=== PATIENT | male | born 1950 | race Caucasian/White ===

== ENCOUNTER 2021-05-02 12:18 | Outpatient (CLI) | payer MEDICARE, SELFPAY ==
--- NOTE | 2021-05-02 12:40 | XR_ITS ---
WS: [id number] XR chest 2V* [id number] REASON FOR EXAM: SMOKER/ACUTE BRONCHITIS/COPD FINDINGS: Moderate tortuosity of the thoracic aorta without aneurysmal dilatation. Normal heart size. Calcified granulomatous disease in both hemithoraces. There is hyperexpansion of both lungs with blunting of the costophrenic angles. There is expansion of the anterior clear space. There is upper lobe bullous disease bilaterally. No acute pulmonary parenchymal or pleural abnormality is identified. XR/XR chest 2V* [id number] IMPRESSION: Chest configuration indicates obstructive lung disease. This has progressed sin ce 02/11/2017. No acute findings are identified.
== END 2021-05-02 12:19 | disposition home or self-care (01) ==
LOC: RAD 12:25
PROVIDERS: PCP Family Medicine; Visit Provider Family Medicine
DX: J44.9 Chronic obstructive pulmonary disease, unspecified (principal); J20.9 Acute bronchitis, unspecified; F17.210 Nicotine dependence, cigarettes, uncomplicated
CPT/HCPCS: 71046

== ENCOUNTER 2022-02-19 08:48 | Inpatient (IN) | payer MEDICARE, SELFPAY ==
[2022-02-19] VITALS (14 sets, daily range): BP systolic 101–149; BP diastolic 69–92; PULSE 74–123; RESP 16–21; TEMP 36.7–37.2; O2SAT 89–98; BMI 19.1
--- NOTE | 2022-02-19 09:01 | XR_ITS ---
WS: [id number] XR chest 1V portable [id number] REASON FOR EXAM: dyspnea/cough FINDINGS: Mild tortuosity the thoracic aorta with normal heart size. Calcified granulomatous disease in both hemithoraces. The lungs are significantly hyperexpanded with bullous disease in the upper lungs. No acute pulmonary parenchymal or pleural abnormality is identified. Mild degenerative spondylosis in the mid and lower thoracic spine. The chest is unchanged compared to 05/02/2021. XR/XR chest 1V portable [id number] IMPRESSION: Presumed obstructive lung disease with no acute abnormality.
--- NOTE | 2022-02-19 09:10 | W.ED.SOB ---
HPI - SOB/Dyspnea General: Chief Complaint: Shortness of Breath/Dyspnea Stated Complaint: SOB Time Seen by Provider: 02/19/22 09:01 Source: patient Mode of arrival: EMS History of Present Illness: HPI Narrative: 71-year-old male presents to the emergency room with complaint of shortness of breath. Is been going on for the last 2 days it hurts to take a deep breath he said moderately productive cough of clear sputum denies dysuria urgency or frequency he relates right lower chest and rib pain that he states is due to his cough. Slight tenderness in right upper quadrant present when examining his abdomen, he relates it is due to right lower rib pain. He denies any central chest pain. Denies any fever sweats or chills no dysuria urgency or frequency. He normally is on oxygen at 3 L/min on arrival here he is correct up to 5 L/min by nasal cannula and I came in the room he still satting in the upper 80s increased him to 6 L. He did receive 1 nebulizer treatment from EMS with mild relief of symptoms MD elicited complaint: shortness of breath and cough Pertinent past history: COPD Onset (ago): day(s) (1) Timing: constant Severity: moderate Exacerbating factors: exertion, coughing and inspiration Relieving factors: rest and bronchodilators Known history of: COPD Associated symptoms: Reports chest congestion and cough; Deny abdominal pain, chest pain, diaphoresis, dizziness, extremity pain, fever(s), hemoptysis, lightheadedness, myalgias, nausea, orthopnea, palpitations, paresthesias, polydipsia, polyuria, rash, sense of impending doom, syncope or vomiting Treatment prior to arrival: oxygen and bronchodilator Review of Systems Const: Denies: fever(s), chills, fatigue, malaise or diaphoresis ENMT: Denies: throat pain, ear or mastoid pain, nasal discharge or nasal congestion Card: Denies: chest pain, palpitations, lightheadedness, syncope or orthopnea Resp: Reports: dyspnea, productive cough, wheezing and chest congestion; Denies: non-productive cough or hemoptysis GI: Denies: abdominal pain, nausea or vomiting : Denies: flank pain, dysuria, urinary frequency or urinary urgency Musc: Denies: back pain or extremity pain Skin/Breast: Denies: rash or pruritus Neuro: Denies: dizziness Endo: Denies: polyuria or polydipsia PFSH ED PFSH: Medical History (Updated 02/19/22 @ 15:06 by Eduin Parks DO) COPD (chronic obstructive pulmonary disease) COVID-19 (~08/2021) On home oxygen therapy 3L [facility] Surgical History (Updated 02/19/22 @ 13:48 by Barby Marcum MD) History of cataract surgery bilateral History of elbow surgery right, due to fracture History of right knee surgery History of surgery on right wrist due to fracture Family History (Updated 02/19/22 @ 13:37 by Barby Marcum MD) Grandmother Diabetes Mother Diabetes Social History (Updated 02/19/22 @ 13:26 by Barby Marcum MD) Smoking and tobacco status: current every day smoker cigarettes [ Other cigarette details: trying to quit cigarettes] and cigars Cigar details: trying to quit cigars Alcohol intake: never Substance/Drug Use: never Household members: spouse Marital status: Physical Exam Const: GENERAL APPEARANCE: cooperative and comfortable ORIENTATION/CONSCIOUSNESS: Yes awake, Yes oriented to person, Yes oriented to place and Yes oriented to time HENMT: COMMON NORMALS: normocephalic, atraumatic and hearing grossly normal bilaterally HEAD & SCALP: normocephalic and atraumatic Resp: COMMON NORMALS: normal respiratory effort, No retractions, No use of accessory muscles and clear to auscultation bilaterally AUSCULTATION: clear to auscultation bilaterally Cardio: COMMON NORMALS: regular rate, regular rhythm and No murmurs present (Cardio) RATE: regular rate RHYTHM: regular rhythm GI: COMMON NORMALS: Soft to palpation and No hepatosplenomegaly present AUSCULTATION: Yes normoactive bowel sounds PALPATION: Yes Soft to palpation, No Tenderness to palpation present (GI), No Guarding due to palpation present (GI) and Yes No hepatosplenomegaly present Extremity: COMMON NORMALS: normal to inspection, capillary refill normal, no clubbing, cyanosis or edema, no calf tenderness and no pedal edema Neuro: SENSORIUM/ORIENTATION: Yes oriented to person, Yes oriented to place and Yes oriented to time Skin: COMMON NORMALS: no rashes or lesions noted GENERAL SKIN EXAM: no rashes or lesions noted Course Vital Signs: Vital signs: Vital Signs Temperature 98.9 F 02/19/22 08:47 Pulse Rate 84 02/19/22 14:56 Respiratory Rate 16 02/19/22 14:56 Blood Pressure 117/73 02/19/22 14:56 Pulse Oximetry 97 02/19/22 14:56 Oxygen Delivery Me thod 02/19/22 11:54 Oxygen Flow Rate 5 02/19/22 11:54 MDM - SOB/Dyspnea Medical Decision Making He still requiring 5 to 6 L by oxygen is very poor air movement. He did improve a little with nebulizer and steroids will admit for exacerbation COPD. He has some mild lymphocytopenia we will add a COVID test as well and serial troponins although his chest pain seems more musculoskeletal. Medical Records I reviewed the patient's medical records. Lab Data I reviewed the patient's lab results. 02/19/22 11:15 02/19/22 11:15 Labs/Radiology: Radiology Impressions Chest X-Ray 02/19/22 09:01 IMPRESSION: Presumed obstructive lung disease with no acute abnormality. Chest CTA 02/19/22 14:18 IMPRESSION: 1. No evidence of pulmonary embolus. 2. No acute pulmonary infiltrates. 3. Trace RIGHT greater than LEFT pleural fluid. 4. No focal pneumonia or consolidation Laboratory Results WBC 11.0 10^3/uL (4.0-10.0) H 02/19/22 11:15 RBC 4.29 10^6/uL (4.1-5.3) 02/19/22 11:15 Hgb 14.5 g/dL (11.7-16.6) 02/19/22 11:15 Hct 42.8 % (42.0-52.0) 02/19/22 11:15 MCV 99.8 fl (80-94) H 02/19/22 11:15 MCH 33.8 pg (28.0-34.0) 02/19/22 11:15 MCHC 33.9 g/dL (30.0-36.0) 02/19/22 11:15 RDW 11.9 % (12.1-15.1) L 02/19/22 11:15 Plt Count 142 10^3/cmm (130-400) 02/19/22 11:15 MPV 11.7 fL (7.4-10.4) H 02/19/22 11:15 Neut % (Auto) 89.1 % 02/19/22 11:15 Lymph % (Auto) 3.0 % 02/19/22 11:15 Long % (Auto) 7.0 % 02/19/22 11:15 Eos % (Auto) 0.0 % 02/19/22 11:15 Baso % (Auto) 0.4 % 02/19/22 11:15 Neut # (Auto) 9.83 10^3/uL (1.8-7.7) H 02/19/22 11:15 Lymph # (Auto) 0.3 10^3/uL (0.8-4.8) L 02/19/22 11:15 Long # (Auto) 0.8 10^3/uL (0.2-0.9) 02/19/22 11:15 Eos # (Auto) 0.0 10^3/uL (0.0-0.8) 02/19/22 11:15 Baso # (Auto) 0.0 10^3/uL (0.0-0.1) 02/19/22 11:15 Nucleated RBC % (auto) 0 % 02/19/22 11:15 Nucleated RBCs # 0.0 /100WBC 02/19/22 11:15 D-Dimer 2.61 ug/mIFEU (0-0.59) H 02/19/22 13:12 Specimen Type Arterial 02/19/22 10:48 Sample Site Brachial, left 02/19/22 10:48 ABG pH 7.36 (7.35-7.45) 02/19/22 10:48 ABG pCO2 52.4 mmHg (35-45) H 02/19/22 10:48 ABG pO2 60.7 mmHg (80.0-100.0) L 02/19/22 10:48 ABG HCO3 29.4 mmol/L (22-26) H 02/19/22 10:48 ABG O2 Saturation 90.2 02/19/22 10:48 ABG Base Excess 2.6 mmol/L (-2.0-2.0) H 02/19/22 10:48 Carter Test Pos 02/19/22 10:48 A-a O2 Gradient 3.2 mmHg (5-10) L 02/19/22 10:48 Hematocrit 45.3 % (42-52) 02/19/22 10:48 Hgb O2 Saturation 88.3 % (95-100) L 02/19/22 10:48 Carboxyhemoglobin 1.5 %THgb (0.4-20.1) 02/19/22 10:48 Methemoglobin 0.6 % (0.4-1.5) 02/19/22 10:48 Total Hemoglobin 14.8 g/dL (14-18) 02/19/22 10:48 Sodium 134.0 mmol/L (131-143) 02/19/22 10:48 Potassium 4.0 mmol/L (3.5-5.0) 02/19/22 10:48 Glucose 130.0 mg/dL (70-115) H 02/19/22 10:48 Ionized Calcium 1.2 mmol/L (1.1-1.4) 02/19/22 10:48 O2 Delivery Device Nc 02/19/22 10:48 O2 Liters/Min 5.0 % 02/19/22 10:48 Resident Care Supervisor ID Cak 02/19/22 10:48 Sodium 132 mmol/L (136-145) L 02/19/22 11:15 Potassium 4.1 mmol/L (3.5-5.1) 02/19/22 11:15 Chloride 93 mmol/L (98-107) L 02/19/22 11:15 Carbon Dioxide 26 mmol/L (22-29) 02/19/22 11:15 Anion Gap 17.1 (5-19) 02/19/22 11:15 BUN 6 mg/dL (8-23) L 02/19/22 11:15 Creatinine 0.4 mg/dL (0.7-1.2) L 02/19/22 11:15 GFR Calculation 213.3 mL/min (90-130) H 02/19/22 11:15 Glucose 129 mg/dL (65-115) H 02/19/22 11:15 Calculated Osmolality 273 mOsm/kg (285-295) L 02/19/22 11:15 Calcium 8.9 mg/dL (8.5-10.5) 02/19/22 11:15 Total Bilirubin 0.6 mg/dL (0.15-1.2) 02/19/22 11:15 AST 18 U/L (0-40) 02/19/22 11:15 ALT 11 U/L (0-41) 02/19/22 11:15 Alkaline Phosphatase 72 U/L (40-130) 02/19/22 11:15 Troponin T Baseline 10 ng/L (0-15) 02/19/22 11:15 Troponin T 120 Minute 8.91 ng/L (0-15) 02/19/22 13:12 Delta Troponin T -1.09 ABS# (0-10) L 02/19/22 13:12 Total Protein 7.5 g/dL (6.6-8.7) 02/19/22 11:15 Albumin 3.8 g/dL (3.5-5.2) 02/19/22 11:15 Globulin 3.7 g/dL (1.3-4.6) 02/19/22 11:15 Procalcitonin 0.04 ng/mL (0-0.5) 02/19/22 11:15 Coronavirus 229E (PCR) Not detected (NOT DETECT) 02/19/22 12:52 SARS-CoV-2 (PCR) Not detected (NOT DETECT) 02/19/22 12:52 Discharge Plan Discharge Patient Disposition: Admitted As Inpatient Clinical Impression: Acute exacerbation of chronic obstructive airways disease, Pleuritic chest pain, On home oxygen therapy Condition: Stable Prescriptions: No Action albuterol sulfate 90 mcg/actuation HFA aerosol inhaler 2 puff INHALATION Q4H PRN (Reason: Shortness Of Breath Or Wheezing) Anoro Ellipta 62.5-25 mcg/actuation blister with device 1 inh INHALATION DAILY Referrals: Nando Green MD [Primary Care Provider] - Coding Level of Care Code ED Geospatial Developer for Chg Fwd Exam Detailed
--- NOTE | 2022-02-19 09:16 | ECG_ITS ---
[facility] Test Date: 2022-02-19 Pat Name: Markus Trimble Department: Room: Gender: Male Director Of Estate: : 1950 Requested By: Eduin Park Order Number: [id number] Fredy MD: Mehdi Funes M.D. Measurements Intervals [place] Rate: 119 P: 83 ND: 155 QRS: 128 QRSD: 89 T: 80 QT: 303 QTc: 428 Interpretive Statements SINUS TACHYCARDIA INDETERMINATE AXIS PATTERN CONSISTENT WITH PULMONARY DISEASE Compared to ECG 11/02/2016 12:10:34 No significant changes Electronically Signed On 02-19-2022 14:50:41 RN TRAVELING by Mehdi Funes M.D. [email or web address]
[2022-02-19] MEDS: ipratropium-albuterol 3 mL Neb INHALATION ×3 (09:44→21:15)
[2022-02-19 10:59] LABS: ABG PCO2 52.4 mmHg (35-45); ABG PH Result 7.36 (7.35-7.45); Alveolar-Arterial Oxygen Gradi 3.2 mmHg (5-10); Arterial Blood Gas Hematocrit 45.3 % (42-52); Base Excess ABG 2.6 mmol/L (-2.0-2.0); Blood Gas Allen Test Pos; Blood Gas Operator Identificat CAK; Blood Gas Sample Site Brachial, left; Blood Gas Sample Type Arterial; Carboxyhemoglobin 1.5 %THgb (0.4-20.1); HCO3 ABG 29.4 mmol/L (22-26); HGB O2 Sat 88.3 % (95-100); Ionized Calcium Level - ABG 1.2 mmol/L (1.1-1.4); Methemoglobin 0.6 % (0.4-1.5); Oxygen Device NC; Oxygen Saturation ABG 90.2; PO2 ABG 60.7 mmHg (80.0-100.0); Total Hemoglobin 14.8 g/dL (14-18)
[2022-02-19 11:42] LABS: Basophils % 0.4 %; Hematocrit 42.8 % (42.0-52.0); Hemoglobin 14.5 g/dL (11.7-16.6); Lymphocytes # 0.3 10^3/uL (0.8-4.8); Mean Corpuscular HGB Conc 33.9 g/dL (30.0-36.0); Mean Corpuscular Hemoglobin 33.8 pg (28.0-34.0); Mean Corpuscular Volume 99.8 fl (80-94); Mean Platelet Volume 11.7 fL (7.4-10.4); Monocytes # 0.8 10^3/uL (0.2-0.9); Neutrophils # 9.83 10^3/uL (1.8-7.7); Neutrophils % 89.1 %; Nucleated Red Blood Cells % 0 %; Platelet Count 142 10^3/cmm (130-400); Red Blood Count 4.29 10^6/uL (4.1-5.3); Red Cell Distribution Width 11.9 % (12.1-15.1)
[2022-02-19 11:58] LABS: Alanine Aminotransferase 11 U/L (0-41); Albumin Level 3.8 g/dL (3.5-5.2); Alkaline Phosphatase 72 U/L (40-130); Blood Urea Nitrogen 6 mg/dL (8-23); Calcium 8.9 mg/dL (8.5-10.5); Carbon Dioxide 26 mmol/L (22-29); Chloride 93 mmol/L (98-107); Globulin 3.7 g/dL (1.3-4.6); Glomerular Filtration Rate 213.3 mL/min (90-130); Glucose 129 mg/dL (65-115); Osmolality Calculated 273 mOsm/kg (285-295); Sodium 132 mmol/L (136-145); Total Bilirubin 0.6 mg/dL (0.15-1.2); Total Protein 7.5 g/dL (6.6-8.7)
[2022-02-19 11:59] LABS: Anion Gap 17.1 (5-19); Potassium 4.1 mmol/L (3.5-5.1)
[2022-02-19 12:00] LABS: Aspartate Amino Transferase 18 U/L (0-40)
--- NOTE | 2022-02-19 12:33 | ECG_ITS ---
[facility] Test Date: 2022-02-19 Pat Name: Markus Trimble Department: Room: Gender: Male Loadmaster: : 1950 Requested By: Eduin Park Order Number: [id number] Fredy MD: Mehdi Funes M.D. Measurements Intervals [place] Rate: 106 P: 81 KS: 150 QRS: 81 QRSD: 90 T: 82 QT: 323 QTc: 430 Interpretive Statements SINUS TACHYCARDIA INDETERMINATE AXIS PATTERN CONSISTENT WITH PULMONARY DISEASE Compared to ECG 02/19/2022 10:59:43 No significant changes Electronically Signed On 02-19-2022 14:51:50 FRONT END UI DEVELOPER by Mehdi Funes M.D. [id number]
--- NOTE | 2022-02-19 12:42 | P.HP_ITS ---
Providers/Chief Complaint Admitting Physician: Barby Marcum MD Primary Care Provider: Nando Green MD Chief Complaint: SOB History of Present Illness Markus Trimble is a 71 year old male with a history of COPD who presented to the emergency room with chief complaint of increasing difficulty breathing over the last several days. He started noticing increased work of breathing gradually worsening over the last few weeks. On he did not feel well. On Saturday after he started running a low-grade fever 100-101. 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 At baseline he is on approximately 3 L by nasal cannula of oxygen therapy. Sometime on Saturday to Saturday he started having a sharp knifelike pain in his right chest. He was having difficulty getting deep breaths because of this pain. He noticed that with exertion his oxygen saturations were dropping into the 50s at times. Saturations always drop with exertion but not usually that low. He has been having to rest more frequently and the last 24 hours or so has not really gotten up much due to difficulty breathing. Cough has been productive of greenish clear sputum. No blood has been noted. He thinks he is probably lost a few pounds while he has not felt well. Some posttussive emesis but no nausea or vomiting otherwise. No abdominal pain. No change in bowel function or bladder function. He has had notable wheezing. He has been using his Anoro Ellipta as well as albuterol inhaler. Has not noted significant improvement after using inhalers. No other abcl-gyu-zsmmzto medications recently. No known sick contacts. He did receive a flu shot last month. He has had a pneumonia shot within the last 5 years. He had COVID 4 to 6 months ago. He has noticed a change in his respiratory pattern since he had COVID particularly in terms of sputum production. No lower extremity edema or calf pain. In the emergency room he was requiring up to 6 L of oxygen by nasal cannula to maintain saturations. Chest x-ray did not show any acute infiltrates though there was evident hyperinflation and possibly some fluid in the lateral fissure. He received steroids and continuous breathing treatment in the emergency room. He is being admitted for further care. Last use of steroids by his recollection is late summer. No recent antibiotics. Review of Systems Const: Reports: fever(s), chills, body aches, change in weight (possible w eight loss), fatigue and malaise ENMT: Reports: other (pulled his own teeth, has a few left); Denies: throat pain Card: Reports: chest pain (right sided with inspiration and cough) and dyspnea on exertion; Denies: irregular heart rhythm, edema or orthopnea Resp: Reports: dyspnea, productive cough, non-productive cough, wheezing, pain on inspiration, change in phlegm color (greenish clear now, bubbly) and chest congestion (hard to get up); Denies: hemoptysis GI: Reports: vomiting (post-tussive only); Denies: abdominal pain, nausea, hematemesis or change in bowel habits : Denies: change in urine stream Musc: Reports: joint pain (right knee always bothers him some, prior surgery), muscle weakness and other (general aches and pains lately) Skin/Breast: Reports: dry skin Neuro: Reports: weakness in extremities (general) and difficulty walking (due to breathing); Denies: frequent falls Mau/Lymph: Denies: easy bleeding Medications/Allergies Home Medications Medication Instructions Recorded Confirmed Last Taken Type albuterol sulfate 90 mcg/actuation 2 puff inhalation Q4H PRN 02/19/22 02/19/22 02/18/22 History aerosol inhaler Shortness Of Breath Or Wheezing umeclidinium 62.5 mcg-vilanterol 1 inh inhalation DAILY 02/19/22 02/19/2202/18 History 25 mcg/actuation powdr for inhalation (Anoro Ellipta) Allergies Allergy/AdvReac Type Severity Reaction Status Date / Time No Known Allergies Allergy Verified 02/19/22 10:52 PFSH Acute PFSH: Medical History (Updated 02/19/22 @ 14:06 by Barby Marcum MD) COPD (chronic obstructive pulmonary disease) COVID-19 (~08/2021) On home oxygen therapy 3L [facility] Surgical History (Updated 02/19/22 @ 13:48 by Barby Marcum MD) History of cataract surgery bilateral History of elbow surgery right, due to fracture History of right knee surgery History of surgery on right wrist due to fracture Family History (Updated 02/19/22 @ 13:37 by Barby Marcum MD) Grandmother Diabetes Mother Diabetes Social History (Updated 02/19/22 @ 13:26 by Barby Marcum MD) Smoking and tobacco status: current every day smoker cigarettes [ Other cigarette details: trying to quit cigarettes] and cigars Cigar details: trying to quit cigars Alcohol intake: never Substance/Drug Use: never Household members: spouse Marital status: Vitals/I&O/Wt Last Vital Signs Temp 98.9 F 02/19/22 08:47 Pulse 78 02/19/22 11:54 Resp 20 H 02/19/22 09:46 BP 110/71 02/19/22 11:54 Pulse Ox 94 02/19/22 11:54 O2 Del Method 02/19/22 11:54 O2 Flow Rate 5 02/19/22 11:54 Weight last 48 hrs Weight 52.163 kg Physical Exam Narrative: Constitutional: Awake and alert, able to provide history, thin build, frequent paroxysms of coughing noted during examination HEENT: Normocephalic, pupils are equally reactive, extraocular movements are intact, nasopharynx is clear, oropharynx with moist mucous membranes, poor dentition, no posterior pharyngeal erythema Neck: Supple, no JVD Respiratory: Tachypnea, shallow respirations, guarding of right side of chest with cough and attempts at deep inspiration, wheezes throughout, no rales or rhonchi, right lateral chest is very tender to palpation between fifth and sixth ribs, reproducible on examination as the pain that he has been experiencing in his chest wall Cardiovascular: Distant heart sounds but regular, pulses equal at both radial and both posterior tibialis, no murmurs noted Abdomen: Soft, nontender, positive bowel sounds Extremities: No calf tenderness, no pitting edema, prominent patella bilaterally due to thin body habitus Skin: Dry, evidence of prior sun exposure, no large bruises or rashes Neuro: Speech clear, face symmetric, moves all extremities, no tremors Psych: Normal affect Data 02/19/22 11:15 02/19/22 11:15 Other Labs: Radiology Impressions Chest X-Ray 02/19/22 09:01 IMPRESSION: Presumed obstructive lung disease with no acute abnormality. Laboratory Results WBC 11.0 10^3/uL (4.0-10.0) H 02/19/22 11:15 RBC 4.29 10^6/uL (4.1-5.3) 02/19/22 11:15 Hgb 14.5 g/dL (11.7-16.6) 02/19/22 11:15 Hct 42.8 % (42.0-52.0) 02/19/22 11:15 MCV 99.8 fl (80-94) H 02/19/22 11:15 MCH 33.8 pg (28.0-34.0) 02/19/22 11:15 MCHC 33.9 g/dL (30.0-36.0) 02/19/22 11:15 RDW 11.9 % (12.1-15.1) L 02/19/22 11:15 Plt Count 142 10^3/cmm (130-400) 02/19/22 11:15 MPV 11.7 fL (7.4-10.4) H 02/19/22 11:15 Neut % (Auto) 89.1 % 02/19/22 11:15 Lymph % (Auto) 3.0 % 02/19/22 11:15 [place] % (Auto) 7.0 % 02/19/22 11:15 Eos % (Auto) 0.0 % 02/19/22 11:15 Baso % (Auto) 0.4 % 02/19/22 11:15 Neut # (Auto) 9.83 10^3/uL (1.8-7.7) H 02/19/22 11:15 Lymph # (Auto) 0.3 10^3/uL (0.8-4.8) L 02/19/22 11:15 [place] # (Auto) 0.8 10^3/uL (0.2-0.9) 02/19/22 11:15 Eos # (Auto) 0.0 10^3/uL (0.0-0.8) 02/19/22 11:15 Baso # (Auto) 0.0 10^3/uL (0.0-0.1) 02/19/22 11:15 Nucleated RBC % (auto) 0 % 02/19/22 11:15 Nucleated RBCs # 0.0 /100WBC 02/19/22 11:15 Specimen Type Arterial 02/19/22 10:48 Sample Site Brachial, left 02/19/22 10:48 ABG pH 7.36 (7.35-7.45) 02/19/22 10:48 ABG pCO2 52.4 mmHg (35-45) H 02/19/22 10:48 ABG pO2 60.7 mmHg (80.0-100.0) L 02/19/22 10:48 ABG HCO3 29.4 mmol/L (22-26) H 02/19/22 10:48 ABG O2 Saturation 90.2 02/19/22 10:48 ABG Base Excess 2.6 mmol/L (-2.0-2.0) H 02/19/22 10:48 Carter Test Pos 02/19/22 10:48 A-a O2 Gradient 3.2 mmHg (5-10) L 02/19/22 10:48 Hematocrit 45.3 % (42-52) 02/19/22 10:48 Hgb O2 Saturation 88.3 % (95-100) L 02/19/22 10:48 Carboxyhemoglobin 1.5 %THgb (0.4-20.1) 02/19/22 10:48 Methemoglobin 0.6 % (0.4-1.5) 02/19/22 10:48 Total Hemoglobin 14.8 g/dL (14-18) 02/19/22 10:48 Sodium 134.0 mmol/L (131-143) 02/19/22 10:48 Potassium 4.0 mmol/L (3.5-5.0) 02/19/22 10:48 Glucose 130.0 mg/dL (70-115) H 02/19/22 10:48 Ionized Calcium 1.2 mmol/L (1.1-1.4) 02/19/22 10:48 O2 Delivery Device Nc 02/19/22 10:48 O2 Liters/Min 5.0 % 02/19/22 10:48 Recovery Unit Operator ID Cak 02/19/22 10:48 Sodium 132 mmol/L (136-145) L 02/19/22 11:15 Potassium 4.1 mmol/L (3.5-5.1) 02/19/22 11:15 Chloride 93 mmol/L (98-107) L 02/19/22 11:15 Carbon Dioxide 26 mmol/L (22-29) 02/19/22 11:15 Anion Gap 17.1 (5-19) 02/19/22 11:15 BUN 6 mg/dL (8-23) L 02/19/22 11:15 Creatinine 0.4 mg/dL (0.7-1.2) L 02/19/22 11:15 GFR Calculation 213.3 mL/min (90-130) H 02/19/22 11:15 Glucose 129 mg/dL (65-115) H 02/19/22 11:15 Calculated Osmolality 273 mOsm/kg (285-295) L 02/19/22 11:15 Calcium 8.9 mg/dL (8.5-10.5) 02/19/22 11:15 Total Bilirubin 0.6 mg/dL (0.15-1.2) 02/19/22 11:15 AST 18 U/L (0-40) 02/19/22 11:15 ALT 11 U/L (0-41) 02/19/22 11:15 Alkaline Phosphatase 72 U/L (40-130) 02/19/22 11:15 Troponin T Baseline 10 ng/L (0-15) 02/19/22 11:15 Total Protein 7.5 g/dL (6.6-8.7) 02/19/22 11:15 Albumin 3.8 g/dL (3.5-5.2) 02/19/22 11:15 Globulin 3.7 g/dL (1.3-4.6) 02/19/22 11:15 Laboratory Tests 02/19/22 02/19/22 11:15 12:52 Procalcitonin Pending SARS-CoV-2 (PCR) Pending A&P Assessment and plan (1) COPD (chronic obstructive pulmonary disease): Acute on chronic COPD exacerbation. Reports some low-grade fevers a few days ago, not evident currently. General malaise and body aches. Significant dyspnea on exertion with hypoxemia noted. No definitive infiltrate on chest x-ray. Notable lateral fissure. White count 11,000 with lymphopenia and mild neutrophilia. Increased paroxysms of coughing with occasional posttussive emesis. Green sputum without any blood noted. Up-to-date on influenza and pneumonia vaccinations. Had COVID approximately 6 months ago. No known history of CHF or CAD. Qualifiers: COPD type: COPD with acute exacerbation Qualified Code(s): J44.1 - Chronic obstructive pulmonary disease with (acute) exacerbation (2) Pleuritic chest pain: Pain elicitable on examination consistent with musculoskeletal in nature from increased cough lately, less likely from other causes based on currently available information (3) Nicotine dependence, cigarettes, with other nicotine-induced disorders: Also smokes cigars at times. Reports wants to quit both cigarettes and cigars. Abstinent for about 5 days now. Plan Mild hyperglycemia after receiving steroids upon arrival to the emergency room; no history of diabetes Observation admission for now Systemic and inhaled steroids Breathing treatments Wean oxygen as able to home 3 L by nasal cannula Blood cultures Initiate oral doxycycline Flutter and incentive spirometer Follow-up pending respiratory viral panel Follow-up pending procalcitonin and D-dimer Continue serial cardiac enzymes Add BNP Monitor blood sugars PPI for GI prophylaxis Lovenox for DVT prophylaxis Monitor response to treatment and adjust plan of care accordingly Currently anticipate discharge home, possibly with a higher level of oxygen than usual home amount, and outpatient follow-up to primary care provider Dr. Srivastava Supportive care otherwise Findings, concerns and plans were discussed with patient and his and both were given an opportunity to ask questions Full code Attestations Medical Necessity Statement*: Currently anticipate a stay less than two midnights in this gentleman with known history of COPD on home oxygen presenting with exacerbation developing over the last few days. He has not been on any outpatient steroids or antibiotics. Hopefully he will have quick improvement with management as noted above. If he does not however may require transition to inpatient level of care. Coding Level of Care Code Acute Hydro Plant Site Manager for Trino Mcnulty Diagnoses COPD (chronic obstructive pulmonary disease) J44.1 COPD type: COPD with acute exacerbation Pleuritic chest pain R07.81 Nicotine dependence, cigarettes, with other nicotine-induced disorders F17.218
[2022-02-19 12:43] LABS: Troponin(5th) Baseline 10 ng/L (0-15)
[2022-02-19 13:39] LABS: Troponin 5 2HR 8.91 ng/L (0-15)
[2022-02-19 13:56] LABS: Troponin 5 2HR Delta -1.09 ABS# (0-10)
[2022-02-19 14:02] LABS: Procalcitonin 0.04 ng/mL (0-0.5)
[2022-02-19 14:11] LABS: D Dimer 2.61 ug/mIFEU (0-0.59)
--- NOTE | 2022-02-19 14:18 | CT_ITS ---
WS: [id number] CTA OF THE CHEST WITH PULMONARY EMBOLISM PROTOCOL TECHNIQUE: High-resolution contrast enhanced CTA of the chest with coronal and sagittal reformatted i mages with pulmonary embolism protocol. MIP images are also reviewed. CLINICAL INFORMATION: pleuritic chest pain, hypoxemia, elevated d dimer COMPARISON: None. DLP: 207.[address] scans at [facility] use at least one of these dose optimization techniques: automated e xposure control; mA and/or kV adjustment per patient size (includes targeted exams where dose is matc hed to clinical indication); or iterative reconstruction. FINDINGS: Proximal main pulmonary arteries are normal. Normal segmental and subsegmental pulmonary arteries. No evidence of pulmonary embolus. Moderate chronic emphysematous changes. Trace RIGHT greater than LEFT pleural fluid. No focal pneumon ia. Mild thoracic curve. Mild disc space narrowing the mid and lower thoracic spine. CT/CT angio chest PE protcl [id number] IMPRESSION: 1. No evidence of pulmonary embolus. 2. No acute pulmonary infiltrates. 3. Trace RIGHT greater than LEFT pleural fluid. 4. No focal pneumonia or consolidation
--- NOTE | 2022-02-19 14:26 | ECG_ITS ---
[facility] Test Date: 2022-02-19 Pat Name: Markus Trimble Department: Room: Gender: Male Treatment Supervisor: : 1950 Requested By: Eduin Park Order Number: [id number] Fredy MD: Mehdi Funes M.D. Measurements Intervals [place] Rate: 95 P: 85 NH: 150 QRS: 80 QRSD: 90 T: 83 QT: 341 QTc: 429 Interpretive Statements SINUS RHYTHM INDETERMINATE AXIS PATTERN CONSISTENT WITH PULMONARY DISEASE Compared to ECG 02/19/2022 12:33:03 Sinus tachycardia no longer present Electronically Signed On 02-20-2022 0:13:37 TICKET SORTER by Mehdi Funes M.D. [id number]
[2022-02-19] MEDS: iohexol 350 mg/mL 500 mL Btl (per mL) IV (14:40)
[2022-02-19 14:57] LABS: Adenovirus Not Detected (NOT DETECT); Chlamydia Pneumoniae Not Detected (NOT DETECT); Coronavirus 229E,HKU1,NL63,OC4 Not Detected (NOT DETECT); Human Metapneumovirus Not Detected (NOT DETECT); Human Rhinovirus/Enterovirus Not Detected (NOT DETECT); Influenza A Not Detected (NOT DETECT); Influenza A H1 Not Detected (NOT DETECT); Influenza A H1-2009 Not Detected (NOT DETECT); Influenza A H3 Not Detected (NOT DETECT); Influenza B Not Detected (NOT DETECT); Mycoplasma Pneumoniae Not Detected (NOT DETECT); Parainfluenza Virus Type 1 Not Detected (NOT DETECT); Parainfluenza Virus Type 2 Not Detected (NOT DETECT); Parainfluenza Virus Type 3 Not Detected (NOT DETECT); Parainfluenza Virus Type 4 Not Detected (NOT DETECT); Respiratory Syncytial Virus A Not Detected (NOT DETECT); Respiratory Syncytial Virus B Not Detected (NOT DETECT); SARS-COV-2 Not Detected (NOT DETECT)
[2022-02-19 17:49] LABS: Glucose Point of Care 221 mg/dL (70-110)
[2022-02-19] MEDS: doxycycline 100 mg Tablet PO (17:50)
[2022-02-19] MEDS: enoxaparin 40 mg/0.4 mL Syringe SUBCUT (17:50)
[2022-02-19] MEDS: sodium chlor 0.45% +KCl 20 mEq 20 MEQ/1,000 ML BAG 75 MEQ IV (17:50)
[2022-02-19 18:08] LABS: Troponin 5 6HR 7.98 ng/L (0-15)
--- NOTE | 2022-02-19 18:18 | PC.NURSE ---
Dr. Marcum notified patient refusing insulin.
[2022-02-19 18:21] LABS: Troponin 5 6HR Delta -2.02 ng/L (0-12)
--- NOTE | 2022-02-19 18:26 | ECG_ITS ---
[facility] Test Date: 2022-02-19 Pat Name: Markus Trimble Department: Room: 278 Gender: Male Consultant Dietitian: : 1950 Requested By: Eduin Park Order Number: [id number] Fredy MD: Roz Sawyer M.D. Measurements Intervals [place] Rate: 103 P: 84 HI: 155 QRS: 87 QRSD: 94 T: 80 QT: 333 QTc: 438 Interpretive Statements SINUS TACHYCARDIA INDETERMINATE AXIS Compared to ECG 02/19/2022 15:06:16 Sinus rhythm no longer present Electronically Signed On 02-20-2022 18:14:55 ETIOLOGIST by Roz Sawyer M.D. [id number]
[2022-02-19 20:29] LABS: Glucose Point of Care 252 mg/dL (70-110)
[2022-02-19] MEDS: budesonide 0.5 mg/2 mL Neb INHALATION (20:50)
[2022-02-19] MEDS: insulin lispro 100 unit/1 mL SUBCUT (21:35)
[2022-02-20] VITALS (13 sets, daily range): BP systolic 112–139; BP diastolic 63–81; PULSE 83–114; RESP 12–20; TEMP 36.4–36.8; O2SAT 92–96
[2022-02-20] MEDS: ipratropium-albuterol 3 mL Neb INHALATION ×6 (00:08→22:37)
[2022-02-20 06:30] LABS: Glucose Point of Care 209 mg/dL (70-110)
[2022-02-20 06:35] LABS: Basophils % 0.1 %; Hematocrit 41.8 % (42.0-52.0); Lymphocytes # 0.3 10^3/uL (0.8-4.8); Lymphocytes % 3.7 %; Mean Corpuscular HGB Conc 33.5 g/dL (30.0-36.0); Mean Corpuscular Hemoglobin 34.1 pg (28.0-34.0); Mean Corpuscular Volume 101.7 fl (80-94); Mean Platelet Volume 11.2 fL (7.4-10.4); Monocytes # 0.4 10^3/uL (0.2-0.9); Monocytes % 4.9 %; Neutrophils # 7.68 10^3/uL (1.8-7.7); Neutrophils % 90.9 %; Nucleated Red Blood Cells % 0 %; Platelet Count 145 10^3/cmm (130-400); Red Blood Count 4.11 10^6/uL (4.1-5.3); Red Cell Distribution Width 11.9 % (12.1-15.1); White Blood Count 8.4 10^3/uL (4.0-10.0)
[2022-02-20 06:47] LABS: Estmated Average Glucose 97
[2022-02-20 07:00] LABS: Anion Gap 14.2 (5-19); Blood Urea Nitrogen 10 mg/dL (8-23); Calcium 9.1 mg/dL (8.5-10.5); Carbon Dioxide 27 mmol/L (22-29); Chloride 98 mmol/L (98-107); Glomerular Filtration Rate 213.3 mL/min (90-130); Glucose 186 mg/dL (65-115); NT Pro B Type Natriuretic Pept 284 pg/mL (0-125); Osmolality Calculated 284 mOsm/kg (285-295); Phosphorus 2.5 mg/dL (2.5-4.5); Potassium 4.2 mmol/L (3.5-5.1); Sodium 135 mmol/L (136-145)
[2022-02-20 07:29] LABS: Slide Review Slide Review Perform
[2022-02-20] MEDS: doxycycline 100 mg Tablet PO ×2 (08:13→17:09)
[2022-02-20] MEDS: docusate sodium 100 mg Capsule PO (08:13)
[2022-02-20] MEDS: pantoprazole DR 40 mg Tablet PO (08:13)
[2022-02-20] MEDS: budesonide 0.5 mg/2 mL Neb INHALATION ×2 (10:00→22:36)
--- NOTE | 2022-02-20 11:47 | P.PN_ITS ---
Subjective Subjective: Patient was seen and examined this morning shortness of breath has improved since yesterday. Does states that he still has significant shortness of breath. Medications: Medication Review Details: Generic Name Dose Route Start Last Admin Trade Name Edmar PRN Reason Stop Dose Admin Albuterol/Ipratrop ium 3 ml 02/19/22 16:00 02/20/22 10:00 Ipratropium-Albu terol 3 Ml Neb INHALATION 3 ml Q4H.RESPIRATORY S CH Administration Budesonide 0.5 mg 02/19/22 20:00 02/20/22 10:00 Budesonide 0.5 M g/2 Ml Neb INHALATION 0.5 mg BID.RESPIRATORY S CH Administration Docusate Sodium 100 mg 02/19/22 18:00 02/20/22 08:13 Docusate Sodium 100 Mg Capsule PO 100 mg BID ALFIE Administration Doxycycline Monohy drate 100 mg 02/19/22 18:00 02/20/22 08:13 Doxycycline 100 Mg Tablet PO 100 mg BID ALFIE Administration Protocol Enoxaparin Sodium 40 mg 02/19/22 17:27 02/19/22 17:50 Enoxaparin 40 Mg /0.4 Ml Syringe SUBCUT 40 mg Q24H ALFIE Administration Insulin Human Lisp ro 0 unit 02/19/22 21:00 02/19/22 21:35 Insulin Lispro 1 00 Unit/1 Ml SUBCUT 3 unit BEDTIME ALFIE Administration Protocol Insulin Human Lisp ro 0 unit 02/19/22 18:00 02/20/22 08:48 Insulin Lispro 1 00 Unit/1 Ml SUBCUT Not Given TIDWM ALFIE Protocol Methylprednisolone Sodium Succinate 60 mg 02/19/22 17:27 02/20/22 05:04 Methylprednisolo ne Sod Succ 125 Mg /2 Ml Inj IVP 60 mg Q6H ALFIE Administration Pantoprazole Sodiu m 40 mg 02/20/22 09:00 02/20/22 08:[address] 40 Mg Tablet PO 40 mg DAILY ALFIE Administration Vitals/I&O/Wt Last Vital Signs Temp 97.9 F 02/20/22 08:00 Pulse 106 H 02/20/22 08:00 Resp 12 02/20/22 08:00 BP 128/76 02/20/22 08:00 Pulse Ox 92 02/20/22 08:00 O2 Del Method 02/20/22 08:00 O2 Flow Rate 4 02/20/22 08:00 02/19/22 02/20/22 02/20/22 22:59 06:59 14:59 Intake Total 720 / 720 1360 / 1360 Output Total 0 / 0 325 / 325 Balance 720 / 720 0 / 720 1035 / 1035 Weight last 48 hrs Weight 52.163 kg Physical Exam Const: COMMON NORMALS: patient oriented x3 Resp: EFFORT & INSPECTION: Yes symmetric chest movement OTHER: Bilateral expiratory wheezing present in both the lung lackey, diminished air entry bilaterally, prolonged expiratory phase. Cardio: COMMON NORMALS: regular rate, regular rhythm, S1 normal heart sound present, S2 normal heart sound present, No gallops present (Cardio), No murmurs present (Cardio), No rub (Cardio) and Peripheral pulses 2+ throughout RATE: regular rate RHYTHM: regular rhythm HEART SOUNDS: S1 normal heart sound present and S2 normal heart sound present PERIPHERAL PULSES: Peripheral pulses 2+ throughout GI: COMMON NORMALS: Normal to inspection, nondistended, normoactive bowel sounds present, Soft to palpation, non-tender, No hepatosplenomegaly present and no masses AUSCULTATION: Yes normoactive bowel sounds PALPATION: Yes Soft to palpation and Yes No hepatosplenomegaly present RECTAL EXAM: Yes deferred Extremity: COMMON NORMALS: no clubbing, cyanosis or edema and no pedal edema Neuro: COMMON NORMALS: patient oriented x3 Data 02/20/22 06:18 02/20/22 06:18 Micro: Microbiology 02/19/22 14:10 Blood Culture - Preliminary Blood SPECIMEN COLLECTED 02/19/22 14:16 Blood Culture - Preliminary Blood SPECIMEN COLLECTED A&P Assessment and plan (1) COPD (chronic obstructive pulmonary disease): Acute on chronic COPD exacerbation. Reports some low-grade fevers a few days ago, not evident currently. General malaise and body aches. Significant dyspnea on exertion with hypoxemia noted. No definitive infiltrate on chest x-ray. Notable lateral fissure. White count 11,000 with lymphopenia and mild neutrophilia. Increased paroxysms of coughing with occasional posttussive emesis. Green sputum without any blood noted. Up-to-date on influenza and pneumonia vaccinations. Had COVID approximately 6 months ago. No known history of CHF or CAD. Qualifiers: COPD type: COPD with acute exacerbation Qualified Code(s): J44.1 - Chronic obstructive pulmonary disease with (acute) exacerbation (2) Pleuritic chest pain: Pain elicitable on examination consistent with musculoskeletal in nature from increased cough lately, less likely from other causes based on currently available information (3) Nicotine dependence, cigarettes, with other nicotine-induced disorders: Also smokes cigars at times. Reports wants to quit both cigarettes and cigars. Abstinent for about 5 days now. Plan 71-year-old male with past medical history of COPD on 3 L home oxygen admitted with chief complaint of worsening shortness of breath going on for the last few days. Patient also reported significant drop in his o2 saturation with minimal exertion.Also reports productive cough with greenish sputum. Currently being managed for. Assessment: Acute on chronic COPD exacerbation: Pleuritic chest pain Plan: CTA chest: No evidence of pulmonary embolus.No acute pulmonary infiltrates.Trace RIGHT greater than LEFT pleural fluid. No focal pneumonia or consolidation. COVID PCR negative Procalcitonin 0.04 proBNP 284 Blood culture:NTD Sputum gram stain and culture Continue Solu-Medrol, duo nebs, budesonide inhaler, doxycycline. Incentive spirometer DVT prophylaxis: On Lovenox CODE STATUS : Full code Attestations Medical Necessity Statement*: Patient is still in hospital for management of COPD exacerbation. Time Spent in Patient Care: Greater than 35 minutes (>than 50% of time spent in counselling and/or direct pt care on unit) . Coding Level of Care Code Acute Manager Services for Trino Fwd Exam Detailed Diagnoses COPD (chronic obstructive pulmonary disease) J44.1 COPD type: COPD with acute exacerbation Pleuritic chest pain R07.81 Nicotine dependence, cigarettes, with other nicotine-induced disorders F17.218
--- NOTE | 2022-02-20 13:22 | PC.CHAP ---
Pastoral Care Encounter/Spiritual Assessment Type of Contact [] Declined line crewman visit [] Patient/Family/Request visit [] Outpatient visit [] Follow-up visit [] Physician referral [] Code/Alert [x] Routine visit [] Staff referral [] Actively dying [] Patient sleeping [] Family support [] [] Out of room [] Palliative care [] [] Receiving care in room [] Pre-surgical visit [] Trauma [] Long length of stay [] ICU visit [] Other: Relational/Emotional Strength [x] Patient feels connected with others/family/visitors/staff [] Distress [] Loneliness/isolation [] Abandonment Spirituality of Patient [x] Person of Marjan [x] Attends Latter-Day of their [place]jan [x] Believes in Prayer [x] Reads Bible or Moravian materials [] There are Spiritual issues to be addressed Rag Cutting Machine Feeder Interventions [x] Prayer [x] Active listening [] Non-anxious presence [x] Spiritual/emotional support [] Crisis/trauma care [] Spiritual counseling [] Bereavement support [] Provided bereavement packet [] Provided Bible/devotional materials [] Provided toy/stuffed animal, coloring book to patient or family member [] Provided Communion [] Anointing/[place] [] Salvation [x] Completed spiritual assessment [] Other: Impact on Illness or Injury [] Angry [] Fearful [] Anxious [] Often cries [] Exhaustion [] Unable to work [] Unable to attend taoist [] Unable to walk/stand [] Unable to read [] Unable to drive [] Unable to eat/drink [] Unable to sleep [] Unable to be with family [] Patient intubated [] Other: Summary Time spent with patient 10 min
[2022-02-20] MEDS: enoxaparin 40 mg/0.4 mL Syringe SUBCUT (17:09)
[2022-02-21] VITALS (12 sets, daily range): BP systolic 111–134; BP diastolic 67–78; PULSE 86–104; RESP 14–20; TEMP 36.4–36.7; O2SAT 92–99
[2022-02-21] MEDS: ipratropium-albuterol 3 mL Neb INHALATION ×6 (01:51→21:14)
[2022-02-21 06:02] LABS: Basophils % 0.2 %; Hematocrit 39.5 % (42.0-52.0); Lymphocytes # 0.4 10^3/uL (0.8-4.8); Lymphocytes % 3.3 %; Mean Corpuscular HGB Conc 32.9 g/dL (30.0-36.0); Mean Corpuscular Hemoglobin 33.4 pg (28.0-34.0); Mean Corpuscular Volume 101.5 fl (80-94); Mean Platelet Volume 11.1 fL (7.4-10.4); Monocytes # 0.7 10^3/uL (0.2-0.9); Monocytes % 5.1 %; Neutrophils # 11.67 10^3/uL (1.8-7.7); Neutrophils % 90.9 %; Nucleated Red Blood Cells % 0 %; Platelet Count 178 10^3/cmm (130-400); Red Blood Count 3.89 10^6/uL (4.1-5.3); Red Cell Distribution Width 11.9 % (12.1-15.1); White Blood Count 12.8 10^3/uL (4.0-10.0)
[2022-02-21 06:23] LABS: Anion Gap 11.9 (5-19); Blood Urea Nitrogen 13 mg/dL (8-23); Carbon Dioxide 30 mmol/L (22-29); Chloride 101 mmol/L (98-107); Glomerular Filtration Rate 297.3 mL/min (90-130); Glucose 167 mg/dL (65-115); Osmolality Calculated 292 mOsm/kg (285-295); Potassium 3.9 mmol/L (3.5-5.1); Sodium 139 mmol/L (136-145)
[2022-02-21 06:33] LABS: Glucose Point of Care 264 mg/dL (70-110)
[2022-02-21 06:34] LABS: Glucose Point of Care 192 mg/dL (70-110)
[2022-02-21 06:34] LABS: Glucose Point of Care 197 mg/dL (70-110)
[2022-02-21] MEDS: doxycycline 100 mg Tablet PO ×2 (07:54→17:43)
[2022-02-21] MEDS: pantoprazole DR 40 mg Tablet PO (07:54)
[2022-02-21] MEDS: budesonide 0.5 mg/2 mL Neb INHALATION ×2 (07:57→21:14)
--- NOTE | 2022-02-21 09:45 | USCV_ITS ---
Markus Trimble Age: 71 Gender: M : 1950 Exam Date: 02/21/2022 11:23 Ordering Phys: Jaya Tineo MD Technologist: ROMULO Exam Location: [facility] [place] Indication: SHORTNESS OF BREATH BP: 131 / 72 HR: 106 Rhythm: Sinus Technical Quality: Poor secondary to COPD MEASUREMENTS (Male / Female) Normal Values 2D ECHO LVOT Diameter 2.0 cm LA Diameter 2.5 cm Aorta at Sinotubular Diameter 2.6 cm IVC Diameter 0.9 cm M-MODE Aortic Annulus Diameter 2.9 cm LA Ao Ratio MM 0.9 MV E Point Septal Separation 0.4 cm DOPPLER TR Peak Velocity 275.0 cm/s TR Peak Gradient 30.3 mmHg Right Atrial Pressure 3.0 mmHg Pulmonary Artery Systolic Pressu 33.3 mmHg PV Peak Velocity 93.0 cm/s RV Acceleration Time 0.1 s RV Ejection Time 0.3 s RV AcT/ET 0.4 FINDINGS Left Ventricle Normal left ventricular cavity size. Normal left ventricular systolic function. Left ventricular ejection fraction is grossly estimated at 60 %. The study is inadequate for estimation of regional wall motion abnormality. Right Ventricle Possibly normal right ventricular size and systolic function. Right ventricular systolic pressure 33.3 mmHg. Right Atrium Right atrium not well visualized. Left Atrium Left atrium not well visualized. Possibly normal left atrial size. Mitral Valve Mild bowing of bilateral mitral leaflets. Aortic Valve Structurally normal trileaflet aortic valve. Tricuspid Valve Structurally normal tricuspid valve. No tricuspid valve stenosis. Trace to mild tricuspid valve regurgitation. Pulmonic Valve Structurally normal pulmonic valve. No pulmonary valve stenosis. Trace pulmonary valve regurgitation. Pericardium No pericardial effusion. Aorta Normal size aortic root and proximal ascending aorta. IVC Inferior vena cava not visualized. CONCLUSIONS 1. This is a technically difficult study with no apical windows. 2. Normal left ventricular cavity size. Normal left ventricular systolic function. Left ventricular ejection fraction is grossly estimated at 60 %. The study is inadequate for estimation of regional wall motion abnormality. 3. Mild bowing of bilateral mitral leaflets. 4. No prior similar studies to compare. Roz Sawyer MD (Electronically Signed) Final Date: 21 February 2022 15:01 S
--- NOTE | 2022-02-21 11:10 | P.PN_ITS ---
Subjective Subjective: Patient was seen and examined this morning shortness of breath is improving, also producing thick dark sputum. Patient is also persistently tachycardic, and is complaining of rib cage pain, denies any trauma. Possibly pleuritic chest pain. We will do 2D echo today, given his long smoking history and significant shortness of breath. Medications: Medication Review Details: Generic Name Dose Route Start Last Admin Trade Name Edmar PRN Reason Stop Dose Admin Albuterol/Ipratrop ium 3 ml 02/19/22 16:00 02/21/22 07:57 Ipratropium-Albu terol 3 Ml Neb INHALATION 3 ml Q4H.RESPIRATORY S CH Administration Budesonide 0.5 mg 02/19/22 20:00 02/21/22 07:57 Budesonide 0.5 M g/2 Ml Neb INHALATION 0.5 mg BID.RESPIRATORY S CH Administration Docusate Sodium 100 mg 02/19/22 18:00 02/21/22 07:55 Docusate Sodium 100 Mg Capsule PO Not Given BID [facility] Doxycycline Monohy drate 100 mg 02/19/22 18:00 02/21/22 07:54 Doxycycline 100 Mg Tablet PO 100 mg BID ALFIE Administration Protocol Enoxaparin Sodium 40 mg 02/19/22 17:27 02/20/22 17:09 Enoxaparin 40 Mg /0.4 Ml Syringe SUBCUT 40 mg Q24H ALFIE Administration Insulin Human Lisp ro 0 unit 02/19/22 21:00 02/20/22 21:18 Insulin Lispro 1 00 Unit/1 Ml SUBCUT Not Given BEDTIME ALFIE Protocol Insulin Human Lisp ro 0 unit 02/19/22 18:00 02/21/22 07:54 Insulin Lispro 1 00 Unit/1 Ml SUBCUT Not Given TIDWM [facility] Protocol Pantoprazole Sodiu m 40 mg 02/20/22 09:00 02/21/22 07:[address] 40 Mg Tablet PO 40 mg DAILY ALFIE Administration Vitals/I&O/Wt Last Vital Signs Temp 97.6 F 02/21/22 07:42 Pulse 98 02/21/22 08:02 Resp 18 02/21/22 07:57 BP 131/72 02/21/22 07:42 Pulse Ox 95 02/21/22 07:57 O2 Del Method 02/21/22 07:57 O2 Flow Rate 4 02/21/22 07:57 02/20/22 02/21/22 02/21/22 22:59 06:59 14:59 Intake Total 480 / 480 Output Total 750 / 1075 400 / 1475 Balance -750 / 525 -400 / 125 480 / 480 Physical Exam Const: COMMON NORMALS: patient oriented x3 Resp: EFFORT & INSPECTION: Yes symmetric chest movement OTHER: Bilateral expiratory wheezing present in both the lung lackey, diminished air entry bilaterally, prolonged expiratory phase. Cardio: COMMON NORMALS: regular rate, regular rhythm, S1 normal heart sound present, S2 normal heart sound present, No gallops present (Cardio), No murmurs present (Cardio), No rub (Cardio) and Peripheral pulses 2+ throughout RATE: regular rate RHYTHM: regular rhythm HEART SOUNDS: S1 normal heart sound present and S2 normal heart sound present PERIPHERAL PULSES: Peripheral pulses 2+ throughout GI: COMMON NORMALS: Normal to inspection, nondistended, normoactive bowel sounds present, Soft to palpation, non-tender, No hepatosplenomegaly present and no masses AUSCULTATION: Yes normoactive bowel sounds PALPATION: Yes Soft to palpation and Yes No hepatosplenomegaly present RECTAL EXAM: Yes deferred Extremity: COMMON NORMALS: no clubbing, cyanosis or edema and no pedal edema Neuro: COMMON NORMALS: patient oriented x3 Data 02/21/22 05:47 02/21/22 05:47 Micro: Microbiology 02/19/22 14:16 Blood Culture - Preliminary Blood NEGATIVE TO DATE 02/19/22 14:10 Blood Culture - Preliminary Blood NEGATIVE TO DATE A&P Assessment and plan (1) COPD (chronic obstructive pulmonary disease): Acute on chronic COPD exacerbation. Reports some low-grade fevers a few days ago, not evident currently. General malaise and body aches. Significant dyspnea on exertion with hypoxemia noted. No definitive infiltrate on chest x-ray. Notable lateral fissure. White count 11,000 with lymphopenia and mild neutrophilia. Increased paroxysms of coughing with occasional posttussive emesis. Green sputum without any blood noted. Up-to-date on influenza and pneumonia vaccinations. Had COVID approximately 6 months ago. No known history of CHF or CAD. Qualifiers: COPD type: COPD with acute exacerbation Qualified Code(s): J44.1 - Chronic obstructive pulmonary disease with (acute) exacerbation (2) Pleuritic chest pain: Pain elicitable on examination consistent with musculoskeletal in nature from increased cough lately, less likely from other causes based on currently available information (3) Nicotine dependence, cigarettes, with other nicotine-induced disorders: Also smokes cigars at times. Reports wants to quit both cigarettes and cigars. Abstinent for about 5 days now. Plan 71-year-old male with past medical history of COPD on 3 L home oxygen admitted with chief complaint of worsening shortness of breath going on for the last few days. Patient also reported significant drop in his o2 saturation with minimal exertion.Also reports productive cough with greenish sputum. Currently being managed for. Assessment: Acute on chronic COPD exacerbation: Pleuritic chest pain Plan: CTA chest: No evidence of pulmonary embolus.No acute pulmonary infiltrates.Trace RIGHT greater than LEFT pleural fluid. No focal pneumonia or consolidation. 2DEcho : COVID PCR negative Procalcitonin 0.04 proBNP 284 Blood culture:NTD Sputum gram stain and culture Continue Solu-Medrol, duo nebs, budesonide inhaler, doxycycline. Incentive spirometer DVT prophylaxis: On Lovenox CODE STATUS : Full code Attestations Medical Necessity Statement*: Patient is to be in hospital for management of COPD exacerbation. Coding Level of Care Code Acute Canoe Inspector Final for Trino Mcnulty Diagnoses COPD (chronic obstructive pulmonary disease) J44.1 COPD type: COPD with acute exacerbation Pleuritic chest pain R07.81 Nicotine dependence, cigarettes, with other nicotine-induced disorders F17.218
[2022-02-21 11:29] LABS: Glucose Point of Care 171 mg/dL (70-110)
[2022-02-21] MEDS: enoxaparin 40 mg/0.4 mL Syringe SUBCUT (17:42)
[2022-02-21 20:37] LABS: Glucose Point of Care 168 mg/dL (70-110)
[2022-02-21 20:37] LABS: Glucose Point of Care 159 mg/dL (70-110)
[2022-02-22] VITALS (7 sets, daily range): BP systolic 126–142; BP diastolic 75–81; PULSE 80–91; RESP 14–20; TEMP 36.4–36.7; O2SAT 94–97
--- NOTE | 2022-02-22 00:46 | PC.NURSE ---
Upon most recent rounding at 0046 the patient is becoming extremely confused and combative the patient stated You are trying to hurt my hand Latha,JERRY is sitting at bedside. This nurse reminded the patient to leave their bandage alone on their hand and she did not voice any understanding. Reinforcement is needed. Patient stated ' I had surgery a long time ago and does not remember having surgery. The bandage was rewrapped at this time.
[2022-02-22] MEDS: ipratropium-albuterol 3 mL Neb INHALATION ×3 (01:23→08:20)
[2022-02-22 05:26] LABS: Basophils % 0.1 %; Hematocrit 38.3 % (42.0-52.0); Hemoglobin 12.7 g/dL (11.7-16.6); Lymphocytes # 0.4 10^3/uL (0.8-4.8); Mean Corpuscular HGB Conc 33.2 g/dL (30.0-36.0); Mean Corpuscular Volume 102.4 fl (80-94); Mean Platelet Volume 10.7 fL (7.4-10.4); Monocytes # 0.5 10^3/uL (0.2-0.9); Monocytes % 5.3 %; Neutrophils # 9.21 10^3/uL (1.8-7.7); Neutrophils % 89.9 %; Nucleated Red Blood Cells % 0 %; Platelet Count 194 10^3/cmm (130-400); Red Blood Count 3.74 10^6/uL (4.1-5.3); Red Cell Distribution Width 11.9 % (12.1-15.1); White Blood Count 10.2 10^3/uL (4.0-10.0)
[2022-02-22 05:47] LABS: Anion Gap 9.1 (5-19); Blood Urea Nitrogen 14 mg/dL (8-23); Calcium 8.9 mg/dL (8.5-10.5); Carbon Dioxide 32 mmol/L (22-29); Chloride 99 mmol/L (98-107); Glomerular Filtration Rate 213.3 mL/min (90-130); Glucose 149 mg/dL (65-115); Osmolality Calculated 285 mOsm/kg (285-295); Potassium 4.1 mmol/L (3.5-5.1); Sodium 136 mmol/L (136-145)
[2022-02-22 07:19] LABS: Glucose Point of Care 147 mg/dL (70-110)
[2022-02-22] MEDS: doxycycline 100 mg Tablet PO (08:10)
[2022-02-22] MEDS: pantoprazole DR 40 mg Tablet PO (08:10)
[2022-02-22] MEDS: budesonide 0.5 mg/2 mL Neb INHALATION (08:20)
--- NOTE | 2022-02-22 10:25 | PC.NURSE ---
April is the first available appointment for Dr. Wynn since the patient is not established with his office.
--- NOTE | 2022-02-22 11:00 | P.DS_ITS ---
Discharge Providers Date of Admission: 02/20/22 14:16 Date of Discharge: February 22, 2022 Attending Provider at Admission: Barby Marcum MD Attending Provider at Discharge: Jaya Tineo MD Primary Care Provider: Nando Green MD Diagnoses at Discharge Discharge Diagnosis (1) COPD (chronic obstructive pulmonary disease): Status: Chronic Qualifiers: COPD type: COPD with acute exacerbation Qualified Code(s): J44.1 - Chronic obstructive pulmonary disease with (acute) exacerbation (2) Pleuritic chest pain: Status: Acute (3) Nicotine dependence, cigarettes, with other nicotine-induced disorders: Status: Chronic Reason for Visit Reason for Visit: SOB Hospital Course Hospital Course 71-year-old male with past medical history of COPD on 3 L home oxygen admitted with chief complaint of worsening shortness of breath going on for the last few days. Patient also reported significant drop in his o2 saturation with minimal exertion.Also reports productive cough with greenish sputum, he was admitted for the management of acute COPD exacerbation,CTA chest:?No evidence of pulmonary embolus.No acute pulmonary infiltrates.Trace RIGHT greater than LEFT pleural fluid. No focal pneumonia or consolidation. 2DEcho : Was a technically difficult study, assessment of RWMA was not possible , Normal left ventricular cavity size. Normal left ventricular, ?systolic function. Left ventricular ejection fraction is grossly estimated at 60 %.COVID PCR negative Procalcitonin 0.04, proBNP 284 , Blood culture: Negative. Patient was kept on IV steroid, duo nebs, budesonide inhaler, doxycycline, incentive spirometer flutter valve, supplemental oxygen as needed,overall patient was responding well to above medical management, though he still has shortness of breath with exertion, likely secondary to advanced progressive COPD. At the time of discharge he was requiring more or less his baseline oxygen, which is around 3 Ls, patient was discharged on p.o. prednisone as well azithromycin, he has been asked to follow with his primary care physician, as well as appointment has been made with pulmonary medicine as outpatient. Patient was also having pleuritic chest pain during the hospital stay, which had significantly improved at time of discharge. Overall patient responded well to above medical management and was discharged in stable condition to home. Physical Exam Const: COMMON NORMALS: patient oriented x3 Resp: EFFORT & INSPECTION: Yes symmetric chest movement OTHER: diminished air entry bilaterally, prolonged expiratory phase. Cardio: COMMON NORMALS: regular rate, regular rhythm, S1 normal heart sound present, S2 normal heart sound present, No gallops present (Cardio), No murmurs present (Cardio), No rub (Cardio) and Peripheral pulses 2+ throughout RATE: regular rate RHYTHM: regular rhythm HEART SOUNDS: S1 normal heart sound present and S2 normal heart sound present PERIPHERAL PULSES: Peripheral pulses 2+ throughout GI: COMMON NORMALS: Normal to inspection, nondistended, normoactive bowel sounds present, Soft to palpation, non-tender, No hepatosplenomegaly present and no masses AUSCULTATION: Yes normoactive bowel sounds PALPATION: Yes Soft to palpation and Yes No hepatosplenomegaly present RECTAL EXAM: Yes deferred Extremity: COMMON NORMALS: no clubbing, cyanosis or edema and no pedal edema Neuro: COMMON NORMALS: patient oriented x3 Discharge Data Studies Completed and Pending Completed Studies During Hospitalization Category Date Time Status CTA chest [CT angio chest PE protcl [id number]] Stat Cat Scan 02/19/22 14:18 Completed XR chest 1V portable [id number] Stat Exams 02/19/22 09:01 Completed CV. echo complete* [id number] Routine Ultrasound 02/21/22 09:45 Completed Pending at discharge Category Date Time Status BMP [Basic Metabolic Panel] AM LABS Lab 02/23/22 04:00 Ordered Blood Culture Stat Lab 02/19/22 14:10 Results CBC Auto Diff [Complete Blood Count w/Auto] AM LABS Lab 02/23/22 04:00 Ordered Sputum Culture and Gram Stain Routine Lab 02/19/22 17:27 Uncollected Radiology Impressions Chest X-Ray 02/19/22 09:01 IMPRESSION: Presumed obstructive lung disease with no acute abnormality. Chest CTA 02/19/22 14:18 IMPRESSION: 1. No evidence of pulmonary embolus. 2. No acute pulmonary infiltrates. 3. Trace RIGHT greater than LEFT pleural fluid. 4. No focal pneumonia or consolidation Laboratory Results WBC 10.2 10^3/uL (4.0-10.0) H 02/22/22 05:20 RBC 3.74 10^6/uL (4.1-5.3) L 02/22/22 05:20 Hgb 12.7 g/dL (11.7-16.6) 02/22/22 05:20 Hct 38.3 % (42.0-52.0) L 02/22/22 05:20 MCV 102.4 fl (80-94) H 02/22/22 05:20 MCH 34.0 pg (28.0-34.0) 02/22/22 05:20 MCHC 33.2 g/dL (30.0-36.0) 02/22/22 05:20 RDW 11.9 % (12.1-15.1) L 02/22/22 05:20 Plt Count 194 10^3/cmm (130-400) 02/22/22 05:20 MPV 10.7 fL (7.4-10.4) H 02/22/22 05:20 Neut % (Auto) 89.9 % 02/22/22 05:20 Lymph % (Auto) 4.0 % 02/22/22 05:20 [place] % (Auto) 5.3 % 02/22/22 05:20 Eos % (Auto) 0.0 % 02/22/22 05:20 Baso % (Auto) 0.1 % 02/22/22 05:20 Neut # (Auto) 9.21 10^3/uL (1.8-7.7) H 02/22/22 05:20 Lymph # (Auto) 0.4 10^3/uL (0.8-4.8) L 02/22/22 05:20 [place] # (Auto) 0.5 10^3/uL (0.2-0.9) 02/22/22 05:20 Eos # (Auto) 0.0 10^3/uL (0.0-0.8) 02/22/22 05:20 Baso # (Auto) 0.0 10^3/uL (0.0-0.1) 02/22/22 05:20 Nucleated RBC % (auto) 0 % 02/22/22 05:20 Nucleated RBCs # 0.0 /100WBC 02/22/22 05:20 D-Dimer 2.61 ug/mIFEU (0-0.59) H 02/19/22 13:12 Specimen Type Arterial 02/19/22 10:48 Sample Site Brachial, left 02/19/22 10:48 ABG pH 7.36 (7.35-7.45) 02/19/22 10:48 ABG pCO2 52.4 mmHg (35-45) H 02/19/22 10:48 ABG pO2 60.7 mmHg (80.0-100.0) L 02/19/22 10:48 ABG HCO3 29.4 mmol/L (22-26) H 02/19/22 10:48 ABG O2 Saturation 90.2 02/19/22 10:48 ABG Base Excess 2.6 mmol/L (-2.0-2.0) H 02/19/22 10:48 Carter Test Pos 02/19/22 10:48 A-a O2 Gradient 3.2 mmHg (5-10) L 02/19/22 10:48 Hematocrit 45.3 % (42-52) 02/19/22 10:48 Hgb O2 Saturation 88.3 % (95-100) L 02/19/22 10:48 Carboxyhemoglobin 1.5 %THgb (0.4-20.1) 02/19/22 10:48 Methemoglobin 0.6 % (0.4-1.5) 02/19/22 10:48 Total Hemoglobin 14.8 g/dL (14-18) 02/19/22 10:48 Sodium 134.0 mmol/L (131-143) 02/19/22 10:48 Potassium 4.0 mmol/L (3.5-5.0) 02/19/22 10:48 Glucose 130.0 mg/dL (70-115) H 02/19/22 10:48 Ionized Calcium 1.2 mmol/L (1.1-1.4) 02/19/22 10:48 O2 Delivery Device Nc 02/19/22 10:48 O2 Liters/Min 5.0 % 02/19/22 10:48 Clinical Laboratory Technician ID Cak 02/19/22 10:48 Sodium 136 mmol/L (136-145) 02/22/22 05:20 Potassium 4.1 mmol/L (3.5-5.1) 02/22/22 05:20 Chloride 99 mmol/L (98-107) 02/22/22 05:20 Carbon Dioxide 32 mmol/L (22-29) H 02/22/22 05:20 Anion Gap 9.1 (5-19) 02/22/22 05:20 BUN 14 mg/dL (8-23) 02/22/22 05:20 Creatinine 0.4 mg/dL (0.7-1.2) L 02/22/22 05:20 GFR Calculation 213.3 mL/min (90-130) H 02/22/22 05:20 Glucose 149 mg/dL (65-115) H 02/22/22 05:20 POC Glucose 147 mg/dL (70-110) H 02/22/22 06:22 Estimat Average Glucose 97 02/20/22 06:18 Hemoglobin A1c 5.0 % (4.0-6.0) 02/20/22 06:18 Calculated Osmolality 285 mOsm/kg (285-295) 02/22/22 05:20 Calcium 8.9 mg/dL (8.5-10.5) 02/22/22 05:20 Phosphorus 2.5 mg/dL (2.5-4.5) 02/20/22 06:18 Magnesium 2.0 mg/dL (1.7-2.3) 02/20/22 06:18 Total Bilirubin 0.6 mg/dL (0.15-1.2) 02/19/22 11:15 AST 18 U/L (0-40) 02/19/22 11:15 ALT 11 U/L (0-41) 02/19/22 11:15 Alkaline Phosphatase 72 U/L (40-130) 02/19/22 11:15 Troponin T Baseline 10 ng/L (0-15) 02/19/22 11:15 Troponin T 120 Minute 8.91 ng/L (0-15) 02/19/22 13:12 Delta Troponin T -1.09 ABS# (0-10) L 02/19/22 13:12 Troponin T Hi Sens 6Hr 7.98 ng/L (0-15) 02/19/22 17:18 Troponin T Hi Sens 6Hr Delta -2.02 ng/L (0-12) L 02/19/22 17:18 NT-Pro-B Natriuret Pep 284 pg/mL (0-125) H 02/20/22 06:18 Total Protein 7.5 g/dL (6.6-8.7) 02/19/22 11:15 Albumin 3.8 g/dL (3.5-5.2) 02/19/22 11:15 Globulin 3.7 g/dL (1.3-4.6) 02/19/22 11:15 Procalcitonin 0.04 ng/mL (0-0.5) 02/19/22 11:15 Coronavirus 229E (PCR) Not detected (NOT DETECT) 02/19/22 12:52 SARS-CoV-2 (PCR) Not detected (NOT DETECT) 02/19/22 12:52 Vitals Last Vital Signs Temp 98.0 F 02/22/22 08:00 Pulse 89 02/22/22 08:29 Resp 20 H 02/22/22 08:00 BP 142/81 02/22/22 08:00 Pulse Ox 94 02/22/22 08:00 O2 Del Method 02/22/22 08:00 O2 Flow Rate 4 02/22/22 08:00 Discharge Plan Discharge Patient Disposition: Home Condition: Stable Prescriptions: New azithromycin 500 mg tablet 500 mg PO DAILY 5 Days Qty: 5 0RF prednisone 20 mg tablet 40 mg PO DAILY 7 Days Qty: 7 0RF Continued albuterol sulfate 90 mcg/actuation HFA aerosol inhaler 2 puff INHALATION Q4H PRN (Reason: Shortness Of Breath Or Wheezing) Anoro Ellipta 62.5-25 mcg/actuation blister with device 1 inh INHALATION DAILY Discharge Orders: Discharge Order (Routine); Ordered 02/22/22 Ordered By: Jaya Tieno Referrals: JuanrOrtega MD [Physician] - 05/10/22 12:45 pm Nadno Green MD [Primary Care Provider] - 03/01/22 12:50 pm Patient Instructions: Prednisone (By mouth), Azithromycin (By mouth), COPD (Chronic Obstructive Pulmonary Disease) (DC), Opioid Safety Discharge Attestations Time Spent in Discharge Care*: less than 30 min Quality Metrics Clinical Quality Measures [ No reported AMI, CVA or VTE this stay] Coding Level of Care Code Acute Chg FW DC note Diagnoses COPD (chronic obstructive pulmonary disease) J44.1 COPD type: COPD with acute exacerbation Pleuritic chest pain R07.81 Nicotine dependence, cigarettes, with other nicotine-induced disorders F17.218
[2022-02-22 11:32] LABS: Glucose Point of Care 184 mg/dL (70-110)
--- NOTE | 2022-02-22 13:18 | PC.NURSE ---
Pt discharges facility at 1208 with spouse. IV out. Tele off. W/c down to private car. Discharge paperwork completed.
== END 2022-02-22 12:08 | disposition home or self-care (01) | DRG 192 ==
LOC: ER 15:06 → MEDSURG 17:36
PROVIDERS: Admitting Provider Hospitalist; Emergency Provider Family Medicine; PCP Family Medicine; Visit Provider Internal Medicine
DX: J44.1 Chronic obstructive pulmonary disease with (acute) exacerbation (principal); R73.9 Hyperglycemia, unspecified; T38.0X5A Adverse effect of glucocorticoids and synthetic analogues, initial encounter; Z99.81 Dependence on supplemental oxygen; Z86.16 Personal history of COVID-19; F17.210 Nicotine dependence, cigarettes, uncomplicated; R07.81 Pleurodynia
CPT/HCPCS: 36415; 36416; 36600; 71045; 71275; 80048; 80051; 80053; 82330; 82805; 82962; 83036; 83735; 83880; 84100; 84145; 84484; 85025; 85378; 87040; 87635; 93005; 93306; 94640; 96372; 96374; 99285; G0378; J1650; J1815; J2920; J2930; J3480; J7626; Q9967

== ENCOUNTER → 2022-05-02 13:54 | Outpatient (BNVA) | payer MEDICARE, SELFPAY | PROVIDERS: PCP Family Medicine; Visit Provider Internal Medicine Pulmonary Disease | DX: J44.1 Chronic obstructive pulmonary disease with (acute) exacerbation (principal); Z99.81 Dependence on supplemental oxygen; Z87.891 Personal history of nicotine dependence; R06.02 Shortness of breath | CPT/HCPCS: 99204 ==

== ENCOUNTER 2022-05-22 09:30 | Outpatient (CLI) | payer MEDICARE, SELFPAY ==
[2022-05-22 10:07] VITALS: PULSE 96; RESP 20; O2SAT 94
[2022-05-22] MEDS: albuterol 2.5 mg/3 mL Neb INHALATION (10:07)
[2022-05-22 10:12] VITALS: PULSE 105
== END 2022-05-22 09:31 | disposition home or self-care (01) ==
PROVIDERS: PCP Family Medicine; Visit Provider Internal Medicine Pulmonary Disease
DX: J44.1 Chronic obstructive pulmonary disease with (acute) exacerbation (principal)
CPT/HCPCS: 94060; 94618; 94726; 94729; J7613

== ENCOUNTER → 2022-06-29 10:38 | Outpatient (BNVA) | payer MEDICARE, SELFPAY | PROVIDERS: PCP Family Medicine; Visit Provider Internal Medicine Pulmonary Disease | DX: J44.1 Chronic obstructive pulmonary disease with (acute) exacerbation (principal); Z99.81 Dependence on supplemental oxygen; F17.298 Nicotine dependence, other tobacco product, with other nicotine-induced disorders | CPT/HCPCS: 99214 ==

== ENCOUNTER 2022-08-09 23:43 | Inpatient (IN) | payer MEDICARE, SELFPAY ==
[2022-08-09 23:45] VITALS: BP 134/82; PULSE 114; RESP 28; O2SAT 94; BMI 19.1
--- NOTE | 2022-08-09 23:49 | XRR_ITS ---
PROCEDURE INFORMATION: Exam: XR Chest Exam date and time: 08/09/2022 11:53 PM Age: 72 years old Clinical indication: Shortness of breath; Patient HX: C/O SOB. History of copd. TECHNIQUE: Imaging protocol: Radiologic exam of the chest. Views: 1 view. COMPARISON: CR XR chest 1V portable [id number] 02/19/2022 10:07 AM FINDINGS: Lungs: Emphysematous changes. Pleural spaces: Unremarkable. No pleural effusion. No pneumothorax. Heart/Mediastinum: Unremarkable. No cardiomegaly. Bones/joints: Unremarkable. XR/XR chest 1V portable [id number] IMPRESSION: Emphysematous changes, negative for infiltrate
[2022-08-09 23:52] VITALS: PULSE 119; RESP 26; O2SAT 83
--- NOTE | 2022-08-09 23:54 | ECG_ITS ---
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 Measurements Intervals [place] Rate: 113 P: 83 DC: 159 QRS: 229 QRSD: 93 T: 78 QT: 316 QTc: 434 Interpretive Statements SINUS TACHYCARDIA INDETERMINATE AXIS PATTERN CONSISTENT WITH PULMONARY DISEASE Compared to ECG 02/19/2022 18:39:01 No significant changes Electronically Signed On 08-11-2022 6:02:47 CDT by Roz Sawyer M.D. [id number]
--- NOTE | 2022-08-09 23:54 | W.ED.SOB ---
HPI - SOB/Dyspnea General: Chief Complaint: ER Hold Stated Complaint: SOB Time Seen by Provider: 08/09/22 23:47 Source: patient and EMS Mode of arrival: EMS Limitations: no limitations History of Present Illness: HPI Narrative: 72-year-old male has extensive history of COPD states he is short of breath all day getting much more short of breath at 1030 wears 3 L at baseline EMS states he was 87% on 3 L he is tachypneic here able speak in 3-4 word sentences. He received Solu-Medrol breathing treatment in route he states he has slight improvement still feels like he cannot get a breath then he denies any pain denies any fever denies any new cough. Associated symptoms: Deny abdominal pain, chest pain, fever(s), nausea or vomiting Review of Systems Const: Denies: fever(s), chills, body aches or change in appetite ENMT: Denies: throat pain or dental pain Card: Denies: chest pain Resp: Reports: dyspnea GI: Denies: abdominal pain, nausea, vomiting or diarrhea : Denies: dysuria Musc: Denies: neck pain or back pain Skin/Breast: Denies: rash Neuro: Denies: headache(s) PFSH ED PFSH: Medical History Acute exacerbation of chronic obstructive airways disease COPD (chronic obstructive pulmonary disease) COVID-19 (~08/2021) Nicotine dependence, cigarettes, with other nicotine-induced disorders On home oxygen therapy 3L BNC Pleuritic chest pain Surgical History History of cataract surgery bilateral History of elbow surgery right, due to fracture History of right knee surgery History of surgery on right wrist due to fracture Family History Grandmother Diabetes Mother Diabetes Social History Smoking and tobacco status: current some day smoker cigarettes [ Other cigarette details: a cigar or two sometimes] Quit status (tobacco): has quit using tobacco Year quit tobacco: 01/2022 Former quit date comment: 2 ppd X 51 years Alcohol intake: never Substance/Drug Use: never Household members: spouse Marital status: Physical Exam Const: COMMON NORMALS: patient oriented x3 GENERAL APPEARANCE: in distress and ill appearing HENMT: COMMON NORMALS: normocephalic and atraumatic HEAD & SCALP: normocephalic and atraumatic Eye: COMMON NORMALS: conjunctivae normal CONJUNCTIVA: Yes conjunctivae normal Neck/C-Spine: COMMON NORMALS: full ROM and supple Chest: COMMONS NORMALS: normal inspection of the chest and normal palpation of entire chest wall Resp: EFFORT & INSPECTION: Yes tachypneic, Yes respiratory distress and Yes labored AUSCULTATION: diminished lung sounds Cardio: COMMON NORMALS: regular rhythm and No murmurs present (Cardio) RATE: tachycardic RHYTHM: regular rhythm GI: COMMON NORMALS: Normal to inspection, nondistended, normoactive bowel sounds present, Soft to palpation, non-tender and no masses PALPATION: Yes Soft to palpation Extremity: COMMON NORMALS: normal to inspection and full ROM Neuro: COMMON NORMALS: patient oriented x3, moves all extremities and no focal motor deficits Psych: COMMON NORMALS: mental status grossly normal, Normal thought process present and cooperative THOUGHT PROCESS: Normal thought process present Skin: COMMON NORMALS: no rashes or lesions noted and no wounds GENERAL SKIN EXAM: no rashes or lesions noted Course Vital Signs: Vital signs: Vital Signs Pulse Rate 90 08/10/22 01:21 Respiratory Rate 15 08/10/22 01:21 Blood Pressure 102/73 08/10/22 01:00 Pulse Oximetry 98 08/10/22 01:59 Oxygen Delivery Me thod Nasal Cannula 08/10/22 01:21 Oxygen Flow Rate 6 08/10/22 01:21 Fraction of Inspir ed Oxygen 30 08/10/22 01:59 MDM - SOB/Dyspnea Medical Decision Making Patient presents here with COPD exacerbation with respiratory failure with hypercapnia. He is improving here on BiPAP he is much more comfortable no signs of pneumonia I spoke to the hospitalist will admit at this time. Differential Diagnosis Likely acute exacerbation of chronic obstructive airways disease Medical Records I reviewed the patient's medical records. Lab Data I reviewed the patient's lab results. 08/09/22 23:55 08/09/22 23:55 Labs/Radiology: Radiology Impressions Chest X-Ray 08/09/22 23:49 IMPRESSION: Emphysematous changes, negative for infiltrate Laboratory Results WBC 9.2 10^3/uL (4.0-10.0) 08/09/22 23:55 RBC 4.58 10^6/uL (4.1-5.3) 08/09/22 23:55 Hgb 14.7 g/dL (11.7-16.6) 08/09/22 23:55 Hct 44.8 % (42.0-52.0) 08/09/22 23: MCV 97.8 fl (80-94) H 08/09/22 23:55 MCH 32.1 pg (28.0-34.0) 08/09/22 23: MCHC 32.8 g/dL (30.0-36.0) 08/09/22 23: RDW 12.2 % (12.1-15.1) 08/09/22 23:55 Plt Count 170 10^3/cmm (130-400) 08/09/22 23: MPV 11.5 fL (7.4-10.4) H 08/09/22 23:55 Neut % (Auto) 58.5 % 08/09/22 23:55 Lymph % (Auto) 29.5 % 08/09/22 23:55 [place] % (Auto) 10.3 % 08/09/22 23:55 Eos % (Auto) 1.1 % 08/09/22 23:55 Baso % (Auto) 0.4 % 08/09/22 23:55 Neut # (Auto) 5.38 10^3/uL (1.8-7.7) 08/09/22 23: Lymph # (Auto) 2.7 10^3/uL (0.8-4.8) 08/09/22 23:55 [place] # (Auto) 1.0 10^3/uL (0.2-0.9) H 08/09/22 23:55 Eos # (Auto) 0.1 10^3/uL (0.0-0.8) 08/09/22 23:55 Baso # (Auto) 0.0 10^3/uL (0.0-0.1) 08/09/22 23:55 Nucleated RBC % (auto) 0 % 08/09/22 23: Nucleated RBCs # 0.0 /100WBC 08/09/22 23:55 Specimen Type Arterial 08/10/22 01:46 Sample Site Brachial, right 08/10/22 01:46 ABG pH 7.32 (7.35-7.45) L 08/10/22 01:46 ABG pCO2 61.4 mmHg (35-45) H* 08/10/22 01:46 ABG pO2 73.4 mmHg (80.0-100.0) L 08/10/22 01:46 ABG HCO3 31.5 mmol/L (22-26) H 08/10/22 01:46 ABG Base Excess 3.5 mmol/L (-2.0-2.0) H 08/10/22 01:46 Carter Test Pos 08/10/22 01:46 Hematocrit 44.1 % (42-52) 08/10/22 01:46 O2 Delivery Device Nc 08/10/22 01:46 O2 Liters/Min 3.0 % 08/10/22 01:46 FiO2 3.5 % 08/09/22 00:04 Loss Prevention/Safety District Manager ID [email or web address] 08/10/22 01:46 Sodium 134 mmol/L (136-145) L 08/09/22 23:55 Potassium 4.2 mmol/L (3.5-5.1) 08/09/22 23:55 Chloride 93 mmol/L (98-107) L 08/09/22 23:55 Carbon Dioxide 29 mmol/L (22-29) 08/09/22 23:55 Anion Gap 16.2 (5-19) 08/09/22 23:55 BUN 8 mg/dL (8-23) 08/09/22 23:55 Creatinine 0.5 mg/dL (0.7-1.2) L 08/09/22 23:55 GFR Calculation 164.4 mL/min (90-130) H 08/09/22 23:55 Glucose 90 mg/dL (65-115) 08/09/22 23:55 Calculated Osmolality 276 mOsm/kg (285-295) L 08/09/22 23:55 Calcium 8.4 mg/dL (8.5-10.5) L 08/09/22 23:55 Total Bilirubin 0.3 mg/dL (0.15-1.2) 08/09/22 23:55 AST 30 U/L (0-40) 08/09/22 23:55 ALT 17 U/L (0-41) 08/09/22 23:55 Alkaline Phosphatase 75 U/L (40-130) 08/09/22 23:55 Troponin T Baseline 21 ng/L (0-15) H 08/09/22 23:55 NT-Pro-B Natriuret Pep 119 pg/mL (0-125) 08/09/22 23:55 Total Protein 7.5 g/dL (6.6-8.7) 08/09/22 23:55 Albumin 4.2 g/dL (3.5-5.2) 08/09/22 23:55 Globulin 3.3 g/dL (1.3-4.6) 08/09/22 23:55 EKG Data EKG 1: I personally reviewed and interpreted this EKG as follows: EKG Interpretation Date: 08/09/22 EKG interpretation time: 23:54 Interpretation: sinus tach hr [address] or t wave abnormalities qrs 93 qtc 383 Critical Care Time Critical Care Time: Critical Care Time: Yes Total Critical Care Time: 45 Attestation: The high probability of a clinically significant, sudden or life threatening deterioration of the patient's resp system(s) required my full and direct attention, intervention and personal management. The critical care time is as shown. This time is in addition to time spent performing any reported procedures but includes the following: [x] Data and vital sign review and interpretation [x] Patient assessment, examination and intervention [x] Documentation [x] Medication orders and management Discharge Plan Discharge Patient Disposition: Admitted As Inpatient Admit Provider: Shona Gibbs Clinical Impression: Acute exacerbation of chronic obstructive airways disease, Acute hypercapnic respiratory failure Condition: Stable Coding Level of Care Code ED Fast Food Crew Lead for Chg Pricila
[2022-08-10] VITALS (23 sets, daily range): BP systolic 92–150; BP diastolic 61–83; PULSE 78–116; RESP 14–29; TEMP 36.1–36.8; O2SAT 93–100
[2022-08-10 00:01] LABS: Basophils % 0.4 %; Eosinophils # 0.1 10^3/uL (0.0-0.8); Eosinophils % 1.1 %; Hematocrit 44.8 % (42.0-52.0); Hemoglobin 14.7 g/dL (11.7-16.6); Lymphocytes # 2.7 10^3/uL (0.8-4.8); Lymphocytes % 29.5 %; Mean Corpuscular HGB Conc 32.8 g/dL (30.0-36.0); Mean Corpuscular Hemoglobin 32.1 pg (28.0-34.0); Mean Corpuscular Volume 97.8 fl (80-94); Mean Platelet Volume 11.5 fL (7.4-10.4); Monocytes % 10.3 %; Neutrophils # 5.38 10^3/uL (1.8-7.7); Neutrophils % 58.5 %; Nucleated Red Blood Cells % 0 %; Platelet Count 170 10^3/cmm (130-400); Red Blood Count 4.58 10^6/uL (4.1-5.3); Red Cell Distribution Width 12.2 % (12.1-15.1); White Blood Count 9.2 10^3/uL (4.0-10.0)
[2022-08-10] MEDS: albuterol 2.5 mg/3 mL Neb 5 MG INHALATION (00:01)
[2022-08-10 00:12] LABS: ABG PH Result 7.27 (7.35-7.45); Arterial Blood Gas Hematocrit 45.6 % (42-52); Base Excess ABG 3.3 mmol/L (-2.0-2.0); Blood Gas Allen Test Pos; Blood Gas Sample Type Arterial; HCO3 ABG 32.8 mmol/L (22-26); PO2 ABG 62.6 mmHg (80.0-100.0)
[2022-08-10 00:13] LABS: Blood Gas Sample Site Brachial, right; Fractionated Inspired Oxygen 3.5 %; Oxygen Device NC
[2022-08-10] MEDS: magnesium sulfate premix 2 GM/50 ML PIGGYBACK IV (00:18)
[2022-08-10 00:31] LABS: Troponin(5th) Baseline 21 ng/L (0-15)
[2022-08-10 00:40] LABS: Alanine Aminotransferase 17 U/L (0-41); Albumin Level 4.2 g/dL (3.5-5.2); Alkaline Phosphatase 75 U/L (40-130); Anion Gap 16.2 (5-19); Aspartate Amino Transferase 30 U/L (0-40); Blood Urea Nitrogen 8 mg/dL (8-23); Calcium 8.4 mg/dL (8.5-10.5); Carbon Dioxide 29 mmol/L (22-29); Chloride 93 mmol/L (98-107); Globulin 3.3 g/dL (1.3-4.6); Glomerular Filtration Rate 164.4 mL/min (90-130); Glucose 90 mg/dL (65-115); NT Pro B Type Natriuretic Pept 119 pg/mL (0-125); Osmolality Calculated 276 mOsm/kg (285-295); Potassium 4.2 mmol/L (3.5-5.1); Sodium 134 mmol/L (136-145); Total Bilirubin 0.3 mg/dL (0.15-1.2); Total Protein 7.5 g/dL (6.6-8.7)
--- NOTE | 2022-08-10 01:50 | ECG_ITS ---
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 Measurements Intervals [place] Rate: 89 P: 146 NE: 155 QRS: 10 QRSD: 104 T: 113 QT: 359 QTc: 439 Interpretive Statements ECTOPIC ATRIAL RHYTHM LOW QRS VOLTAGE IN EXTREMITY LEADS [QRS DEFLECTION < 0.5 mV IN LIMB LEADS] MINIMAL ST DEPRESSION [0.025+ mV ST DEPRESSION] ABNORMAL QRS-T ANGLE [QRS-T AXIS DIFFERENCE > 60] Compared to ECG 08/09/2022 23:54:28 Ectopic atrial rhythm now present Low QRS voltage now present ST (T wave) deviation now present Sinus tachycardia no longer present Indeterminate axis no longer present Electronically Signed On 08-11-2022 6:50:10 CDT by Roz Sawyer M.D. [id number]
[2022-08-10 02:04] LABS: Troponin 5 2HR 18.39 ng/L (0-15)
[2022-08-10 02:15] LABS: Blood Gas LPM 3.5 %
[2022-08-10 02:23] LABS: Troponin 5 2HR Delta -2.61 ABS# (0-10)
--- NOTE | 2022-08-10 05:30 | P.HP_ITS ---
Providers/Chief Complaint Admitting Physician: Shona Gibbs MD Primary Care Provider: Nando Green MD Chief Complaint: SOB History of Present Illness Markus Trimble is a 72 year old male with a past medical history of COPD who is presenting to the hospital today with chief complaints of worsening dyspnea and cough over the past 1 week. He has had increased sputum production. Denies any chest pain. Denies palpitations or syncope. Patient is typically on 2 to 3 L/min supplemental O2. Upon arrival he was noted to have increased oxygen requirement of 6 L/min and ABG showed evidence of hypoxic hypercapnic respiratory failure for which she needed to be placed on BiPAP. Patient continues to be on BiPAP at this time. ABGs serially improving and patient is having symptomatic improvement. He continues to have significant wheezing on exam currently. He denies any fever or chills over the past few days. Review of Systems General: Reports: 10 or more systems reviewed and unremarkable except in HPI and below Const: Denies: fever(s), chills or body aches Eyes: Denies: change in vision, blurry vision or photophobia ENMT: Reports: hoarseness; Denies: throat pain, enlarged tonsils, odynophagia or nasal congestion Card: Denies: chest pain, palpitations, irregular heart rhythm, edema, swelling of feet/ankles, lightheadedness, pre-syncope, dyspnea on exertion or orthopnea Resp: Denies: dyspnea, productive cough, non-productive cough, wheezing, stridor, pain on inspiration, change in phlegm color, hemoptysis or chest congestion GI: Denies: abdominal pain, nausea, vomiting, hematemesis, coffee ground emesis, dysphagia, heartburn, diarrhea, constipation, GI cramping, change in stool character, hematochezia or melena : Denies: flank pain, dysuria, urinary frequency, urinary urgency, urinary hesitancy or hematuria Musc: Denies: neck pain, back pain, extremity pain, joint swelling, joint warmth or deformity Neuro: Denies: headache(s), numbness in extremities, weakness in extremities, sensory changes, difficulty walking, frequent falls, dizziness, vertigo, behavioral changes, Slurred speech present or seizure-like activity Psych: Denies: anxiety, depression, suicidal ideation or homicidal ideation Endo: Denies: polyuria, polydipsia, tired all the time, cold intolerance or hot flashes Mau/Lymph: Denies: easy bruising or easy bleeding Medications/Allergies Home Medications Medication Instructions Recorded Confirmed Last Taken Type ipratropium 0.5 mg-albuterol 3 mg 3 ml inhalation Q6H PRN wheezing 06/29/22 08/10/22 Unknown Rx (2.5 mg base)/3 mL nebulization #90 mL soln fluticasone fur. 100 mcg-umeclid 1 inh inhalation DAILY #60 ea 08/08/22 08/10/22 Unknown Rx 62.5 mcg-vilant 25 mcg inhalat.powder (Trelegy Ellipta) ipratropium 20 mcg-albuterol 100 1 puff inhalation Q6H PRN 08/08/22 08/10/22 Unknown Rx mcg/actuation mist for inhalation shortness of breath or wheezing #4 (Combivent Respimat) grams Allergies Allergy/AdvReac Type Severity Reaction Status Date / Time No Known Allergies Allergy Verified 08/10/22 01:21 PFSH Acute PFSH: Medical History Acute exacerbation of chronic obstructive airways disease COPD (chronic obstructive pulmonary disease) COVID-19 (~08/2021) Nicotine dependence, cigarettes, with other nicotine-induced disorders On home oxygen therapy 3L [facility] Pleuritic chest pain Surgical History History of cataract surgery bilateral History of elbow surgery right, due to fracture History of right knee surgery History of surgery on right wrist due to fracture Family History Grandmother Diabetes Mother Diabetes Social History Smoking and tobacco status: current some day smoker cigarettes [ Other cigarette details: a cigar or two sometimes] Quit status (tobacco): has quit using tobacco Year quit tobacco: 01/2022 Former quit date comment: 2 ppd X 51 years Alcohol intake: never Substance/Drug Use: never Household members: spouse Marital status: Vitals/I&O/Wt Last Vital Signs Temp 97.5 F L 08/10/22 02:12 Pulse 83 08/10/22 04:00 Resp 16 08/10/22 04:00 BP 92/62 08/10/22 04:00 Pulse Ox 95 08/10/22 04:00 O2 Del Method BiPAP 08/10/22 04:00 O2 Flow Rate 6 08/10/22 01:21 FiO2 30 08/10/22 01:59 08/09/22 08/09/22 08/10/22 14:59 22:59 06:59 Intake Total 50 / 50 Output Total 250 / 250 Balance -200 / -200 Weight last 48 hrs Weight 52.163 kg Physical Exam Narrative: General: No acute distress, AO x3 HEENT: PERRLA, pupils bilaterally equal and reactive, pallors not present Chest: Normal vesicular breath sounds, no added sounds, equal good air entry bilaterally CVS: S1-S2 regular, no murmurs, no tachycardia, no gallops, no rubs Abdomen: Soft, nontender, no organomegaly, bowel sounds present Neuro: No focal deficits, no facial deformity, AO x3, power 5/5 in all limbs Data 08/09/22 23:55 08/09/22 23:55 Other Labs: Radiology Impressions Chest X-Ray 08/09/22 23:49 IMPRESSION: Emphysematous changes, negative for infiltrate Laboratory Results WBC 9.2 10^3/uL (4.0-10.0) 08/09/22 23:55 RBC 4.58 10^6/uL (4.1-5.3) 08/09/22 23:55 Hgb 14.7 g/dL (11.7-16.6) 08/09/22 23:55 Hct 44.8 % (42.0-52.0) 08/09/22 23:55 MCV 97.8 fl (80-94) H 08/09/22 23:55 MCH 32.1 pg (28.0-34.0) 08/09/22 23:55 MCHC 32.8 g/dL (30.0-36.0) 08/09/22 23:55 RDW 12.2 % (12.1-15.1) 08/09/22 23:55 Plt Count 170 10^3/cmm (130-400) 08/09/22 23:55 MPV 11.5 fL (7.4-10.4) H 08/09/22 23:55 Neut % (Auto) 58.5 % 08/09/22 23:55 Lymph % (Auto) 29.5 % 08/09/22 23:55 Grainger % (Auto) 10.3 % 08/09/22 23:55 Eos % (Auto) 1.1 % 08/09/22 23:55 Baso % (Auto) 0.4 % 08/09/22 23:55 Neut # (Auto) 5.38 10^3/uL (1.8-7.7) 08/09/22 23:55 Lymph # (Auto) 2.7 10^3/uL (0.8-4.8) 08/09/22 23:55 Grainger # (Auto) 1.0 10^3/uL (0.2-0.9) H 08/09/22 23:55 Eos # (Auto) 0.1 10^3/uL (0.0-0.8) 08/09/22 23:55 Baso # (Auto) 0.0 10^3/uL (0.0-0.1) 08/09/22 23:55 Nucleated RBC % (auto) 0 % 08/09/22 23:55 Nucleated RBCs # 0.0 /100WBC 08/09/22 23:55 D-Dimer 1.14 ug/mIFEU (0-0.59) H 08/09/22 23:58 Specimen Type Arterial 08/10/22 01:46 Sample Site Brachial, right 08/10/22 01:46 ABG pH 7.32 (7.35-7.45) L 08/10/22 01:46 ABG pCO2 61.4 mmHg (35-45) H* 08/10/22 01:46 ABG pO2 73.4 mmHg (80.0-100.0) L 08/10/22 01:46 ABG HCO3 31.5 mmol/L (22-26) H 08/10/22 01:46 ABG Base Excess 3.5 mmol/L (-2.0-2.0) H 08/10/22 01:46 Carter Test Pos 08/10/22 01:46 Hematocrit 44.1 % (42-52) 08/10/22 01:46 O2 Delivery Device Nc 08/10/22 01:46 O2 Liters/Min 3.0 % 08/10/22 01:46 FiO2 3.5 % 08/09/22 00:04 Medical Supervisor ID [email or web address] 08/10/22 01:46 Sodium 134 mmol/L (136-145) L 08/09/22 23:55 Potassium 4.2 mmol/L (3.5-5.1) 08/09/22 23:55 Chloride 93 mmol/L (98-107) L 08/09/22 23:55 Carbon Dioxide 29 mmol/L (22-29) 08/09/22 23:55 Anion Gap 16.2 (5-19) 08/09/22 23:55 BUN 8 mg/dL (8-23) 08/09/22 23:55 Creatinine 0.5 mg/dL (0.7-1.2) L 08/09/22 23:55 GFR Calculation 164.4 mL/min (90-130) H 08/09/22 23:55 Glucose 90 mg/dL (65-115) 08/09/22 23:55 Calculated Osmolality 276 mOsm/kg (285-295) L 08/09/22 23:55 Calcium 8.4 mg/dL (8.5-10.5) L 08/09/22 23:55 Total Bilirubin 0.3 mg/dL (0.15-1.2) 08/09/22 23:55 AST 30 U/L (0-40) 08/09/22 23:55 ALT 17 U/L (0-41) 08/09/22 23:55 Alkaline Phosphatase 75 U/L (40-130) 08/09/22 23:55 Troponin T Baseline 21 ng/L (0-15) H 08/09/22 23:55 Troponin T 120 Minute 18.39 ng/L (0-15) H 08/10/22 01:38 Delta Troponin T -2.61 ABS# (0-10) L 08/10/22 01:38 Troponin T Hi Sens 6Hr 14.28 ng/L (0-15) 08/10/22 05:52 Troponin T Hi Sens 6Hr Delta -6.72 ng/L (0-12) L 08/10/22 05:52 NT-Pro-B Natriuret Pep 119 pg/mL (0-125) 08/09/22 23:55 Total Protein 7.5 g/dL (6.6-8.7) 08/09/22 23:55 Albumin 4.2 g/dL (3.5-5.2) 08/09/22 23:55 Globulin 3.3 g/dL (1.3-4.6) 08/09/22 23:55 A&P Assessment and plan (1) Acute hypercapnic respiratory failure: (2) Acute exacerbation of chronic obstructive airways disease: Plan Patient with known COPD presenting to the hospital with worsening dyspnea, incre asing cough production over the past 1 week. Significant wheezing and increased oxygen requirement noted upon arrival. Needed to be placed on BiPAP ventilation which is continuing now Initial ABG showing evidence of hypercapnic hypoxic respiratory failure, acute on chronic, which is serially improving on subsequent ABG. dexamethasone 6mg IVP daily duoneb q6h, budesonide q12h Chest x-ray without any evidence of consolidation, holding off on antibiotics Check D-dimer, low probability PE given significant wheezing on exam. Attestations Medical Necessity Statement*: Anticipate greater than 2 midnight stay for COPD exacerbation, need for IV steroids Coding Level of Care Code Acute Code for Chg Fwd Diagnoses Acute hypercapnic respiratory failure J96.02 Acute exacerbation of chronic obstructive airways disease J44.1
[2022-08-10] MEDS: dexamethasone 4 mg/mL INJ 6 MG IVP (05:40)
[2022-08-10] MEDS: enoxaparin 40 mg/0.4 mL Syringe SUBCUT (05:41)
--- NOTE | 2022-08-10 05:47 | ECG_ITS ---
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 Measurements Intervals [place] Rate: 77 P: 159 WV: 154 QRS: 46 QRSD: 90 T: 115 QT: 376 QTc: 427 Interpretive Statements ECTOPIC ATRIAL RHYTHM MODERATE ST DEPRESSION [0.05+ mV ST DEPRESSION] ABNORMAL QRS-T ANGLE [QRS-T AXIS DIFFERENCE > 60] Compared to ECG 08/10/2022 01:29:56 No significant changes Electronically Signed On 08-11-2022 6:45:28 CDT by Roz Sawyer M.D. [email or web address]
[2022-08-10] MEDS: ipratropium-albuterol 3 mL Neb INHALATION ×2 (06:06→08:23)
[2022-08-10 06:16] LABS: Troponin 5 6HR 14.28 ng/L (0-15)
[2022-08-10 06:20] LABS: D Dimer 1.14 ug/mIFEU (0-0.59)
[2022-08-10 06:27] LABS: Troponin 5 6HR Delta -6.72 ng/L (0-12)
[2022-08-10] MEDS: budesonide 0.5 mg/2 mL Neb INHALATION ×2 (08:23→20:26)
[2022-08-10 10:19] LABS: ABG PH Result 7.32 (7.35-7.45)
[2022-08-10 10:19] LABS: ABG PCO2 71.4 mmHg (35-45)
[2022-08-10 10:20] LABS: ABG PCO2 61.4 mmHg (35-45); Arterial Blood Gas Hematocrit 44.1 % (42-52); Base Excess ABG 3.5 mmol/L (-2.0-2.0); Blood Gas Allen Test Pos; Blood Gas Sample Site Brachial, right; Blood Gas Sample Type Arterial; HCO3 ABG 31.5 mmol/L (22-26); Oxygen Device NC; PO2 ABG 73.4 mmHg (80.0-100.0)
--- NOTE | 2022-08-10 11:01 | USCV_ITS ---
Markus Trimble Age: 72 Gender: M : 1950 Exam Date: 08/10/2022 13:50 Ordering Phys: Romeo Sarabia MD Technologist: LUIS Exam Location: [facility] [place] Indication: sob BP: / HR: Rhythm: Sinus Technical Quality: Poor secondary to COPD MEASUREMENTS (Male / Female) Normal Values 2D ECHO LV Diastolic Diameter PLAX 4.0 cm 4.2 - 5.9 / 3.9 - 5.3 cm LV Systolic Diameter PLAX 2.9 cm IVS Diastolic Thickness 0.5 cm 0.6 - 1.0 / 0.6 - 0.9 cm IVS Systolic Thickness 0.7 cm LVPW Diastolic Thickness 0.5 cm 0.6 - 1.0 / 0.6 - 0.9 cm LVPW Systolic Thickness 0.8 cm LV Ejection Fraction 2D Teich 54.1 % LA Diameter 3.4 cm M-MODE Aortic Annulus Diameter 2.8 cm LA Ao Ratio MM 1.2 MV E Point Septal Separation 0.1 cm DOPPLER TR Peak Velocity 147.0 cm/s TR Peak Gradient 8.6 mmHg Right Atrial Pressure 3.0 mmHg Pulmonary Artery Systolic Pressu 11.6 mmHg PV Peak Velocity 105.0 cm/s FINDINGS Left Ventricle Right Ventricle Right Atrium Left Atrium Mitral Valve Aortic Valve Tricuspid Valve Pulmonic Valve Pericardium Aorta IVC CONCLUSIONS Limited echocardiogram performed to assess LV systolic function Left ventricle is normal in size. LV systolic function is normal with EF of 60 to 65%. No regional wall motion normalities are seen. Pleural effusion is seen Compared to prior echocardiogram from 2021, LV systolic function has not changed Steve Buckner MD (Electronically Signed) Final Date: 10 Aug 2022 17:21 S
[2022-08-10 11:49] LABS: Procalcitonin 0.03 ng/mL (0-0.5); Thyroid Stimulating Hormone 0.57 uIU/mL (0.27-4.20); Vitamin B12 369 pg/mL (232-1245)
[2022-08-10 12:00] LABS: Iron 67 ug/dL (59-158); Total Iron Binding Capacity 209 mcg/dl; Unsaturated Iron Binding 142 ug/dL (112-347)
[2022-08-10 12:04] LABS: D Dimer 0.94 ug/mIFEU (0-0.59)
--- NOTE | 2022-08-10 12:37 | CT_ITS ---
WS: [id number] CT chest wo con [id number] HISTORY: copd, sob TECHNIQUE: Axial imaging performed through the thorax. Coronal and sagittal reformats are submitted. All CT scans at [facility] use at least one of these dose optimization techniques: automated exposure control; mA and/or kV adjustment per patient size (includes targeted exams where dose is mat ched to clinical indication); or iterative reconstruction. CONTRAST: None DLP: 235.14 mGy.cm COMPARISON: 02/11/2022 Lungs and central airway: Severe hyperexpansion and emphysema. Stable mild pleural thickening anterio r mid RIGHT thorax. No suspicious mass, nodule or pneumonia. Pleura: Normal. No pleural effusion. Heart and pericardium: Normal size heart with no pericardial effusion. Mediastinum and shelby: No mediastinum or hilar adenopathy. Vessels: Moderate atherosclerosis aorta. Atherosclerotic plaque continues into the proximal great ves sels. No aneurysm. Normal size pulmonary artery. Moderate coronary artery calcific burden. Chest wall and lower neck: No soft tissue masses. Upper abdomen: Atherosclerotic plaque suprarenal aorta. Osseous structures: Mild straightening of the normal thoracic kyphosis. Mild degenerative disc space narrowing. CT/CT chest wo con [id number] IMPRESSION: 1. Severe chronic centrilobular emphysema. 2. No pneumonia or pulmonary mass. No adenopathy. 3. Moderate atherosclerosis aorta.
[2022-08-10] MEDS: levalbuterol 0.63 mg/3 mL Neb INHALATION ×3 (13:40→20:26)
[2022-08-10] MEDS: FUROsemide 40 mg Tablet PO (13:47)
[2022-08-10] MEDS: nicotine 14 mg Patch 1 PATCH TRANSDERMA (13:47)
[2022-08-10] MEDS: benzonatate 100 mg Capsule PO ×2 (13:47→20:05)
[2022-08-10] MEDS: dexamethasone 4 mg/mL INJ IVP ×2 (13:48→20:32)
[2022-08-10] MEDS: pantoprazole DR 40 mg Tablet PO (13:49)
[2022-08-10] MEDS: azithromycin 250 mg Tablet 500 MG PO (13:50)
[2022-08-10] MEDS: ipratropium 0.5 mg/2.5 mL Neb INHALATION ×2 (16:02→20:26)
--- NOTE | 2022-08-10 16:05 | W.PM.EVENTAC ---
Event Note Event Note: Admitted overnight. H&P and labs appreciated. Today morning seen on 3 L nasal cannula. States feeling a lot better. States has been having difficulty in breathing for many months but has been getting worse for last 2 to 3 days. States feels better and breathing only when he is on his bike running at 60 mph. Denies any nausea vomiting, headache. Complains of chest pain on taking a deep breath. In the ER found to be in hypercapnic hypoxic respiratory failure with respiratory acidosis. Plan: Appreciate repeat ABG. PCO2 improved to 61 with mild respiratory acidosis. Dexamethasone 4 mg IV every 8 hourly. Solu-Medrol not available at hospital currently. Ipratropium, Xopenex every 4 hours, budesonide twice daily. Check D-dimer. If D-dimer negative will plan for CT chest. Check echocardiogram to rule out right heart strain and monitor for RV pressures. Hold Lasix 40 mg daily for now. Hold off on antibiotics for now. Check sputum culture and MRSA swab. Nicotine patch. Tessalon Perles 3 times daily, Robitussin as needed. CODE STATUS: Discussed in detail with the patient. Patient states he is aware that if he goes on a ventilator to be difficult for him to come off or he would be on ventilator for long time. He states he would not want to live as a vegetable and does not want any kind of resuscitation. CODE STATUS changed to DNR/DNI. High MDM includes number and complexity of problems actively addressed during encounter, amount and/or complexity of data reviewed/ordered (Discussing CODE STATUS. Change in CODE STATUS.) [ previous or external records, resulted lab(s)/test(s), ordered lab(s)/test(s), independent historian, independent test interpretation and other healthcare professional discussion] and described risk of complication, morbidity or mortality of management as documented
[2022-08-11] VITALS (17 sets, daily range): BP systolic 109–128; BP diastolic 63–80; PULSE 67–110; RESP 17–20; TEMP 36.4–36.5; O2SAT 93–98
[2022-08-11] MEDS: dexamethasone 4 mg/mL INJ IVP ×3 (04:07→17:21)
[2022-08-11] MEDS: enoxaparin 40 mg/0.4 mL Syringe SUBCUT (05:00)
[2022-08-11 05:15] LABS: Basophils % 0.1 %; Hematocrit 40.4 % (42.0-52.0); Hemoglobin 13.3 g/dL (11.7-16.6); Lymphocytes # 0.6 10^3/uL (0.8-4.8); Lymphocytes % 7.9 %; Mean Corpuscular HGB Conc 32.9 g/dL (30.0-36.0); Mean Corpuscular Hemoglobin 31.7 pg (28.0-34.0); Mean Corpuscular Volume 96.2 fl (80-94); Mean Platelet Volume 11.7 fL (7.4-10.4); Monocytes # 0.5 10^3/uL (0.2-0.9); Monocytes % 6.9 %; Neutrophils # 6.56 10^3/uL (1.8-7.7); Neutrophils % 84.8 %; Nucleated Red Blood Cells % 0 %; Platelet Count 161 10^3/cmm (130-400); Red Cell Distribution Width 12.2 % (12.1-15.1); White Blood Count 7.7 10^3/uL (4.0-10.0)
[2022-08-11 05:42] LABS: Alanine Aminotransferase 14 U/L (0-41); Albumin Level 3.8 g/dL (3.5-5.2); Alkaline Phosphatase 60 U/L (40-130); Aspartate Amino Transferase 21 U/L (0-40); Blood Urea Nitrogen 12 mg/dL (8-23); Calcium 9.1 mg/dL (8.5-10.5); Carbon Dioxide 32 mmol/L (22-29); Chloride 95 mmol/L (98-107); Globulin 2.7 g/dL (1.3-4.6); Glomerular Filtration Rate 212.7 mL/min (90-130); Glucose 142 mg/dL (65-115); Osmolality Calculated 284 mOsm/kg (285-295); Sodium 136 mmol/L (136-145); Total Bilirubin 0.3 mg/dL (0.15-1.2); Total Protein 6.5 g/dL (6.6-8.7)
[2022-08-11 05:43] LABS: Chol HDL Ratio 2.55 mg/dL (1.0-5.00); Cholesterol 181 mg/dL (0-200); HDL Cholesterol 71 mg/dL (60-100); LDL Cholesterol Calculated 99 mg/dL (50-129); Triglycerides 57 mg/dL (0-150); VLDL Cholestrol Calculation 11 mg/dL (0-30)
[2022-08-11 07:48] LABS: Folate Level 5.9 ng/mL (4.5-32.2)
[2022-08-11] MEDS: budesonide 0.5 mg/2 mL Neb INHALATION ×2 (08:00→19:27)
[2022-08-11] MEDS: ipratropium 0.5 mg/2.5 mL Neb INHALATION ×5 (08:02→23:06)
[2022-08-11] MEDS: levalbuterol 0.63 mg/3 mL Neb INHALATION ×5 (08:02→23:05)
[2022-08-11 08:13] LABS: Estmated Average Glucose 108; Hemoglobin A1C 5.4 % (4.0-6.0)
[2022-08-11] MEDS: FUROsemide 40 mg Tablet PO (10:28)
[2022-08-11] MEDS: azithromycin 250 mg Tablet 500 MG PO (10:29)
[2022-08-11] MEDS: pantoprazole DR 40 mg Tablet PO (10:29)
[2022-08-11] MEDS: benzonatate 100 mg Capsule PO ×3 (10:32→21:29)
--- NOTE | 2022-08-11 16:18 | PM.PN ---
Subjective Subjective: No acute events overnight. Patient has remained hemodynamically stable and afebrile. States feeling better. Continues to remain on 3 L of oxygen supplementation to maintain saturation over 88%. Denies any nausea, vomiting, headache. On examination sitting up in bed comfortably. Vitals/I&O/Wt Last Vital Signs Temp 97.7 F 08/11/22 11:53 Pulse 106 H 08/11/22 15:43 Resp 20 H 08/11/22 15:33 BP 128/78 08/11/22 11:53 Pulse Ox 94 08/11/22 15:33 O2 Del Method Nasal Cannula 08/11/22 15:33 O2 Flow Rate 3 08/11/22 15:33 FiO2 30 08/10/22 01:59 08/11/22 08/11/22 08/11/22 06:59 14:59 22:59 Intake Total 240 / 240 840 / 840 Output Total 800 / 950 Balance -560 / -710 840 / 840 Weight last 48 hrs Weight 52.163 kg Physical Exam Narrative: General: No acute distress, AO x3 HEENT: PERRLA, pupils bilaterally equal and reactive, pallors not present Chest: Bilateral bronchial breath sounds all over lung lackey, decreased air entry all over lung lackey with occasional rhonchi CVS: S1-S2 regular, no murmurs, no tachycardia, no gallops, no rubs Abdomen: Soft, nontender, no organomegaly, bowel sounds present Neuro: No focal deficits, no facial deformity, AO x3, power 5/5 in all limbs Data 08/11/22 04:50 08/11/22 04:50 Micro: Microbiology 08/10/22 13:45 Gram Stain - Final Sputum - Endotracheal Tube Aspirate Sputum Culture - Preliminary 08/11/22 04:50 MRSA Culture - Final Nose A&P Assessment and plan (1) Acute hypercapnic respiratory failure: Most likely in setting of acute on chronic COPD exacerbation. (2) Acute exacerbation of chronic obstructive airways disease: Wean dexamethasone to 4 mg twice daily. Plan to wean down dexamethasone further tomorrow. Continue with ipratropium, Xopenex every 4 hour, budesonide twice daily. Appreciate CT chest results. Negative for consolidation. Follow-up sputum culture. For now continue with empiric azithromycin. Patient most likely would benefit with outpatient BiPAP. Awaiting sleep study as an outpatient. Appreciate overnight pulse oximetry. Case management alerted to see if patient can qualify for BiPAP. Echocardiogram results appreciated. Poor window. Decrease Lasix to 20 mg daily. High chances of pulmonary hypertension. Though cannot be measured given poor echo windows. Plan Full code. Cardiac diet. Lovenox for DVT prophylaxis. Discharge planning: Plan to discharge within next 24 hours to home Attestations Medical Necessity Statement*: Requires further hospitalization for management of acute exacerbation of COPD leading to hypercapnic respiratory failure Diagnoses Acute hypercapnic respiratory failure J96.02 Acute exacerbation of chronic obstructive airways disease J44.1
[2022-08-11] MEDS: guaiFENesin-dextromethorphan UDC 10 mL 5 ML PO (21:36)
[2022-08-12] VITALS (7 sets, daily range): BP systolic 110–117; BP diastolic 67–73; PULSE 64–79; RESP 16–18; TEMP 36.3–36.6; O2SAT 95–98
[2022-08-12] MEDS: ipratropium 0.5 mg/2.5 mL Neb INHALATION ×3 (03:03→11:35)
[2022-08-12] MEDS: levalbuterol 0.63 mg/3 mL Neb INHALATION ×3 (03:03→11:35)
[2022-08-12] MEDS: enoxaparin 40 mg/0.4 mL Syringe SUBCUT (05:25)
[2022-08-12 06:03] LABS: Hematocrit 44.7 % (42.0-52.0); Hemoglobin 14.4 g/dL (11.7-16.6); Lymphocytes # 0.9 10^3/uL (0.8-4.8); Lymphocytes % 8.7 %; Mean Corpuscular HGB Conc 32.2 g/dL (30.0-36.0); Mean Corpuscular Hemoglobin 31.9 pg (28.0-34.0); Mean Corpuscular Volume 98.9 fl (80-94); Mean Platelet Volume 12.3 fL (7.4-10.4); Monocytes # 0.9 10^3/uL (0.2-0.9); Monocytes % 8.1 %; Neutrophils # 8.66 10^3/uL (1.8-7.7); Neutrophils % 82.7 %; Nucleated Red Blood Cells % 0 %; Platelet Count 175 10^3/cmm (130-400); Red Blood Count 4.52 10^6/uL (4.1-5.3); Red Cell Distribution Width 12.4 % (12.1-15.1); White Blood Count 10.5 10^3/uL (4.0-10.0)
[2022-08-12 06:25] LABS: Alanine Aminotransferase 24 U/L (0-41); Albumin Level 4.1 g/dL (3.5-5.2); Alkaline Phosphatase 59 U/L (40-130); Aspartate Amino Transferase 30 U/L (0-40); Blood Urea Nitrogen 14 mg/dL (8-23); Calcium 9.5 mg/dL (8.5-10.5); Carbon Dioxide 33 mmol/L (22-29); Chloride 97 mmol/L (98-107); Globulin 2.9 g/dL (1.3-4.6); Glomerular Filtration Rate 164.4 mL/min (90-130); Glucose 112 mg/dL (65-115); Osmolality Calculated 291 mOsm/kg (285-295); Sodium 140 mmol/L (136-145); Total Bilirubin 0.3 mg/dL (0.15-1.2)
[2022-08-12 06:27] LABS: Anion Gap 14.4 (5-19); Potassium 4.4 mmol/L (3.5-5.1)
[2022-08-12] MEDS: budesonide 0.5 mg/2 mL Neb INHALATION (08:18)
[2022-08-12] MEDS: benzonatate 100 mg Capsule PO (10:56)
[2022-08-12] MEDS: azithromycin 250 mg Tablet 500 MG PO (10:56)
[2022-08-12] MEDS: dexamethasone 4 mg/mL INJ IVP (10:56)
[2022-08-12] MEDS: FUROsemide 40 mg Tablet 20 MG PO (10:56)
--- NOTE | 2022-08-12 12:03 | PM.DCS ---
Discharge Providers Date of Admission: 08/10/22 02:02 Date of Discharge: August 12, 2022 Attending Provider at Admission: Shona Gibbs MD Attending Provider at Discharge: Romeo Sarabia MD Primary Care Provider: Nando Green MD Diagnoses at Discharge Discharge Diagnosis (1) Acute hypercapnic respiratory failure: Status: Acute (2) Acute exacerbation of chronic obstructive airways disease: Status: Acute Reason for Visit Reason for Visit: SOB Brief History: History as per HPI: Markus Trimble is a 72 year old male with a past medical history of COPD who is presenting to the hospital today with chief complaints of worsening dyspnea and cough over the past 1 week.? He has had increased sputum production.? Denies any chest pain.? Denies palpitations or syncope.? Patient is typically on 2 to 3 L/min supplemental O2.? Upon arrival he was noted to have increased oxygen requirement of 6 L/min and ABG showed evidence of hypoxic hypercapnic respiratory failure for which she needed to be placed on BiPAP.? Patient continues to be on BiPAP at this time.? ABGs serially improving and patient is having symptomatic improvement.? He continues to have significant wheezing on exam currently.? He denies any fever or chills over the past few days. Hospital Course Hospital Course Patient was admitted to the hospital further evaluation and management of hypercapnic hypoxic respiratory failure in setting of COPD exacerbation. At first he was started on BiPAP which was eventually weaned down to 3 L oxygen supplementation while monitoring his blood gas and vitals. He was started on inhalation treatment along with IV steroids. Echocardiogram was done which was poor window hence LV and RV function could not be assessed. His hospitalization was otherwise unremarkable. Blood cultures and sputum cultures so far pending. He has been discharged in hemodynamically stable condition on oral Lasix 20 mg daily, DuoNebs every 6 hours for inhalation treatment and oral azithromycin for 3 more days while sputum culture is followed up. He is to follow-up with a primary care provider within next 1 week. He is to continue taking steroid taper as described. BiPAP is being arranged by case manager specialist as per pulse oximetry study done during hospitalization. Physical Exam Narrative: General: No acute distress, AO x3 HEENT: PERRLA, pupils bilaterally equal and reactive, pallors not present Chest: Bilateral bronchial breath sounds all over lung lackey, decreased air entry all over lung lackey with occasional rhonchi CVS: S1-S2 regular, no murmurs, no tachycardia, no gallops, no rubs Abdomen: Soft, nontender, no organomegaly, bowel sounds present Neuro: No focal deficits, no facial deformity, AO x3, power 5/5 in all limbs Discharge Data Studies Completed and Pending Completed Studies During Hospitalization Category Date Time Status CT chest wo con [id number] Routine Cat Scan 08/10/22 12:37 Completed XR chest 1V portable [id number] Stat Exams 08/09/22 23:49 Completed CV. echo limited [id number] Routine Ultrasound 08/10/22 11:01 Completed Pending at discharge Category Date Time Status Bacterial Antigen Stat Lab 08/10/22 11:01 Ordered Legionella Antigen STAT Stat Lab 08/10/22 11:00 Ordered Sputum Culture and Gram Stain Stat Lab 08/10/22 13:45 Results Radiology Impressions Chest X-Ray 08/09/22 23:49 IMPRESSION: Emphysematous changes, negative for infiltrate Chest CT 08/10/22 12:37 IMPRESSION: 1. Severe chronic centrilobular emphysema. 2. No pneumonia or pulmonary mass. No adenopathy. 3. Moderate atherosclerosis aorta. Laboratory Results WBC 10.5 10^3/uL (4.0-10.0) H 08/12/22 04:25 RBC 4.52 10^6/uL (4.1-5.3) 08/12/22 04:25 Hgb 14.4 g/dL (11.7-16.6) 08/12/22 04:25 Hct 44.7 % (42.0-52.0) 08/12/22 04:25 MCV 98.9 fl (80-94) H 08/12/22 04:25 MCH 31.9 pg (28.0-34.0) 08/12/22 04:25 MCHC 32.2 g/dL (30.0-36.0) 08/12/22 04:25 RDW 12.4 % (12.1-15.1) 08/12/22 04:25 Plt Count 175 10^3/cmm (130-400) 08/12/22 04:25 MPV 12.3 fL (7.4-10.4) H 08/12/22 04:25 Neut % (Auto) 82.7 % 08/12/22 04:25 Lymph % (Auto) 8.7 % 08/12/22 04:25 [place] % (Auto) 8.1 % 08/12/22 04:25 Eos % (Auto) 0.0 % 08/12/22 04:25 Baso % (Auto) 0.0 % 08/12/22 04:25 Neut # (Auto) 8.66 10^3/uL (1.8-7.7) H 08/12/22 04:25 Lymph # (Auto) 0.9 10^3/uL (0.8-4.8) 08/12/22 04:25 [place] # (Auto) 0.9 10^3/uL (0.2-0.9) 08/12/22 04:25 Eos # (Auto) 0.0 10^3/uL (0.0-0.8) 08/12/22 04:25 Baso # (Auto) 0.0 10^3/uL (0.0-0.1) 08/12/22 04:25 Nucleated RBC % (auto) 0 % 08/12/22 04:25 Nucleated RBCs # 0.0 /100WBC 08/12/22 04:25 D-Dimer 0.94 ug/mIFEU (0-0.59) H 08/10/22 11:40 Specimen Type Arterial 08/10/22 01:46 Sample Site Brachial, right 08/10/22 01:46 ABG pH 7.32 (7.35-7.45) L 08/10/22 01:46 ABG pCO2 61.4 mmHg (35-45) H* 08/10/22 01:46 ABG pO2 73.4 mmHg (80.0-100.0) L 08/10/22 01:46 ABG HCO3 31.5 mmol/L (22-26) H 08/10/22 01:46 ABG Base Excess 3.5 mmol/L (-2.0-2.0) H 08/10/22 01:46 Carter Test Pos 08/10/22 01:46 Hematocrit 44.1 % (42-52) 08/10/22 01:46 O2 Delivery Device Nc 08/10/22 01:46 O2 Liters/Min 3.0 % 08/10/22 01:46 FiO2 3.5 % 08/09/22 00:04 Ophthalmic Surgical Assistant ID [email or web address] 08/10/22 01:46 Sodium 140 mmol/L (136-145) 08/12/22 04:25 Potassium 4.4 mmol/L (3.5-5.1) 08/12/22 04:25 Chloride 97 mmol/L (98-107) L 08/12/22 04:25 Carbon Dioxide 33 mmol/L (22-29) H 08/12/22 04:25 Anion Gap 14.4 (5-19) 08/12/22 04:25 BUN 14 mg/dL (8-23) 08/12/22 04:25 Creatinine 0.5 mg/dL (0.7-1.2) L 08/12/22 04:25 GFR Calculation 164.4 mL/min (90-130) H 08/12/22 04:25 Glucose 112 mg/dL (65-115) 08/12/22 04:25 Estimat Average Glucose 108 08/11/22 04:50 Hemoglobin A1c 5.4 % (4.0-6.0) 08/11/22 04:50 Calculated Osmolality 291 mOsm/kg (285-295) 08/12/22 04:25 Calcium 9.5 mg/dL (8.5-10.5) 08/12/22 04:25 Iron 67 ug/dL (59-158) 08/10/22 05:52 TIBC 209 mcg/dl 08/10/22 05:52 % Saturation 32.0 % (20-50) 08/10/22 05:52 Unsat Iron Binding 142 ug/dL (112-347) 08/10/22 05:52 Total Bilirubin 0.3 mg/dL (0.15-1.2) 08/12/22 04:25 AST 30 U/L (0-40) 08/12/22 04:25 ALT 24 U/L (0-41) 08/12/22 04:25 Alkaline Phosphatase 59 U/L (40-130) 08/12/22 04:25 Troponin T Baseline 21 ng/L (0-15) H 08/09/22 23:55 Troponin T 120 Minute 18.39 ng/L (0-15) H 08/10/22 01:38 Delta Troponin T -2.61 ABS# (0-10) L 08/10/22 01:38 Troponin T Hi Sens 6Hr 14.28 ng/L (0-15) 08/10/22 05:52 Troponin T Hi Sens 6Hr Delta -6.72 ng/L (0-12) L 08/10/22 05:52 NT-Pro-B Natriuret Pep 119 pg/mL (0-125) 08/09/22 23:55 Total Protein 7.0 g/dL (6.6-8.7) 08/12/22 04:25 Albumin 4.1 g/dL (3.5-5.2) 08/12/22 04:25 Globulin 2.9 g/dL (1.3-4.6) 08/12/22 04:25 Triglycerides 57 mg/dL (0-150) 08/11/22 04:50 Cholesterol 181 mg/dL (0-200) 08/11/22 04:50 LDL Cholesterol, Calc 99 mg/dL (50-129) 08/11/22 04:50 Total VLDL Cholesterol 11 mg/dL (0-30) 08/11/22 04:50 HDL Cholesterol 71 mg/dL (60-100) 08/11/22 04:50 Cholesterol/HDL Ratio 2.55 mg/dL (1.0-5.00) 08/11/22 04:50 Vitamin B12 369 pg/mL (232-1245) 08/10/22 05:52 Folate 5.9 ng/mL (4.5-32.2) 08/11/22 04:50 Procalcitonin 0.03 ng/mL (0-0.5) 08/10/22 05:52 TSH 0.57 uIU/mL (0.27-4.20) 08/10/22 05:52 TSH Cancelled 08/10/22 05:52 Vitals Last Vital Signs Temp 97.8 F 08/12/22 08:00 Pulse 78 08/12/22 11:41 Resp 18 08/12/22 11:41 BP 117/70 08/12/22 08:00 Pulse Ox 96 08/12/22 11:41 O2 Del Method Nasal Cannula 08/12/22 11:41 O2 Flow Rate 3 08/12/22 11:41 FiO2 30 08/10/22 01:59 Discharge Plan Discharge Patient Disposition: Home Condition: Stable Prescriptions: New azithromycin 250 mg Tablet 500 mg PO DAILY Qty: 10 0RF benzonatate 100 mg Capsule 100 mg PO TID Qty: 14 0RF furosemide 40 mg Tablet 20 mg PO DAILY@0800 Qty: 15 0RF pantoprazole 40 mg Tablet,Delayed Release (Dr/Ec) 40 mg PO DAILY Qty: 14 0RF prednisone 10 mg tablet See Taper PO DIRECTED Qty: 42 0RF Taper: predniSONE 60-10 60 mg Daily for 2 Days and 0 Hour 50 mg Daily for 2 Days and 0 Hour 40 mg Daily for 2 Days and 0 Hour 30 mg Daily for 2 Days and 0 Hour 20 mg Daily for 2 Days and 0 Hour 10 mg Daily for 2 Days and 0 Hour Rx Instructions: see taper instructions Continued Trelegy Ellipta 100-62.5-25 mcg blister with device 1 inh inhalation DAILY Qty: 60 3RF Combivent Respimat 20-100 mcg/actuation mist 1 puff inhalation Q6H PRN (Reason: shortness of breath or wheezing) Qty: 4 3RF Changed ipratropium-albuterol 0.5 mg-3 mg(2.5 mg base)/3 mL solution for nebulization 3 ml inhalation Q8H Qty: 90 3RF Discharge Orders: Discharge Order (Routine); Ordered 08/12/22 Ordered By: Romeo Sarabia Referrals: Nando Green MD [Primary Care Provider] - 7-10 days (Please call Saturday to schedule follow up appointment with Dr. Green.) Discharge Diet: Regular Discharge Activity: Resume usual activity and Increase activity as tolerated Patient Instructions: Benzonatate (By mouth), Furosemide (By mouth), Prednisone (By mouth), Azithromycin (By mouth), Pantoprazole (By mouth), COPD (Chronic Obstructive Pulmonary Disease) (GEN), Opioid Safety Activity Restrictions/Additional Instructions: Continue prednisone taper as described. Ipratropium/albuterol is the inhaler which she is supposed to take every 8 hours along with your Trelegy and Combivent as needed. Take oral Lasix 20 mg daily. Please follow-up with a primary care provider within next 1 week for a repeat BMP. Case management is working to try to get you a BiPAP as an outpatient. Please reach out to case management office in the hospital if you do not hear back from them by Saturday. Discharge Attestations Time Spent in Discharge Care*: greater than 30 min Specific Discharge Activities: educating patient, educating and/or supporting family/caregiver, discussing with pcp/other providers, discussing with returned case inspector/social workers/dc planners, documenting/other paperwork and evaluating patient/reviewing data Status at Discharge: Cognitive status at discharge: cognitively intact, Behavioral status at discharge: cooperative, Functional status at discharge: uses cane/walker, Overall status at discharge: patient is back to baseline Quality Metrics Clinical Quality Measures [ No reported AMI, CVA or VTE this stay] Coding Level of Care Code 72255 Total time (in minutes) for Discharge: 60 Diagnoses Acute hypercapnic respiratory failure J96.02 Acute exacerbation of chronic obstructive airways disease J44.1
== END 2022-08-12 15:00 | disposition home or self-care (01) | DRG 190 ==
LOC: ER 08-10 00:28 → ER IP 08-10 02:03 → MEDSURG 08-10 08:52
PROVIDERS: Admitting Provider Student in an Organized Health Care Education/Training Program; Emergency Provider Emergency Medicine; PCP Family Medicine; Visit Provider Student in an Organized Health Care Education/Training Program
DX: J44.1 Chronic obstructive pulmonary disease with (acute) exacerbation (principal); J96.21 Acute and chronic respiratory failure with hypoxia; J96.22 Acute and chronic respiratory failure with hypercapnia; Z99.81 Dependence on supplemental oxygen; Z79.52 Long term (current) use of systemic steroids; Z86.16 Personal history of COVID-19; F17.210 Nicotine dependence, cigarettes, uncomplicated
CPT/HCPCS: 36415; 36600; 71045; 71250; 80053; 80061; 82607; 82746; 82803; 83036; 83540; 83550; 83880; 84145; 84443; 84484; 85025; 85378; 87070; 87205; 87641; 93005; 93308; 94640; 94660; 94762; 96365; 96372; 96375; 99291; J1100; J1650; J3475; J7613; J7614; J7626; J7644; Q0144

== ENCOUNTER 2022-08-26 11:47 | Inpatient (IN) | payer MEDICARE, SELFPAY ==
[2022-08-26] VITALS (14 sets, daily range): BP systolic 101–186; BP diastolic 69–133; PULSE 87–129; RESP 14–30; TEMP 36.4–36.8; O2SAT 90–99; BMI 17.9
--- NOTE | 2022-08-26 11:53 | XRR_ITS ---
PROCEDURE INFORMATION: Exam: XR Chest Exam date and time: 08/26/2022 12:19 PM Age: 72 years old Clinical indication: Shortness of breath; Additional info: Dyspnea TECHNIQUE: Imaging protocol: Radiologic exam of the chest. Views: 1 view. COMPARISON: CT chest con [id number] 08/10/2022 1:28 PM FINDINGS: Lungs: The lungs are over-inflated with flattening of the diaphragm consistent with pulmonary emphysema. No acute infiltrates. Pleural spaces: Unremarkable. No pleural effusion. No pneumothorax. Heart/Mediastinum: Unremarkable. No cardiomegaly. Bones/joints: Unremarkable. XR/XR chest 1V portable [id number] IMPRESSION: Pulmonary emphysema. No acute abnormality.
--- NOTE | 2022-08-26 11:55 | ED_ITS ---
HPI - SOB/Dyspnea General: Chief Complaint: Shortness of Breath/Dyspnea Stated Complaint: SOB/COPD Time Seen by Provider: 08/26/22 11:49 History of Present Illness: HPI Narrative: Patient presents to the ER by EMS with complaints of shortness of breath. This been going on for the last couple days. Getting worse. Patient does have a history of COPD and is on oxygen approximately 3 L per nasal cannula at all times. Patient has been hospitalized several times for COPD exacerbation. MD elicited complaint: shortness of breath Pertinent past history: COPD Onset (ago): day(s) (A couple days ago) Timing: constant and progressively worsening Severity: similar to previous episodes Relieving factors: oxygen and bronchodilators Known history of: COPD Treatment prior to arrival: oxygen and bronchodilator Review of Systems General: Reports: 10 or more systems reviewed and unremarkable except in HPI and below PFSH ED PFSH: Medical History Acute exacerbation of chronic obstructive airways disease COPD (chronic obstructive pulmonary disease) COVID-19 (~08/2021) Nicotine dependence, cigarettes, with other nicotine-induced disorders On home oxygen therapy 3L [facility] Pleuritic chest pain Surgical History History of cataract surgery bilateral History of elbow surgery right, due to fracture History of right knee surgery History of surgery on right wrist due to fracture Family History Grandmother Diabetes Mother Diabetes Social History Smoking and tobacco status: current some day smoker cigarettes [ Other cigarette details: a cigar or two sometimes] Quit status (tobacco): has quit using tobacco Year quit tobacco: 01/2022 Former quit date comment: 2 ppd X 51 years Alcohol intake: never Substance/Drug Use: never Household members: spouse Marital status: Physical Exam Const: COMMON NORMALS: average body habitus, patient oriented x3, no limitations, alert and well nourished HENMT: COMMON NORMALS: normocephalic, atraumatic, hearing grossly normal bilaterally, external ears normal, Normal external nose present and moist oral mucous membranes HEAD & SCALP: normocephalic and atraumatic NOSE: Normal external nose present EXTERNAL EAR: Yes external ears normal Eye: COMMON NORMALS: Equal, round and reactive pupils present, EOMs intact bilaterally, conjunctivae normal and no scleral icterus CONJUNCTIVA: Yes conjunctivae normal PUPIL: Yes Equal, round and reactive pupils present Neck/C-Spine: COMMON NORMALS: full ROM, no lymphadenopathy, supple, no meningeal signs, no JVD and Thyroid normal THYROID: Thyroid normal Lymph: LYMPHATIC: no lymphadenopathy noted Chest: COMMONS NORMALS: normal inspection of the chest and normal palpation of entire chest wall Resp: EFFORT & INSPECTION: Yes symmetric chest movement, Yes tachypneic, Yes respiratory distress and Yes audible wheezes AUSCULTATION: wheezes and diminished lung sounds Cardio: COMMON NORMALS: no JVD, regular rate, regular rhythm, S1 normal heart sound present and S2 normal heart sound present RATE: regular rate RHYTHM: regular rhythm HEART SOUNDS: S1 normal heart sound present and S2 normal heart sound present GI: COMMON NORMALS: Normal to inspection, nondistended, normoactive bowel sounds present, Soft to palpation, non-tender and no masses PALPATION: Yes Soft to palpation : COMMON NORMALS: Yes no CVA tenderness BLADDER/KIDNEY EXAM: Yes no CVA tenderness Back/Pelvis: COMMON NORMALS: no CVA tenderness Neuro: COMMON NORMALS: patient oriented x3 SENSORIUM/ORIENTATION: Yes alert MENINGEAL SIGNS: Yes no meningeal signs Course Vital Signs: Vital signs: Vital Signs Temperature 98.2 F 08/26/22 11:52 Pulse Rate 114 H 08/26/22 12:42 Respiratory Rate 18 08/26/22 12:42 Blood Pressure 101/69 08/26/22 12:42 Pulse Oximetry 99 08/26/22 12:42 Oxygen Delivery Me thod Room Air 08/26/22 12:42 Oxygen Flow Rate 6 08/26/22 12:18 Fraction of Inspir ed Oxygen 40 08/26/22 12:26 MDM - SOB/Dyspnea Medical Decision Making Patient presents to the ER with complaints of shortness of breath. Patient was just recently discharged here about 2 weeks ago for similar episodes. Patient does have COPD and is normally on 2 L of oxygen he presents today on 6 L of oxygen satting in the low 90s while having a good work effort for breathing. ABG was obtained which showed his PCO2 of 63. Patient was immediately placed on BiPA lab work was obtained which showed a white count of 12.5 a BUN/creatinine of 6 and 0.3. Chest x-ray was obtained which did not show any pulmonary infiltrate. Patient was given 1 more round of albuterol, 10 mg Decadron in his IV, Dr. Franklin was consulted. Due to the patient's high heart rate Dr. Franklin requested a D-dimer and if positive a CTA. We will obtain these and patient will be admitted to the floor for further work-up and evaluation. Differential Diagnosis Likely acute exacerbation of chronic obstructive airways disease; Unlikely congestive heart failure, community acquired pneumonia, asthma with exacerbation or pulmonary embolism Medical Records I reviewed the patient's medical records. Lab Data I reviewed the patient's lab results. 08/26/22 11:57 08/26/22 11:57 Labs/Radiology: Radiology Impressions Chest X-Ray 08/26/22 11:53 IMPRESSION: Pulmonary emphysema. No acute abnormality. Laboratory Results WBC 12.5 10^3/uL (4.0-10.0) H 08/26/22 11:57 RBC 4.50 10^6/uL (4.1-5.3) 08/26/22 11:57 Hgb 14.4 g/dL (11.7-16.6) 08/26/22 11:57 Hct 44.8 % (42.0-52.0) 08/26/22 11:57 MCV 99.6 fl (80-94) H 08/26/22 11:57 MCH 32.0 pg (28.0-34.0) 08/26/22 11:57 MCHC 32.1 g/dL (30.0-36.0) 08/26/22 11:57 RDW 13.4 % (12.1-15.1) 08/26/22 11:57 Plt Count 208 10^3/cmm (130-400) 08/26/22 11:57 MPV 11.4 fL (7.4-10.4) H 08/26/22 11:57 Neut % (Auto) 73.1 % 08/26/22 11:57 Lymph % (Auto) 15.3 % 08/26/22 11:57 [place] % (Auto) 9.7 % 08/26/22 11:57 Eos % (Auto) 1.0 % 08/26/22 11:57 Baso % (Auto) 0.4 % 08/26/22 11:57 Neut # (Auto) 9.10 10^3/uL (1.8-7.7) H 08/26/22 11:57 Lymph # (Auto) 1.9 10^3/uL (0.8-4.8) 08/26/22 11:57 [place] # (Auto) 1.2 10^3/uL (0.2-0.9) H 08/26/22 11:57 Eos # (Auto) 0.1 10^3/uL (0.0-0.8) 08/26/22 11:57 Baso # (Auto) 0.1 10^3/uL (0.0-0.1) 08/26/22 11:57 Nucleated RBC % (auto) 0 % 08/26/22 11:57 Nucleated RBCs # 0.0 /100WBC 08/26/22 11:57 Specimen Type Arterial 08/26/22 12:00 Sample Site Radial, right 08/26/22 12:00 ABG pH 7.32 (7.35-7.45) L 08/26/22 12:00 ABG pCO2 63.7 mmHg (35-45) H* 08/26/22 12:00 ABG pO2 76.2 mmHg (80.0-100.0) L 08/26/22 12:00 ABG HCO3 32.9 mmol/L (22-26) H 08/26/22 12:00 ABG O2 Saturation 95.4 08/26/22 12:00 ABG Base Excess 4.8 mmol/L (-2.0-2.0) H 08/26/22 12:00 Carter Test Pos 08/26/22 12:00 A-a O2 Gradient 17.2 mmHg (5-10) H 08/26/22 12:00 Hematocrit 43.4 % (42-52) 08/26/22 12:00 Hgb O2 Saturation 91.8 % (95-100) L 08/26/22 12:00 Carboxyhemoglobin 3.4 %THgb (0.4-20.1) 08/26/22 12:00 Methemoglobin 0.4 % (0.4-1.5) 08/26/22 12:00 Total Hemoglobin 14.1 g/dL (14-18) 08/26/22 12:00 Sodium 140.0 mmol/L (131-143) 08/26/22 12:00 Potassium 4.1 mmol/L (3.5-5.0) 08/26/22 12:00 Glucose 106.0 mg/dL (70-115) 08/26/22 12:00 Ionized Calcium 1.2 mmol/L (1.1-1.4) 08/26/22 12:00 O2 Delivery Device Nc 08/26/22 12:00 O2 Liters/Min 5.0 % 08/26/22 12:00 FiO2 40.0 % 08/26/22 12:00 Card Grinder Helper ID [id number] 08/26/22 12:00 Sodium 140 mmol/L (136-145) 08/26/22 11:57 Potassium 4.4 mmol/L (3.5-5.1) 08/26/22 11:57 Chloride 97 mmol/L (98-107) L 08/26/22 11:57 Carbon Dioxide 33 mmol/L (22-29) H 08/26/22 11:57 Anion Gap 14.4 (5-19) 08/26/22 11:57 BUN 6 mg/dL (8-23) L 08/26/22 11:57 Creatinine 0.3 mg/dL (0.7-1.2) L 08/26/22 11:57 GFR Calculation 296.4 mL/min (90-130) H 08/26/22 11:57 Glucose 107 mg/dL (65-115) 08/26/22 11:57 Calculated Osmolality 288 mOsm/kg (285-295) 08/26/22 11:57 Calcium 9.0 mg/dL (8.5-10.5) 08/26/22 11:57 Magnesium 2.0 mg/dL (1.7-2.3) 08/26/22 11:57 Total Bilirubin 0.7 mg/dL (0.15-1.2) 08/26/22 11:57 AST 28 U/L (0-40) 08/26/22 11:57 ALT 21 U/L (0-41) 08/26/22 11:57 Alkaline Phosphatase 64 U/L (40-130) 08/26/22 11:57 NT-Pro-B Natriuret Pep 82 pg/mL (0-125) 08/26/22 11:57 Total Protein 7.4 g/dL (6.6-8.7) 08/26/22 11:57 Albumin 4.5 g/dL (3.5-5.2) 08/26/22 11:57 Globulin 2.9 g/dL (1.3-4.6) 08/26/22 11:57 Discharge Plan Discharge Patient Disposition: Admitted As Inpatient Clinical Impression: Acute exacerbation of chronic obstructive airways disease, Acute hypercapnic respiratory failure Condition: Stable Prescriptions: No Action Trelegy Ellipta 100-62.5-25 mcg blister with device 1 inh inhalation DAILY Qty: 60 3RF Combivent Respimat 20-100 mcg/actuation mist 1 puff inhalation Q6H PRN (Reason: shortness of breath or wheezing) Qty: 4 3RF azithromycin 250 mg Tablet 500 mg PO DAILY Qty: 10 0RF benzonatate 100 mg Capsule 100 mg PO TID Qty: 14 0RF furosemide 40 mg Tablet 20 mg PO DAILY@0800 Qty: 15 0RF pantoprazole 40 mg Tablet,Delayed Release (Dr/Ec) 40 mg PO DAILY Qty: 14 0RF prednisone 10 mg tablet See Taper PO DIRECTED Qty: 42 0RF Taper: predniSONE 60-10 60 mg Daily for 2 Days and 0 Hour 50 mg Daily for 2 Days and 0 Hour 40 mg Daily for 2 Days and 0 Hour 30 mg Daily for 2 Days and 0 Hour 20 mg Daily for 2 Days and 0 Hour 10 mg Daily for 2 Days and 0 Hour Rx Instructions: see taper instructions ipratropium-albuterol 0.5 mg-3 mg(2.5 mg base)/3 mL solution for nebulization 3 ml inhalation Q8H Qty: 90 3RF Referrals: Nando Green MD [Primary Care Provider] - Coding Level of Care Code ED Nursery Worker for Trino Mcnulty
[2022-08-26] MEDS: dexamethasone 10 mg/mL INJ IVP (12:15)
[2022-08-26 12:16] LABS: Basophils # 0.1 10^3/uL (0.0-0.1); Basophils % 0.4 %; Eosinophils # 0.1 10^3/uL (0.0-0.8); Hematocrit 44.8 % (42.0-52.0); Hemoglobin 14.4 g/dL (11.7-16.6); Lymphocytes # 1.9 10^3/uL (0.8-4.8); Lymphocytes % 15.3 %; Mean Corpuscular HGB Conc 32.1 g/dL (30.0-36.0); Mean Corpuscular Volume 99.6 fl (80-94); Mean Platelet Volume 11.4 fL (7.4-10.4); Monocytes # 1.2 10^3/uL (0.2-0.9); Monocytes % 9.7 %; Neutrophils % 73.1 %; Nucleated Red Blood Cells % 0 %; Platelet Count 208 10^3/cmm (130-400); Red Cell Distribution Width 13.4 % (12.1-15.1); White Blood Count 12.5 10^3/uL (4.0-10.0)
[2022-08-26] MEDS: albuterol 2.5 mg/3 mL Neb INHALATION (12:19)
[2022-08-26 12:20] LABS: ABG PH Result 7.32 (7.35-7.45); Alveolar-Arterial Oxygen Gradi 17.2 mmHg (5-10); Arterial Blood Gas Hematocrit 43.4 % (42-52); Base Excess ABG 4.8 mmol/L (-2.0-2.0); Blood Gas Allen Test Pos; Blood Gas Operator Identificat GD; Blood Gas Sample Site Radial, right; Blood Gas Sample Type Arterial; Carboxyhemoglobin 3.4 %THgb (0.4-20.1); HCO3 ABG 32.9 mmol/L (22-26); HGB O2 Sat 91.8 % (95-100); Ionized Calcium Level - ABG 1.2 mmol/L (1.1-1.4); Methemoglobin 0.4 % (0.4-1.5); Oxygen Device NC; Oxygen Saturation ABG 95.4; PO2 ABG 76.2 mmHg (80.0-100.0); Potassium Level - ABG 4.1 mmol/L (3.5-5.0); Total Hemoglobin 14.1 g/dL (14-18)
[2022-08-26 12:21] LABS: ABG PCO2 63.7 mmHg (35-45)
[2022-08-26 12:46] LABS: Alanine Aminotransferase 21 U/L (0-41); Albumin Level 4.5 g/dL (3.5-5.2); Alkaline Phosphatase 64 U/L (40-130); Anion Gap 14.4 (5-19); Aspartate Amino Transferase 28 U/L (0-40); Blood Urea Nitrogen 6 mg/dL (8-23); Carbon Dioxide 33 mmol/L (22-29); Chloride 97 mmol/L (98-107); Globulin 2.9 g/dL (1.3-4.6); Glomerular Filtration Rate 296.4 mL/min (90-130); Glucose 107 mg/dL (65-115); NT Pro B Type Natriuretic Pept 82 pg/mL (0-125); Osmolality Calculated 288 mOsm/kg (285-295); Potassium 4.4 mmol/L (3.5-5.1); Sodium 140 mmol/L (136-145); Total Bilirubin 0.7 mg/dL (0.15-1.2); Total Protein 7.4 g/dL (6.6-8.7)
--- NOTE | 2022-08-26 13:01 | PC.PHAR ---
pt states he takes care of his own medications-pt states he doesnt take pantoprazole 40mg daily,lasix 20 mg daily or benzonatate 100mg tid all written on 08/12/22 -pt states he finished the azithromycin filled 08/13/22 5d/s-pt states he has maybe 6 tabs left of prednisone it was a tapering dose rx filled 08/13/22 12d/s-
[2022-08-26 13:19] LABS: D Dimer 0.76 ug/mIFEU (0-0.59)
--- NOTE | 2022-08-26 14:50 | P.HP_ITS ---
Providers/Chief Complaint Admitting Physician: Delgado Franklin Primary Care Provider: Nando Green MD Chief Complaint: SOB/COPD History of Present Illness Pleasant 9-year-old gentleman returns to the hospital after recent hospitalization, treated for COPD exacerbation, states that he was feeling better after discharge, but then his condition continually declined after about a week, continued to get worse with more shortness of breath, productive cough. He states that he was set up with a BiPAP, has oxygen at home, usually running in the 2-3 L, however, states that he is unable to run his oxygen through his BiPAP to use both at the same time. States that he tried to reach out to the oxygen company and was told that it was not possible with his current machine. He denies fever, had a mild headache, denies nausea vomiting or diarrhea. No chest pain or pressure. Review of Systems Const: Denies: fever(s), chills, body aches or malaise ENMT: Denies: throat pain, oral sores or ear or mastoid pain Card: Denies: chest pain, edema, pre-syncope or dyspnea on exertion Resp: Reports: dyspnea and productive cough; Denies: hemoptysis GI: Denies: abdominal pain, nausea, vomiting, diarrhea, constipation, hematochezia or melena : Denies: flank pain, difficulty urinating, urinary frequency or hematuria Musc: Denies: back pain, joint swelling or joint redness Skin/Breast: Reports: other (Small scabbed abrasion under left knee, no drainage); Denies: rash Neuro: Denies: headache(s), numbness in extremities, weakness in extremities or dizziness Medications/Allergies Home Medications Medication Instructions Recorded Confirmed Last Taken Type fluticasone fur. 100 mcg-umeclid 1 inh inhalation DAILY #60 ea 08/08/22 08/26/22 08/25/22 Rx 62.5 mcg-vilant 25 mcg inhalat.powder (Trelegy Ellipta) ipratropium 20 mcg-albuterol 100 1 puff inhalation Q6H PRN 08/08/22 08/26/22 Unknown Rx mcg/actuation mist for inhalation shortness of breath or wheezing #4 (Combivent Respimat) grams prednisone 10 mg tablet See Taper PO DIRECTED #42 tabs 0508/26/22 08/25/22 Rx acetaminophen 500 mg tablet 1,000 mg PO Q6H PRN Pain 08/26/22 08/26/22 Unknown H istory ibuprofen 200 mg tablet 400 mg PO Q6H PRN Pain 08/26/22 08/26/22 Unknown History ipratropium 0.5 mg-albuterol 3 mg 3 ml inhalation Q6H PRN Wheezing 08/26/22 08/26/22 Unknown History (2.5 mg base)/3 mL nebulization soln Allergies Allergy/AdvReac Type Severity Reaction Status Date / Time No Known Allergies Allergy Verified 08/26/22 13:00 PFSH Acute PFSH: Medical History Acute exacerbation of chronic obstructive airways disease COPD (chronic obstructive pulmonary disease) COVID-19 (~08/2021) Nicotine dependence, cigarettes, with other nicotine-induced disorders On home oxygen therapy 3L BNC Pleuritic chest pain Surgical History History of cataract surgery bilateral History of elbow surgery right, due to fracture History of right knee surgery History of surgery on right wrist due to fracture Family History Grandmother Diabetes Mother Diabetes Social History Smoking and tobacco status: current some day smoker cigarettes [ Other cigarette details: a cigar or two sometimes] Quit status (tobacco): has quit using tobacco Year quit tobacco: 01/2022 Former quit date comment: 2 ppd X 51 years Alcohol intake: never Substance/Drug Use: never Household members: spouse Marital status: Vitals/I&O/Wt Last Vital Signs Temp 98.2 F 08/26/22 11:52 Pulse 114 H 08/26/22 12:42 Resp 18 08/26/22 12:42 BP 101/69 08/26/22 12:42 Pulse Ox 99 08/26/22 12:42 O2 Del Method Room Air 08/26/22 12:42 O2 Flow Rate 6 08/26/22 12:18 FiO2 40 08/26/22 12:26 Weight last 48 hrs Weight 48.988 kg Physical Exam Narrative: at bedside Const: COMMON NORMALS: patient oriented x3 and alert GENERAL APPEARANCE: cooperative ORIENTATION/CONSCIOUSNESS: Yes awake HENMT: COMMON NORMALS: oropharynx normal Neck/C-Spine: COMMON NORMALS: no JVD Resp: AUSCULTATION: diminished lung sounds OTHER: Getting dyspneic with longer sentences. Cardio: COMMON NORMALS: no JVD, regular rhythm, S1 normal heart sound present, S2 normal heart sound present and No murmurs present (Cardio) RHYTHM: regular rhythm HEART SOUNDS: S1 normal heart sound present and S2 normal heart sound present GI: COMMON NORMALS: Normal to inspection, nondistended, normoactive bowel sounds present, Soft to palpation and non-tender PALPATION: Yes Soft to palpation Extremity: COMMON NORMALS: no joint enlargement and no pedal edema Neuro: COMMON NORMALS: patient oriented x3 and moves all extremities SENSORIUM/ORIENTATION: Yes alert Skin: COMMON NORMALS: no rashes or lesions noted GENERAL SKIN EXAM: no rashes or lesions noted Data 08/26/22 11:57 08/26/22 11:57 A&P Assessment and plan (1) Acute exacerbation of chronic obstructive airways disease: Acute respiratory failure with hypoxia and hypercapnia, he also states at home even when trying to wear BiPAP he oxygen saturation will drop to 70s. He is unable to run oxygen through his BiPAP at home. Hypercapnic respiratory acidosis on my interpretation of ABG in ER.. Diminished air entry, productive cough. Severe COPD exacerbation. IV steroids Solu-Medrol, antibiotic with Levaquin, Coreg sputum culture, MRSA was negative here recently. Discussed with him we will assess also a respiratory viral panel. Breathing treatments, DuoNeb, budesonide, oxygen support. RT assess and treat. Case management consultation to see how we can arrange for his equipment to function together being able to run oxygen through his BiPAP. He states his oxygen and his BiPAP are from 2 different companies. Discussed with ER physician. ER recommendation reviewed. Follow-up with pulmonology. Chest x-ray without pneumonia. NT proBNP noted 82. Plan D-dimer mildly elevated: 74. Discussed with him. Discussed consideration but this appears to be less likely at the current time. D-dimer adjusted for age nearly normal. Lovenox VTE prophylaxis. Attestations Medical Necessity Statement*: Admission of over 2 midnights anticipated for assessment management of severe exacerbation of COPD with respiratory failure. Diagnoses Acute exacerbation of chronic obstructive airways disease J44.1
[2022-08-26] MEDS: ipratropium-albuterol 3 mL Neb INHALATION ×3 (15:36→23:01)
--- NOTE | 2022-08-26 17:13 | PC.NURSE ---
This nurse was unable to pull solu medrol from [facility] due to pharmacy being out of stock. Dr. Fatima notified and medication was not given.
[2022-08-26 17:14] LABS: Adenovirus Not Detected (NOT DETECT); Chlamydia Pneumoniae Not Detected (NOT DETECT); Coronavirus 229E,HKU1,NL63,OC4 Not Detected (NOT DETECT); Human Metapneumovirus Not Detected (NOT DETECT); Human Rhinovirus/Enterovirus Detected (NOT DETECT); Influenza A Not Detected (NOT DETECT); Influenza A H1 Not Detected (NOT DETECT); Influenza A H1-2009 Not Detected (NOT DETECT); Influenza A H3 Not Detected (NOT DETECT); Influenza B Not Detected (NOT DETECT); Mycoplasma Pneumoniae Not Detected (NOT DETECT); Parainfluenza Virus Type 1 Not Detected (NOT DETECT); Parainfluenza Virus Type 2 Not Detected (NOT DETECT); Parainfluenza Virus Type 3 Not Detected (NOT DETECT); Parainfluenza Virus Type 4 Not Detected (NOT DETECT); Respiratory Syncytial Virus A Not Detected (NOT DETECT); Respiratory Syncytial Virus B Not Detected (NOT DETECT); SARS-COV-2 Not Detected (NOT DETECT)
[2022-08-26] MEDS: enoxaparin 40 mg/0.4 mL Syringe SUBCUT (17:15)
[2022-08-26] MEDS: budesonide 0.5 mg/2 mL Neb INHALATION (19:23)
[2022-08-27] VITALS (23 sets, daily range): BP systolic 100–133; BP diastolic 53–77; PULSE 71–103; RESP 14–28; TEMP 36.1–36.6; O2SAT 92–98
[2022-08-27] MEDS: ipratropium-albuterol 3 mL Neb INHALATION ×6 (03:10→23:03)
[2022-08-27 03:17] LABS: ABG PCO2 59.8 mmHg (35-45); ABG PH Result 7.35 (7.35-7.45); Arterial Blood Gas Hematocrit 39.8 % (42-52); Base Excess ABG 5.5 mmol/L (-2.0-2.0); Blood Gas Allen Test Pos; Blood Gas Sample Site Radial, right; Blood Gas Sample Type Arterial; HCO3 ABG 32.9 mmol/L (22-26); Oxygen Device NC
[2022-08-27 05:34] LABS: Basophils % 0.2 %; Hematocrit 40.1 % (42.0-52.0); Hemoglobin 12.9 g/dL (11.7-16.6); Lymphocytes # 0.7 10^3/uL (0.8-4.8); Lymphocytes % 10.4 %; Mean Corpuscular HGB Conc 32.2 g/dL (30.0-36.0); Mean Corpuscular Hemoglobin 31.7 pg (28.0-34.0); Mean Corpuscular Volume 98.5 fl (80-94); Mean Platelet Volume 11.2 fL (7.4-10.4); Monocytes # 0.6 10^3/uL (0.2-0.9); Monocytes % 9.7 %; Neutrophils # 5.26 10^3/uL (1.8-7.7); Neutrophils % 79.4 %; Nucleated Red Blood Cells % 0 %; Platelet Count 174 10^3/cmm (130-400); Red Blood Count 4.07 10^6/uL (4.1-5.3); Red Cell Distribution Width 13.2 % (12.1-15.1); White Blood Count 6.6 10^3/uL (4.0-10.0)
[2022-08-27 05:53] LABS: Anion Gap 11.6 (5-19); Blood Urea Nitrogen 8 mg/dL (8-23); Carbon Dioxide 32 mmol/L (22-29); Chloride 98 mmol/L (98-107); Glomerular Filtration Rate 296.4 mL/min (90-130); Glucose 103 mg/dL (65-115); Osmolality Calculated 283 mOsm/kg (285-295); Potassium 4.6 mmol/L (3.5-5.1); Sodium 137 mmol/L (136-145)
--- NOTE | 2022-08-27 07:00 | CT_ITS ---
WS: [id number] CTA OF THE CHEST WITH PULMONARY EMBOLISM PROTOCOL TECHNIQUE: High-resolution contrast enhanced CTA of the chest with coronal and sagittal reformatted i mages with pulmonary embolism protocol. MIP images are also reviewed. CLINICAL INFORMATION: elevated d dimer, tachycardia, hypoxia COMPARISON: 02/[address] August 10, 2022 DLP: 188.[address] scans at [facility] use at least one of these dose optimization techniques: automated e xposure control; mA and/or kV adjustment per patient size (includes targeted exams where dose is matc hed to clinical indication); or iterative reconstruction. FINDINGS: Proximal main pulmonary arteries are normal. Normal segmental and subsegmental pulmonary arteries. No evidence of pulmonary embolus. Advanced chronic emphysematous changes. No acute pulmonary infiltrate s. No focal pneumonia or pleural fluid. Aortic calcification. Normal caliber thoracic aorta. No media stinal or hilar lymphadenopathy. Small esophageal hiatal hernia. Splenic granulomas. Mild thoracic curve. Mild thoracic kyphosis. Endp late Schmorl's nodes in the mid thoracic spine. CT/CT angio chest PE protcl [id number] IMPRESSION: 1. No evidence of pulmonary embolus. 2. Advanced chronic emphysematous changes. No acute pulmonary infiltrates. 3. No mediastinal or hilar lymphadenopathy.
[2022-08-27] MEDS: iohexol 350 mg/mL 500 mL Btl (per mL) IV (07:32)
[2022-08-27] MEDS: predniSONE 20 mg Tablet 40 MG PO (07:48)
[2022-08-27] MEDS: bacitracin ointment 28 gm 1 APPLIC TOPICAL (07:48)
[2022-08-27] MEDS: budesonide 0.5 mg/2 mL Neb INHALATION ×2 (08:00→19:36)
--- NOTE | 2022-08-27 12:08 | PM.PN ---
Subjective Subjective: Today, a little bit easier be easier to draw air, but not yet substantially improved. Vitals/I&O/Wt Last Vital Signs Temp 97.0 F L 08/27/22 08:00 Pulse 83 08/27/22 11:14 Resp 17 08/27/22 11:14 BP 133/77 08/27/22 08:00 Pulse Ox 95 08/27/22 11:14 O2 Del Method BiPAP 08/27/22 11:14 O2 Flow Rate 3 08/26/22 20:00 FiO2 36 08/27/22 11:14 08/26/22 08/27/22 08/27/22 22:59 06:59 14:59 Intake Total 380 / 380 400 / 400 Output Total 400 / 400 600 / 1000 Balance -20 / -20 -600 / -620 400 / 400 Weight last 48 hrs Weight 48.988 kg Physical Exam Narrative: Family at bedside Const: COMMON NORMALS: patient oriented x3 and alert GENERAL APPEARANCE: cooperative ORIENTATION/CONSCIOUSNESS: Yes awake HENMT: COMMON NORMALS: oropharynx normal Neck/C-Spine: COMMON NORMALS: no JVD Resp: COMMON NORMALS: normal respiratory effort and clear to auscultation bilaterally AUSCULTATION: clear to auscultation bilaterally and diminished lung sounds OTHER: Getting dyspneic with longer sentences. Cardio: COMMON NORMALS: no JVD, regular rhythm, S1 normal heart sound present, S2 normal heart sound present and No murmurs present (Cardio) RHYTHM: regular rhythm HEART SOUNDS: S1 normal heart sound present and S2 normal heart sound present GI: COMMON NORMALS: Normal to inspection, nondistended, normoactive bowel sounds present, Soft to palpation and non-tender PALPATION: Yes Soft to palpation Extremity: COMMON NORMALS: no joint enlargement and no pedal edema Neuro: COMMON NORMALS: patient oriented x3 and moves all extremities SENSORIUM/ORIENTATION: Yes alert Skin: COMMON NORMALS: no rashes or lesions noted GENERAL SKIN EXAM: no rashes or lesions noted Data 08/27/22 05:03 08/27/22 05:03 Micro: Microbiology 08/26/22 07:50 Gram Stain - Final Sputum - Expectorated Sputum 08/26/22 15:19 Legionella Urinary Antigen - Final Urine,Voided Bacterial Antigens - Final A&P Assessment and plan (1) Acute exacerbation of chronic obstructive airways disease: Slight improvement in entry, but still diminished, still wheeze. We do not have Solu-Medrol. Discussed with pharmacist. Changed to prednisone. For now 40 mg daily. Higher dosing with high risk of complications. Discussed with him additionally risk of hyperglycemia, hypertension, PUD complications and other. On viral studies noted entero-/rhinovirus infection, likely leading to his deterioration. Maintain droplet isolation. He has provided a sputum culture. Follow-up. On review so far moderate white blood cells, heavy gram-positive cocci in pairs. Urine bacterial antigens and Legionella antigen noted negative. Acute respiratory failure with hypoxia and hypercapnia, he also states at home even when trying to wear BiPAP he oxygen saturation will drop to 70s. He is unable to run oxygen through his BiPAP at home. Discussed with case management. Hypercapnic respiratory acidosis on my interpretation of ABG in ER. Diminished air entry, productive cough. Severe COPD exacerbation. Continue Levaquin. Breathing treatments, DuoNeb, budesonide, oxygen support. RT assess and treat. Follow-up with pulmonology. Chest x-ray without pneumonia. NT proBNP noted 82. Plan D-dimer mildly elevated: 74. Discussed with him. Discussed consideration but this appears to be less likely at the current time. D-dimer adjusted for age nearly normal. Lovenox VTE prophylaxis. Attestations Medical Necessity Statement*: Continue admission for assessment management of severe COPD exacerbation. Diagnoses Acute exacerbation of chronic obstructive airways disease J44.1
[2022-08-27] MEDS: enoxaparin 40 mg/0.4 mL Syringe SUBCUT (16:23)
[2022-08-28] VITALS (19 sets, daily range): BP systolic 101–120; BP diastolic 49–74; PULSE 67–96; RESP 14–24; TEMP 36.2–36.7; O2SAT 91–98
[2022-08-28] MEDS: ipratropium-albuterol 3 mL Neb INHALATION ×5 (03:17→19:54)
[2022-08-28 04:48] LABS: Basophils % 0.1 %; Eosinophils # 0.1 10^3/uL (0.0-0.8); Eosinophils % 0.8 %; Hematocrit 37.6 % (42.0-52.0); Hemoglobin 12.2 g/dL (11.7-16.6); Lymphocytes # 1.2 10^3/uL (0.8-4.8); Lymphocytes % 14.3 %; Mean Corpuscular HGB Conc 32.4 g/dL (30.0-36.0); Mean Corpuscular Hemoglobin 32.4 pg (28.0-34.0); Mean Platelet Volume 11.3 fL (7.4-10.4); Monocytes # 0.8 10^3/uL (0.2-0.9); Monocytes % 8.9 %; Neutrophils # 6.34 10^3/uL (1.8-7.7); Neutrophils % 75.5 %; Nucleated Red Blood Cells % 0 %; Platelet Count 148 10^3/cmm (130-400); Red Blood Count 3.76 10^6/uL (4.1-5.3); Red Cell Distribution Width 13.6 % (12.1-15.1); White Blood Count 8.4 10^3/uL (4.0-10.0)
[2022-08-28 05:07] LABS: Anion Gap 9.9 (5-19); Blood Urea Nitrogen 9 mg/dL (8-23); Calcium 8.7 mg/dL (8.5-10.5); Carbon Dioxide 33 mmol/L (22-29); Chloride 102 mmol/L (98-107); Glomerular Filtration Rate 212.7 mL/min (90-130); Glucose 102 mg/dL (65-115); Osmolality Calculated 291 mOsm/kg (285-295); Potassium 3.9 mmol/L (3.5-5.1); Sodium 141 mmol/L (136-145)
[2022-08-28] MEDS: budesonide 0.5 mg/2 mL Neb INHALATION ×2 (07:55→19:54)
[2022-08-28] MEDS: predniSONE 20 mg Tablet 40 MG PO (08:40)
[2022-08-28] MEDS: bacitracin ointment 28 gm 1 APPLIC TOPICAL (08:40)
[2022-08-28] MEDS: enoxaparin 40 mg/0.4 mL Syringe SUBCUT (14:48)
--- NOTE | 2022-08-28 16:57 | PM.PN ---
Subjective Subjective: This morning he was having trouble getting a deep breath. Had to be started on BiPAP. Feels he has quite a bit of congestion/phlegm, difficult to cough up. Vitals/I&O/Wt Last Vital Signs Temp 97.5 F L 08/28/22 12:00 Pulse 81 08/28/22 15:09 Resp 18 08/28/22 15:09 BP 101/49 08/28/22 12:00 Pulse Ox 97 08/28/22 15:09 O2 Del Method BiPAP 08/28/22 15:09 O2 Flow Rate 4 08/28/22 07:50 FiO2 36 08/28/22 15:09 08/28/22 08/28/22 08/28/22 06:59 14:59 22:59 Intake Total 720 / 720 Output Total 350 / 1050 200 / 200 Balance -350 / 310 520 / 520 Physical Exam Narrative: at bedside Const: COMMON NORMALS: patient oriented x3 and alert GENERAL APPEARANCE: cooperative ORIENTATION/CONSCIOUSNESS: Yes awake HENMT: COMMON NORMALS: oropharynx normal Neck/C-Spine: COMMON NORMALS: no JVD Resp: COMMON NORMALS: normal respiratory effort and clear to auscultation bilaterally AUSCULTATION: clear to auscultation bilaterally and diminished lung sounds OTHER: Getting dyspneic with longer sentences. Cardio: COMMON NORMALS: no JVD, regular rhythm, S1 normal heart sound present, S2 normal heart sound present and No murmurs present (Cardio) RHYTHM: regular rhythm HEART SOUNDS: S1 normal heart sound present and S2 normal heart sound present GI: COMMON NORMALS: Normal to inspection, nondistended, normoactive bowel sounds present, Soft to palpation and non-tender PALPATION: Yes Soft to palpation Extremity: COMMON NORMALS: no joint enlargement and no pedal edema Neuro: COMMON NORMALS: patient oriented x3 and moves all extremities SENSORIUM/ORIENTATION: Yes alert Skin: COMMON NORMALS: no rashes or lesions noted GENERAL SKIN EXAM: no rashes or lesions noted Data 08/28/22 04:34 08/28/22 04:34 Micro: Microbiology 08/26/22 07:50 Gram Stain - Final Sputum - Expectorated Sputum Sputum Culture - Preliminary A&P Assessment and plan (1) Acute exacerbation of chronic obstructive airways disease: Dyspneic this morning, had to be started on BiPAP. States has quite a bit of phlegm/congestion but difficult to cough up. Add chest vest, Mucinex. Flutter valve. Discussed with respiratory therapy. Sputum culture reviewed, noted moderate white blood cells, having gram-positive cocci in pairs, moderate normal delmi on day 1. Follow-up results. For severe exacerbation give Levaquin due to some worsening, although unlikely trigger was answered rhinovirus. Continue prednisone. He is afebrile, WBC 8.4. MRSA several weeks back was negative. Discussed with case management, they are also working on getting home equipment set up and working together. Acute respiratory failure with hypoxia and hypercapnia, he also states at home even when trying to wear BiPAP he oxygen saturation will drop to 70s. He is unable to run oxygen through his BiPAP at home. Discussed with case management. Hypercapnic respiratory acidosis on my interpretation of ABG in ER. Diminished air entry, productive cough. Severe COPD exacerbation. Breathing treatments, DuoNeb, budesonide, oxygen support. RT assess and treat. Follow-up with pulmonology. Chest x-ray without pneumonia. NT proBNP noted 82. Plan D-dimer mildly elevated: 74. Discussed with him. Discussed consideration but this appears to be less likely at the current time. D-dimer adjusted for age nearly normal. Lovenox VTE prophylaxis. Attestations Medical Necessity Statement*: Continue admission for assessment management of severe exacerbation of COPD. Diagnoses Acute exacerbation of chronic obstructive airways disease J44.1
[2022-08-28] MEDS: guaiFENesin 600 mg Tablet PO (17:29)
[2022-08-28] MEDS: levofloxacin-dextrose 5 % 750 MG/150 ML PREMIX 100 MG IV (17:30)
[2022-08-29] VITALS (16 sets, daily range): BP systolic 101–121; BP diastolic 64–78; PULSE 72–96; RESP 15–25; TEMP 36.6–37; O2SAT 86–98
[2022-08-29] MEDS: ipratropium-albuterol 3 mL Neb INHALATION ×6 (00:54→21:20)
[2022-08-29 04:28] LABS: Basophils % 0.2 %; Eosinophils % 0.5 %; Hematocrit 36.2 % (42.0-52.0); Hemoglobin 11.5 g/dL (11.7-16.6); Lymphocytes # 1.1 10^3/uL (0.8-4.8); Lymphocytes % 17.7 %; Mean Corpuscular HGB Conc 31.8 g/dL (30.0-36.0); Mean Corpuscular Hemoglobin 32.2 pg (28.0-34.0); Mean Corpuscular Volume 101.4 fl (80-94); Mean Platelet Volume 11.3 fL (7.4-10.4); Monocytes # 0.8 10^3/uL (0.2-0.9); Monocytes % 12.8 %; Neutrophils # 4.17 10^3/uL (1.8-7.7); Neutrophils % 68.3 %; Nucleated Red Blood Cells % 0 %; Platelet Count 145 10^3/cmm (130-400); Red Blood Count 3.57 10^6/uL (4.1-5.3); Red Cell Distribution Width 13.5 % (12.1-15.1); White Blood Count 6.1 10^3/uL (4.0-10.0)
[2022-08-29 04:51] LABS: Blood Urea Nitrogen 11 mg/dL (8-23); Calcium 8.3 mg/dL (8.5-10.5); Carbon Dioxide 32 mmol/L (22-29); Chloride 101 mmol/L (98-107); Glomerular Filtration Rate 212.7 mL/min (90-130); Glucose 91 mg/dL (65-115); Osmolality Calculated 289 mOsm/kg (285-295); Sodium 140 mmol/L (136-145)
[2022-08-29] MEDS: budesonide 0.5 mg/2 mL Neb INHALATION ×2 (08:30→21:20)
[2022-08-29] MEDS: predniSONE 20 mg Tablet 40 MG PO (09:52)
[2022-08-29] MEDS: bacitracin ointment 28 gm 1 APPLIC TOPICAL (09:53)
[2022-08-29] MEDS: guaiFENesin 600 mg Tablet PO ×2 (09:53→18:13)
--- NOTE | 2022-08-29 11:40 | PC.SOCIAL ---
IMM Update pg 2 of IMM updated and reviewed w/ patient. Copy provided and copy dated, initialed and placed in chart.
[2022-08-29] MEDS: morphine 10 mg/0.5 mL oral liq UD 5 MG PO (13:19)
[2022-08-29] MEDS: enoxaparin 40 mg/0.4 mL Syringe SUBCUT (16:36)
[2022-08-29] MEDS: levofloxacin-dextrose 5 % 750 MG/150 ML PREMIX 100 MG IV (18:13)
--- NOTE | 2022-08-29 19:28 | PM.PN ---
Subjective Subjective: He reports has been repeatedly having feeling like he cannot catch his breath. Even though noticed that saturation is maintained on the monitor. He is still coughing, now bringing up more phlegm. Vitals/I&O/Wt Last Vital Signs Temp 97.8 F 08/29/22 11:46 Pulse 80 08/29/22 15:15 Resp 18 08/29/22 15:15 BP 121/76 08/29/22 11:46 Pulse Ox 95 08/29/22 15:15 O2 Del Method Nasal Cannula 08/29/22 15:15 O2 Flow Rate 3 08/29/22 15:15 FiO2 35 08/29/22 08:00 08/29/22 08/29/22 08/29/22 06:59 14:59 22:59 Intake Total 360 / 360 Output Total 400 / 1225 300 / 300 500 / 800 Balance -400 / -115 60 / 60 -500 / -440 Physical Exam Narrative: at bedside Const: COMMON NORMALS: patient oriented x3 and alert GENERAL APPEARANCE: cooperative ORIENTATION/CONSCIOUSNESS: Yes awake HENMT: COMMON NORMALS: oropharynx normal Neck/C-Spine: COMMON NORMALS: no JVD Resp: COMMON NORMALS: normal respiratory effort AUSCULTATION: rhonchi and diminished lung sounds Cardio: COMMON NORMALS: no JVD, regular rhythm, S1 normal heart sound present, S2 normal heart sound present and No murmurs present (Cardio) RHYTHM: regular rhythm HEART SOUNDS: S1 normal heart sound present and S2 normal heart sound present GI: COMMON NORMALS: Normal to inspection, nondistended, normoactive bowel sounds present, Soft to palpation and non-tender PALPATION: Yes Soft to palpation Extremity: COMMON NORMALS: no joint enlargement and no pedal edema Neuro: COMMON NORMALS: patient oriented x3 and moves all extremities SENSORIUM/ORIENTATION: Yes alert Skin: COMMON NORMALS: no rashes or lesions noted GENERAL SKIN EXAM: no rashes or lesions noted Data 08/29/22 03:48 08/29/22 03:48 Micro: Microbiology 08/26/22 07:50 Gram Stain - Final Sputum - Expectorated Sputum Sputum Culture - Preliminary A&P Assessment and plan (1) Acute exacerbation of chronic obstructive airways disease: Still quite diminished air entry, wheeze, dyspnea. Productive cough. Discussed with him increasing prednisone to 60 mg. Discussed risks. Continue pulmonary toilet. Additionally he is having quite a bit of air hunger. Discussed with him adding small dose morphine for air hunger. He is agreeable. Continue pulmonary toilet. Chest vest appears to be helping. Encouraged flutter valve. Otherwise noted afebrile, WBC 6.1. Sputum culture with moderate normal delmi on day 2. Discussed with RT, discussed with case management. Continue arrangements for equipment at home to allow bleeding oxygen into his BiPAP. For severe exacerbation give Levaquin due to some worsening, although unlikely trigger was answered rhinovirus. Continue prednisone. Acute respiratory failure improving. Oxygen requirement appears to be coming down, currently down to 3 L nasal cannula. Hypercapnic respiratory acidosis on my interpretation of ABG in ER. Diminished air entry, productive cough. Severe COPD exacerbation. Breathing treatments, DuoNeb, budesonide, oxygen support. RT assess and treat. Follow-up with pulmonology. Chest x-ray without pneumonia. NT proBNP noted 82. Plan D-dimer mildly elevated: 74. Discussed with him. Discussed consideration but this appears to be less likely at the current time. D-dimer adjusted for age nearly normal. Lovenox VTE prophylaxis. Attestations Medical Necessity Statement*: Continue admission for assessment management of severe COPD exacerbation. Diagnoses Acute exacerbation of chronic obstructive airways disease J44.1
[2022-08-29] MEDS: predniSONE 20 mg Tablet PO (19:58)
[2022-08-30] VITALS (20 sets, daily range): BP systolic 109–127; BP diastolic 56–74; PULSE 68–94; RESP 15–19; TEMP 36.4–37; O2SAT 93–98
[2022-08-30] MEDS: ipratropium-albuterol 3 mL Neb INHALATION ×5 (00:34→20:22)
[2022-08-30] MEDS: budesonide 0.5 mg/2 mL Neb INHALATION ×2 (07:56→20:22)
[2022-08-30] MEDS: morphine 10 mg/0.5 mL oral liq UD 5 MG PO (09:56)
[2022-08-30] MEDS: guaiFENesin 600 mg Tablet PO ×2 (09:56→17:39)
[2022-08-30] MEDS: predniSONE 20 mg Tablet 60 MG PO (09:57)
[2022-08-30] MEDS: levofloxacin-dextrose 5 % 750 MG/150 ML PREMIX 100 MG IV (17:39)
--- NOTE | 2022-08-30 19:41 | PM.PN ---
Subjective Subjective: Today he is feeling better. He is able to catch a little bit more air. Feels morphine helps him with air hunger. Touched again on risks with opioids with him and his . They feel 5 mg may be a little bit too big of a dose for him. Vitals/I&O/Wt Last Vital Signs Temp 98.1 F 08/30/22 15:14 Pulse 94 08/30/22 15:42 Resp 18 08/30/22 15:33 BP 111/70 08/30/22 15:14 Pulse Ox 95 08/30/22 15:36 O2 Del Method Nasal Cannula 08/30/22 15:33 O2 Flow Rate 3 08/30/22 15:33 FiO2 35 08/30/22 15:36 08/30/22 08/30/22 08/30/22 06:59 14:59 22:59 Intake Total 120 / 870 380 / 380 Output Total 300 / 1100 800 / 800 Balance -180 / -230 -800 / -800 380 / -420 Physical Exam Narrative: at bedside Const: COMMON NORMALS: patient oriented x3 and alert GENERAL APPEARANCE: cooperative ORIENTATION/CONSCIOUSNESS: Yes awake HENMT: COMMON NORMALS: oropharynx normal Neck/C-Spine: COMMON NORMALS: no JVD Resp: COMMON NORMALS: normal respiratory effort AUSCULTATION: no rhonchi and diminished lung sounds OTHER: Getting dyspneic with longer sentences. Cardio: COMMON NORMALS: no JVD, regular rhythm, S1 normal heart sound present, S2 normal heart sound present and No murmurs present (Cardio) RHYTHM: regular rhythm HEART SOUNDS: S1 normal heart sound present and S2 normal heart sound present GI: COMMON NORMALS: Normal to inspection, nondistended, normoactive bowel sounds present, Soft to palpation and non-tender PALPATION: Yes Soft to palpation Extremity: COMMON NORMALS: no joint enlargement and no pedal edema Neuro: COMMON NORMALS: patient oriented x3 and moves all extremities SENSORIUM/ORIENTATION: Yes alert Skin: COMMON NORMALS: no rashes or lesions noted GENERAL SKIN EXAM: no rashes or lesions noted Data 08/29/22 03:48 08/29/22 03:48 Micro: Microbiology 08/26/22 07:50 Gram Stain - Final Sputum - Expectorated Sputum Sputum Culture - Final A&P Assessment and plan (1) Acute exacerbation of chronic obstructive airways disease: Morphine help with air hunger, but needs to decrease dose to 2.5 mg. Adjusted. He is seems to have responded favorably to increase in steroid dose, continue 60 mg prednisone for now. Hopefully continues to improve in terms of air entry. Slightly better. Intermittently needing BiPAP support, but states he is becoming a bit more comfortable going back to nasal cannula 3 L. On 2 to 3 L at home. Still quite diminished air entry, wheeze, dyspnea. Productive cough. Discussed with him increasing prednisone to Continue pulmonary toilet, chest vest appears to be helping. Encouraged flutter valve. Sputum culture reviewed with moderate normal delmi on day 3. Discussed with case management. Should now have the equipment he needs to have both BiPAP and be able to bleed oxygen into it. For severe exacerbation continue Levaquin empirically given was not improving, although unlikely trigger was answered rhinovirus. Continue prednisone. Hypercapnic respiratory acidosis on my interpretation of ABG in ER. Diminished air entry, productive cough. Severe COPD exacerbation. Breathing treatments, DuoNeb, budesonide, oxygen support. RT assess and treat. Follow-up with pulmonology. Chest x-ray without pneumonia. NT proBNP noted 82. Plan D-dimer mildly elevated: 74. Discussed with him. Discussed consideration but this appears to be less likely at the current time. D-dimer adjusted for age nearly normal. Lovenox VTE prophylaxis. Attestations Medical Necessity Statement*: Continue admission for assessment management of severe COPD exacerbation. Diagnoses Acute exacerbation of chronic obstructive airways disease J44.1
[2022-08-31] VITALS (20 sets, daily range): BP systolic 107–150; BP diastolic 66–81; PULSE 61–105; RESP 13–23; TEMP 36.4–36.7; O2SAT 92–98
[2022-08-31] MEDS: ipratropium-albuterol 3 mL Neb INHALATION ×6 (00:05→21:15)
[2022-08-31] MEDS: morphine 10 mg/0.5 mL oral liq UD 2.5 MG PO ×2 (00:27→20:35)
[2022-08-31] MEDS: bacitracin ointment 28 gm 1 APPLIC TOPICAL (08:05)
[2022-08-31] MEDS: predniSONE 20 mg Tablet 60 MG PO (08:06)
[2022-08-31] MEDS: guaiFENesin 600 mg Tablet PO ×2 (08:06→17:09)
[2022-08-31] MEDS: budesonide 0.5 mg/2 mL Neb INHALATION ×2 (08:27→21:15)
--- NOTE | 2022-08-31 10:30 | PC.SOCIAL ---
IMM Updated Updated pt on IMM. No questions voiced. Provided pt a copy. Initialed, dated, & timed copy in chart.
--- NOTE | 2022-08-31 13:13 | PM.PN ---
Subjective Subjective: Patient reports shortness of breath, difficulty catching his breath, and cough. He reports severe weakness. Denies fevers, nausea, emesis, or abdominal pain. Patient has been started on morphine for air hunger. Discussed this was a palliative measure and he understands this. He inquires whether this treatment will continue after discharge. Discussed side effects and risks of opiate use. Discussed post acute care consideration and he is agreeable. Requesting we also speak with his spouse. Medications: Reviewed: Yes Vitals/I&O/Wt Last Vital Signs Temp 98.1 F 08/31/22 12:00 Pulse 105 H 08/31/22 12:00 Resp 19 H 08/31/22 12:00 BP 121/71 08/31/22 12:00 Pulse Ox 93 08/31/22 12:00 O2 Del Method Nasal Cannula 08/31/22 12:00 O2 Flow Rate 3 08/31/22 10:56 FiO2 35 08/31/22 10:58 08/30/22 08/31/22 08/31/22 22:59 06:59 14:59 Intake Total 380 / 380 630 / 1010 600 / 600 Output Total 960 / 960 Balance 380 / -420 630 / 210 -360 / -360 Physical Exam Narrative: General: Patient is awake. In moderate respiratory distress. Frail appearing. Head: Atraumatic. EOMI. Temporal wasting. Neck: No JVD. Cardiovascular: Tachycardic. No gallops. No murmurs. No peripheral edema. Lungs: Moderate respiratory distress. Diffuse wheezing throughout bilateral lung lackey. Increased work of breathing. Unable to speak in full sentences due to respiratory distress. Skin: No jaundice. No rashes. Abdomen: Soft. Not distended. Normal bowel sounds. Extremities: No cyanosis or clubbing. Musculoskeletal: Normal muscular development. Neurological: No myoclonus. Moves all 4 extremities. Data 08/29/22 03:48 08/29/22 03:48 Micro: Microbiology 08/26/22 07:50 Gram Stain - Final Sputum - Expectorated Sputum Sputum Culture - Final A&P Assessment and plan (1) Acute exacerbation of chronic obstructive airways disease: With chronic hypoxic respiratory failure and pulmonary cachexia Found to be in moderate respiratory distress on exam today Telemetry w/ continuous pulse oximetry Continue pulmicort Scheduled DuoNebs Mucinex Continue Levaquin Continue prednisone 60 mg daily, likely needs prolonged taper Morphine PRN for air hunger, palliative measure, d/w pt Pulmonary toilet (2) Debility: Debility and physical deconditioning Continue therapy Patient would benefit from postacute care Discussed postacute options with CM Met w/ spouse and later in the day with spouse/family to discuss Plan DVT ppx: Lovenox Code status: Limited Attestations Medical Necessity Statement*: Patient is in respiratory distress requiring ongoing hospitalization for respiratory support, steroids, breathing treatments, and supportive care. Coding Level of Care Code Acute Code for g Fwd Diagnoses Acute exacerbation of chronic obstructive airways disease J44.1 Debility R53.81
[2022-08-31] MEDS: levofloxacin-dextrose 5 % 750 MG/150 ML PREMIX 150 MG IV (17:09)
[2022-08-31] MEDS: enoxaparin 40 mg/0.4 mL Syringe SUBCUT (17:09)
[2022-09-01] VITALS (16 sets, daily range): BP systolic 114–123; BP diastolic 53–77; PULSE 68–105; RESP 15–28; TEMP 36.6–36.8; O2SAT 93–98
[2022-09-01] MEDS: ipratropium-albuterol 3 mL Neb INHALATION ×7 (00:21→22:49)
--- NOTE | 2022-09-01 04:11 | PC.NURSE ---
Patient asking for a nicotene patch. Patient states he has been feeling anxious and that he thinks it is because of not have cigarettes. Patient states he has cut back to just a couple cigarettes a day. Dr. Castro notified.
[2022-09-01] MEDS: nicotine 14 mg Patch 1 PATCH TRANSDERMA (04:29)
--- NOTE | 2022-09-01 04:31 | PC.NURSE ---
Patient offered a bed bath. He states he would like one this afternoon.
[2022-09-01] MEDS: budesonide 0.5 mg/2 mL Neb INHALATION ×2 (07:55→19:09)
[2022-09-01] MEDS: predniSONE 20 mg Tablet 60 MG PO (08:16)
[2022-09-01] MEDS: bacitracin ointment 28 gm 1 APPLIC TOPICAL (08:16)
[2022-09-01] MEDS: guaiFENesin 600 mg Tablet PO ×2 (08:17→17:26)
--- NOTE | 2022-09-01 12:18 | P.PN_ITS ---
Subjective Subjective: Patient reports his shortness of breath and cough is slightly better this morning but notes it waxes and wanes. His spouse is bedside. She reports their home device has still not been set up by [employer] [facility]. Patient still agreeable to SNF placement for skilled treatment prior to returning home. He reports he was able to ambulate a little in the room yesterday. Still not strong enough to make it into the cope yet. Otherwise denies nausea, emesis, or chills. Medications: Reviewed: Yes Vitals/I&O/Wt Last Vital Signs Temp 98.2 F 09/01/22 12:00 Pulse 104 H 09/01/22 12:00 Resp 24 H 09/01/22 11:25 BP 117/77 09/01/22 12:00 Pulse Ox 96 09/01/22 12:00 O2 Del Method Nasal Cannula 09/01/22 12:00 O2 Flow Rate 2 09/01/22 04:00 FiO2 35 09/01/22 11:25 08/31/22 09/01/22 09/01/22 22:59 06:59 14:59 Intake Total 390 / 990 720 / 720 Output Total 550 / 1510 850 / 2360 Balance -160 / -520 -850 / -1370 720 / 720 Physical Exam Narrative: General: Patient is awake. Alert. On BiPAP. Difficulty speaking in full sentences due to respiratory status. Head: Atraumatic. EOMI. Temporal wasting. Neck: No JVD. Cardiovascular: Tachycardic. No gallops. No murmurs. No peripheral edema. Lungs: Mild end expiratory wheezing throughout bilateral lung lackey. Increased work of breathing and difficulty speaking in full sentences. Skin: No jaundice. No rashes. Abdomen: Soft. Not distended. Normal bowel sounds. Extremities: No cyanosis or clubbing. Musculoskeletal: Normal muscular development. Neurological: No myoclonus. Moves all 4 extremities. Data 08/29/22 03:48 08/29/22 03:48 A&P Assessment and plan (1) Acute exacerbation of chronic obstructive airways disease: With chronic hypoxic respiratory failure and pulmonary cachexia Telemetry w/ continuous pulse oximetry Continue pulmicort Scheduled DuoNebs Mucinex Continue Levaquin Continue prednisone 60 mg daily, likely needs prolonged taper Morphine PRN for air hunger, palliative measure Pulmonary toilet (2) Debility: Debility and physical deconditioning Continue therapy Referrals sent for postacute placement Follow up SNF referral w/ CM on Saturday Plan DVT ppx: Lovenox Code status: Limited Attestations Medical Necessity Statement*: Patient requires ongoing hospitalization for respiratory support, steroids, breathing treatments, and supportive care. Coding Level of Care Code Acute Code for Chg Fwd Diagnoses Acute exacerbation of chronic obstructive airways disease J44.1 Debility R53.81
[2022-09-01] MEDS: levofloxacin-dextrose 5 % 750 MG/150 ML PREMIX 100 MG IV (16:20)
[2022-09-01] MEDS: enoxaparin 40 mg/0.4 mL Syringe SUBCUT (16:20)
[2022-09-01] MEDS: morphine 10 mg/0.5 mL oral liq UD 2.5 MG PO (22:30)
[2022-09-02] VITALS (19 sets, daily range): BP systolic 114–135; BP diastolic 71–79; PULSE 67–117; RESP 13–24; TEMP 36.4–36.8; O2SAT 94–98
[2022-09-02] MEDS: ipratropium-albuterol 3 mL Neb INHALATION ×6 (03:00→23:11)
[2022-09-02] MEDS: budesonide 0.5 mg/2 mL Neb INHALATION ×2 (08:26→19:34)
--- NOTE | 2022-09-02 09:28 | PC.SOCIAL ---
Imm update Imm updated with patient at bedside. Copy of page 2 provided. Patient verbalized understanding. Copy in chart initialed, dated and timed.
[2022-09-02] MEDS: nicotine 14 mg Patch 1 PATCH TRANSDERMA (09:30)
[2022-09-02] MEDS: predniSONE 20 mg Tablet 60 MG PO (09:32)
[2022-09-02] MEDS: bacitracin ointment 28 gm 1 APPLIC TOPICAL (09:32)
[2022-09-02] MEDS: guaiFENesin 600 mg Tablet PO (09:32)
--- NOTE | 2022-09-02 12:07 | PM.PN ---
Subjective Subjective: He felt better yesterday than he feels today. Possibly secondary to rain outside taking out the pollen and/or humidity. He intermittently uses BiPAP, yesterday after overnight BiPAP he felt more refreshed. This morning still feeling more dyspneic. Medications: Reviewed: Yes Vitals/I&O/Wt Last Vital Signs Temp 98.2 F 09/02/22 08:00 Pulse 86 09/02/22 11:39 Resp 18 09/02/22 11:39 BP 128/76 09/02/22 08:00 Pulse Ox 96 09/02/22 11:39 O2 Del Method Nasal Cannula 09/02/22 11:39 O2 Flow Rate 3 09/02/22 11:39 FiO2 35 09/02/22 08:00 09/01/22 09/02/22 09/02/22 22:59 06:59 14:59 Intake Total 510 / 1230 360 / 360 Output Total 450 / 450 350 / 800 Balance 60 / 780 -350 / 430 360 / 360 Physical Exam Const: COMMON NORMALS: patient oriented x3 and alert GENERAL APPEARANCE: cooperative ORIENTATION/CONSCIOUSNESS: Yes awake HENMT: COMMON NORMALS: oropharynx normal Neck/C-Spine: COMMON NORMALS: no JVD Resp: AUSCULTATION: no rhonchi, wheezes right lower (Mild) and diminished lung sounds Cardio: COMMON NORMALS: no JVD, regular rhythm, S1 normal heart sound present, S2 normal heart sound present and No murmurs present (Cardio) RHYTHM: regular rhythm HEART SOUNDS: S1 normal heart sound present and S2 normal heart sound present GI: COMMON NORMALS: Normal to inspection, nondistended, normoactive bowel sounds present, Soft to palpation and non-tender PALPATION: Yes Soft to palpation Extremity: COMMON NORMALS: no joint enlargement and no pedal edema Neuro: COMMON NORMALS: patient oriented x3 and moves all extremities SENSORIUM/ORIENTATION: Yes alert Skin: COMMON NORMALS: no rashes or lesions noted GENERAL SKIN EXAM: no rashes or lesions noted Data 08/29/22 03:48 08/29/22 03:48 A&P Assessment and plan (1) Acute exacerbation of chronic obstructive airways disease: Today he feels somewhat worse. Possibly after the rain outside. Still very diminished. Mild wheeze and right lower lobe. Continue BiPAP support as needed and with sleep. Continue prednisone 60 mg daily without decrease for now. Anticipated to require taper. Continue Levaquin, DuoNebs, budesonide. Increase Mucinex to 1200. Final sputum culture reviewed-?normal delmi. With regards to air hunger he states that morphine has been helping as well as nicotine patch. We will renew morphine 2.5 mg. 5 mg was too much for him. Oxygen requirement decreased at rest, down to about 2 L. With exertion however, oxygenation drops quite rapidly. He is quite deconditioned as well with severely curtailed distance he can ambulate to. Discussed with him preemptively increasing oxygen flow when he anticipates is going to require to exert himself. He agrees. Discussed with case management. Anticipated may get approved for rehabilitation tomorrow. Also should now have the equipment he needs to have both BiPAP and be able to bleed oxygen into it. Continue treatment of severe COPD exacerbation. Follow-up with pulmonology. Chest x-ray without pneumonia. NT proBNP noted 82. Plan D-dimer mildly elevated: 74. Discussed with him. Discussed consideration but this appears to be less likely at the current time. D-dimer adjusted for age nearly normal. Lovenox VTE prophylaxis. Attestations Medical Necessity Statement*: Continue admission for continued management of severe COPD exacerbation following rhinovirus infection, arrangements for rehabilitation. Diagnoses Acute exacerbation of chronic obstructive airways disease J44.1
[2022-09-02] MEDS: guaiFENesin 600 mg Tablet 1200 MG PO (17:27)
[2022-09-02] MEDS: levofloxacin-dextrose 5 % 750 MG/150 ML PREMIX 100 MG IV (17:28)
[2022-09-02] MEDS: morphine 10 mg/0.5 mL oral liq UD 2.5 MG PO (22:56)
[2022-09-03] VITALS (12 sets, daily range): BP systolic 115–137; BP diastolic 67–73; PULSE 69–101; RESP 16–22; TEMP 36.6–36.8; O2SAT 92–99
[2022-09-03] MEDS: ipratropium-albuterol 3 mL Neb INHALATION ×3 (03:26→11:30)
[2022-09-03] MEDS: budesonide 0.5 mg/2 mL Neb INHALATION (07:56)
[2022-09-03] MEDS: predniSONE 20 mg Tablet 60 MG PO (08:08)
[2022-09-03] MEDS: nicotine 14 mg Patch 1 PATCH TRANSDERMA (08:08)
[2022-09-03] MEDS: guaiFENesin 600 mg Tablet 1200 MG PO (08:09)
[2022-09-03] MEDS: bacitracin ointment 28 gm 1 APPLIC TOPICAL (08:09)
--- NOTE | 2022-09-03 08:41 | PM.DCS ---
Discharge Providers Date of Admission: 08/26/22 13:08 Date of Discharge: September 03, 2022 Attending Provider at Admission: Delgado Franklin Attending Provider at Discharge: Natasha Pleitez MD Primary Care Provider: Nando Green MD Diagnoses at Discharge Discharge Diagnosis (1) Acute exacerbation of chronic obstructive airways disease: Status: Acute Reason for Visit Reason for Visit: SOB/COPD Hospital Course Hospital Course 72-year-old male who has had multiple admissions related to COPD exacerbation, recently quit smoking, was recently discharged from the hospital after management of COPD exacerbation at baseline uses 3 L of oxygen, came back for worsening of dyspnea, during this hospitalization patient symptoms improved with use of steroids and BiPAP, patient is losing muscle mass, significant protein calorie malnourishment He has been put on Roxanol and nicotine patches seem to improve his air hunger requiring oxygen at baseline 3 L, patient will be able to go to rehab to see if that would decrease his hospitalizations, patient is stating that he would stay DNR/DNI in case of further and worsening he might opt for hospice during this hospitalization he was given DuoNeb, budesonide, Mucinex, sputum culture showed normal delmi, he was given BiPAP along prednisone with taper Physical Exam Narrative: No active wheezing Currently on 3 L GCS 15 Protein calorie malnourishment Awake and alert Abdomen soft Pleasant and cooperative Discharge Data Studies Completed and Pending Completed Studies During Hospitalization Category Date Time Status CT angio chest PE protcl [id number] Routine Cat Scan 08/27/22 07:00 Completed XR chest 1V portable [id number] Stat Exams 08/26/22 11:53 Completed Pending at discharge Category Date Time Status COVID [SARS Covid-2 Antigen] Routine Lab 09/03/22 07:21 Uncollected Radiology Impressions Chest X-Ray 08/26/22 11:53 IMPRESSION: Pulmonary emphysema. No acute abnormality. Chest CTA 08/27/22 07:00 IMPRESSION: 1. No evidence of pulmonary embolus. 2. Advanced chronic emphysematous changes. No acute pulmonary infiltrates. 3. No mediastinal or hilar lymphadenopathy. Laboratory Results WBC 6.1 10^3/uL (4.0-10.0) 08/29/22 03:48 RBC 3.57 10^6/uL (4.1-5.3) L 08/29/22 03:48 Hgb 11.5 g/dL (11.7-16.6) L 08/29/22 03:48 Hct 36.2 % (42.0-52.0) L 08/29/22 03:48 MCV 101.4 fl (80-94) H 08/29/22 03:48 MCH 32.2 pg (28.0-34.0) 08/29/22 03:48 MCHC 31.8 g/dL (30.0-36.0) 08/29/22 03:48 RDW 13.5 % (12.1-15.1) 08/29/22 03:48 Plt Count 145 10^3/cmm (130-400) 08/29/22 03:48 MPV 11.3 fL (7.4-10.4) H 08/29/22 03:48 Neut % (Auto) 68.3 % 08/29/22 03:48 Lymph % (Auto) 17.7 % 08/29/22 03:48 Whitfield % (Auto) 12.8 % 08/29/22 03:48 Eos % (Auto) 0.5 % 08/29/22 03:48 Baso % (Auto) 0.2 % 08/29/22 03:48 Neut # (Auto) 4.17 10^3/uL (1.8-7.7) 08/29/22 03:48 Lymph # (Auto) 1.1 10^3/uL (0.8-4.8) 08/29/22 03:48 Whitfield # (Auto) 0.8 10^3/uL (0.2-0.9) 08/29/22 03:48 Eos # (Auto) 0.0 10^3/uL (0.0-0.8) 08/29/22 03:48 Baso # (Auto) 0.0 10^3/uL (0.0-0.1) 08/29/22 03:48 Nucleated RBC % (auto) 0 % 08/29/22 03:48 Nucleated RBCs # 0.0 /100WBC 08/29/22 03:48 D-Dimer 0.76 ug/mIFEU (0-0.59) H 08/26/22 11:57 Specimen Type Arterial 08/27/22 06:00 Sample Site Radial, right 08/27/22 06:00 ABG pH 7.35 (7.35-7.45) 08/27/22 06:00 ABG pCO2 59.8 mmHg (35-45) H 08/27/22 06:00 ABG pO2 109.0 mmHg (80.0-100.0) H 08/27/22 06:00 ABG HCO3 32.9 mmol/L (22-26) H 08/27/22 06:00 ABG O2 Saturation 95.4 08/26/22 12:00 ABG Base Excess 5.5 mmol/L (-2.0-2.0) H 08/27/22 06:00 Carter Test Pos 08/27/22 06:00 A-a O2 Gradient 17.2 mmHg (5-10) H 08/26/22 12:00 Hematocrit 39.8 % (42-52) L 08/27/22 06:00 Hgb O2 Saturation 91.8 % (95-100) L 08/26/22 12:00 Carboxyhemoglobin 3.4 %THgb (0.4-20.1) 08/26/22 12:00 Methemoglobin 0.4 % (0.4-1.5) 08/26/22 12:00 Total Hemoglobin 14.1 g/dL (14-18) 08/26/22 12:00 Sodium 140.0 mmol/L (131-143) 08/26/22 12:00 Potassium 4.1 mmol/L (3.5-5.0) 08/26/22 12:00 Glucose 106.0 mg/dL (70-115) 08/26/22 12:00 Ionized Calcium 1.2 mmol/L (1.1-1.4) 08/26/22 12:00 O2 Delivery Device Nc 08/27/22 06:00 O2 Liters/Min 4.0 % 08/27/22 06:00 FiO2 40.0 % 08/26/22 12:00 Final Inspector And Tester ID ellpe 08/27/22 06:00 Sodium 140 mmol/L (136-145) 08/29/22 03:48 Potassium 4.0 mmol/L (3.5-5.1) 08/29/22 03:48 Chloride 101 mmol/L (98-107) 08/29/22 03:48 Carbon Dioxide 32 mmol/L (22-29) H 08/29/22 03:48 Anion Gap 11.0 (5-19) 08/29/22 03:48 BUN 11 mg/dL (8-23) 08/29/22 03:48 Creatinine 0.4 mg/dL (0.7-1.2) L 08/29/22 03:48 GFR Calculation 212.7 mL/min (90-130) H 08/29/22 03:48 Glucose 91 mg/dL (65-115) 08/29/22 03:48 Calculated Osmolality 289 mOsm/kg (285-295) 08/29/22 03:48 Calcium 8.3 mg/dL (8.5-10.5) L 08/29/22 03:48 Magnesium 2.0 mg/dL (1.7-2.3) 08/26/22 11:57 Total Bilirubin 0.7 mg/dL (0.15-1.2) 08/26/22 11:57 AST 28 U/L (0-40) 08/26/22 11:57 ALT 21 U/L (0-41) 08/26/22 11:57 Alkaline Phosphatase 64 U/L (40-130) 08/26/22 11:57 NT-Pro-B Natriuret Pep 82 pg/mL (0-125) 08/26/22 11:57 Total Protein 7.4 g/dL (6.6-8.7) 08/26/22 11:57 Albumin 4.5 g/dL (3.5-5.2) 08/26/22 11:57 Globulin 2.9 g/dL (1.3-4.6) 08/26/22 11:57 Nasal Influ A H1 2008 PCR Not detected (NOT DETECT) 08/26/22 15:10 Adenovirus (PCR) Not detected (NOT DETECT) 08/26/22 15:10 C. pneumoniae DNA (PCR) Not detected (NOT DETECT) 08/26/22 15:10 Coronavirus 229E (PCR) Not detected (NOT DETECT) 08/26/22 15:10 Human Metapneumovir PCR Not detected (NOT DETECT) 08/26/22 15:10 Influenza A (H1) PCR Not detected (NOT DETECT) 08/26/22 15:10 Influenza A (H3) PCR Not detected (NOT DETECT) 08/26/22 15:10 Influenza Type A (PCR) Not detected (NOT DETECT) 08/26/22 15:10 Influenza Type B (PCR) Not detected (NOT DETECT) 08/26/22 15:10 M. pneumoniae (PCR) Not detected (NOT DETECT) 08/26/22 15:10 Parainfluenza 1 (PCR) Not detected (NOT DETECT) 08/26/22 15:10 Parainfluenza 2 (PCR) Not detected (NOT DETECT) 08/26/22 15:10 Parainfluenza 3 (PCR) Not detected (NOT DETECT) 08/26/22 15:10 Parainfluenza 4 (PCR) Not detected (NOT DETECT) 08/26/22 15:10 RSV Type A (PCR) Not detected (NOT DETECT) 08/26/22 15:10 RSV Type B (PCR) Not detected (NOT DETECT) 08/26/22 15:10 Entero/Rhino (PCR) Detected (NOT DETECT) A 08/26/22 15:10 SARS-CoV-2 (PCR) Not detected (NOT DETECT) 08/26/22 15:10 Vitals Last Vital Signs Temp 98.1 F 09/03/22 07:51 Pulse 91 09/03/22 08:11 Resp 16 09/03/22 07:56 BP 134/70 09/03/22 07:51 Pulse Ox 95 09/03/22 07:57 O2 Del Method Nasal Cannula 09/03/22 07:56 O2 Flow Rate 3 09/03/22 07:56 FiO2 40 09/03/22 07:57 Discharge Plan Discharge Patient Disposition: Xfer SNF Condition: Stable Prescriptions: New morphine 10 mg/5 mL solution 2.5 mg PO Q6H PRN (Reason: dyspnea) Qty: 100 0RF methylprednisolone [Medrol (Mau)] 4 mg tablets,dose pack See Rx Instructions .ROUTE .COMPLEX Qty: 21 0RF Rx Instructions: orally per package directions roflumilast 500 mcg tablet 500 mcg PO DAILY Qty: 90 0RF nicotine 14 mg/24 hr Patch 24 Hour 1 patch transdermal DAILY Qty: 14 0RF Continued Trelegy Ellipta 100-62.5-25 mcg blister with device 1 inh inhalation DAILY Qty: 60 3RF Combivent Respimat 20-100 mcg/actuation mist 1 puff inhalation Q6H PRN (Reason: shortness of breath or wheezing) Qty: 4 3RF Tylenol Ex Str Rapid Release 500 mg Tablet 1,000 mg PO Q6H PRN (Reason: Pain) ipratropium-albuterol 0.5 mg-3 mg(2.5 mg base)/3 mL solution for nebulization 3 ml inhalation Q6H PRN (Reason: Wheezing) Discontinued ibuprofen 200 mg Tablet 400 mg PO Q6H PRN (Reason: Pain) prednisone 10 mg tablet See Taper PO DIRECTED Qty: 42 0RF Taper: predniSONE 60-10 60 mg Daily for 2 Days and 0 Hour 50 mg Daily for 2 Days and 0 Hour 40 mg Daily for 2 Days and 0 Hour 30 mg Daily for 2 Days and 0 Hour 20 mg Daily for 2 Days and 0 Hour 10 mg Daily for 2 Days and 0 Hour Rx Instructions: see taper instructions Discharge Orders: Discharge Order (Routine); Ordered 09/03/22 Ordered By: Natasha Pleitez Other Ambulatory Orders: DME: Miscellaneous (Order) Location: None Selected Ordered By: Delgado Franklin DME: Miscellaneous (Order) Location: None Selected Ordered By: Delgado Franklin DME: Oxygen (Order) Location: None Selected Ordered By: Delgado Franklin Referrals: [facility] [Outside] Nando Green MD [Primary Care Provider] - 09/05/22 11:00 am (with nurse prac. reardon) Discharge Diet: Cardiac Discharge Activity: Increase activity as tolerated Patient Instructions: Opioid Safety Discharge Attestations Time Spent in Discharge Care*: greater than 30 min Status at Discharge: Cognitive status at discharge: cognitively intact, Behavioral status at discharge: cooperative, Quality Metrics Clinical Quality Measures [ No reported AMI, CVA or VTE this stay] Coding Level of Care Code Acute Code for Chg Fwd Diagnoses Acute exacerbation of chronic obstructive airways disease J44.1
--- NOTE | 2022-09-03 08:46 | PM.PN ---
Subjective Subjective: Patient is doing well Currently on 3 L Awake and alert Patient is stating that his CODE STATUS is AMD Vitals/I&O/Wt Last Vital Signs Temp 98.1 F 09/03/22 07:51 Pulse 91 09/03/22 08:11 Resp 16 09/03/22 07:56 BP 134/70 09/03/22 07:51 Pulse Ox 95 09/03/22 07:57 O2 Del Method Nasal Cannula 09/03/22 07:56 O2 Flow Rate 3 09/03/22 07:56 FiO2 40 09/03/22 07:57 09/02/22 09/03/22 09/03/22 22:59 06:59 14:59 Intake Total 630 / 1230 300 / 1530 480 / 480 Output Total 400 / 400 425 / 825 Balance 230 / 830 -125 / 705 480 / 480 Physical Exam Narrative: Currently on 3 L No active wheezing Awake and alert GCS 15 No conversational dyspnea Cachectic, malnourished Abdomen soft Pleasant, nonfocal neuro exam S1, S2 Data 08/29/22 03:48 08/29/22 03:48 A&P Assessment and plan (1) Debility: (2) Acute hypercapnic respiratory failure: (3) Nicotine dependence, cigarettes, with other nicotine-induced disorders: (4) On home oxygen therapy: (5) COPD (chronic obstructive pulmonary disease): Qualifiers: COPD type: COPD with acute exacerbation Qualified Code(s): J44.1 - Chronic obstructive pulmonary disease with (acute) exacerbation (6) Acute exacerbation of chronic obstructive airways disease: (7) Protein calorie malnutrition: Plan Recurrent COPD exacerbations Patient now has oxygen and BiPAP at home Uses trilogy Taper steroids Add Roflumilast at discharge Awaiting senior living placement for pulmonary rehab Patient is AND DNR/DNI goals of care discussed with the patient No signs of PE Carries guarded prognosis Protein calorie malnourishment We will add Ensure 3 times a day Attestations Medical Necessity Statement*: Goals of care changed to allow natural Diagnoses Debility R53.81 Acute hypercapnic respiratory failure J96.02 Nicotine dependence, cigarettes, with other nicotine-induced disorders F17.218 On home oxygen therapy Z99.81 COPD (chronic obstructive pulmonary disease) J44.1 COPD type: COPD with acute exacerbation Acute exacerbation of chronic obstructive airways disease J44.1 Protein calorie malnutrition E46
[2022-09-03 09:35] LABS: SARS Covid-2 Antigen Negative (Negative)
--- NOTE | 2022-09-03 11:36 | PC.NURSE ---
Report called to [facility] with all questions answered.
== END 2022-09-03 13:28 | disposition skilled nursing facility (03) | DRG 190 ==
LOC: ER 12:58 → MEDSURG 13:08
PROVIDERS: Admitting Provider Internal Medicine; Emergency Provider Emergency Medicine; PCP Family Medicine; Visit Provider Internal Medicine
DX: J44.1 Chronic obstructive pulmonary disease with (acute) exacerbation (principal); J96.21 Acute and chronic respiratory failure with hypoxia; J96.22 Acute and chronic respiratory failure with hypercapnia; E87.29 Other acidosis; R64 Cachexia; Z68.1 Body mass index [BMI] 19.9 or less, adult; E46 Unspecified protein-calorie malnutrition; Z99.81 Dependence on supplemental oxygen; Z87.891 Personal history of nicotine dependence; Z86.16 Personal history of COVID-19; Z20.822 Contact with and (suspected) exposure to COVID-19; B97.89 Other viral agents as the cause of diseases classified elsewhere; B97.10 Unspecified enterovirus as the cause of diseases classified elsewhere; R53.81 Other malaise; Z66 Do not resuscitate
CPT/HCPCS: 36415; 36600; 71045; 71275; 80048; 80051; 80053; 82330; 82803; 82805; 83735; 83880; 85025; 85378; 86403; 87070; 87205; 87426; 87449; 87486; 87581; 87633; 94640; 94660; 94664; 94669; 94760; 96372; 96374; 97110; 97116; 97161; 97530; 99285; J1100; J1650; J1956; J7512; J7613; J7626; Q3014; Q9967

== ENCOUNTER → 2022-10-29 13:28 | Outpatient (BNVA) | payer MEDICARE, SELFPAY | PROVIDERS: PCP Family Medicine; Visit Provider Internal Medicine Pulmonary Disease | DX: J44.1 Chronic obstructive pulmonary disease with (acute) exacerbation (principal); Z99.81 Dependence on supplemental oxygen; F17.218 Nicotine dependence, cigarettes, with other nicotine-induced disorders | CPT/HCPCS: 99214 ==

== ENCOUNTER → 2023-05-02 10:54 | Outpatient (BNVA) | payer MEDICARE, SELFPAY | PROVIDERS: PCP Family Medicine; Visit Provider Internal Medicine Pulmonary Disease | DX: J44.1 Chronic obstructive pulmonary disease with (acute) exacerbation (principal); Z99.81 Dependence on supplemental oxygen; F17.218 Nicotine dependence, cigarettes, with other nicotine-induced disorders | CPT/HCPCS: 99214 ==

== ENCOUNTER 2023-08-29 09:35 | Outpatient (CLI) | payer MEDICARE, SELFPAY ==
--- NOTE | 2023-08-29 10:00 | CT_ITS ---
WS: [id number] LDCT LUNG CANCER SCREENING HISTORY: Cancer Screen TECHNIQUE: Axial imaging performed from the apices to 1 cm below the costophrenic angles. Coronal and sagittal reformats are submitted with axial MIP series. All CT scans at [facility] use at least one of these dose optimization techniques: automated exposure control; mA and/or kV adjustment per patient size (includes targeted exams where dose is matched to clinical indication); or iterativ e reconstruction. DLP: 50.98 mGy.cm DIvol: Mean CTDIvol: 0.70 (mGy) COMPARISON: 08/27/2022 Diagnostic quality: Satisfactory Lungs: Advanced pulmonary hyperexpansion and emphysema. There is a spiculated nodule with pleural tag ging LEFT lower lobe measuring 13 mm. There are a few additional very tiny scattered micronodules. No mass or pneumonia. Heart: Normal size heart with no pericardial effusion.. Other findings: Moderate atherosclerosis thoracic aorta. No adenopathy. Small hiatal hernia. No adren al mass. Mild straightening of the normal thoracic kyphosis. CT/CT lung screening [id number] IMPRESSION: LUNG-RADS: 4A-Probably Suspicious FOLLOW UP: PET/CT recommended OTHER FINDINGS (S MODIFIER): None. Spiculated nodule LEFT lower lobe, 13 mm. Suspicious for neoplasm.
== END 2023-08-29 09:36 | disposition home or self-care (01) ==
LOC: RAD 09:36
PROVIDERS: PCP Family Medicine; Visit Provider Internal Medicine Pulmonary Disease
DX: Z13.83 Encounter for screening for respiratory disorder NEC (principal); F17.210 Nicotine dependence, cigarettes, uncomplicated
CPT/HCPCS: 71271

== ENCOUNTER 2023-09-10 13:09 | Outpatient (CLI) | payer MEDICARE, SELFPAY ==
--- NOTE | 2023-09-10 14:00 | PETR_ITS ---
PROCEDURE INFORMATION: Exam: PET/CT Skull Base to Mid-thigh Exam date and time: 09/10/2023 1:50 PM Age: 73 years old Clinical indication: Abnormal findings; 13 mm spiculated lung nodule LABS AND CLINICAL REPORTS: Glucose: 84 mg/dl Treatment strategy for malignancy (PET staging): Initial Staging (PI) TECHNIQUE: Imaging protocol: Following at least four-hour fasting and following the injection of radiopharmaceutical, low dose CT images were obtained. Then, PET images were obtained. Attenuation corrected images were constructed using the CT scan. Fused images of PET and CT were reviewed. The standardized uptake values (SUV) reported below are maximum values within a region of interest, expressed in gm/ml. Exam includes orbital meatal line to mid-thigh. Radiopharmaceutical: 13.6 mCi F-18 FDG (Fluorodeoxyglucose), IV. Time of imaging post radiopharmaceutical administration: 1 hour Injection site: Left hand COMPARISON: CT lung screening [id number] 08/29/2023 9:45 AM, CTA chest 08/27/2022 FINDINGS: Brain: Visualized brain has normal physiologic uptake. Paranasal sinuses: Extensive non radiotracer avid opacification of the left maxillary sinus is present consistent with benign paranasal sinus disease. Oral cavity: There is physiologic appearing uptake in the region of the anterior tongue. Pharynx: No abnormal uptake. Larynx: No abnormal uptake. Lungs, pleura and trachea: Moderate bilateral centrilobular emphysematous changes are present. The lungs are hyperinflated. A spiculated solid left lower lobe nodule measuring 1.3 cm in diameter on series 3, image 113 is identified, SUV max 1.2. This nodule is similar in size compared with 08/29/2023 and appears new compared with 08/27/2022. Right lower lobe calcified granulomas are present. Heart: Normal physiologic uptake. Mediastinal space: No abnormal uptake. Liver: No abnormal uptake. Gallbladder and bile ducts: No abnormal uptake. Pancreas: No abnormal uptake. Spleen: No abnormal uptake. Calcified granulomas in the spleen are present. Adrenal glands: No abnormal uptake. Kidneys and ureters: Normal physiologic uptake. Stomach and bowel: No abnormal uptake. Vasculature: No abnormal uptake. Lymph nodes: No abnormal uptake. No lymphadenopathy in the head, neck, chest, abdomen, pelvis, and extremities. Small benign-appearing calcified non radiotracer avid mediastinal and bilateral hilar lymph nodes are present. Skeleton: No abnormal uptake in the visualized axial and appendicular skeleton. A non radiotracer avid sclerotic density in the medial right iliac bone measuring 1.1 x 0.7 cm on series 3, image 189 is compatible with a benign bone island. Degenerative changes in the spine are present. There is relative straightening of the cervical and lumbar lordosis and the thoracic kyphosis. The bones appear demineralized. Soft tissues: No abnormal uptake in the visualized head, neck, chest, abdomen, pelvis, and extremities. METRICS: Mediastinal blood pool: SUV max 1.8 PET/PET skull to thigh INIT [id number] IMPRESSION: 1. A spiculated left lower lobe nodule demonstrates low-level uptake (SUV max 1.2). This uptake is less than mediastinal blood pool uptake which can be associated with a benign etiology, however the spiculated morphology of the nodule continues to be concerning for possible malignancy. Consider percutaneous biopsy for more definitive assessment. 2. Bilateral centrilobular emphysematous changes with hyperinflation of the lungs suggestive of COPD. 3. Old granulomatous changes. 4. Additional nonurgent findings as detailed above.
== END 2023-09-10 13:10 | disposition home or self-care (01) ==
LOC: RAD 13:09
PROVIDERS: PCP Family Medicine; Visit Provider Internal Medicine Pulmonary Disease
DX: R91.1 Solitary pulmonary nodule (principal); J43.2 Centrilobular emphysema; D73.89 Other diseases of spleen
CPT/HCPCS: 78815; A9552

== ENCOUNTER 2023-09-16 10:53 | Oncology outpatient (recurring) (ONCR) | payer MEDICARE, SELFPAY ==
--- NOTE | 2023-09-16 14:01 | N.ONRAD NP_ITS ---
Radiation Oncology New Patient Visit Patient: Markus Trimble MR#: [id number] : 1950> Age: 73> Sex: Male> Dictated by: Dr. Allison Puckett Date of Service: 09/16/2023 Referring Physician(s) : Diagnosis: Solitary pulmonary nodule Radiotherapy to date: Summary > No prior radiation therapy. Chief Complaint / History of Present Illness: Patient has been having serial CT scans for at least the last 3 years. He is also had intermittent CT scans when he has been in the hospital. He says up to 7 or 8 years ago he actually was fairly healthy but then he developed his first severe case of pneumonia and since that time has had a decrease in his pulmonary function such that his COPD now causes him to keep his oxygen at 3 L. Scans in January 2022 and July 2022 did not reveal any abnormalities. The scan in the spring of this year showed a 13 mm left lower lobe mass which appeared to be spiculated. On the PET scan it only had an SUV of 1.2. He is here today to follow-up for the results of the PET scan and to determine the next step. He has spoken with Dr. Rodriguez previously about being a very poor candidate for biopsy. Current Medications: Allergies: Medical History: PFSH: Medical History Protein calorie malnutrition Debility Acute hypercapnic respiratory failure Acute exacerbation of chronic obstructive airways disease COVID-19 (~08/2021) On home oxygen therapy 3L BNC Nicotine dependence, cigarettes, with other nicotine-induced disorders Pleuritic chest pain COPD (chronic obstructive pulmonary disease) Surgical History History of surgery on right wrist due to fracture History of cataract surgery bilateral History of elbow surgery right, due to fracture History of right knee surgery. Surgical History: Family History: Grandmother Diabetes Mother Diabetes Social History: Smoking and tobacco/nicotine status: current some day tobacco/nicotine user cigarettes [ Other cigarette details: a cigar or two sometimes] Quit status (tobacco/nicotine): has quit using Year quit tobacco: 01/2022 Former quit date comment: 2 ppd X 51 years Alcohol intake: never Substance/Drug Use: never Household members: spouse Marital status: Current Complaints / Review of Systems: . Vital Signs: Performed on 09/16/2023 11:22 AM BMI - 17.14 kg/m2 (low), Height - 65 in, Weight - 103 lbs, Temperature - 98.8 f, Pulse - 88 /min, Respiration - 18 /min, O2 Sat - 93 % (low), Pain - 0, Fatigue - 0 and BP - 131/ 77 mm(hg). Physical Exam: General patient is in no apparent distress. He is accompanied by his HEENT: Normocephalic atraumatic. Pupils are equal, sclera clear, extraocular muscles intact Pulmonary: Respiratory rate is regular and unlabored. He has his oxygen in place and it is working. Cardiovascular: Regular rate and rhythm Abdomen: Patient is quite cachectic with minimal adipose tissue Neurological: Alert and orient x 3. Gait and speech within normal limits Psych: Appropriate for current situation Performance Status: 70 Pathology: Imaging: See HPI Impression: Solitary pulmonary nodule in a patient with significant and severe COPD Plan: I reviewed his PET scan on the laptop. We talked about how small the lesion is. We reviewed how the previous scans had not shown any abnormalities. We also talked about his pulmonary status and how Dr. Wynn felt he was a very poor candidate for possible biopsy and I would agree. We also talked about the low SUV and what that meant. At this point after some discussion we have come to the agreement that a follow-up CT scan in 3 months would be the most conservative way to approach this. If in the next 3 months it changes in size then we could discuss SBRT at that point. He verbalized understanding of this and he is in agreement. I put an order through for a CT scan we will see him a day or 2 after that for follow-up. Signed by: 09/16/2023 1:59:33 PM <<Signature on File>> Time spent with [email or web address]: CPT Code: CPT Code:
== END 2023-09-22 23:59 | disposition home or self-care (01) ==
PROVIDERS: PCP Family Medicine; Visit Provider Radiology Radiation Oncology
DX: R91.1 Solitary pulmonary nodule (principal); J44.9 Chronic obstructive pulmonary disease, unspecified; Z99.81 Dependence on supplemental oxygen; Z72.0 Tobacco use
CPT/HCPCS: 99205

== ENCOUNTER → 2023-10-30 12:27 | Outpatient (BNVA) | payer MEDICARE, SELFPAY | PROVIDERS: PCP Family Medicine; Visit Provider Internal Medicine Critical Care Medicine | DX: J96.21 Acute and chronic respiratory failure with hypoxia (principal); J44.1 Chronic obstructive pulmonary disease with (acute) exacerbation; R91.1 Solitary pulmonary nodule; K21.9 Gastro-esophageal reflux disease without esophagitis; F17.210 Nicotine dependence, cigarettes, uncomplicated; Z71.6 Tobacco abuse counseling | CPT/HCPCS: 99214 ==

== ENCOUNTER 2023-12-02 09:34 | Oncology outpatient (recurring) (ONCR) | payer MEDICARE, SELFPAY ==
--- NOTE | 2023-12-02 10:00 | CTR_ITS ---
PROCEDURE INFORMATION: Exam: CT Chest With Contrast; Diagnostic Exam date and time: 12/02/2023 10:46 AM Age: 73 years old Clinical indication: Abnormal findings; Abnormal radiologic exam of lung or chest; Additional info: Fu CT TECHNIQUE: Imaging protocol: Diagnostic computed tomography of the chest with contrast. Radiation optimization: All CT scans at this facility use at least one of these dose optimization techniques: automated exposure control; mA and/or kV adjustment per patient size (includes targeted exams where dose is matched to clinical indication); or iterative reconstruction. Contrast material: OMNI 350; Contrast volume: 100 ml; Contrast route: INTRAVENOUS (IV); COMPARISON: PT PET skull to thigh INIT [id number] 09/10/2023 1:50 PM RADIATION DOSE METRICS: Total DLP (mGy-cm): 254.93 FINDINGS: Lungs: The previously observed spiculated left lower lobe pulmonary nodule (4-51) was evidently inflammatory, it is smaller and only semi-solid on this study, it does not represent a neoplastic process. Centrilobular emphysema. Pleural spaces: Unremarkable. No pneumothorax. No pleural effusion. Heart: Unremarkable. No cardiomegaly. No pericardial effusion. Lymph nodes: Unremarkable. No enlarged lymph nodes. Vasculature: Unremarkable. No aortic aneurysm. Bones/joints: Unremarkable. No acute fracture. Soft tissues: Unremarkable. CT/CT chest w con* [id number] IMPRESSION: Resolving nodular density in the left lung base, it is now semi solid in appearance and evidently represented an inflammatory process. COMMENTS: The presence of pulmonary emphysema on CT is an independent risk factor for lung cancer. In the absence of a history or active diagnosis of lung cancer, it is recommended that this patient with emphysema be evaluated for enrollment in a low dose CT lung cancer screening program.
[2023-12-02] MEDS: iohexol 350 mg/mL 500 mL Btl (per mL) IV (11:08)
[2023-12-02 11:54] LABS: Blood Urea Nitrogen 8 mg/dL (8-23)
== END 2023-12-23 23:59 | disposition home or self-care (01) ==
LOC: ONCMED 09:35 → RAD 09:36 → ONCMED 10:01
PROVIDERS: PCP Family Medicine; Visit Provider Radiology Radiation Oncology
DX: R91.1 Solitary pulmonary nodule (principal); J43.9 Emphysema, unspecified; J98.4 Other disorders of lung
CPT/HCPCS: 71260; 82565; 84520

== ENCOUNTER 2023-12-05 07:21 | Inpatient (IN) | payer MEDICARE, SELFPAY ==
[2023-12-05] VITALS (16 sets, daily range): BP systolic 104–153; BP diastolic 61–81; PULSE 85–130; RESP 13–25; TEMP 36.4–36.8; O2SAT 91–100; BMI 17.2; BMI 17.9
--- NOTE | 2023-12-05 07:28 | XR_ITS ---
WS: [id number] XR chest 1V portable [id number] REASON FOR EXAM: dyspnea/cough FINDINGS: The overall appearance of the chest indicate significant chronic obstructive lung disease. Compared to the previous examination of 09/05/2022 there are coarse reticular interstitial opacities i n the medial left upper lung. The heart and the mediastinum are within normal limits. Bony thorax intact without significant abnormality. XR/XR chest 1V portable [id number] IMPRESSION: Interstitial lung opacities in the left lung of unknown chronicity but may repr esent acute or subacute pneumonitis.
--- NOTE | 2023-12-05 07:29 | ECG_ITS ---
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1950 Requested By: Eduin Park Order Number: [id number] Reading MD: RAEANN VIERA Measurements Intervals [place] Rate: 132 P: 87 UT: 160 QRS: -80 QRSD: 90 T: 89 QT: 267 QTc: 396 Interpretive Statements SINUS TACHYCARDIA LEFT AXIS DEVIATION [QRS AXIS < -30] Compared to ECG 08/10/2022 05:47:52 Left-axis deviation now present Ectopic atrial rhythm no longer present ST (T wave) deviation no longer present Electronically Signed On 12-05-2023 11:46:30 CDT by RAEANN VIERA [id number]
--- NOTE | 2023-12-05 07:39 | ED_ITS ---
HPI - Chest Pain 2 General: Chief Complaint: Chest Pain Stated Complaint: CP, SOB Time Seen by Provider: 12/05/23 07:24 History of Present Illness: 73-year-old male presents emergency room planing shortness of breath and productive cough along with chest discomfort that began about 4 days ago. Tmax last night reported by the of 101.7. She has been productive of discolored green sputum which is not typical of his baseline. He denies any hemoptysis. Patient is normally using oxygen at 3 L by nasal cannula and continues to use that now with an O2 sat in the mid 90s. Earlier this year he had a small lung nodule that is being followed with a CT of his chest done and follow-up 3 days ago. It appears the reason they have been following with inflammatory nodule and is resolving. Otherwise there are no abnormalities on that CT. He has no known history of DVT or PE in the past. Associated symptoms: Deny abdominal pain, dyspnea or fever(s) Related Data Home Medications Medication Instructions Recorded Confirmed acetaminophen 500 mg tablet 1,000 mg PO Q6H PRN Pain 08/26/22 12/05/23 albuterol sulfate 2.5 mg/3 mL 2.5 mg inhalation Q6H PRN 10/30/23 12/05/23 (0.083 %) solution for nebulization Shortness Of Breath ipratropium 20 mcg-albuterol 100 1 puff inhalation Q6H PRN 10/30/23 12/05/23 mcg/actuation mist for inhalation Shortness Of Breath (Combivent Respimat) Previous Rx's Medication Instructions Recorded fluticasone fur. 100 mcg-umeclid 1 inh inhalation DAILY #60 ea 09/13/23 62.5 mcg-vilant 25 mcg inhalat.powder (Trelegy Ellipta) levalbuterol tartrate 45 2 inh inhalation Q6H PRN shortness 09/19/23 mcg/actuation aerosol inhaler of breath or wheezing #15 grams (Xopenex HFA) Allergies Allergy/AdvReac Type Severity Reaction Status Date / Time No Known Allergies Allergy Verified 10/30/23 13:05 Review of Systems 2 Const: Denies: fever(s) or chills Card: Denies: chest pain Resp: Denies: dyspnea GI: Denies: abdominal pain : Denies: dysuria, urinary frequency or urinary urgency Musc: Denies: neck pain or back pain Skin/Breast: Denies: rash PFSH ED 2 PFSH: Medical History (Updated 12/05/23 @ 11:53 by Eduin Parks DO) Nicotine dependence, cigarettes, with other nicotine-induced disorders COPD (chronic obstructive pulmonary disease) Protein calorie malnutrition Debility Acute hypercapnic respiratory failure Acute exacerbation of chronic obstructive airways disease COVID-19 (~08/2021) On home oxygen therapy 3L BNC Pleuritic chest pain Surgical History History of surgery on right wrist due to fracture History of cataract surgery bilateral History of elbow surgery right, due to fracture History of right knee surgery Family History Grandmother Diabetes Mother Diabetes Social History Smoking and tobacco/nicotine status: current every day tobacco/nicotine user (0.5 ppd) cigarettes [ Other cigarette details: a cigar or two sometimes] Quit status (tobacco/nicotine): has quit using Year quit tobacco: 01/2022 Former quit date comment: 2 ppd X 51 years Alcohol intake: never Substance/Drug Use: never Household members: spouse Marital status: Physical Exam 2 Const: GENERAL APPEARANCE: cooperative ORIENTATION/CONSCIOUSNESS: Yes awake, Yes oriented to person, Yes oriented to place and Yes oriented to time HENMT: COMMON NORMALS: normocephalic, atraumatic and hearing grossly normal bilaterally HEAD & SCALP: normocephalic and atraumatic Resp: COMMON NORMALS: normal respiratory effort, No retractions and No use of accessory muscles AUSCULTATION: rhonchi and wheezes Cardio: COMMON NORMALS: regular rhythm and No murmurs present (Cardio) R ATE: tachycardic RHYTHM: regular rhythm GI: COMMON NORMALS: Soft to palpation and No hepatosplenomegaly present A USCULTATION: Yes normoactive bowel sounds PALPATION: Yes Soft to palpation, No Tenderness to palpation present (GI), No Guarding due to palpation present (GI) and Yes No hepatosplenomegaly present Extremity: COMMON NORMALS: normal to inspection, capillary refill normal, no clubbing, cyanosis or edema, no calf tenderness and no pedal edema Neuro: SENSORIUM/ORIENTATION: Yes oriented to person, Yes oriented to place and Yes oriented to time Skin: COMMON NORMALS: no rashes or lesions noted GENERAL SKIN EXAM: no rashes or lesions noted Course 2 Vital Signs: Vital signs: Vital Signs Temperature 98.0 F 12/05/23 07:31 Pulse Rate 96 12/05/23 11:23 Respiratory Rate 18 12/05/23 10:31 Blood Pressure 105/71 12/05/23 11:23 Pulse Oximetry 97 12/05/23 11:23 Oxygen Delivery Me thod Nasal Cannula 12/05/23 11:00 Oxygen Flow Rate 3 12/05/23 11:00 MDM - Chest Pain Medical Decision Making Right lower lobe left upper lobe pneumonia with exacerbation COPD. COVID flu and RSV were negative. Started Zosyn steroids nebulizers will admit white count 16,000 is quite tachycardic when he arrived he did improve with IV fluids his lactate was normal. Discussed with hospitalist orders written for admission Medical Records I reviewed the patient's medical records. Lab Data I reviewed the patient's lab results. 12/05/23 07:40 12/05/23 07:40 Radiology Impressions Chest X-Ray 12/05/23 07:28 IMPRESSION: Interstitial lung opacities in the left lung of unknown chronicity but may represent acute or subacute pneumonitis. Laboratory Results WBC 16.06 10^3/uL (3.29-11.43) H 12/05/23 07:40 RBC 4.84 10^6/uL (3.85-5.65) 12/05/23 07:40 Hgb 15.70 g/dL (11.27-16.99) 12/05/23 07:40 Hct 48.3 % (37-53) 12/05/23 07:40 MCV 99.8 fl (82-101) 12/05/23 07:40 MCH 32.4 pg (27-33) 12/05/23 07:40 MCHC 32.5 g/dL (30-55) 12/05/23 07:40 RDW 12.9 % (12.1-15.1) 12/05/23 07:40 Plt Count 168 10^3/cmm (157-399) 12/05/23 07:40 MPV 12.0 fL (7.4-10.4) H 12/05/23 07:40 Neut % (Auto) 74.0 % 12/05/23 07:40 Lymph % (Auto) 15.1 % 12/05/23 07:40 Edwards % (Auto) 9.7 % 12/05/23 07:40 Eos % (Auto) 0.1 % 12/05/23 07:40 Baso % (Auto) 0.2 % 12/05/23 07:40 Neut # (Auto) 11.89 10^3/uL (1.8-7.7) H 12/05/23 07:40 Lymph # (Auto) 2.4 10^3/uL (0.8-4.8) 12/05/23 07:40 Edwards # (Auto) 1.6 10^3/uL (0.2-0.9) H 12/05/23 07:40 Eos # (Auto) 0.0 10^3/uL (0.0-0.8) 12/05/23 07:40 Baso # (Auto) 0.0 10^3/uL (0.0-0.1) 12/05/23 07:40 Nucleated RBC % (auto) 0 % 12/05/23 07:40 Nucleated RBCs # 0.0 /100WBC 12/05/23 07:40 Specimen Type Arterial 12/05/23 08:00 Sample Site Brachial, right 12/05/23 08:00 ABG pH 7.35 (7.35-7.45) 12/05/23 08:00 ABG pCO2 53.9 mmHg (35-45) H 12/05/23 08:00 ABG pO2 79.2 mmHg (80.0-100.0) L 12/05/23 08:00 ABG PO2/FiO2 Ratio 220 12/05/23 08:00 ABG HCO3 29.7 mmol/L (22-26) H 12/05/23 08:00 ABG O2 Saturation 96.0 12/05/23 08:00 ABG Base Excess 2.8 mmol/L (-2.0-2.0) H 12/05/23 08:00 Carter Test N/a 12/05/23 08:00 A-a O2 Gradient 14.4 mmHg (5-10) H 12/05/23 08:00 Hematocrit 42.1 % (42-52) 12/05/23 08:00 Hgb O2 Saturation 92.7 % (95-100) L 12/05/23 08:00 Carboxyhemoglobin 3.2 %THgb (0.4-20.1) 12/05/23 08:00 Methemoglobin 0.3 % (0.4-1.5) L 12/05/23 08:00 Total Hemoglobin 13.7 g/dL (14-18) L 12/05/23 08:00 Sodium 135.0 mmol/L (131-143) 12/05/23 08:00 Potassium 3.8 mmol/L (3.5-5.0) 12/05/23 08:00 Glucose 110.0 mg/dL (70-115) 12/05/23 08:00 Ionized Calcium 1.2 mmol/L (1.1-1.4) 12/05/23 08:00 O2 Delivery Device Nc 12/05/23 08:00 O2 Liters/Min 4.0 % 12/05/23 08:00 FiO2 36.0 % 12/05/23 08:00 Utility Repairer ID Amh 12/05/23 08:00 Sodium 136 mmol/L (136-145) 12/05/23 07:40 Potassium 4.2 mmol/L (3.5-5.1) 12/05/23 07:40 Chloride 93 mmol/L (98-107) L 12/05/23 07:40 Carbon Dioxide 31 mmol/L (22-29) H 12/05/23 07:40 Anion Gap 16.2 (5-19) 12/05/23 07:40 BUN 8 mg/dL (8-23) 12/05/23 07:40 Creatinine 0.6 mg/dL (0.7-1.2) L 12/05/23 07:40 GFR Calculation Not Reportable 12/05/23 07:40 Glucose 105 mg/dL (65-115) 12/05/23 07:40 Calculated Osmolality 281 mOsm/kg (285-295) L 12/05/23 07:40 Lactic Acid 2.2 mmol/L (0.5-2.2) 12/05/23 07:40 Calcium 9.2 mg/dL (8.5-10.5) 12/05/23 07:40 Total Bilirubin 1.0 mg/dL (0.15-1.2) 12/05/23 07:40 AST 23 U/L (0-40) 12/05/23 07:40 ALT 15 U/L (0-41) 12/05/23 07:40 Alkaline Phosphatase 64 U/L (40-130) 12/05/23 07:40 Troponin T Baseline 21 ng/L (0-15) H 12/05/23 07:40 Troponin T 120 Minute 19.61 ng/L (0-15) H 12/05/23 09:05 Delta Troponin T -1.39 ABS# (0-10) L 12/05/23 09:05 Total Protein 7.2 g/dL (6.6-8.7) 12/05/23 07:40 Albumin 4.6 g/dL (3.5-5.2) 12/05/23 07:40 Globulin 2.6 g/dL (1.3-4.6) 12/05/23 07:40 Urine Color [place] (Yellow) A 12/05/23 08:45 Urine Appearance Cloudy (CLEAR) A 12/05/23 08:45 Urine pH 5.5 (5-7) 12/05/23 08:45 Ur Specific [place] 1.019 (1.005-1.030) 12/05/23 08:45 Urine Protein 2+ (Negative) A 12/05/23 08:45 Urine Glucose (UA) Negative (Normal) 12/05/23 08:45 Urine Ketones 2+ (Negative) H 12/05/23 08:45 Urine Blood Negative (Negative) 12/05/23 08:45 Urine Nitrate Negative (Negative) 12/05/23 08:45 Urine Bilirubin Negative (Negative) 12/05/23 08:45 Urine Urobilinogen 1.0 mg/dL (Negative) 12/05/23 08:45 Ur Leukocyte Esterase Negative (Negative) 12/05/23 08:45 Urine RBC 0-2 /hpf (0-2) 12/05/23 08:45 Urine WBC 0-5 /hpf (0-5) 12/05/23 08:45 Ur Squamous Epith Cells 0-5 /hpf (0-5) 12/05/23 08:45 Amorphous Sediment Not Reportable 12/05/23 08:45 Urine Bacteria None seen /hpf (NONE) 12/05/23 08:45 Hyaline Casts 4.11 /lpf 12/05/23 08:45 Coronavirus (PCR) Negative (Negative) 12/05/23 08:05 Influenza A (PCR) Negative (Negative) 12/05/23 08:05 Influenza Type B (PCR) Negative (Negative) 12/05/23 08:05 RSV (PCR) Negative (Negative) 12/05/23 08:05 All radiology interpretation(s) finalized by discharge Discharge Plan Discharge Patient Disposition: Admitted As Inpatient Admit Provider: Vu Bauman Clinical Impression: Pneumonia, COPD exacerbation, Acute on chronic hypoxic respiratory failure Condition: Stable Coding Level of Care Code ED Rn Document Improvement Specialist for Trino Mcnulty
[2023-12-05 07:54] LABS: Basophils % 0.2 %; Eosinophils % 0.1 %; Hematocrit 48.3 % (37-53); Lymphocytes # 2.4 10^3/uL (0.8-4.8); Lymphocytes % 15.1 %; Mean Corpuscular HGB Conc 32.5 g/dL (30-55); Mean Corpuscular Hemoglobin 32.4 pg (27-33); Mean Corpuscular Volume 99.8 fl (82-101); Monocytes # 1.6 10^3/uL (0.2-0.9); Monocytes % 9.7 %; Neutrophils # 11.89 10^3/uL (1.8-7.7); Nucleated Red Blood Cells % 0 %; Platelet Count 168 10^3/cmm (157-399); Red Blood Count 4.84 10^6/uL (3.85-5.65); Red Cell Distribution Width 12.9 % (12.1-15.1); White Blood Count 16.06 10^3/uL (3.29-11.43)
[2023-12-05] MEDS: aspirin 81 mg Chew Tablet 324 MG PO (08:00)
[2023-12-05 08:12] LABS: ABG PCO2 53.9 mmHg (35-45); ABG PH Result 7.35 (7.35-7.45); Alveolar-Arterial Oxygen Gradi 14.4 mmHg (5-10); Arterial Blood Gas Hematocrit 42.1 % (42-52); Base Excess ABG 2.8 mmol/L (-2.0-2.0); Blood Gas Operator Identificat AMH; Blood Gas Sample Site Brachial, right; Blood Gas Sample Type Arterial; Carboxyhemoglobin 3.2 %THgb (0.4-20.1); HCO3 ABG 29.7 mmol/L (22-26); HGB O2 Sat 92.7 % (95-100); Ionized Calcium Level - ABG 1.2 mmol/L (1.1-1.4); Methemoglobin 0.3 % (0.4-1.5); Oxygen Device NC; PO2 ABG 79.2 mmHg (80.0-100.0); PO2 FiO2 Ratio Arterial Blood 220; Potassium Level - ABG 3.8 mmol/L (3.5-5.0); Total Hemoglobin 13.7 g/dL (14-18)
[2023-12-05] MEDS: sodium chloride 0.9% 1,360.77 ML 1360.77 ML IV (08:14)
[2023-12-05 08:15] LABS: Alanine Aminotransferase 15 U/L (0-41); Albumin Level 4.6 g/dL (3.5-5.2); Alkaline Phosphatase 64 U/L (40-130); Anion Gap 16.2 (5-19); Aspartate Amino Transferase 23 U/L (0-40); Blood Urea Nitrogen 8 mg/dL (8-23); Calcium 9.2 mg/dL (8.5-10.5); Carbon Dioxide 31 mmol/L (22-29); Chloride 93 mmol/L (98-107); Creatinine Clr Calc Pharmacy 54.3363; Globulin 2.6 g/dL (1.3-4.6); Glucose 105 mg/dL (65-115); Osmolality Calculated 281 mOsm/kg (285-295); Potassium 4.2 mmol/L (3.5-5.1); Sodium 136 mmol/L (136-145); Total Protein 7.2 g/dL (6.6-8.7); Troponin(5th) Baseline 21 ng/L (0-15)
[2023-12-05 08:28] LABS: Lactic Sepsis W/Reflex 2.2 mmol/L (0.5-2.2)
--- NOTE | 2023-12-05 08:45 | PC.NURSE ---
pt IV abx delayed d/t blood cultures not obtained
[2023-12-05 09:02] LABS: Covid PCR NEGATIVE (Negative); Influenza A NEGATIVE (Negative); Influenza B NEGATIVE (Negative); Respiratory Syncytial Virus Ce NEGATIVE (Negative)
[2023-12-05 09:05] LABS: Bilirubin Urine Negative (Negative); Blood Urine Negative (Negative); Glucose Urine UA Negative (Normal); Ketones Urine 2+ (Negative); Leukocyte Esterase Urine Negative (Negative); Nitrate Urine Negative (Negative); Protein Urine 2+ (Negative); Specific Gravity, Urine 1.019 (1.005-1.030); Urine Appearance Cloudy (CLEAR); pH Urine 5.5 (5-7)
[2023-12-05 09:10] LABS: Add Urine Microscopic? YES; Bacteria Urine None Seen /hpf; Hyaline Casts Urine 4.11 /lpf; RBC Urine 0-2 /hpf (0-2); Squamous Epithelial Cell Urine 0-5 /hpf (0-5); WBC Urine 0-5 /hpf (0-5)
--- NOTE | 2023-12-05 09:12 | P.HP_ITS ---
Providers/Chief Complaint 2 Admitting Physician: Vu Bauman MD Primary Care Provider: Nando Green MD Chief Complaint: CP, SOB History of Present Illness Markus Trimble is a 73 year old male with longstanding COPD and continued tobacco use who uses 3 L of oxygen at home who presents with cough for the last several weeks. He has had temperature of 101 ?F at home. He has felt some chest discomfort, sharp with breathing. He has not had any nausea, vomiting, blood in stool. He has felt less like doing his daily activities because of the sickness. He continues to smoke. He has been compliant with his medication. In the emergency department he got a breathing treatment, Solu-Medrol, and aspirin, and some fluid. Medications/Allergies Home Medications Medication Instructions Recorded Confirmed Last Taken Type acetaminophen 500 mg tablet 1,000 mg PO Q6H PRN Pain 08/26/22 12/05/23 Unknown History fluticasone fur. 100 mcg-umeclid 1 inh inhalation DAILY #60 ea 09/13/23 12/05/23 12/04/23 Rx 62.5 mcg-vilant 25 mcg inhalat.powder (Trelegy Ellipta) levalbuterol tartrate 45 2 inh inhalation Q6H PRN shortness 09/19/23 12/05/23 12/05/23 Rx mcg/actuation aerosol inhaler of breath or wheezing #15 grams (Xopenex HFA) albuterol sulfate 2.5 mg/3 mL 2.5 mg inhalation Q6H PRN 10/30/23 12/05/23 Unknown History (0.083 %) solution for nebulization Shortness Of Breath ipratropium 20 mcg-albuterol 100 1 puff inhalation Q6H PRN 10/30/23 12/05/23 12/04/23 History mcg/actuation mist for inhalation Shortness Of Breath (Combivent Respimat) Allergies Allergy/AdvReac Type Severity Reaction Status Date / Time No Known Allergies Allergy Verified 10/30/23 13:05 PFSH Acute 2 PFSH: Medical History (Updated 12/05/23 @ 10:35 by Vu Bauman MD) Nicotine dependence, cigarettes, with other nicotine-induced disorders COPD (chronic obstructive pulmonary disease) Protein calorie malnutrition Debility Acute hypercapnic respiratory failure Acute exacerbation of chronic obstructive airways disease COVID-19 (~08/2021) On home oxygen therapy 3L [facility] Pleuritic chest pain Surgical History History of surgery on right wrist due to fracture History of cataract surgery bilateral History of elbow surgery right, due to fracture History of right knee surgery Family History Grandmother Diabetes Mother Diabetes Social History Smoking and tobacco/nicotine status: current every day tobacco/nicotine user (0.5 ppd) cigarettes [ Other cigarette details: a cigar or two sometimes] Quit status (tobacco/nicotine): has quit using Year quit tobacco: 01/2022 Former quit date comment: 2 ppd X 51 years Alcohol intake: never Substance/Drug Use: never Household members: spouse Marital status: Vitals/I&O/Wt Last Vital Signs Temp 98.0 F 12/05/23 07:31 Pulse 92 12/05/23 08:45 Resp 15 12/05/23 08:45 BP 104/64 12/05/23 08:45 Pulse Ox 99 12/05/23 08:45 O2 Del Method Nasal Cannula 12/05/23 07:52 O2 Flow Rate 3 12/05/23 07:52 Weight last 48 hrs Weight 45.359 kg Physical Exam 2 Narrative: General Exam is a white male, mild respiratory distress. I placed him on 3 L of oxygen when I saw him, he was on 4. He is coughing up colored sputum HEENT: Atraumatic normocephalic. Oropharynx clear Neck is supple no lymphadenopathy thyromegaly Cardiovascular regular rate and rhythm without murmur Lungs a few expiratory wheezes. Respiratory rate about 25. Mild retractions. On 4 L when I saw him. Abdomen is soft nontender positive bowel sounds. No obvious organomegaly exam is deferred Extremities no cyanosis clubbing , cap refill brisk Skin no rash Neuro no focal deficits Data 12/05/23 07:40 12/05/23 07:40 Other Labs: ABG demonstrates pH 7.35, pCO2 54, pO2 of 79 on 4 L LFTs are normal Troponin 21 with repeat of 19 Albumin and calcium are normal Lactic acid is 2.2 Urinalysis negative with the exception 2+ protein COVID RSV influenza negative Chest x-ray which I reviewed demonstrates COPD, left costophrenic angle blunting, infiltrate left lung consistent with pneumonia EKG which I reviewed demonstrated sinus tachycardia initially at a rate of 130, left axis deviation, nonspecific ST-T wave changes Initial troponin 21, repeat 19 A&P Assessment and plan (1) Acute on chronic hypoxic respiratory failure: Patient with acute on hypoxic respiratory failure He has some CO2 retention as well Oxygen, to keep saturation 90 to 92%. Try to prevent overall oxygenation which could cause more CO2 retention. (2) Pneumonia: Concern of pneumonia with his acute hypoxic respiratory failure, chest x-ray findings, fever of 101 ?F at home. COVID is negative Sputum culture MRSA PCR Initiate Levaquin 750 mg IV every 24 hours (3) COPD exacerbation: Patient with significant acute COPD exacerbation He received steroids in the ER Continue 60 mg of Solu-Medrol every 24 hours DuoNeb every 4 hours Budesonide twice daily (4) Chest pain: Patient with chest pain, which is somewhat atypical Secondary to elevated troponin we will go ahead and give aspirin daily This appears to be a type II elevation Monitor for any recurrence (5) Nicotine dependence, cigarettes, with other nicotine-induced disorders: Nicotine patch Encourage abstinence Plan Allow natural . Discussed with patient and Lovenox for DVT prophylaxis Attestations 2 Medical Necessity Statement*: Will require greater than 2 midnight stay secondary to pneumonia associate with fever and respiratory failure in this patient with unstable vital signs, COPD exacerbation requiring frequent breathing treatments, close monitoring, IV antibiotics, IV steroids Diagnoses Acute on chronic hypoxic respiratory failure J96.21 Pneumonia J18.9 COPD exacerbation J44.1 Chest pain R07.9 Nicotine dependence, cigarettes, with other nicotine-induced disorders F17.218
[2023-12-05 09:14] LABS: Urine Color Orange (Yellow)
[2023-12-05 09:40] LABS: Troponin 5 2HR 19.61 ng/L (0-15)
[2023-12-05 09:44] LABS: Troponin 5 2HR Delta -1.39 ABS# (0-10)
[2023-12-05] MEDS: methylPREDNISolone sod succ 125 mg/2 mL INJ IVP (09:46)
[2023-12-05] MEDS: piperacillin-tazobactam 3.375 GM in sodium chloride 0.9% (plus) 50 ML IV (09:47)
[2023-12-05 09:58] LABS: Reflex Lactate Order REFLEX LACTIC ORDERD
--- NOTE | 2023-12-05 10:20 | ECG_ITS ---
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
[2023-12-05] MEDS: ipratropium-albuterol 3 mL Neb INHALATION ×3 (10:29→20:24)
[2023-12-05 10:54] LABS: Lactic Acid level (Lactate) 0.9 mmol/L (0.5-2.2)
[2023-12-05] MEDS: levofloxacin-dextrose 5 % 750 MG/150 ML PREMIX 100 MG IV (12:17)
[2023-12-05] MEDS: enoxaparin 40 mg/0.4 mL Syringe SUBCUT (12:17)
[2023-12-05] MEDS: nicotine 21 mg Patch 1 PATCH TRANSDERMA (12:17)
--- NOTE | 2023-12-05 13:29 | ECG_ITS ---
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1950 Requested By: Eduin Park Order Number: [id number] Reading MD: RAEANN VIERA Measurements Intervals [place] Rate: 97 P: 86 [place]: 159 QRS: -76 QRSD: 92 T: 82 QT: 348 QTc: 444 Interpretive Statements SINUS RHYTHM PATTERN CONSISTENT WITH PULMONARY DISEASE LEFT ANTERIOR FASCICULAR BLOCK [QRS AXIS <= -45, QR IN I, RS IN II] Compared to ECG 12/05/2023 10:20:43 Left anterior fascicular block now present Indeterminate axis no longer present Electronically Signed On 12-05-2023 19:53:57 CDT by RAEANN VIERA [email or web address] [employer].[employer]/store/[id number]
[2023-12-05 13:50] LABS: Troponin 5 6HR 16.64 ng/L (0-15)
[2023-12-05 13:57] LABS: Troponin 5 6HR Delta -4.36 ng/L (0-12)
--- NOTE | 2023-12-05 15:36 | PC.RESP ---
pt wears NIV at home provided by [facility] [place]. RT called [facility] [place] to get pt NIV settings. Astral 15O NIV: IVAPS A/E, min Epap 3-8, max 12-25, target rr 8-20, Average vt 100-800, min PS 3-8, max 20-35 with o2 bled in 2-4 lpm.
[2023-12-05] MEDS: methylPREDNISolone sod succ 60 MG in water for injection-sterile 0.96 ML 11.52 MG IVP (17:04)
[2023-12-05] MEDS: guaiFENesin 600 mg Tablet PO (17:04)
[2023-12-05] MEDS: budesonide 0.5 mg/2 mL Neb INHALATION (20:24)
[2023-12-06] VITALS (18 sets, daily range): BP systolic 101–144; BP diastolic 64–75; PULSE 71–108; RESP 14–22; TEMP 36.5–37; O2SAT 35–98
[2023-12-06] MEDS: ipratropium-albuterol 3 mL Neb INHALATION ×6 (01:30→23:54)
[2023-12-06 05:24] LABS: Basophils % 0.1 %; Hematocrit 37.7 % (37-53); Lymphocytes # 0.5 10^3/uL (0.8-4.8); Lymphocytes % 4.7 %; Mean Corpuscular HGB Conc 33.2 g/dL (30-55); Mean Corpuscular Hemoglobin 32.6 pg (27-33); Mean Corpuscular Volume 98.2 fl (82-101); Monocytes # 0.6 10^3/uL (0.2-0.9); Monocytes % 5.4 %; Neutrophils # 9.62 10^3/uL (1.8-7.7); Neutrophils % 88.9 %; Nucleated Red Blood Cells % 0 %; Platelet Count 120 10^3/cmm (157-399); Red Blood Count 3.84 10^6/uL (3.85-5.65); Red Cell Distribution Width 12.8 % (12.1-15.1); White Blood Count 10.82 10^3/uL (3.29-11.43)
[2023-12-06 05:53] LABS: Alanine Aminotransferase 11 U/L (0-41); Albumin Level 3.5 g/dL (3.5-5.2); Alkaline Phosphatase 47 U/L (40-130); Aspartate Amino Transferase 19 U/L (0-40); Blood Urea Nitrogen 9 mg/dL (8-23); Calcium 8.8 mg/dL (8.5-10.5); Carbon Dioxide 30 mmol/L (22-29); Chloride 103 mmol/L (98-107); Creatinine Clr Calc Pharmacy 56.8364; Globulin 2.8 g/dL (1.3-4.6); Glucose 162 mg/dL (65-115); Magnesium 1.8 mg/dL (1.7-2.3); Osmolality Calculated 296 mOsm/kg (285-295); Sodium 142 mmol/L (136-145); Total Bilirubin 0.3 mg/dL (0.15-1.2); Total Protein 6.3 g/dL (6.6-8.7)
--- NOTE | 2023-12-06 08:35 | P.PN_ITS ---
Subjective 2 Subjective: Markus reports his breathing is a little bit better. Less short of breath. Still coughing up quite a bit of sputum. No fevers noted overnight. Currently on 4 L of oxygen. Medications: Reviewed: Yes Vitals/I&O/Wt Last Vital Signs Temp 98.1 F 12/06/23 07:58 Pulse 97 12/06/23 07:58 Resp 16 12/06/23 07:58 BP 138/75 12/06/23 07:58 Pulse Ox 97 12/06/23 07:58 O2 Del Method Nasal Cannula 12/06/23 07:58 O2 Flow Rate 4 12/06/23 07:58 FiO2 35 12/06/23 00:00 12/05/23 12/06/23 12/06/23 22:59 06:59 14:59 Intake Total 610.96 / 2241.73 240 / 2481.73 Output Total 500 / 500 200 / 700 Balance 110.96 / 1741.73 40 / 1781.73 Weight last 48 hrs Weight 47.446 kg Weight 47.446 kg Weight 45.359 kg Physical Exam 2 Narrative: General Exam less respiratory distress. Currently on 4 L Neck is supple no lymphadenopathy thyromegaly Cardiovascular regular rate and rhythm without murmur Lungs diminished breath sounds. Less wheezing Abdomen is soft nontender positive bowel sounds. No obvious organomegaly Extremities no cyanosis clubbing , cap refill brisk Data 12/06/23 05:03 12/06/23 05:03 Micro: Microbiology 12/05/23 12:51 Gram Stain - Final Sputum - Expectorated Sputum 12/05/23 09:10 Blood Culture - Preliminary Blood SPECIMEN COLLECTED 12/05/23 09:05 Blood Culture - Preliminary Blood SPECIMEN COLLECTED A&P Assessment and plan (1) Acute on chronic hypoxic respiratory failure: Patient with acute on hypoxic respiratory failure He has some CO2 retention as well Oxygen, to keep saturation 90 to 92%. Try to prevent overall oxygenation which could cause more CO2 retention. Improving (2) Pneumonia: Concern of pneumonia with his acute hypoxic respiratory failure, chest x-ray findings, fever of 101 ?F at home. COVID is negative Sputum culture pending MRSA PCR pending Continue Levaquin 750 mg IV every 24 hours (3) COPD exacerbation: Patient with significant acute COPD exacerbation He received steroids in the ER Continue 60 mg of Solu-Medrol every 24 hours DuoNeb every 4 hours Budesonide twice daily (4) Chest pain: Patient with chest pain, which is somewhat atypical Secondary to elevated troponin we will go ahead and give aspirin daily This appears to be a type II elevation Monitor for any recurrence (5) Nicotine dependence, cigarettes, with other nicotine-induced disorders: Nicotine patch Encourage abstinence Plan Allow natural . Discussed with patient and Lovenox for DVT prophylaxis Attestations 2 Medical Necessity Statement*: Needs continued hospitalization for IV antibiotics secondary to pneumonia, treatment of COPD exacerbation with IV steroids Diagnoses Acute on chronic hypoxic respiratory failure J96.21 Pneumonia J18.9 COPD exacerbation J44.1 Chest pain R07.9 Nicotine dependence, cigarettes, with other nicotine-induced disorders F17.218 Time Spent (min) 21
[2023-12-06] MEDS: budesonide 0.5 mg/2 mL Neb INHALATION ×2 (08:41→20:14)
[2023-12-06] MEDS: aspirin 81 mg EC Tablet PO (09:30)
[2023-12-06] MEDS: guaiFENesin 600 mg Tablet PO ×2 (09:30→17:12)
[2023-12-06] MEDS: nicotine 21 mg Patch 1 PATCH TRANSDERMA (09:31)
--- NOTE | 2023-12-06 10:09 | PC.SOCIAL ---
IMM Update pg 2 of IMM updated and reviewed w/ patient. Copy left @ bedside and copy dated, initialed and placed in chart.
[2023-12-06] MEDS: enoxaparin 40 mg/0.4 mL Syringe SUBCUT (10:55)
[2023-12-06] MEDS: levofloxacin-dextrose 5 % 750 MG/150 ML PREMIX 100 MG IV (10:55)
[2023-12-06] MEDS: methylPREDNISolone sod succ 60 MG in water for injection-sterile 0.96 ML 11.52 MG IVP (17:12)
--- NOTE | 2023-12-06 17:46 | ECG_ITS ---
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 Measurements Intervals [place] Rate: 106 P: 81 NE: 141 QRS: 183 QRSD: 92 T: 90 QT: 313 QTc: 416 Interpretive Statements SINUS TACHYCARDIA POSSIBLE ANTEROLATERAL MYOCARDIAL INFARCTION , OF INDETERMINATE AGE [30 ms Q WAVE IN I/aVL/V3-V6] Compared to ECG 12/05/2023 13:56:10 Myocardial infarct finding now present Sinus rhythm no longer present Left anterior fascicular block no longer present Electronically Signed On 12-08-2023 9:17:52 CDT by Steve Buckner M.D. [email or web address].[facility].[employer]/store/NU/[id number] f
[2023-12-06 19:02] LABS: Troponin(5th) Baseline 15 ng/L (0-15)
--- NOTE | 2023-12-06 20:09 | ECG_ITS ---
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 Measurements Intervals [place] Rate: 104 P: 86 [place]: 146 QRS: 71 QRSD: 94 T: 80 QT: 323 QTc: 427 Interpretive Statements SINUS TACHYCARDIA Compared to ECG 12/06/2023 17:46:42 Myocardial infarct finding no longer present Electronically Signed On 12-08-2023 9:31:37 CDT by Steve Buckner M.D. [email or web address].Gr[facility]sl[facility] centerBo[facility] Media/store/[id number]
[2023-12-06 21:01] LABS: Troponin 5 2HR 13.84 ng/L (0-15)
[2023-12-06 21:03] LABS: Troponin 5 2HR Delta -1.16 ABS# (0-10)
--- NOTE | 2023-12-06 23:22 | ECG_ITS ---
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 Measurements Intervals [place] Rate: 85 P: 83 [place]: 145 QRS: 77 QRSD: 90 T: 83 QT: 353 QTc: 421 Interpretive Statements SINUS RHYTHM WITH OCCASIONAL SUPRAVENTRICULAR PREMATURE COMPLEXES Compared to ECG 12/06/2023 20:09:50 Sinus tachycardia no longer present Electronically Signed On 12-08-2023 9:29:14 CDT by Steve Buckner M.D. [email or web address] Productsjasper general hospitalPullmorrow county hospitalSolstice [employer]/store/OM/[id number]
[2023-12-07] VITALS (15 sets, daily range): BP systolic 107–128; BP diastolic 58–76; PULSE 72–112; RESP 16–21; TEMP 36.2–36.6; O2SAT 97–100
[2023-12-07 01:43] LABS: Troponin 5 6HR 12.75 ng/L (0-15)
[2023-12-07 01:44] LABS: Troponin 5 6HR Delta -2.25 ng/L (0-12)
[2023-12-07 03:19] LABS: Basophils % 0.2 %; Hematocrit 38.5 % (37-53); Lymphocytes # 0.3 10^3/uL (0.8-4.8); Lymphocytes % 2.9 %; Mean Corpuscular HGB Conc 31.7 g/dL (30-55); Mean Corpuscular Hemoglobin 32.1 pg (27-33); Mean Corpuscular Volume 101.3 fl (82-101); Mean Platelet Volume 12.3 fL (7.4-10.4); Monocytes # 0.5 10^3/uL (0.2-0.9); Monocytes % 4.8 %; Neutrophils # 9.63 10^3/uL (1.8-7.7); Neutrophils % 91.4 %; Nucleated Red Blood Cells % 0 %; Platelet Count 102 10^3/cmm (157-399); White Blood Count 10.54 10^3/uL (3.29-11.43)
[2023-12-07 03:32] LABS: Blood Urea Nitrogen 10 mg/dL (8-23); Calcium 8.5 mg/dL (8.5-10.5); Carbon Dioxide 30 mmol/L (22-29); Chloride 102 mmol/L (98-107); Glucose 143 mg/dL (65-115); Osmolality Calculated 290 mOsm/kg (285-295); Sodium 139 mmol/L (136-145)
[2023-12-07 03:39] LABS: Anion Gap 11.3 (5-19); Creatinine Clr Calc Pharmacy 56.8364; Potassium 4.3 mmol/L (3.5-5.1)
[2023-12-07] MEDS: ipratropium-albuterol 3 mL Neb INHALATION ×5 (04:24→20:38)
[2023-12-07] MEDS: guaiFENesin 600 mg Tablet PO ×2 (07:45→17:00)
[2023-12-07] MEDS: aspirin 81 mg EC Tablet PO (07:45)
[2023-12-07] MEDS: nicotine 21 mg Patch 1 PATCH TRANSDERMA (07:45)
[2023-12-07] MEDS: budesonide 0.5 mg/2 mL Neb INHALATION ×2 (08:18→20:38)
[2023-12-07] MEDS: enoxaparin 40 mg/0.4 mL Syringe SUBCUT (11:58)
[2023-12-07] MEDS: levofloxacin-dextrose 5 % 750 MG/150 ML PREMIX 100 MG IV (11:59)
[2023-12-07] MEDS: acetaminophen 325 mg Tablet 650 MG PO (11:59)
[2023-12-07 14:54] LABS: Methicillin-Resist S.aureu PCR NOT DETECTED (NOT DETECTED)
[2023-12-07] MEDS: methylPREDNISolone sod succ 60 MG in water for injection-sterile 0.96 ML 11.52 MG IVP ×2 (17:00→22:22)
--- NOTE | 2023-12-07 21:56 | P.PN_ITS ---
Subjective 2 Subjective: Still coughing, wheezing, dyspnea. Still having chest pain, pleuritic but also constant including on the left side. Vitals/I&O/Wt Last Vital Signs Temp 97.8 F 12/07/23 20:00 Pulse 94 12/07/23 21:43 Resp 19 H 12/07/23 20:38 BP 107/65 12/07/23 20:00 Pulse Ox 99 12/07/23 20:38 O2 Del Method BiPAP 12/07/23 20:38 O2 Flow Rate 3 12/07/23 15:16 FiO2 35 12/07/23 20:38 12/07/23 12/07/23 12/07/23 06:59 14:59 22:59 Intake Total 510 / 510 240.96 / 750.96 Output Total 400 / 400 Balance 110 / 110 240.96 / 350.96 Weight last 48 hrs Weight 49.033 kg Weight 47.446 kg Physical Exam 2 Narrative: Accompanied by a male visitor. Const: COMMON NORMALS: patient oriented x3 and alert GENERAL APPEARANCE: c ooperative ORIENTATION/CONSCIOUSNESS: Yes awake HENMT: COMMON NORMALS: oropharynx normal Neck/C-Spine: COMMON NORMALS: no JVD Resp: AUSCULTATION: rhonchi, wheezes and diminished lung sounds Cardio: COMMON NORMALS: no JVD, regular rhythm, S1 normal heart sound present, S2 normal heart sound present and No murmurs present (Cardio) RHYTHM: regular rhythm HEART SOUNDS: S1 normal heart sound present and S2 normal heart sound present GI: COMMON NORMALS: Normal to inspection, nondistended, normoactive bowel sounds present, Soft to palpation and non-tender PALPATION: Yes Soft to palpation Extremity: COMMON NORMALS: no joint enlargement and no pedal edema Neuro: COMMON NORMALS: patient oriented x3 and moves all extremities S ENSORIUM/ORIENTATION: Yes alert Skin: COMMON NORMALS: no rashes or lesions noted GENERAL SKIN EXAM: no rashes or lesions noted Data 12/07/23 02:00 12/07/23 02:00 Micro: Microbiology 12/05/23 12:51 Gram Stain - Final Sputum - Expectorated Sputum Sputum Culture - Final Pseudomonas aeruginosa A&P Assessment and plan (1) Acute on chronic hypoxic respiratory failure: Continue oxygen support, continue BiPAP support. Reviewed vitals, CBC, CMP. He is still wheezing, still short of breath, with diminished air entry. Continue Levaquin. Increase methylprednisolone dose to 60 mg every 6 hours. Continue breathing treatments. Continue guaifenesin. Add flutter valve. Recheck CBC, renal function. Patient with acute on hypoxic respiratory failure He has some CO2 retention as well Oxygen, to keep saturation 90 to 92%. Try to prevent overall oxygenation which could cause more CO2 retention. Improving (2) Pneumonia: Reviewed sputum culture, growing Pseudomonas. Sensitive to Levaquin. Continue Levaquin. Repeat CBC. Concern of pneumonia with his acute hypoxic respiratory failure, chest x-ray findings, fever of 101 ?F at home. COVID is negative Sputum culture pending MRSA PCR pending Continue Levaquin 750 mg IV every 24 hours (3) COPD exacerbation: As above still significantly symptomatic, continues with wheezing, rhonchi, dyspnea, cough, increasing Medrol dose to 60 mg every 6 hours. Monitor for risk of hyperglycemia, hypertension, gastritis, encephalopathy with IV steroids. Continue breathing treatments. Continue Levaquin for pseudomonal respiratory infection. Patient with significant acute COPD exacerbation He received steroids in the ER Continue 60 mg of Solu-Medrol every 24 hours DuoNeb every 4 hours Budesonide twice daily (4) Chest pain: Chest pain combining pleuritic pain as well as pain at rest. Reviewed troponin series. Without significant elevation. Obtain TTE. Reviewed chest x-ray, noted left-sided pneumonia. Continue treatment as above. Patient with chest pain, which is somewhat atypical Secondary to elevated troponin we will go ahead and give aspirin daily This appears to be a type II elevation Monitor for any recurrence (5) Nicotine dependence, cigarettes, with other nicotine-induced disorders: Nicotine patch Encourage abstinence Plan Allow natural . Discussed with patient and Lovenox for DVT prophylaxis Attestations 2 Medical Necessity Statement*: Continue admission for assessment management of respiratory failure, pseudomonal lower respiratory tract infection, pneumonia, COPD exacerbation. and High MDM includes described risk of complication, morbidity or mortality of management as documented Diagnoses Acute on chronic hypoxic respiratory failure J96.21 Pneumonia J18.9 COPD exacerbation J44.1 Chest pain R07.9 Nicotine dependence, cigarettes, with other nicotine-induced disorders F17.218
[2023-12-08] VITALS (16 sets, daily range): BP systolic 101–135; BP diastolic 66–82; PULSE 72–119; RESP 14–24; TEMP 36.3–37.1; O2SAT 95–100
[2023-12-08] MEDS: methylPREDNISolone sod succ 60 MG in water for injection-sterile 0.96 ML 11.52 MG IVP ×2 (03:13→09:07)
[2023-12-08] MEDS: ipratropium-albuterol 3 mL Neb INHALATION ×6 (04:27→23:55)
[2023-12-08 05:00] LABS: Hematocrit 39.8 % (37-53); Lymphocytes # 0.4 10^3/uL (0.8-4.8); Lymphocytes % 5.9 %; Mean Corpuscular HGB Conc 32.7 g/dL (30-55); Mean Corpuscular Hemoglobin 32.3 pg (27-33); Mean Corpuscular Volume 98.8 fl (82-101); Mean Platelet Volume 11.8 fL (7.4-10.4); Monocytes # 0.1 10^3/uL (0.2-0.9); Monocytes % 2.1 %; Neutrophils % 91.3 %; Nucleated Red Blood Cells % 0 %; Platelet Count 155 10^3/cmm (157-399); Red Blood Count 4.03 10^6/uL (3.85-5.65); Red Cell Distribution Width 12.9 % (12.1-15.1); White Blood Count 6.13 10^3/uL (3.29-11.43)
[2023-12-08 05:25] LABS: Blood Urea Nitrogen 10 mg/dL (8-23); Calcium 8.6 mg/dL (8.5-10.5); Carbon Dioxide 31 mmol/L (22-29); Chloride 101 mmol/L (98-107); Glucose 158 mg/dL (65-115); Osmolality Calculated 292 mOsm/kg (285-295); Sodium 140 mmol/L (136-145)
[2023-12-08 05:37] LABS: Creatinine Clr Calc Pharmacy 58.7374
[2023-12-08] MEDS: budesonide 0.5 mg/2 mL Neb INHALATION ×2 (08:05→20:27)
[2023-12-08] MEDS: nicotine 21 mg Patch 1 PATCH TRANSDERMA (09:06)
[2023-12-08] MEDS: guaiFENesin 600 mg Tablet PO ×2 (09:07→16:46)
[2023-12-08] MEDS: aspirin 81 mg EC Tablet PO (09:07)
[2023-12-08] MEDS: levofloxacin-dextrose 5 % 750 MG/150 ML PREMIX 100 MG IV (10:50)
[2023-12-08] MEDS: enoxaparin 40 mg/0.4 mL Syringe SUBCUT (10:50)
[2023-12-08] MEDS: methylPREDNISolone sod succ 125 mg/2 mL INJ 60 MG IVP ×2 (16:46→22:11)
--- NOTE | 2023-12-08 21:23 | P.PN_ITS ---
Subjective 2 Subjective: Not much further improvement today, still wheezing, coughing, gets very easily dyspneic with minimal exertion. Chest pain mostly pleuritic. Reports getting some air hunger. Vitals/I&O/Wt Last Vital Signs Temp 98.0 F 12/08/23 19:57 Pulse 95 12/08/23 20:29 Resp 18 12/08/23 20:29 BP 130/77 12/08/23 19:57 Pulse Ox 95 12/08/23 20:29 O2 Del Method Nasal Cannula 12/08/23 20:29 O2 Flow Rate 3 12/08/23 20:29 FiO2 35 12/07/23 20:38 12/08/23 12/08/23 12/08/23 06:59 14:59 22:59 Intake Total 240.96 / 1112.88 670.96 / 670.96 240 / 910.96 Output Total 300 / 1100 775 / 775 375 / 1150 Balance -59.04 / 12.88 -104.04 / -104.04 -135 / -239.04 Weight last 48 hrs Weight 48.897 kg Weight 49.033 kg Physical Exam 2 Narrative: Accompanied by a female family member Const: COMMON NORMALS: patient oriented x3 and alert GENERAL APPEARANCE: c ooperative ORIENTATION/CONSCIOUSNESS: Yes awake HENMT: COMMON NORMALS: oropharynx normal Neck/C-Spine: COMMON NORMALS: no JVD Resp: AUSCULTATION: rhonchi, wheezes and diminished lung sounds Cardio: COMMON NORMALS: no JVD, regular rhythm, S1 normal heart sound present, S2 normal heart sound present and No murmurs present (Cardio) RHYTHM: regular rhythm HEART SOUNDS: S1 normal heart sound present and S2 normal heart sound present GI: COMMON NORMALS: Normal to inspection, nondistended, normoactive bowel sounds present, Soft to palpation and non-tender PALPATION: Yes Soft to palpation Extremity: COMMON NORMALS: no joint enlargement and no pedal edema Neuro: COMMON NORMALS: patient oriented x3 and moves all extremities S ENSORIUM/ORIENTATION: Yes alert Skin: COMMON NORMALS: no rashes or lesions noted GENERAL SKIN EXAM: no rashes or lesions noted Data 12/08/23 04:51 12/08/23 04:51 A&P Assessment and plan (1) Acute on chronic hypoxic respiratory failure: Still severe COPD exacerbation, wheezing, productive cough, diminished air entry, gets very easily dyspneic with minimal exertion. Additionally reporting air hunger. Requesting for something to help with anxiety/air hunger. Discussed with him starting low-dose Xanax. Added 25 mg Xanax as needed. Monitor for risk of altered mental status, respiratory depression. Reviewed vitals, CBC, BMP. Reviewed blood culture, respiratory culture. Respiratory culture with Pseudomonas. Continue Levaquin. Continue oxygen support, continue BiPAP support. Reviewed vitals, CBC, CMP. He is still wheezing, still short of breath, with diminished air entry. Continue Levaquin. Increase methylprednisolone dose to 60 mg every 6 hours. Continue breathing treatments. Continue guaifenesin. Add flutter valve. Recheck CBC, renal function. Patient with acute on hypoxic respiratory failure He has some CO2 retention as well Oxygen, to keep saturation 90 to 92%. Try to prevent overall oxygenation which could cause more CO2 retention. Improving (2) Pneumonia: Reviewed blood culture, remaining negative. Leukocytosis has resolved. Reviewed sputum culture, growing Pseudomonas. Sensitive to Levaquin. Continue Levaquin. Repeat CBC. Follow-up blood cultures. Concern of pneumonia with his acute hypoxic respiratory failure, chest x-ray findings, fever of 101 ?F at home. COVID is negative Sputum culture pending MRSA PCR pending Continue Levaquin 750 mg IV every 24 hours (3) COPD exacerbation: Still highly symptomatic with severe COPD exacerbation. Will not decrease IV steroids at the moment. If not improving consider increasing. Continue Levaquin. Monitor for risk of hyperglycemia, hypertension, encephalopathy, gastritis with IV steroids. As above adding small dose Xanax for air hunger. Patient with significant acute COPD exacerbation He received steroids in the ER Continue 60 mg of Solu-Medrol every 24 hours DuoNeb every 4 hours Budesonide twice daily (4) Chest pain: Discussed with him echocardiogram results. Discussed on x-ray pneumonia is predominantly left side base. He does report most symptoms are pleuritic. Did discuss with him pursuing stress test after he recovers, he is agreeable. Chest pain combining pleuritic pain as well as pain at rest. Reviewed troponin series. Without significant elevation. Reviewed chest x-ray, noted left-sided pneumonia. Continue treatment as above. Patient with chest pain, which is somewhat atypical Secondary to elevated troponin we will go ahead and give aspirin daily This appears to be a type II elevation Monitor for any recurrence (5) Nicotine dependence, cigarettes, with other nicotine-induced disorders: Nicotine patch Encourage abstinence Plan Allow natural . Discussed with patient and Lovenox for DVT prophylaxis Attestations 2 Medical Necessity Statement*: Continue admission for assessment management of respiratory failure, pseudomonal lower respiratory tract infection, pneumonia, severe COPD exacerbation. and High MDM includes number and complexity of problems actively addressed during encounter and described risk of complication, morbidity or mortality of management as documented Diagnoses Acute on chronic hypoxic respiratory failure J96.21 Pneumonia J18.9 COPD exacerbation J44.1 Chest pain R07.9 Nicotine dependence, cigarettes, with other nicotine-induced disorders F17.218
--- NOTE | 2023-12-08 21:55 | USCV_ITS ---
Markus Trimble Age: 73 Gender: M : 1950 Exam Date: 12/08/2023 10:12 Ordering Phys: Delgado Franklin MD Technologist: Siva Otero [place] [facility] [place]: chest pain BP: 135 / 82 HR: Rhythm: Sinus Technical Quality: Suboptimal MEASUREMENTS (Male / Female) Normal Values 2D ECHO LV Diastolic Diameter PLAX 3.9 cm 4.2 - 5.9 / 3.9 - 5.3 cm IVS Diastolic Thickness 1.0 cm 0.6 - 1.0 / 0.6 - 0.9 cm IVS Systolic Thickness 1.4 cm LVPW Diastolic Thickness 0.9 cm 0.6 - 1.0 / 0.6 - 0.9 cm LVPW Systolic Thickness 2.0 cm LVOT Diameter 2.0 cm LV Ejection Fraction 2D Teich 76.7 % LA Diameter 3.1 cm IVC Diameter 1.6 cm M-MODE LA Ao Ratio MM 1.2 AV Cusp Separation MM 1.6 cm DOPPLER TR Peak Velocity 306.0 cm/s TR Peak Gradient 37.5 mmHg TR Mean Velocity 265.0 cm/s TR Mean Gradient 28.9 mmHg TR Velocity Time Integral 79.0 cm PV Peak Velocity 88.0 cm/s RV Ejection Time 0.2 s FINDINGS Left Ventricle Left ventricle is normal size. LV systolic function is grossly normal. Right Ventricle Grossly normal Right Atrium Grossly normal Left Atrium Grossly normal Mitral Valve Grossly normal Aortic Valve Grossly normal. Doppler exam not performed. Tricuspid Valve Mild tricuspid regurgitation. RVSP is 35 to 40 mmHg. This is consistent with mild pulmonary hypertension Pulmonic Valve Not well visualized Pericardium Normal Aorta Normal in size IVC Appears to be normal CONCLUSIONS Technically limited quality echocardiogram because of poor ultrasonic windows. Grossly LV systolic function is normal. Mild tricuspid regurgitation. Mild pulmonary hypertension Accurate comparison with prior studies not possible because of limited visualization. Steve Buckner MD (Electronically Signed) Final Date: 08 December 2023 11:08 S
[2023-12-09] VITALS (16 sets, daily range): BP systolic 121–144; BP diastolic 69–84; PULSE 67–109; RESP 15–21; TEMP 36.4–36.6; O2SAT 86–98
[2023-12-09] MEDS: ipratropium-albuterol 3 mL Neb INHALATION ×5 (04:23→20:02)
[2023-12-09] MEDS: methylPREDNISolone sod succ 125 mg/2 mL INJ 60 MG IVP ×4 (04:47→22:47)
[2023-12-09 05:20] LABS: Hematocrit 36.5 % (37-53); Lymphocytes # 0.3 10^3/uL (0.8-4.8); Lymphocytes % 5.3 %; Mean Corpuscular HGB Conc 32.9 g/dL (30-55); Mean Corpuscular Hemoglobin 32.7 pg (27-33); Mean Corpuscular Volume 99.5 fl (82-101); Mean Platelet Volume 11.7 fL (7.4-10.4); Monocytes # 0.4 10^3/uL (0.2-0.9); Monocytes % 5.8 %; Neutrophils # 5.32 10^3/uL (1.8-7.7); Neutrophils % 88.6 %; Nucleated Red Blood Cells % 0 %; Platelet Count 165 10^3/cmm (157-399); Red Blood Count 3.67 10^6/uL (3.85-5.65); Red Cell Distribution Width 13.2 % (12.1-15.1); White Blood Count 6.01 10^3/uL (3.29-11.43)
[2023-12-09 05:50] LABS: Anion Gap 11.9 (5-19); Blood Urea Nitrogen 11 mg/dL (8-23); Calcium 8.6 mg/dL (8.5-10.5); Carbon Dioxide 31 mmol/L (22-29); Chloride 101 mmol/L (98-107); Creatinine Clr Calc Pharmacy 58.5745; Glucose 138 mg/dL (65-115); Osmolality Calculated 292 mOsm/kg (285-295); Potassium 3.9 mmol/L (3.5-5.1); Sodium 140 mmol/L (136-145)
[2023-12-09] MEDS: budesonide 0.5 mg/2 mL Neb INHALATION ×2 (08:00→20:02)
[2023-12-09] MEDS: aspirin 81 mg EC Tablet PO (08:41)
[2023-12-09] MEDS: guaiFENesin 600 mg Tablet PO ×2 (08:41→17:20)
[2023-12-09] MEDS: nicotine 21 mg Patch 1 PATCH TRANSDERMA (08:42)
--- NOTE | 2023-12-09 10:03 | PC.SOCIAL ---
IMM Update Pg. 2 of [facility] updated and reviewed with patient, who verbalized understanding, copy provided.
[2023-12-09] MEDS: levofloxacin-dextrose 5 % 750 MG/150 ML PREMIX 100 MG IV (11:39)
--- NOTE | 2023-12-09 21:36 | P.PN_ITS ---
Subjective 2 Subjective: He is very slowly improving but still gets very dyspneic especially with exertion. Coughing, wheezing. States that he had gotten up to the commode earlier, his saturation came down to 66 and heart rate went up to 180 on the pulse oximeter. Vitals/I&O/Wt Last Vital Signs Temp 97.9 F 12/09/23 20:00 Pulse 100 12/09/23 20:02 Resp 18 12/09/23 20:02 BP 136/74 12/09/23 20:00 Pulse Ox 91 12/09/23 20:02 O2 Del Method Nasal Cannula 12/09/23 20:02 O2 Flow Rate 3 12/09/23 20:02 FiO2 35 12/09/23 15:00 12/09/23 12/09/23 12/09/23 06:59 14:59 22:59 Intake Total 240 / 1390.96 220 / 220 390 / 610 Output Total 300 / 1750 Balance -60 / -359.04 220 / 220 390 / 610 Weight last 48 hrs Weight 51.936 kg Weight 48.897 kg Physical Exam 2 Narrative: Accompanied by . Const: COMMON NORMALS: patient oriented x3 and alert GENERAL APPEARANCE: c ooperative ORIENTATION/CONSCIOUSNESS: Yes awake HENMT: COMMON NORMALS: oropharynx normal Neck/C-Spine: COMMON NORMALS: no JVD Resp: AUSCULTATION: wheezes and diminished lung sounds Cardio: COMMON NORMALS: no JVD, regular rhythm, S1 normal heart sound present, S2 normal heart sound present and No murmurs present (Cardio) RHYTHM: regular rhythm HEART SOUNDS: S1 normal heart sound present and S2 normal heart sound present GI: COMMON NORMALS: Normal to inspection, nondistended, normoactive bowel sounds present, Soft to palpation and non-tender PALPATION: Yes Soft to palpation Extremity: COMMON NORMALS: no joint enlargement and no pedal edema Neuro: COMMON NORMALS: patient oriented x3 and moves all extremities S ENSORIUM/ORIENTATION: Yes alert Skin: COMMON NORMALS: no rashes or lesions noted GENERAL SKIN EXAM: no rashes or lesions noted Data 12/09/23 04:06 12/09/23 04:06 A&P Assessment and plan (1) Acute on chronic hypoxic respiratory failure: Still easily out of breath with exertion, desaturated down to 66% and heart rate went up to 180 with getting up to the commode. Still significantly diminished air entry, severe wheezing. Rhonchi slightly better. Subjectively he is slightly better than yesterday. On 3 L. Continue IV steroids. Will not decrease dose at this time. Monitor for risk of hyperglycemia, hypertension, so far blood pressures are okay. Reviewed glucose, 138. Monitor for scar gastritis, encephalopathy. Has been needing Xanax for air hunger. Monitor for risk of altered mental status, respiratory depression. Reviewed BMP for renal function, remaining normal. Recheck. Reviewed vitals, CBC. Reviewed blood culture, respiratory culture. Respiratory culture with Pseudomonas. Continue Levaquin. Discussed with nursing, shoe parts caser. Continue oxygen support, continue BiPAP support. Patient with acute on hypoxic respiratory failure He has some CO2 retention as well Oxygen, to keep saturation 90 to 92%. Try to prevent overall oxygenation which could cause more CO2 retention. (2) Pneumonia: Reviewed vitals, afebrile, leukocytosis resolved. Reviewed blood culture, remaining negative. Reviewed blood culture, remaining negative. Leukocytosis has resolved. Reviewed sputum culture, growing Pseudomonas. Sensitive to Levaquin. Continue Levaquin. Repeat CBC. Follow-up blood cultures. Concern of pneumonia with his acute hypoxic respiratory failure, chest x-ray findings, fever of 101 ?F at home. COVID is negative Sputum culture pending MRSA PCR pending Continue Levaquin 750 mg IV every 24 hours (3) COPD exacerbation: Still highly symptomatic with severe COPD exacerbation. Will not decrease IV steroids at the moment. If not improving consider increasing. Continue Levaquin. Monitor for risk of hyperglycemia, hypertension, encephalopathy, gastritis with IV steroids. As above adding small dose Xanax for air hunger. Patient with significant acute COPD exacerbation He received steroids in the ER Continue 60 mg of Solu-Medrol every 24 hours DuoNeb every 4 hours Budesonide twice daily (4) Chest pain: Discussed with him echocardiogram results. Discussed on x-ray pneumonia is predominantly left side base. He does report most symptoms are pleuritic. Did discuss with him pursuing stress test after he recovers, he is agreeable. Chest pain combining pleuritic pain as well as pain at rest. Reviewed troponin series. Without significant elevation. Reviewed chest x-ray, noted left-sided pneumonia. Continue treatment as above. Patient with chest pain, which is somewhat atypical Secondary to elevated troponin we will go ahead and give aspirin daily This appears to be a type II elevation Monitor for any recurrence (5) Nicotine dependence, cigarettes, with other nicotine-induced disorders: Nicotine patch Encourage abstinence Plan Allow natural . Discussed with patient and Lovenox for DVT prophylaxis Attestations 2 Medical Necessity Statement*: Continue admission for assessment management of respiratory failure, pseudomonal lower respiratory tract infection, pneumonia, severe COPD exacerbation. and High MDM includes amount and/or complexity of data reviewed/ordered [ resulted lab(s)/test(s), ordered lab(s)/test(s) and other healthcare professional discussion] and described risk of complication, morbidity or mortality of management as documented Diagnoses Acute on chronic hypoxic respiratory failure J96.21 Pneumonia J18.9 COPD exacerbation J44.1 Chest pain R07.9 Nicotine dependence, cigarettes, with other nicotine-induced disorders F17.218
[2023-12-10] VITALS (16 sets, daily range): BP systolic 118–130; BP diastolic 69–77; PULSE 64–103; RESP 18–22; TEMP 36.3–36.8; O2SAT 90–95
[2023-12-10] MEDS: ipratropium-albuterol 3 mL Neb INHALATION ×6 (00:03→19:51)
[2023-12-10] MEDS: methylPREDNISolone sod succ 125 mg/2 mL INJ 60 MG IVP (05:01)
[2023-12-10 06:03] LABS: Basophils % 0.2 %; Hematocrit 38.8 % (37-53); Lymphocytes # 0.4 10^3/uL (0.8-4.8); Lymphocytes % 6.5 %; Mean Corpuscular HGB Conc 32.7 g/dL (30-55); Mean Corpuscular Hemoglobin 32.3 pg (27-33); Mean Corpuscular Volume 98.7 fl (82-101); Monocytes # 0.3 10^3/uL (0.2-0.9); Monocytes % 4.4 %; Neutrophils # 5.59 10^3/uL (1.8-7.7); Neutrophils % 88.4 %; Nucleated Red Blood Cells % 0 %; Platelet Count 187 10^3/cmm (157-399); Red Blood Count 3.93 10^6/uL (3.85-5.65); White Blood Count 6.32 10^3/uL (3.29-11.43)
[2023-12-10 06:23] LABS: Anion Gap 11.2 (5-19); Blood Urea Nitrogen 17 mg/dL (8-23); Calcium 8.6 mg/dL (8.5-10.5); Carbon Dioxide 32 mmol/L (22-29); Chloride 101 mmol/L (98-107); Creatinine Clr Calc Pharmacy 66.4144; Glucose 134 mg/dL (65-115); Osmolality Calculated 294 mOsm/kg (285-295); Potassium 4.2 mmol/L (3.5-5.1); Sodium 140 mmol/L (136-145)
[2023-12-10 08:08] LABS: Glucose Point of Care 119 mg/dL (70-110)
[2023-12-10] MEDS: budesonide 0.5 mg/2 mL Neb INHALATION ×2 (08:11→19:54)
[2023-12-10] MEDS: guaiFENesin 600 mg Tablet PO ×2 (08:29→17:24)
[2023-12-10] MEDS: aspirin 81 mg EC Tablet PO (08:29)
[2023-12-10] MEDS: nicotine 21 mg Patch 1 PATCH TRANSDERMA (08:29)
[2023-12-10 11:45] LABS: Glucose Point of Care 140 mg/dL (70-110)
[2023-12-10] MEDS: levofloxacin-dextrose 5 % 750 MG/150 ML PREMIX 100 MG IV (11:55)
--- NOTE | 2023-12-10 15:16 | P.PN_ITS ---
Subjective 2 Subjective: Markus reports he is a little less short of breath. Still coughing quite a bit. Medications: Reviewed: Yes Vitals/I&O/Wt Last Vital Signs Temp 97.8 F 12/10/23 12:00 Pulse 92 12/10/23 14:00 Resp 22 H 12/10/23 12:46 BP 128/76 12/10/23 12:00 Pulse Ox 94 12/10/23 12:46 O2 Del Method BiPAP 12/10/23 12:46 O2 Flow Rate 3 12/10/23 08:12 FiO2 35 12/10/23 12:46 12/10/23 12/10/23 12/10/23 06:59 14:59 22:59 Intake Total 990 / 990 Balance 990 / 990 Weight last 48 hrs Weight 49.804 kg Weight 51.936 kg Physical Exam 2 Narrative: General Exam less respiratory distress. Currently on 3 L Neck is supple no lymphadenopathy thyromegaly Cardiovascular regular rate and rhythm without murmur Lungs some faint wheezing bilaterally Abdomen is soft nontender positive bowel sounds. No obvious organomegaly Extremities no cyanosis clubbing , cap refill brisk Data 12/10/23 05:52 12/10/23 05:52 Micro: Microbiology 12/05/23 09:10 Blood Culture - Final Blood NO GROWTH AFTER 5 DAYS 12/05/23 09:05 Blood Culture - Final Blood NO GROWTH AFTER 5 DAYS A&P Assessment and plan (1) Acute on chronic hypoxic respiratory failure: Overall nearing his baseline. Discontinue IV Solu-Medrol changed to prednisone. If does not deteriorate overnight consider discharge home Reviewed vitals, CBC. Reviewed blood culture, respiratory culture. Respiratory culture with Pseudomonas. Continue Levaquin. Discussed with nursing, case briefer. Continue oxygen support, continue BiPAP support. Patient with acute on hypoxic respiratory failure He has some CO2 retention as well Oxygen, to keep saturation 90 to 92%. Try to prevent overall oxygenation which could cause more CO2 retention. (2) Pneumonia: Reviewed vitals, afebrile, leukocytosis resolved. Reviewed blood culture, remaining negative. Reviewed blood culture, remaining negative. Leukocytosis has resolved. Reviewed sputum culture, growing Pseudomonas. Sensitive to Levaquin. Continue Levaquin. Repeat CBC. Follow-up blood cultures. Concern of pneumonia with his acute hypoxic respiratory failure, chest x-ray findings, fever of 101 ?F at home. COVID is negative Sputum culture pending MRSA PCR negative Continue Levaquin 750 mg IV every 24 hours (3) COPD exacerbation: Still highly symptomatic with severe COPD exacerbation. Will not decrease IV steroids at the moment. If not improving consider increasing. Continue Levaquin. Monitor for risk of hyperglycemia, hypertension, encephalopathy, gastritis with IV steroids. As above adding small dose Xanax for air hunger. Patient with significant acute COPD exacerbation He received steroids in the ER Changed to p.o. prednisone DuoNeb every 4 hours Budesonide twice daily (4) Chest pain: Discussed with him echocardiogram results. Discussed on x-ray pneumonia is predominantly left side base. He does report most symptoms are pleuritic. Did discuss with him pursuing stress test after he recovers, he is agreeable. Chest pain combining pleuritic pain as well as pain at rest. Reviewed troponin series. Without significant elevation. Reviewed chest x-ray, noted left-sided pneumonia. Continue treatment as above. Patient with chest pain, which is somewhat atypical Secondary to elevated troponin we will go ahead and give aspirin daily This appears to be a type II elevation Monitor for any recurrence (5) Nicotine dependence, cigarettes, with other nicotine-induced disorders: Nicotine patch Encourage abstinence Plan Allow natural . Discussed with patient and Lovenox for DVT prophylaxis Attestations 2 Medical Necessity Statement*: Needs continued hospitalization for frequent breathing treatments, respiratory support. Possible discharge tomorrow if continues to stabilize Diagnoses Acute on chronic hypoxic respiratory failure J96.21 Pneumonia J18.9 COPD exacerbation J44.1 Chest pain R07.9 Nicotine dependence, cigarettes, with other nicotine-induced disorders F17.218 Time Spent (min) 21
[2023-12-10 16:12] LABS: Glucose Point of Care 86 mg/dL (70-110)
[2023-12-11] VITALS (8 sets, daily range): BP systolic 117–131; BP diastolic 72–78; PULSE 73–107; RESP 17–19; TEMP 36.4–36.7; O2SAT 93–96
[2023-12-11] MEDS: ipratropium-albuterol 3 mL Neb INHALATION ×3 (00:19→08:17)
[2023-12-11] MEDS: budesonide 0.5 mg/2 mL Neb INHALATION (08:17)
--- NOTE | 2023-12-11 08:20 | PM.DCS ---
Discharge Providers Date of Admission: 12/05/23 10:08 Date of Discharge: December 11, 2023 Attending Provider at Admission: Vu Bauman MD Attending Provider at Discharge: Vu Bauman MD Primary Care Provider: Nando Green MD Diagnoses at Discharge Discharge Diagnosis (1) Acute on chronic hypoxic respiratory failure: Status: Acute (2) Pneumonia: Status: Acute (3) COPD exacerbation: Status: Acute (4) Chest pain: Status: Acute (5) Nicotine dependence, cigarettes, with other nicotine-induced disorders: Status: Acute Reason for Visit Reason for Visit: CP, SOB Hospital Course Hospital Course Markus is a 73-year-old white male presenting to the hospital with shortness of breath and wheezing. He has longstanding severe COPD, and continues to use tobacco. He was placed on IV steroids, IV antibiotics consisting of Levaquin, and pulmonary toilet. With this treatment he had slow improvement, sometimes waxing and waning in the initial days. He frequently had to use his noninvasive ventilator. IV steroids were given for prolonged time, eventually converting to p.o. during the last part of his hospital stay. He had an echocardiogram done during his hospital stay demonstrating preserved EF. He did have pneumonia present on chest x-ray, and sputum grew Pseudomonas sensitive to the Levaquin he was on. COVID and MRSA testing was negative. Ultimately, on December 10 it was thought he would be improved to a significant amount and was able to be discharged home. He follow-up with his primary care provider in 3 to 5 days. He should continue to follow-up with pulmonary, and this can be coordinated by his primary. He was told to stop smoking. He was given an opportunity ask questions and agrees with the plan. Physical Exam Narrative: General Exam no distress Neck is supple Cardiovascular regular rate and rhythm Lungs diminished breath sounds, occasional expiratory wheeze Abdomen is soft Extremities no cyanosis, or edema Discharge Data Studies Completed and Pending Completed Studies During Hospitalization Category Date Time Status XR chest 1V portable [id number] Stat Exams 12/05/23 07:28 Completed CV. echo complete* [id number] Routine Ultrasound 12/08/23 21:55 Completed Radiology Impressions Chest X-Ray 12/05/23 07:28 IMPRESSION: Interstitial lung opacities in the left lung of unknown chronicity but may represent acute or subacute pneumonitis. Laboratory Results WBC 6.32 10^3/uL (3.29-11.43) 12/10/23 05:52 RBC 3.93 10^6/uL (3.85-5.65) 12/10/23 05:52 Hgb 12.70 g/dL (11.27-16.99) 12/10/23 05:52 Hct 38.8 % (37-53) 12/10/23 05:52 MCV 98.7 fl (82-101) 12/10/23 05:52 MCH 32.3 pg (27-33) 12/10/23 05:52 MCHC 32.7 g/dL (30-55) 12/10/23 05:52 RDW 13.0 % (12.1-15.1) 12/10/23 05:52 Plt Count 187 10^3/cmm (157-399) 12/10/23 05:52 MPV 11.0 fL (7.4-10.4) H 12/10/23 05:52 Neut % (Auto) 88.4 % 12/10/23 05:52 Lymph % (Auto) 6.5 % 12/10/23 05:52 Caroline % (Auto) 4.4 % 12/10/23 05:52 Eos % (Auto) 0.0 % 12/10/23 05:52 Baso % (Auto) 0.2 % 12/10/23 05:52 Neut # (Auto) 5.59 10^3/uL (1.8-7.7) 12/10/23 05:52 Lymph # (Auto) 0.4 10^3/uL (0.8-4.8) L 12/10/23 05:52 Caroline # (Auto) 0.3 10^3/uL (0.2-0.9) 12/10/23 05:52 Eos # (Auto) 0.0 10^3/uL (0.0-0.8) 12/10/23 05:52 Baso # (Auto) 0.0 10^3/uL (0.0-0.1) 12/10/23 05:52 Nucleated RBC % (auto) 0 % 12/10/23 05:52 Nucleated RBCs # 0.0 /100WBC 12/10/23 05:52 Specimen Type Arterial 12/05/23 08:00 Sample Site Brachial, right 12/05/23 08:00 ABG pH 7.35 (7.35-7.45) 12/05/23 08:00 ABG pCO2 53.9 mmHg (35-45) H 12/05/23 08:00 ABG pO2 79.2 mmHg (80.0-100.0) L 12/05/23 08:00 ABG PO2/FiO2 Ratio 220 12/05/23 08:00 ABG HCO3 29.7 mmol/L (22-26) H 12/05/23 08:00 ABG O2 Saturation 96.0 12/05/23 08:00 ABG Base Excess 2.8 mmol/L (-2.0-2.0) H 12/05/23 08:00 Carter Test N/a 12/05/23 08:00 A-a O2 Gradient 14.4 mmHg (5-10) H 12/05/23 08:00 Hematocrit 42.1 % (42-52) 12/05/23 08:00 Hgb O2 Saturation 92.7 % (95-100) L 12/05/23 08:00 Carboxyhemoglobin 3.2 %THgb (0.4-20.1) 12/05/23 08:00 Methemoglobin 0.3 % (0.4-1.5) L 12/05/23 08:00 Total Hemoglobin 13.7 g/dL (14-18) L 12/05/23 08:00 Sodium 135.0 mmol/L (131-143) 12/05/23 08:00 Potassium 3.8 mmol/L (3.5-5.0) 12/05/23 08:00 Glucose 110.0 mg/dL (70-115) 12/05/23 08:00 Ionized Calcium 1.2 mmol/L (1.1-1.4) 12/05/23 08:00 O2 Delivery Device Nc 12/05/23 08:00 O2 Liters/Min 4.0 % 12/05/23 08:00 FiO2 36.0 % 12/05/23 08:00 Admitting Manager ID Amh 12/05/23 08:00 Sodium 140 mmol/L (136-145) 12/10/23 05:52 Potassium 4.2 mmol/L (3.5-5.1) 12/10/23 05:52 Chloride 101 mmol/L (98-107) 12/10/23 05:52 Carbon Dioxide 32 mmol/L (22-29) H 12/10/23 05:52 Anion Gap 11.2 (5-19) 12/10/23 05:52 BUN 17 mg/dL (8-23) 12/10/23 05:52 Creatinine 0.3 mg/dL (0.7-1.2) L 12/10/23 05:52 GFR Calculation Not Reportable 12/10/23 05:52 Glucose 134 mg/dL (65-115) H 12/10/23 05:52 POC Glucose 86 mg/dL (70-110) 12/10/23 15:55 Calculated Osmolality 294 mOsm/kg (285-295) 12/10/23 05:52 Lactic Acid 2.2 mmol/L (0.5-2.2) 12/05/23 07:40 Lactic Acid (Sepsis) 0.9 mmol/L (0.5-2.2) 12/05/23 10:27 Calcium 8.6 mg/dL (8.5-10.5) 12/10/23 05:52 Magnesium 1.8 mg/dL (1.7-2.3) 12/06/23 05:03 Total Bilirubin 0.3 mg/dL (0.15-1.2) 12/06/23 05:03 AST 19 U/L (0-40) 12/06/23 05:03 ALT 11 U/L (0-41) 12/06/23 05:03 Alkaline Phosphatase 47 U/L (40-130) 12/06/23 05:03 Troponin T Baseline 15 ng/L (0-15) 12/06/23 18:15 Troponin T 120 Minute 13.84 ng/L (0-15) 12/06/23 20:32 Delta Troponin T -1.16 ABS# (0-10) L 12/06/23 20:32 Troponin T Hi Sens 6Hr 12.75 ng/L (0-15) 12/07/23 01:03 Troponin T Hi Sens 6Hr Delta -2.25 ng/L (0-12) L 12/07/23 01:03 Total Protein 6.3 g/dL (6.6-8.7) L 12/06/23 05:03 Albumin 3.5 g/dL (3.5-5.2) 12/06/23 05:03 Globulin 2.8 g/dL (1.3-4.6) 12/06/23 05:03 Urine Color [place] (Yellow) A 12/05/23 08:45 Urine Appearance Cloudy (CLEAR) A 12/05/23 08:45 Urine pH 5.5 (5-7) 12/05/23 08:45 Ur Specific [place] 1.019 (1.005-1.030) 12/05/23 08:45 Urine Protein 2+ (Negative) A 12/05/23 08:45 Urine Glucose (UA) Negative (Normal) 12/05/23 08:45 Urine Ketones 2+ (Negative) H 12/05/23 08:45 Urine Blood Negative (Negative) 12/05/23 08:45 Urine Nitrate Negative (Negative) 12/05/23 08:45 Urine Bilirubin Negative (Negative) 12/05/23 08:45 Urine Urobilinogen 1.0 mg/dL (Negative) 12/05/23 08:45 Ur Leukocyte Esterase Negative (Negative) 12/05/23 08:45 Urine RBC 0-2 /hpf (0-2) 12/05/23 08:45 Urine WBC 0-5 /hpf (0-5) 12/05/23 08:45 Ur Squamous Epith Cells 0-5 /hpf (0-5) 12/05/23 08:45 Amorphous Sediment Not Reportable 12/05/23 08:45 Urine Bacteria None seen /hpf (NONE) 12/05/23 08:45 Hyaline Casts 4.11 /lpf 12/05/23 08:45 Coronavirus (PCR) Negative (Negative) 12/05/23 08:05 Influenza A (PCR) Negative (Negative) 12/05/23 08:05 Influenza Type B (PCR) Negative (Negative) 12/05/23 08:05 RSV (PCR) Negative (Negative) 12/05/23 08:05 MRSA (PCR) Not detected (NOT DETECTED) 12/05/23 11:43 Vitals Last Vital Signs Temp 97.6 F 12/11/23 04:00 Pulse 107 H 12/11/23 08:19 Resp 18 12/11/23 08:19 BP 117/78 12/11/23 04:00 Pulse Ox 96 12/11/23 08:19 O2 Del Method Nasal Cannula 12/11/23 08:19 O2 Flow Rate 3 12/11/23 08:19 FiO2 35 12/11/23 05:23 Discharge Plan Discharge Patient Disposition: Home Condition: Stable Prescriptions: New aspirin 81 mg Tablet,Delayed Release (Dr/Ec) 81 mg PO DAILY Qty: 30 0RF guaifenesin [Mucinex] 600 mg Tablet Extended Release 12hr 600 mg PO BID Qty: 20 0RF nicotine 21 mg/24 hr Patch 24 Hour 1 patch transdermal DAILY Qty: 14 0RF prednisone 10 mg tablet 10 mg PO DIRECTED Qty: 51 0RF Rx Instructions: see taper instructions levofloxacin 750 mg tablet 750 mg PO DAILY 4 Days Qty: 4 0RF Continued albuterol sulfate 2.5 mg /3 mL (0.083 %) solution for nebulization 2.5 mg inhalation Q6H PRN (Reason: Shortness Of Breath) Combivent Respimat 20-100 mcg/actuation mist 1 puff inhalation Q6H PRN (Reason: Shortness Of Breath) Trelegy Ellipta 100-62.5-25 mcg blister with device 1 inh inhalation DAILY Qty: 60 6RF levalbuterol tartrate [Xopenex HFA] 45 mcg/actuation HFA aerosol inhaler 2 inh inhalation Q6H PRN (Reason: shortness of breath or wheezing) Qty: 15 6RF Rx Instructions: Do not use within 4 hours of Combivent acetaminophen 500 mg Tablet 1,000 mg PO Q6H PRN (Reason: Pain) Discharge Orders: Discharge Order (Routine); Ordered 12/11/23 Ordered By: Vu Bauman Referrals: Nando Green MD [Primary Care Provider] - 12/19/23 12:40 pm Discharge Diet: Cardiac Discharge Activity: Increase activity as tolerated Patient Instructions: Opioid Safety Activity Restrictions/Additional Instructions: Take all medicine as prescribed Finish antibiotic course as noted Follow-up with your primary care provider 3 to 5 days Return for any concerns Stop smoking Continue your oxygen at 3 L. Prednisone taper is 10 mg tablets, 6 a day for 3 days, 5 a day for 3 days, 4-day for 3 days, 2 a day for 3 days, 1 a day for 3 days and then discontinue Discharge Attestations Time Spent in Discharge Care*: greater than 30 min Status at Discharge: Cognitive status at discharge: cognitively intact, Behavioral status at discharge: cooperative, Quality Metrics Clinical Quality Measures [ No reported AMI, CVA or VTE this stay] Coding Level of Care Code 96070 Total time (in minutes) for Discharge: 38 Diagnoses Acute on chronic hypoxic respiratory failure J96.21 Pneumonia J18.9 COPD exacerbation J44.1 Chest pain R07.9 Nicotine dependence, cigarettes, with other nicotine-induced disorders F17.218
[2023-12-11] MEDS: predniSONE 20 mg Tablet 60 MG PO (09:11)
[2023-12-11] MEDS: aspirin 81 mg EC Tablet PO (09:11)
[2023-12-11] MEDS: guaiFENesin 600 mg Tablet PO (09:11)
[2023-12-11] MEDS: nicotine 21 mg Patch 1 PATCH TRANSDERMA (09:12)
== END 2023-12-11 11:55 | disposition home or self-care (01) | DRG 177 ==
LOC: ER 07:46 → MEDSURG 10:08
PROVIDERS: Internal Medicine; Admitting Provider Internal Medicine; Emergency Provider Family Medicine; PCP Family Medicine; Visit Provider Internal Medicine
DX: J15.1 Pneumonia due to Pseudomonas (principal); J96.21 Acute and chronic respiratory failure with hypoxia; J44.0 Chronic obstructive pulmonary disease with (acute) lower respiratory infection; J44.1 Chronic obstructive pulmonary disease with (acute) exacerbation; Z11.52 Encounter for screening for COVID-19; Z99.81 Dependence on supplemental oxygen; Z79.899 Other long term (current) drug therapy; F17.218 Nicotine dependence, cigarettes, with other nicotine-induced disorders
CPT/HCPCS: 0241U; 36415; 36416; 36600; 71045; 80048; 80051; 80053; 81001; 82330; 82805; 82962; 83605; 83735; 84484; 85025; 87040; 87070; 87077; 87186; 87205; 87641; 93005; 93306; 94640; 94660; 96365; 96372; 96375; 99285; J1650; J1956; J2543; J2919; J7030; J7512; J7626

== ENCOUNTER 2024-04-16 14:41 | Inpatient (IN) | payer MEDICARE, SELFPAY ==
[2024-04-16] VITALS (17 sets, daily range): BP systolic 91–177; BP diastolic 56–89; PULSE 65–125; RESP 16–29; TEMP 36.5–37.4; O2SAT 85–99; BMI 17.2; BMI 19.1
--- NOTE | 2024-04-16 14:46 | ECG_ITS ---
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 Measurements Intervals [place] Rate: 128 P: 80 [place]: 195 QRS: -66 QRSD: 92 T: 166 QT: 362 QTc: 529 Interpretive Statements SINUS TACHYCARDIA WITH FREQUENT VENTRICULAR PREMATURE COMPLEXES LEFT AXIS DEVIATION [QRS AXIS < -30] PATTERN CONSISTENT WITH PULMONARY DISEASE ST DEVIATION AND MODERATE T-WAVE ABNORMALITY, CONSIDER LATERAL ISCHEMIA [-0.1+ mV T-WAVE IN I/aVL/V5/V6] ST DEVIATION AND MODERATE T-WAVE ABNORMALITY, CONSIDER INFERIOR ISCHEMIA [-0.1+ mV T-WAVE IN II/aVF] Compared to ECG 12/07/2023 00:01:49 T-wave abnormality now present Possible ischemia now present Sinus rhythm no longer present Electronically Signed On 04-17-2024 09:01:34 NURSING RESIDENT by Steve Buckner M.D. [id number]
--- NOTE | 2024-04-16 14:47 | XR_ITS ---
WS: [id number] Portable AP upright chest, 04/16/2024 Clinical Data: Shortness of breath Comparison: Portable chest, 12/05/2023 Findings: There is a patchy opacity of the periphery of the right upper lobe which could represent ac curtis pneumonia. No nodules, masses or effusions are seen. The heart is normal. The pulmonary vascular ity is not increased. The diaphragms are flattened. No pneumonia or pneumothorax is seen. The aortic arch shows calcification and mild tortuosity. XR/XR chest 1V portable [id number] Impression: 1. Patchy opacity in right upper lobe which could represent acute pneumonia and recommend repeat chest x-ray in 2 to 3 days. 2. Hyperinflation and atherosclerosis.
--- NOTE | 2024-04-16 14:55 | ECG_ITS ---
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 Measurements Intervals [place] Rate: 121 P: 79 [place]: 142 QRS: -87 QRSD: 79 T: 113 QT: 295 QTc: 420 Interpretive Statements SINUS TACHYCARDIA PATTERN CONSISTENT WITH PULMONARY DISEASE LEFT ANTERIOR FASCICULAR BLOCK [QRS AXIS <= -45, QR IN I, RS IN II] INFERIOR MYOCARDIAL INFARCTION , PROBABLY OLD [40+ ms Q WAVE AND/OR ST/T ABNORMALITY IN II/aVF] Compared to ECG 04/16/2024 14:46:15 Left anterior fascicular block now present Myocardial infarct finding now present Ventricular premature complex(es) no longer present Left-axis deviation no longer present T-wave abnormality no longer present Possible ischemia no longer present Electronically Signed On 04-17-2024 09:00:14 ADULT LITERACY TEACHER by Steve Buckner M.D. [email or web address]
[2024-04-16 14:57] LABS: ABG PCO2 52.2 mmHg (35-45); ABG PH Result 7.36 (7.35-7.45); Arterial Blood Gas Hematocrit 44.2 % (42-52); Base Excess ABG 2.7 mmol/L (-2.0-2.0); Blood Gas Allen Test Pos; Blood Gas Operator Identificat WALCI; Blood Gas Sample Site Brachial, left; Blood Gas Sample Type Arterial; Carboxyhemoglobin 0.9 %THgb (0.4-20.1); HCO3 ABG 29.4 mmol/L (22-26); HGB O2 Sat 89.4 % (95-100); Oxygen Device NC; PO2 ABG 64.6 mmHg (80.0-100.0); Total Hemoglobin 14.4 g/dL (14-18)
[2024-04-16 15:03] LABS: Basophils % 0.1 %; Eosinophils % 0.1 %; Lymphocytes % 12.2 %; Mean Corpuscular HGB Conc 32.4 g/dL (30-55); Mean Corpuscular Hemoglobin 29.9 pg (27-33); Mean Corpuscular Volume 92.2 fl (82-101); Mean Platelet Volume 11.5 fL (7.4-10.4); Monocytes # 0.9 10^3/uL (0.2-0.9); Monocytes % 10.5 %; Neutrophils # 6.35 10^3/uL (1.8-7.7); Neutrophils % 76.7 %; Nucleated Red Blood Cells % 0 %; Platelet Count 186 10^3/cmm (157-399); Red Blood Count 4.99 10^6/uL (3.85-5.65); Red Cell Distribution Width 12.2 % (12.1-15.1); White Blood Count 8.28 10^3/uL (3.29-11.43)
[2024-04-16 15:20] LABS: Lactic Sepsis W/Reflex 2.4 mmol/L (0.5-2.2)
[2024-04-16 15:21] LABS: Alanine Aminotransferase 13 U/L (0-41); Albumin Level 4.4 g/dL (3.5-5.2); Alkaline Phosphatase 82 U/L (40-130); Anion Gap 17.4 (5-19); Aspartate Amino Transferase 31 U/L (0-40); Blood Urea Nitrogen 10 mg/dL (8-23); Calcium 8.9 mg/dL (8.5-10.5); Carbon Dioxide 30 mmol/L (22-29); Chloride 90 mmol/L (98-107); Creatinine Clr Calc Pharmacy 54.3363; Globulin 3.9 g/dL (1.3-4.6); Glucose 129 mg/dL (65-115); Osmolality Calculated 277 mOsm/kg (285-295); Potassium 4.4 mmol/L (3.5-5.1); Sodium 133 mmol/L (136-145); Total Bilirubin 0.2 mg/dL (0.15-1.2); Total Protein 8.3 g/dL (6.6-8.7)
--- NOTE | 2024-04-16 15:25 | ED_ITS ---
HPI - SOB/Dyspnea 2 General: Chief Complaint: Shortness of Breath/Dyspnea Stated Complaint: resp distress Time Seen by Provider: 04/16/24 14:43 History of Present Illness: HPI Narrative: 73-year-old male brought in via EMS for shortness of breath. Patient has been having some increased shortness of breath over the last couple days. Patient has known exposure what they believe is influenza. Patient normally uses a CPAP. He received some Decadron, DuoNeb and aspirin in route. He has little bit of right sided discomfort. Associated symptoms: Reports chest pain (Right sided with inspiration); Deny abdominal pain or nausea Related Data Home Medications Medication Instructions Recorded Confirmed albuterol sulfate 2.5 mg/3 mL 2.5 mg inhalation Q6H PRN 10/30/23 04/16/24 (0.083 %) solution for nebulization Shortness Of Breath ipratropium 20 mcg-albuterol 100 1 puff inhalation Q6H PRN 10/30/23 04/16/24 mcg/actuation mist for inhalation Shortness Of Breath (Combivent Respimat) Previous Rx's Medication Instructions Recorded fluticasone fur. 100 mcg-umeclid 1 inh inhalation DAILY #60 ea 09/13/23 62.5 mcg-vilant 25 mcg inhalat.powder (Trelegy Ellipta) levalbuterol tartrate 45 2 inh inhalation Q6H PRN shortness 09/19/23 mcg/actuation aerosol inhaler of breath or wheezing #15 grams (Xopenex HFA) aspirin 81 mg tablet,delayed 81 mg PO DAILY #30 tabs 12/11/23 release guaifenesin 600 mg tablet, 600 mg PO BID #60 tabs 12/26/23 extended release 12 hr (Mucinex) Allergies Allergy/AdvReac Type Severity Reaction Status Date / Time No Known Allergies Allergy Verified 12/19/23 12:43 Review of Systems 2 Const: Reports: chills and fatigue Card: Reports: chest pain (Right sided with inspiration) Resp: Reports: dyspnea and non-productive cough GI: Denies: abdominal pain or nausea Musc: Denies: neck pain or back pain PFSH ED 2 PFSH: Medical History Nicotine dependence, cigarettes, with other nicotine-induced disorders COPD (chronic obstructive pulmonary disease) Protein calorie malnutrition Debility Acute hypercapnic respiratory failure Acute exacerbation of chronic obstructive airways disease COVID-19 (~08/2021) On home oxygen therapy 3L BNC Pleuritic chest pain Surgical History History of surgery on right wrist due to fracture History of cataract surgery bilateral History of elbow surgery right, due to fracture History of right knee surgery Family History Grandmother Diabetes Mother Diabetes Social History Smoking and tobacco/nicotine status: never used tobacco/nicotine Quit status (tobacco/nicotine): has quit using Year quit tobacco: 01/2022 Former quit date comment: 2 ppd X 51 years Alcohol intake: never Substance/Drug Use: never Household members: spouse Marital status: Physical Exam 2 Const: COMMON NORMALS: patient oriented x3 GENERAL APPEARANCE: frail appearing Resp: EFFORT & INSPECTION: Yes tachypneic and Yes labored Cardio: COMMON NORMALS: regular rhythm RATE: tachycardic RHYTHM: regular rhythm GI: COMMON NORMALS: Soft to palpation and non-tender PALPATION: Yes Soft to palpation Neuro: COMMON NORMALS: patient oriented x3 and no focal motor deficits Psych: COMMON NORMALS: mental status grossly normal and cooperative Course 2 Vital Signs: Vital signs: Vital Signs Temperature 99.4 F 04/16/24 14:42 Pulse Rate 84 04/16/24 17:43 Respiratory Rate 18 04/16/24 17:43 Blood Pressure 93/59 04/16/24 17:43 Pulse Oximetry 95 04/16/24 17:43 Oxygen Delivery Me thod BiPAP 04/16/24 17:43 Fraction of Inspir ed Oxygen 35 04/16/24 16:51 MDM - SOB/Dyspnea Medical Decision Making Patient is positive for influenza. Patient at this time has may be early pneumonia on x-ray. Likely due to his influenza A diagnosis. His symptoms been going on for about 4 days. He feels significantly better with the BiPAP. Patient will be admitted to Dr. Willams for further inpatient management. Patient's EKGs were reviewed and show no acute findings. Patient was stable upon admission to the floor. Lab Data 04/16/24 14:25 04/16/24 14:25 Labs/Radiology: Radiology Impressions Chest X-Ray 04/16/24 14:47 Impression: 1. Patchy opacity in right upper lobe which could represent acute pneumonia and recommend repeat chest x-ray in 2 to 3 days. 2. Hyperinflation and atherosclerosis. Laboratory Results WBC 8.28 10^3/uL (3.29-11.43) 04/16/24 14: RBC 4.99 10^6/uL (3.85-5.65) 04/16/24 14:25 Hgb 14.90 g/dL (11.27-16.99) 04/16/24 14: Hct 46.0 % (37-53) 04/16/24 14: MCV 92.2 fl (82-101) 04/16/24 14: MCH 29.9 pg (27-33) 04/16/24 14: MCHC 32.4 g/dL (30-55) 04/16/24 14: RDW 12.2 % (12.1-15.1) 04/16/24 14: Plt Count 186 10^3/cmm (157-399) 04/16/24 14: MPV 11.5 fL (7.4-10.4) H 04/16/24 14: Neut % (Auto) 76.7 % 04/16/24 14: Lymph % (Auto) 12.2 % 04/16/24 14: [place] % (Auto) 10.5 % 04/16/24 14: Eos % (Auto) 0.1 % 04/16/24 14: Baso % (Auto) 0.1 % 04/16/24 14: Neut # (Auto) 6.35 10^3/uL (1.8-7.7) 04/16/24 14: Lymph # (Auto) 1.0 10^3/uL (0.8-4.8) 04/16/24: [place] # (Auto) 0.9 10^3/uL (0.2-0.9) 04/16/24 14: Eos # (Auto) 0.0 10^3/uL (0.0-0.8) 04/16/24 14:25 Baso # (Auto) 0.0 10^3/uL (0.0-0.1) 04/16/24 14:25 Nucleated RBC % (auto) 0 % 04/16/24 14:25 Nucleated RBCs # 0.0 /100WBC 04/16/24 14:25 Specimen Type Arterial 04/16/24 14:46 Sample Site Brachial, left 04/16/24 14:46 ABG pH 7.36 (7.35-7.45) 04/16/24 14:46 ABG pCO2 52.2 mmHg (35-45) H 04/16/24 14:46 ABG pO2 64.6 mmHg (80.0-100.0) L 04/16/24 14:46 ABG HCO3 29.4 mmol/L (22-26) H 04/16/24 14:46 ABG Base Excess 2.7 mmol/L (-2.0-2.0) H 04/16/24 14:46 Carter Test Pos 04/16/24 14:46 Hematocrit 44.2 % (42-52) 04/16/24 14:46 Hgb O2 Saturation 89.4 % (95-100) L 04/16/24 14:46 Carboxyhemoglobin 0.9 %THgb (0.4-20.1) 04/16/24 14:46 Methemoglobin 1.0 % (0.4-1.5) 04/16/24 14:46 Total Hemoglobin 14.4 g/dL (14-18) 04/16/24 14:46 O2 Delivery Device Nc 04/16/24 14:46 O2 Liters/Min 3.0 % 04/16/24 14:46 Box Office Attendant ID [place] 04/16/24 14:46 Sodium 133 mmol/L (136-145) L 04/16/24 14:25 Potassium 4.4 mmol/L (3.5-5.1) 04/16/24 14:25 Chloride 90 mmol/L (98-107) L 04/16/24 14:25 Carbon Dioxide 30 mmol/L (22-29) H 04/16/24 14:25 Anion Gap 17.4 (5-19) 04/16/24 14:25 BUN 10 mg/dL (8-23) 04/16/24 14:25 Creatinine 0.6 mg/dL (0.7-1.2) L 04/16/24 14:25 GFR Calculation Not Reportable 04/16/24 14:25 Glucose 129 mg/dL (65-115) H 04/16/24 14:25 Calculated Osmolality 277 mOsm/kg (285-295) L 04/16/24 14:25 Lactic Acid 2.4 mmol/L (0.5-2.2) H 04/16/24 14:25 Calcium 8.9 mg/dL (8.5-10.5) 04/16/24 14:25 Total Bilirubin 0.2 mg/dL (0.15-1.2) 04/16/24 14:25 AST 31 U/L (0-40) 04/16/24 14:25 ALT 13 U/L (0-41) 04/16/24 14:25 Alkaline Phosphatase 82 U/L (40-130) 04/16/24 14:25 Total Protein 8.3 g/dL (6.6-8.7) 04/16/24 14:25 Albumin 4.4 g/dL (3.5-5.2) 04/16/24 14:25 Globulin 3.9 g/dL (1.3-4.6) 04/16/24 14:25 Coronavirus (PCR) Negative (Negative) 04/16/24 15:03 Influenza A (PCR) Positive (Negative) 04/16/24 15:03 Influenza Type B (PCR) Negative (Negative) 04/16/24 15:03 RSV (PCR) Negative (Negative) 04/16/24 15:03 All radiology interpretation(s) finalized by discharge Discharge Plan Discharge Admit Provider: Justo Willams Condition: Stable Coding Level of Care Code ED Health Physicist for Chg Pricila
[2024-04-16] MEDS: sodium chloride 0.9% 1,000 ML 999 ML IV ×2 (15:52→19:03)
[2024-04-16 16:12] LABS: Covid PCR NEGATIVE (Negative); Influenza A POSITIVE (Negative); Influenza B NEGATIVE (Negative); Respiratory Syncytial Virus Ce NEGATIVE (Negative)
--- NOTE | 2024-04-16 17:27 | CTR_ITS ---
PROCEDURE INFORMATION: Exam: CTA Chest With Contrast Exam date and time: 04/16/2024 9:59 PM Age: 73 years old Clinical indication: Shortness of breath; Additional info: SOB TECHNIQUE: Imaging protocol: Computed tomographic angiography of the chest with contrast. Exam focused on the arteries. 3D rendering (Not supervised by radiologist): MIP and/or 3D reconstructed images were created by the technologist. Radiation optimization: All CT scans at this facility use at least one of these dose optimization techniques: automated exposure control; mA and/or kV adjustment per patient size (includes targeted exams where dose is matched to clinical indication); or iterative reconstruction. Contrast material: OMNI; Contrast volume: 68 ml; Contrast route: INTRAVENOUS (IV); COMPARISON: CT angio chest PE protcl [id number] 08/27/2022 7:25 AM RADIATION DOSE METRICS: Total DLP (mGy-cm): 219.01 FINDINGS: Pulmonary arteries: Normal. No pulmonary emboli. Aorta: Atherosclerosis without dissection or aneurysm. Celiac trunk and mesenteric arteries: Atherosclerosis of the aorta and mesenteric vessels. Plaque is seen about the SMA origin but this is not well visualized. There does not appear to be a high-grade stenosis on these films. Lungs: Marked centrilobular emphysema. Dense consolidation posterior aspect right upper lobe, new since 08/27/2022. Similar finding of focal dense consolidation within the inferior lingular segment of the left upper lobe. Similar subtle focus right lung base. Pleural spaces: No pleural effusion. Heart: Unremarkable. No cardiomegaly. No pericardial effusion. Lymph nodes: No adenopathy. Bones/joints: Unremarkable. No acute fracture. Soft tissues: Unremarkable. CT/CT angio chest PE protcl [id number] IMPRESSION: 1. Multifocal masslike consolidation, likely representing an infectious process. 2. Severe centrilobular emphysema. COMMENTS: The presence of pulmonary emphysema on CT is an independent risk factor for lung cancer. In the absence of a history or active diagnosis of lung cancer, it is recommended that this patient with emphysema be evaluated for enrollment in a low dose CT lung cancer screening program.
--- NOTE | 2024-04-16 17:30 | P.HP_ITS ---
Providers/Chief Complaint 2 Admitting Physician: Justo Willams MD Primary Care Provider: Nando Green MD Chief Complaint: resp distress History of Present Illness Markus Trimble is a 73 year old male with a past medical history of COPD, smoker, who presents [facility] due to shortness of breath, productive cough, chest pain. Currently patient is alert oriented x 3, on BiPAP at 35% resting comfortably, does have tachypnea, mild intercostal retractions, nasal flaring, able to answer my questions is short of breath with a few words. Patient reports that for the last few days he has been experiencing increased shortness of breath increased shortness of breath with exertion with productive cough, does not report intermittent chest pain, nonradiating, associate with shortness of breath, no lightheadedness, dizziness, no nausea, no vomiting. He denies any hemoptysis. No recent travel. No calf pain, no calf swelling. No history of cardiovascular disease. He does report family members testing positive for flu Review of Systems 2 Const: Reports: chills, fatigue and malaise; Denies: fever(s) Card: Reports: chest pain Resp: Reports: dyspnea GI: Denies: abdominal pain Medications/Allergies Home Medications Medication Instructions Recorded Confirmed Last Taken Type fluticasone fur. 100 mcg-umeclid 1 inh inhalation DAILY #60 ea 09/13/23 04/16/24 12/04/23 Rx 62.5 mcg-vilant 25 mcg inhalat.powder (Trelegy Ellipta) levalbuterol tartrate 45 2 inh inhalation Q6H PRN shortness 09/19/23 04/16/24 12/05/23 Rx mcg/actuation aerosol inhaler of breath or wheezing #15 grams (Xopenex HFA) albuterol sulfate 2.5 mg/3 mL 2.5 mg inhalation Q6H PRN 10/30/23 04/16/24 Unknown History (0.083 %) solution for nebulization Shortness Of Breath ipratropium 20 mcg-albuterol 100 1 puff inhalation Q6H PRN 10/30/23 04/16/24 12/04/23 History mcg/actuation mist for inhalation Shortness Of Breath (Combivent Respimat) aspirin 81 mg tablet,delayed 81 mg PO DAILY #30 tabs 12/11/23 04/16/24 Unknown Rx release guaifenesin 600 mg tablet, 600 mg PO BID #60 tabs 12/26/23 04/16/24 Unknown Rx extended release 12 hr (Mucinex) Allergies Allergy/AdvReac Type Severity Reaction Status Date / Time No Known Allergies Allergy Verified 12/19/23 12:43 PFSH Acute 2 PFSH: Medical History Nicotine dependence, cigarettes, with other nicotine-induced disorders COPD (chronic obstructive pulmonary disease) Protein calorie malnutrition Debility Acute hypercapnic respiratory failure Acute exacerbation of chronic obstructive airways disease COVID-19 (~08/2021) On home oxygen therapy 3L BNC Pleuritic chest pain Surgical History History of surgery on right wrist due to fracture History of cataract surgery bilateral History of elbow surgery right, due to fracture History of right knee surgery Family History Grandmother Diabetes Mother Diabetes Social History Smoking and tobacco/nicotine status: never used tobacco/nicotine Quit status (tobacco/nicotine): has quit using Year quit tobacco: 01/2022 Former quit date comment: 2 ppd X 51 years Alcohol intake: never Substance/Drug Use: never Household members: spouse Marital status: Vitals/I&O/Wt Last Vital Signs Temp 99.4 F 04/16/24 14:42 Pulse 96 04/16/24 16:51 Resp 25 H 04/16/24 14:42 BP 97/64 04/16/24 15:53 Pulse Ox 95 04/16/24 16:51 O2 Del Method BiPAP 04/16/24 15:53 FiO2 35 04/16/24 16:51 Weight last 48 hrs Weight 45.359 kg Physical Exam 2 Const: COMMON NORMALS: no acute distress and patient oriented x3 HENMT: COMMON NORMALS: normocephalic HEAD & SCALP: normocephalic Eye: COMMON NORMALS: Equal, round and reactive pupils present Neck/C-Spine: COMMON NORMALS: no JVD Resp: OTHER: Tachypnea, nasal flaring, intercostal retractions, tachycardia, diffuse wheezing in all lung lackey, mild to moderate respiratory distress Cardio: COMMON NORMALS: no JVD, regular rate, regular rhythm, S1 normal heart sound present and S2 normal heart sound present RATE: regular rate RHYTHM: regular rhythm HEART SOUNDS: S1 normal heart sound present and S2 normal heart sound present GI: COMMON NORMALS: Normal to inspection, nondistended, normoactive bowel sounds present, Soft to palpation, non-tender, No hepatosplenomegaly present, no masses and no bruits PALPATION: Yes Soft to palpation and Yes No hepatosplenomegaly present Extremity: COMMON NORMALS: capillary refill normal, no clubbing, cyanosis or edema, no calf tenderness and no pedal edema Neuro: COMMON NORMALS: patient oriented x3, CN's II-XII intact bilaterally and moves all extremities Psych: COMMON NORMALS: mental status grossly normal Skin: NARRATIVE SKIN EXAM: Evidence of protein calorie malnutrition, BMI 17.2, bilateral fat pad thinning under bilateral clavicles, ribs, temporal muscle wasting Sepsis: Is patient septic: Yes Focused sepsis exam performed: Yes F ocused sepsis exam: DP PT pulse palpable, cap refill greater than 2 seconds, no mottling lower extremities Date exam was performed: 04/16/24 Time exam was performed: 17:34 Data 04/16/24 14:25 04/16/24 14:25 A&P Assessment and plan (1) Acute hypoxic respiratory failure: (2) Pneumonia: (3) Moderate protein-calorie malnutrition: (4) COPD exacerbation: (5) Influenza A: (6) Sepsis: Plan Acute hypoxic respiratory failure -Multifactorial -COPD exacerbation -Influenza A -Pneumonia -With sepsis, sepsis features met given respiratory failure elevated lactic acid, chest x-ray evidence of pneumonia, influenza, elevated lactic acid, evidence of acute respiratory distress nasal flaring intercostal retractions suprasternal retractions tachypnea, requiring BiPAP Plan -Monitor respiratory status closely -CT angio of the chest -Continue BiPAP -Monitor respiratory status closely -Follow-up blood cultures -Sputum cultures -Rocephin -Azithromycin -Tamiflu -Solu-Medrol 125 followed by 40 mg IV every 8 hours -DuoNeb -Budesonide -Chest pain complaints, serial EKGs, start troponins, telemetry monitoring -DNR/DNI, confirmed with patient multiple times, patient's is at bedside confirms -Lovenox for DVT prophylaxis Attestations 2 Medical Necessity Statement*: Patient requires hospitalization, inpatient, greater than 2 midnights for acute hypoxic respiratory failure multifactorial COPD, influenza A, pneumonia, sepsis Diagnoses Acute hypoxic respiratory failure J96.01 Pneumonia J18.9 Moderate protein-calorie malnutrition E44.0 COPD exacerbation J44.1 Influenza A J10.1 Sepsis A41.9
--- NOTE | 2024-04-16 17:32 | ECG_ITS ---
[facility]: 2024-04[facility]16 Pat Name: Markus Trimble Department: Room: EDIP Gender: Male Surveillance Sensor Officer: : 1950 Requested By: Jutso Willams Order Number: [id number] Fredy MD: Steve Buckner M.D. Measurements Intervals [place] Rate: 84 P: 88 MI: 154 QRS: -59 QRSD: 88 T: 93 QT: 364 QTc: 432 Interpretive Statements SINUS RHYTHM PATTERN CONSISTENT WITH PULMONARY DISEASE LEFT ANTERIOR FASCICULAR BLOCK [QRS AXIS <= -45, QR IN I, RS IN II] ABNORMAL QRS-T ANGLE [QRS-T AXIS DIFFERENCE > 60] Compared to ECG 04/16/2024 15:14:05 Sinus tachycardia no longer present Myocardial infarct finding no longer present Electronically Signed On 04-17-2024 08:58:47 RECREATION TECHNICIAN by Steve Buckner M.D. [email or web address]
[2024-04-16] MEDS: cefTRIAXone 1,000 mg SDV 1000 MG IVP (17:40)
[2024-04-16] MEDS: oseltamivir phosphate 75 mg Capsule PO (17:41)
[2024-04-16] MEDS: AZITHROMYCIN ADD-Vantage 500 MG in 0.9% NaCl ADD-Vantage 250 ML 250 MG IV (17:44)
[2024-04-16 18:20] LABS: Reflex Lactate Order REFLEX LACTIC ORDERD
[2024-04-16 18:52] LABS: Troponin(5th) Baseline 9 ng/L (0-15)
[2024-04-16 19:17] LABS: Lactic Acid level (Lactate) 0.9 mmol/L (0.5-2.2)
[2024-04-16 20:39] LABS: Troponin 5 2HR 8.11 ng/L (0-15)
[2024-04-16 20:45] LABS: Troponin 5 2HR Delta -0.89 ABS# (0-10)
[2024-04-16] MEDS: iohexol 350 mg/mL 500 mL Btl (per mL) IV (22:10)
[2024-04-16] MEDS: enoxaparin 40 mg/0.4 mL Syringe SUBCUT (22:42)
[2024-04-16] MEDS: methylPREDNISolone sod succ 125 mg/2 mL INJ IVP (22:42)
[2024-04-16] MEDS: pantoprazole 40 mg SDV IVP (22:43)
[2024-04-16 22:51] LABS: Chol HDL Ratio 5.14 mg/dL (1.0-5.00); Cholesterol 144 mg/dL (0-200); HDL Cholesterol 28 mg/dL (60-100); Thyroid Stimulating Hormone 0.36 uIU/mL (0.27-4.20)
[2024-04-16 23:42] LABS: Estmated Average Glucose 105; Hemoglobin A1C 5.3 % (4.0-6.0)
[2024-04-16 23:54] LABS: LDL Cholesterol Calculated 100 mg/dL (50-129); LDL HDL Ratio 3.57 RATIO (0.00-3.22); Triglycerides 81 mg/dL (0-150)
[2024-04-17] VITALS (35 sets, daily range): BP systolic 86–121; BP diastolic 53–67; PULSE 55–91; RESP 10–25; TEMP 36.3–36.8; O2SAT 94–100; BMI 18.7
[2024-04-17 00:40] LABS: Lymphocytes # 0.4 10^3/uL (0.8-4.8); Lymphocytes % 5.9 %; Mean Corpuscular HGB Conc 32.5 g/dL (30-55); Mean Corpuscular Hemoglobin 30.2 pg (27-33); Mean Platelet Volume 11.6 fL (7.4-10.4); Monocytes # 0.2 10^3/uL (0.2-0.9); Monocytes % 3.2 %; Neutrophils # 5.71 10^3/uL (1.8-7.7); Neutrophils % 90.7 %; Nucleated Red Blood Cells % 0 %; Platelet Count 129 10^3/cmm (157-399); Red Blood Count 3.87 10^6/uL (3.85-5.65); Red Cell Distribution Width 12.3 % (12.1-15.1); White Blood Count 6.29 10^3/uL (3.29-11.43)
[2024-04-17 01:02] LABS: C Reactive Protein 39.5 mg/L (0.0-4.9); Chloride 98 mmol/L (98-107); Sodium 136 mmol/L (136-145)
[2024-04-17 01:06] LABS: NT Pro B Type Natriuretic Pept 102 pg/mL (0-125); Procalcitonin 0.18 ng/mL (0-0.5)
[2024-04-17 01:20] LABS: Alanine Aminotransferase 9 U/L (0-41); Albumin Level 3.4 g/dL (3.5-5.2); Alkaline Phosphatase 58 U/L (40-130); Aspartate Amino Transferase 23 U/L (0-40); Blood Urea Nitrogen 9 mg/dL (8-23); Calcium 7.4 mg/dL (8.5-10.5); Carbon Dioxide 24 mmol/L (22-29); Creatinine Clr Calc Pharmacy 66.7958; Globulin 2.1 g/dL (1.3-4.6); Glucose 210 mg/dL (65-115); Magnesium 1.7 mg/dL (1.7-2.3); Osmolality Calculated 287 mOsm/kg (285-295); Phosphorus 3.8 mg/dL (2.5-4.5); Total Bilirubin 0.2 mg/dL (0.15-1.2); Total Protein 5.5 g/dL (6.6-8.7)
[2024-04-17 01:26] LABS: Troponin 5 6HR 10.21 ng/L (0-15); Troponin 5 6HR Delta 1.21 ng/L (0-12)
[2024-04-17] MEDS: ipratropium-albuterol 3 mL Neb INHALATION ×7 (01:34→23:52)
[2024-04-17] MEDS: methylPREDNISolone sod succ 40 mg/mL INJ IVP ×3 (05:29→23:06)
[2024-04-17] MEDS: budesonide 0.5 mg/2 mL Neb INHALATION ×2 (07:47→20:59)
[2024-04-17] MEDS: aspirin 81 mg EC Tablet PO (08:12)
[2024-04-17] MEDS: oseltamivir phosphate 75 mg Capsule PO ×2 (08:12→17:47)
--- NOTE | 2024-04-17 11:47 | PC.SOCIAL ---
IMM Update pg 2 of IMM updated and reviewed w/ patient. Copy dated, initialed and placed in chart.
--- NOTE | 2024-04-17 16:20 | PC.NURSE ---
Notified Sandra of patient being moved to room 257.
[2024-04-17] MEDS: cefTRIAXone 1,000 mg SDV 1000 MG IVP (16:33)
[2024-04-17] MEDS: AZITHROMYCIN ADD-Vantage 500 MG in 0.9% NaCl ADD-Vantage 250 ML 250 MG IV (16:33)
--- NOTE | 2024-04-17 16:48 | PC.NURSE ---
Report given to MARLYN Fox. Transferred to RM 257 via wheelchair.
--- NOTE | 2024-04-17 17:16 | P.PN_ITS ---
Subjective 2 Subjective: Patient was seen this morning, he reports shortness of breath, weakness, fatigue, does report a cough Vitals/I&O/Wt Last Vital Signs Temp 98.0 F 04/17/24 16:00 Pulse 91 04/17/24 16:00 Resp 17 04/17/24 16:00 BP 107/65 04/17/24 16:00 Pulse Ox 96 04/17/24 16:00 O2 Del Method Nasal Cannula 04/17/24 16:00 O2 Flow Rate 3 04/17/24 16:00 FiO2 35 04/17/24 04:00 04/17/24 04/17/24 04/17/24 06:59 14:59 22:59 Intake Total 440 / 440 Output Total 825 / 825 475 / 475 Balance -825 / 1425 440 / 440 -475 / -35 Weight last 48 hrs Weight 49.487 kg Weight 50.6 kg Weight 45.359 kg Physical Exam 2 Const: COMMON NORMALS: no acute distress and patient oriented x3 Resp: COMMON NORMALS: normal respiratory effort, No retractions and No use of accessory muscles AUSCULTATION: rales and wheezes Cardio: COMMON NORMALS: regular rate, regular rhythm, S1 normal heart sound present and S2 normal heart sound present RATE: regular rate RHYTHM: r egular rhythm HEART SOUNDS: S1 normal heart sound present and S2 normal heart sound present GI: COMMON NORMALS: Normal to inspection, nondistended, normoactive bowel sounds present and non-tender Extremity: COMMON NORMALS: no pedal edema Neuro: COMMON NORMALS: patient oriented x3 Psych: COMMON NORMALS: mental status grossly normal Data 04/17/24 00:22 04/17/24 00:22 Micro: Microbiology 04/16/24 15:16 Blood Culture - Preliminary Blood NEGATIVE TO DATE 04/16/24 15:09 Blood Culture - Preliminary Blood NEGATIVE TO DATE A&P Assessment and plan (1) Acute hypoxic respiratory failure: (2) Pneumonia: (3) Moderate protein-calorie malnutrition: (4) COPD exacerbation: (5) Influenza A: (6) Sepsis: Plan Acute hypoxic respiratory failure -Multifactorial -COPD exacerbation -Influenza A -Pneumonia -With sepsis, sepsis features met given respiratory failure elevated lactic acid, chest x-ray evidence of pneumonia, influenza, elevated lactic acid, evidence of acute respiratory distress nasal flaring intercostal retractions suprasternal retractions tachypnea, requiring BiPAP CT of the chest CT/CT angio chest PE protcl [id number] IMPRESSION: 1. Multifocal masslike consolidation, likely representing an infectious process. 2. Severe centrilobular emphysema. Plan -Monitor respiratory status closely -Continue BiPAP as needed during the day, scheduled during the night -Monitor respiratory status closely -Follow-up blood cultures -Sputum cultures -Rocephin -Azithromycin -Tamiflu -Solu-Medrol 125 followed by 40 mg IV every 8 hours -DuoNeb -Budesonide -Chest pain complaints, serial EKGs, start troponins, telemetry monitoring -DNR/DNI, confirmed with patient multiple times, patient's is at bedside confirms -Patient will need to follow-up with pulmonary as outpatient for masslike consolidation for consideration of bronchoscopy, repeat CT imaging in 6 weeks -Lovenox for DVT prophylaxis Attestations 2 Medical Necessity Statement*: Patient requires hospitalization for acute hypoxic respiratory failure secondary to pneumonia, influenza A, COPD exacerbation Diagnoses Acute hypoxic respiratory failure J96.01 Pneumonia J18.9 Moderate protein-calorie malnutrition E44.0 COPD exacerbation J44.1 Influenza A J10.1 Sepsis A41.9
[2024-04-17] MEDS: enoxaparin 40 mg/0.4 mL Syringe SUBCUT (23:06)
[2024-04-17] MEDS: pantoprazole 40 mg SDV IVP (23:07)
[2024-04-18] VITALS (19 sets, daily range): BP systolic 102–120; BP diastolic 61–68; PULSE 61–96; RESP 10–28; TEMP 36.3–36.8; O2SAT 93–99
[2024-04-18] MEDS: ipratropium-albuterol 3 mL Neb INHALATION ×6 (03:51→23:58)
[2024-04-18 06:01] LABS: Basophils % 0.1 %; Hematocrit 40.7 % (37-53); Lymphocytes # 0.8 10^3/uL (0.8-4.8); Lymphocytes % 10.6 %; Mean Corpuscular Hemoglobin 29.3 pg (27-33); Mean Corpuscular Volume 94.7 fl (82-101); Mean Platelet Volume 11.7 fL (7.4-10.4); Monocytes # 0.4 10^3/uL (0.2-0.9); Monocytes % 5.4 %; Neutrophils # 6.04 10^3/uL (1.8-7.7); Neutrophils % 83.2 %; Nucleated Red Blood Cells % 0 %; Platelet Count 142 10^3/cmm (157-399); Red Cell Distribution Width 12.2 % (12.1-15.1); White Blood Count 7.26 10^3/uL (3.29-11.43)
[2024-04-18] MEDS: methylPREDNISolone sod succ 40 mg/mL INJ IVP ×3 (06:03→21:58)
[2024-04-18 06:20] LABS: Alanine Aminotransferase 10 U/L (0-41); Albumin Level 3.6 g/dL (3.5-5.2); Alkaline Phosphatase 58 U/L (40-130); Aspartate Amino Transferase 21 U/L (0-40); Blood Urea Nitrogen 8 mg/dL (8-23); C Reactive Protein 23.2 mg/L (0.0-4.9); Calcium 8.6 mg/dL (8.5-10.5); Carbon Dioxide 29 mmol/L (22-29); Chloride 102 mmol/L (98-107); Globulin 2.9 g/dL (1.3-4.6); Glucose 151 mg/dL (65-115); Magnesium 1.9 mg/dL (1.7-2.3); Osmolality Calculated 293 mOsm/kg (285-295); Phosphorus 2.5 mg/dL (2.5-4.5); Sodium 141 mmol/L (136-145); Total Bilirubin 0.2 mg/dL (0.15-1.2); Total Protein 6.5 g/dL (6.6-8.7)
[2024-04-18 06:21] LABS: Creatinine Clr Calc Pharmacy 67.0234
[2024-04-18 06:27] LABS: Slide Review Slide Review Perform
[2024-04-18 06:30] LABS: NT Pro B Type Natriuretic Pept 378 pg/mL (0-125); Procalcitonin 0.14 ng/mL (0-0.5)
[2024-04-18] MEDS: budesonide 0.5 mg/2 mL Neb INHALATION ×2 (07:58→20:38)
[2024-04-18] MEDS: oseltamivir phosphate 75 mg Capsule PO ×2 (09:02→17:14)
[2024-04-18] MEDS: aspirin 81 mg EC Tablet PO (09:02)
--- NOTE | 2024-04-18 17:09 | P.PN_ITS ---
Subjective 2 Subjective: Patient was seen this morning continues to have wheezing, shortness of breath, cough, no chest pain, palpitations Vitals/I&O/Wt Last Vital Signs Temp 98.3 F 04/18/24 12:00 Pulse 94 04/18/24 15:36 Resp 22 H 04/18/24 15:33 BP 107/61 04/18/24 12:00 Pulse Ox 96 04/18/24 15:33 O2 Del Method BiPAP 04/18/24 15:33 O2 Flow Rate 3 04/18/24 11:32 FiO2 35 04/18/24 15:33 04/18/24 04/18/24 04/18/24 06:59 14:59 22:59 Intake Total 480 / 480 Output Total 950 / 1425 Balance -950 / -255 480 / 480 Weight last 48 hrs Weight 51.075 kg Weight 49.487 kg Weight 50.6 kg Physical Exam 2 Const: COMMON NORMALS: no acute distress and patient oriented x3 Resp: COMMON NORMALS: normal respiratory effort, No retractions and No use of accessory muscles AUSCULTATION: crackles and wheezes Cardio: COMMON NORMALS: regular rate, regular rhythm, S1 normal heart sound present and S2 normal heart sound present RATE: regular rate RHYTHM: r egular rhythm HEART SOUNDS: S1 normal heart sound present and S2 normal heart sound present GI: COMMON NORMALS: Normal to inspection, nondistended, normoactive bowel sounds present and non-tender Extremity: COMMON NORMALS: no pedal edema Neuro: COMMON NORMALS: patient oriented x3 Psych: COMMON NORMALS: mental status grossly normal Data 04/18/24 05:14 04/18/24 05:14 Micro: Microbiology 04/16/24 23:00 Gram Stain - Final Sputum - Expectorated Sputum Sputum Culture - Preliminary 04/16/24 15:16 Blood Culture - Preliminary Blood NEGATIVE TO DATE 04/16/24 15:09 Blood Culture - Preliminary Blood NEGATIVE TO DATE A&P Assessment and plan (1) Acute hypoxic respiratory failure: (2) Pneumonia: (3) Moderate protein-calorie malnutrition: (4) COPD exacerbation: (5) Influenza A: (6) Sepsis: Plan Acute hypoxic respiratory failure -Multifactorial -COPD exacerbation -Influenza A -Pneumonia -With sepsis, sepsis features met given respiratory failure elevated lactic acid, chest x-ray evidence of pneumonia, influenza, elevated lactic acid, evidence of acute respiratory distress nasal flaring intercostal retractions suprasternal retractions tachypnea, requiring BiPAP CT of the chest CT/CT angio chest PE protcl [id number] IMPRESSION: 1. Multifocal masslike consolidation, likely representing an infectious process. 2. Severe centrilobular emphysema. Plan -Monitor respiratory status closely -Continue BiPAP as needed during the day, scheduled during the night -Monitor respiratory status closely -Follow-up blood cultures -Sputum cultures -Rocephin -Azithromycin -Tamiflu -Solu-Medrol 125 followed by 40 mg IV every 8 hours -DuoNeb -Budesonide -Chest pain complaints, serial EKGs, start troponins, telemetry monitoring -DNR/DNI, confirmed with patient multiple times, patient's is at bedside confirms -Patient will need to follow-up with pulmonary as outpatient for masslike consolidation for consideration of bronchoscopy, repeat CT imaging in 6 weeks -Lovenox for DVT prophylaxis Patient requires hospitalization for acute hypoxic respiratory failure secondary to influenza A, pneumonia, COPD Attestations 2 Medical Necessity Statement*: Patient requires hospitalization for acute hypoxic respiratory failure secondary COPD, influenza, pneumonia Diagnoses Acute hypoxic respiratory failure J96.01 Pneumonia J18.9 Moderate protein-calorie malnutrition E44.0 COPD exacerbation J44.1 Influenza A J10.1 Sepsis A41.9
[2024-04-18] MEDS: cefTRIAXone 1,000 mg SDV 1000 MG IVP (17:14)
[2024-04-18] MEDS: AZITHROMYCIN ADD-Vantage 500 MG in 0.9% NaCl ADD-Vantage 250 ML 250 MG IV (17:14)
[2024-04-18] MEDS: enoxaparin 40 mg/0.4 mL Syringe SUBCUT (21:58)
[2024-04-18] MEDS: pantoprazole 40 mg SDV IVP (21:58)
[2024-04-19] VITALS (15 sets, daily range): BP systolic 110–121; BP diastolic 64–77; PULSE 63–98; RESP 12–22; TEMP 36.4–36.6; O2SAT 95–98
[2024-04-19] MEDS: ipratropium-albuterol 3 mL Neb INHALATION ×6 (04:16→23:34)
[2024-04-19 04:40] LABS: Hematocrit 35.2 % (37-53); Lymphocytes # 0.9 10^3/uL (0.8-4.8); Lymphocytes % 13.8 %; Mean Corpuscular Hemoglobin 29.5 pg (27-33); Mean Corpuscular Volume 95.1 fl (82-101); Mean Platelet Volume 12.5 fL (7.4-10.4); Monocytes # 0.3 10^3/uL (0.2-0.9); Neutrophils # 5.45 10^3/uL (1.8-7.7); Neutrophils % 81.8 %; Nucleated Red Blood Cells % 0 %; Platelet Count 127 10^3/cmm (157-399); Red Cell Distribution Width 12.4 % (12.1-15.1); White Blood Count 6.67 10^3/uL (3.29-11.43)
[2024-04-19] MEDS: methylPREDNISolone sod succ 40 mg/mL INJ IVP ×3 (05:14→23:29)
[2024-04-19 05:18] LABS: Alanine Aminotransferase 10 U/L (0-41); Albumin Level 3.2 g/dL (3.5-5.2); Alkaline Phosphatase 48 U/L (40-130); Aspartate Amino Transferase 18 U/L (0-40); Blood Urea Nitrogen 10 mg/dL (8-23); Calcium 8.4 mg/dL (8.5-10.5); Carbon Dioxide 31 mmol/L (22-29); Chloride 103 mmol/L (98-107); Creatinine Clr Calc Pharmacy 67.1969; Globulin 2.7 g/dL (1.3-4.6); Glucose 136 mg/dL (65-115); Osmolality Calculated 293 mOsm/kg (285-295); Phosphorus 2.8 mg/dL (2.5-4.5); Sodium 141 mmol/L (136-145); Total Bilirubin 0.2 mg/dL (0.15-1.2); Total Protein 5.9 g/dL (6.6-8.7)
[2024-04-19] MEDS: budesonide 0.5 mg/2 mL Neb INHALATION ×2 (08:47→19:54)
[2024-04-19] MEDS: levoFLOXacin 750 mg Tablet PO (08:52)
[2024-04-19] MEDS: aspirin 81 mg EC Tablet PO (08:52)
[2024-04-19] MEDS: oseltamivir phosphate 75 mg Capsule PO ×2 (09:08→17:10)
--- NOTE | 2024-04-19 15:44 | P.PN_ITS ---
Subjective 2 Subjective: Patient reports episodes of shortness of breath throughout the day,, he required BiPAP during the night has been requiring BiPAP early this morning, he tells me he has episode shortness of breath without it Vitals/I&O/Wt Last Vital Signs Temp 97.6 F 04/19/24 12:00 Pulse 87 04/19/24 15:42 Resp 20 H 04/19/24 15:19 BP 120/71 04/19/24 12:00 Pulse Ox 97 04/19/24 15:42 O2 Del Method Nasal Cannula 04/19/24 15:19 O2 Flow Rate 3 04/19/24 15:19 FiO2 35 04/19/24 15:42 04/19/24 04/19/24 04/19/24 06:59 14:59 22:59 Intake Total 120 / 1810 720 / 720 Output Total 600 / 600 Balance 120 / 1410 120 / 120 Weight last 48 hrs Weight 51.437 kg Weight 51.075 kg Physical Exam 2 Const: COMMON NORMALS: no acute distress and patient oriented x3 Resp: AUSCULTATION: crackles and wheezes OTHER: Nasal flaring, intercostal retractions suprasternal tractions tachypnea, mild to moderate respiratory distress Cardio: COMMON NORMALS: regular rate, regular rhythm, S1 normal heart sound present and S2 normal heart sound present RATE: regular rate RHYTHM: r egular rhythm HEART SOUNDS: S1 normal heart sound present and S2 normal heart sound present GI: COMMON NORMALS: Normal to inspection, nondistended, normoactive bowel sounds present and non-tender Extremity: COMMON NORMALS: no pedal edema Neuro: COMMON NORMALS: patient oriented x3 Psych: COMMON NORMALS: mental status grossly normal Data 04/19/24 03:11 04/19/24 03:11 Micro: Microbiology 04/16/24 23:00 Gram Stain - Final Sputum - Expectorated Sputum Sputum Culture - Final A&P Assessment and plan (1) Acute hypoxic respiratory failure: (2) Pneumonia: (3) Moderate protein-calorie malnutrition: (4) COPD exacerbation: (5) Influenza A: (6) Sepsis: Plan Acute hypoxic respiratory failure -Multifactorial -COPD exacerbation -Influenza A -Pneumonia -With sepsis, sepsis features met given respiratory failure elevated lactic acid, chest x-ray evidence of pneumonia, influenza, elevated lactic acid, evidence of acute respiratory distress nasal flaring intercostal retractions suprasternal retractions tachypnea, requiring BiPAP CT of the chest CT/CT angio chest PE protcl [id number] IMPRESSION: 1. Multifocal masslike consolidation, likely representing an infectious process. 2. Severe centrilobular emphysema. Plan -Monitor respiratory status closely -Continue BiPAP as needed during the day, scheduled during the night -Monitor respiratory status closely -Follow-up blood cultures, so far negative -Sputum cultures so far negative -Will stop Rocephin azithromycin as patient's prior sputum culture shows Pseudomonas, resistant to cephalosporins -Switch to Levaquin -Tamiflu -Initially switched to prednisone 40 mg daily, go back to Medrol 40 IV every 8 hours due to persistent shortness of breath -DuoNeb -Budesonide -Chest pain complaints, serial EKGs, start troponins, telemetry monitoring -DNR/DNI, confirmed with patient multiple times, patient's is at bedside confirms -Patient will need to follow-up with pulmonary as outpatient for masslike consolidation for consideration of bronchoscopy, repeat CT imaging in 6 weeks -Lovenox for DVT prophylaxis As patient continues to have shortness of breath, will switch antibiotic coverage to IV Levaquin, continue steroids, IV diuresis he is requiring BiPAP throughout the night, requiring BiPAP early this morning monitor his respiratory status closely short of breath with a few words this morning intercostal retractions suprasternal retractions nasal flaring, tachypnea, discussed with patient given CT chest findings as above he will need to have repeat CT scan in 6 weeks to ensure that the masslike consolidation has improved or potentially a PET scan Attestations 2 Medical Necessity Statement*: Patient requires hospitalization acute hypoxic respiratory failure, now with worsening shortness of breath requiring up Levaquin, diuresis, broaden steroid therapy, BiPAP therapy Diagnoses Acute hypoxic respiratory failure J96.01 Pneumonia J18.9 Moderate protein-calorie malnutrition E44.0 COPD exacerbation J44.1 Influenza A J10.1 Sepsis A41.9
[2024-04-19] MEDS: FUROsemide 10 mg/mL SDV 4mL 40 MG IVP (16:53)
[2024-04-19] MEDS: pantoprazole 40 mg SDV IVP (23:29)
[2024-04-20] VITALS (14 sets, daily range): BP systolic 108–131; BP diastolic 54–71; PULSE 66–88; RESP 16–20; TEMP 36.4–36.6; O2SAT 94–97
[2024-04-20 03:56] LABS: Hematocrit 37.2 % (37-53); Lymphocytes # 0.7 10^3/uL (0.8-4.8); Lymphocytes % 12.7 %; Mean Corpuscular HGB Conc 31.7 g/dL (30-55); Mean Corpuscular Hemoglobin 29.7 pg (27-33); Mean Corpuscular Volume 93.7 fl (82-101); Mean Platelet Volume 12.3 fL (7.4-10.4); Monocytes # 0.3 10^3/uL (0.2-0.9); Monocytes % 4.8 %; Neutrophils # 4.75 10^3/uL (1.8-7.7); Neutrophils % 81.8 %; Nucleated Red Blood Cells % 0 %; Platelet Count 134 10^3/cmm (157-399); Red Blood Count 3.97 10^6/uL (3.85-5.65); Red Cell Distribution Width 12.3 % (12.1-15.1); White Blood Count 5.81 10^3/uL (3.29-11.43)
[2024-04-20 04:00] LABS: Slide Review Slide Review Perform
[2024-04-20] MEDS: ipratropium-albuterol 3 mL Neb INHALATION ×5 (04:05→20:31)
[2024-04-20 04:23] LABS: NT Pro B Type Natriuretic Pept 358 pg/mL (0-125); Procalcitonin 0.04 ng/mL (0-0.5)
[2024-04-20 04:29] LABS: Alanine Aminotransferase 16 U/L (0-41); Albumin Level 3.5 g/dL (3.5-5.2); Alkaline Phosphatase 49 U/L (40-130); Anion Gap 10.8 (5-19); Aspartate Amino Transferase 23 U/L (0-40); Blood Urea Nitrogen 12 mg/dL (8-23); C Reactive Protein 6.3 mg/L (0.0-4.9); Calcium 8.5 mg/dL (8.5-10.5); Carbon Dioxide 36 mmol/L (22-29); Chloride 96 mmol/L (98-107); Creatinine Clr Calc Pharmacy 67.1969; Globulin 2.6 g/dL (1.3-4.6); Glucose 159 mg/dL (65-115); Osmolality Calculated 291 mOsm/kg (285-295); Potassium 3.8 mmol/L (3.5-5.1); Sodium 139 mmol/L (136-145); Total Bilirubin 0.2 mg/dL (0.15-1.2); Total Protein 6.1 g/dL (6.6-8.7)
--- NOTE | 2024-04-20 07:00 | XR_ITS ---
WS: [id number] Exam: XR chest 1V portable [id number] Date/Time of Exam: 04/20/2024 7:11 AM Reason For Exam: sob Comparison 04/16/2024. Marked pulmonary hyperinflation. Again noted is linear opacity in the upper RIGHT lung zone essential ly unchanged. This could represent pneumonia and/or atelectasis. Heart size is normal. The mediastinu m is normal in contour. Bony structures are intact. XR/XR chest 1V portable [id number] IMPRESSION: 1. Linear opacity in the RIGHT upper lung zone unchanged. This may represent pn eumonia and/or atelectasis. 2. Marked pulmonary hyperinflation.
[2024-04-20] MEDS: budesonide 0.5 mg/2 mL Neb INHALATION ×2 (08:25→20:31)
[2024-04-20] MEDS: aspirin 81 mg EC Tablet PO (09:01)
[2024-04-20] MEDS: methylPREDNISolone sod succ 40 mg/mL INJ IVP ×3 (09:01→23:57)
[2024-04-20] MEDS: oseltamivir phosphate 75 mg Capsule PO ×2 (09:01→17:17)
[2024-04-20] MEDS: levofloxacin-dextrose 5 % 750 MG/150 ML PREMIX 100 MG IV (09:02)
--- NOTE | 2024-04-20 12:52 | PC.SOCIAL ---
IMM Update pg 2 of IMM Updated and reviewed w/ patient. Copy provided and copy dated, initialed and placed in chart.
--- NOTE | 2024-04-20 17:44 | P.PN_ITS ---
Subjective 2 Subjective: Patient continues to complain of shortness of breath, shortness of breath with exertion and productive cough, no fevers, no chills Vitals/I&O/Wt Last Vital Signs Temp 97.6 F 04/20/24 15:59 Pulse 79 04/20/24 15:59 Resp 19 H 04/20/24 15:59 BP 122/64 04/20/24 15:59 Pulse Ox 95 04/20/24 15:59 O2 Del Method Nasal Cannula 04/20/24 15:59 O2 Flow Rate 3 04/20/24 15:37 FiO2 35 04/19/24 23:34 04/20/24 04/20/24 04/20/24 06:59 14:59 22:59 Intake Total 630 / 630 Output Total 725 / 3825 750 / 750 575 / 1325 Balance -725 / -2745 -120 / -120 -575 / -695 Weight last 48 hrs Weight 47.899 kg Weight 51.437 kg Physical Exam 2 Const: COMMON NORMALS: no acute distress and patient oriented x3 Resp: COMMON NORMALS: normal respiratory effort, No retractions and No use of accessory muscles OTHER: Wheezing and crackles in all lung lackey Cardio: COMMON NORMALS: regular rate, regular rhythm, S1 normal heart sound present and S2 normal heart sound present RATE: regular rate RHYTHM: r egular rhythm HEART SOUNDS: S1 normal heart sound present and S2 normal heart sound present GI: COMMON NORMALS: Normal to inspection, nondistended, normoactive bowel sounds present and non-tender Extremity: COMMON NORMALS: no pedal edema Neuro: COMMON NORMALS: patient oriented x3 Psych: COMMON NORMALS: mental status grossly normal Data 04/20/24 03:11 04/20/24 03:11 Micro: Microbiology 04/16/24 23:00 Gram Stain - Final Sputum - Expectorated Sputum Sputum Culture - Final A&P Assessment and plan (1) Acute hypoxic respiratory failure: (2) Pneumonia: (3) Moderate protein-calorie malnutrition: (4) COPD exacerbation: (5) Influenza A: (6) Sepsis: Plan Acute hypoxic respiratory failure -Patient uses home noninvasive ventilator -Multifactorial -COPD exacerbation -Influenza A -Pneumonia -With sepsis, sepsis features met given respiratory failure elevated lactic acid, chest x-ray evidence of pneumonia, influenza, elevated lactic acid, evidence of acute respiratory distress nasal flaring intercostal retractions suprasternal retractions tachypnea, requiring BiPAP CT of the chest CT/CT angio chest PE protcl [id number] IMPRESSION: 1. Multifocal masslike consolidation, likely representing an infectious process. 2. Severe centrilobular emphysema. Plan -Monitor respiratory status closely -Continue BiPAP as needed during the day, scheduled during the night -Monitor respiratory status closely -Follow-up blood cultures, so far negative -Sputum cultures so far negative -Will stop Rocephin azithromycin as patient's prior sputum culture shows Pseudomonas, resistant to cephalosporins -Switch to Levaquin -Tamiflu -Initially switched to prednisone 40 mg daily, go back to Medrol 40 IV every 8 hours due to persistent shortness of breath -DuoNeb -Budesonide -Chest pain complaints, serial EKGs, start troponins, telemetry monitoring -DNR/DNI, confirmed with patient multiple times, patient's is at bedside confirms -Patient will need to follow-up with pulmonary as outpatient for masslike consolidation for consideration of bronchoscopy, repeat CT imaging in 6 weeks -Lovenox for DVT prophylaxis Status post Lasix, 3 L negative, continue to monitor closely Attestations 2 Medical Necessity Statement*: Patient requires hospitalization for acute hypoxic respiratory failure, secondary to pneumonia, influenza, COPD exacerbation Diagnoses Acute hypoxic respiratory failure J96.01 Pneumonia J18.9 Moderate protein-calorie malnutrition E44.0 COPD exacerbation J44.1 Influenza A J10.1 Sepsis A41.9
[2024-04-20 20:48] LABS: Glucose Point of Care 177 mg/dL (70-110)
[2024-04-20] MEDS: pantoprazole 40 mg SDV IVP (21:50)
[2024-04-21] VITALS (13 sets, daily range): BP systolic 114–119; BP diastolic 50–72; PULSE 60–94; RESP 14–23; TEMP 36.3–36.5; O2SAT 93–98
[2024-04-21] MEDS: ipratropium-albuterol 3 mL Neb INHALATION ×4 (00:18→11:25)
[2024-04-21 05:16] LABS: Hematocrit 37.6 % (37-53); Lymphocytes # 0.6 10^3/uL (0.8-4.8); Lymphocytes % 12.3 %; Mean Corpuscular HGB Conc 31.6 g/dL (30-55); Mean Corpuscular Hemoglobin 29.5 pg (27-33); Mean Corpuscular Volume 93.3 fl (82-101); Mean Platelet Volume 11.8 fL (7.4-10.4); Monocytes # 0.3 10^3/uL (0.2-0.9); Monocytes % 5.4 %; Neutrophils % 81.7 %; Nucleated Red Blood Cells % 0 %; Platelet Count 144 10^3/cmm (157-399); Red Blood Count 4.03 10^6/uL (3.85-5.65); Red Cell Distribution Width 12.4 % (12.1-15.1); White Blood Count 4.78 10^3/uL (3.29-11.43)
[2024-04-21 05:34] LABS: Alanine Aminotransferase 21 U/L (0-41); Albumin Level 3.4 g/dL (3.5-5.2); Alkaline Phosphatase 47 U/L (40-130); Anion Gap 10.3 (5-19); Aspartate Amino Transferase 22 U/L (0-40); Blood Urea Nitrogen 14 mg/dL (8-23); C Reactive Protein 3.6 mg/L (0.0-4.9); Calcium 8.8 mg/dL (8.5-10.5); Carbon Dioxide 34 mmol/L (22-29); Chloride 99 mmol/L (98-107); Creatinine Clr Calc Pharmacy 56.7813; Globulin 2.7 g/dL (1.3-4.6); Glucose 149 mg/dL (65-115); Osmolality Calculated 291 mOsm/kg (285-295); Potassium 4.3 mmol/L (3.5-5.1); Sodium 139 mmol/L (136-145); Total Bilirubin 0.2 mg/dL (0.15-1.2); Total Protein 6.1 g/dL (6.6-8.7)
[2024-04-21 05:40] LABS: NT Pro B Type Natriuretic Pept 107 pg/mL (0-125); Procalcitonin 0.04 ng/mL (0-0.5)
[2024-04-21] MEDS: budesonide 0.5 mg/2 mL Neb INHALATION (07:52)
[2024-04-21] MEDS: levofloxacin-dextrose 5 % 750 MG/150 ML PREMIX 100 MG IV (09:14)
[2024-04-21] MEDS: methylPREDNISolone sod succ 40 mg/mL INJ IVP (09:14)
[2024-04-21] MEDS: oseltamivir phosphate 75 mg Capsule PO (09:15)
[2024-04-21] MEDS: aspirin 81 mg EC Tablet PO (09:15)
--- NOTE | 2024-04-21 11:31 | PM.DCS ---
Discharge Providers Date of Admission: 04/16/24 17:24 Date of Discharge: April 21, 2024 Attending Provider at Admission: Justo Willams MD Attending Provider at Discharge: Justo Willams MD Primary Care Provider: Nando Green MD Diagnoses at Discharge Discharge Diagnosis (1) Acute hypoxic respiratory failure: Status: Resolved (2) Pneumonia: Status: Resolved (3) Moderate protein-calorie malnutrition: Status: Acute (4) COPD exacerbation: Status: Resolved (5) Influenza A: Status: Resolved (6) Sepsis: Status: Resolved Reason for Visit Reason for Visit: resp distress Hospital Course Hospital Course Markus Trimble is a 73 year old male with a past medical history of COPD, smoker, who presents [facility] due to shortness of breath, productive cough, chest pain. Currently patient is alert oriented x 3, on BiPAP at 35% resting comfortably, does have tachypnea, mild intercostal retractions, nasal flaring, able to answer my questions is short of breath with a few words. Patient reports that for the last few days he has been experiencing increased shortness of breath increased shortness of breath with exertion with productive cough, does not report intermittent chest pain, nonradiating, associate with shortness of breath, no lightheadedness, dizziness, no nausea, no vomiting. He denies any hemoptysis. No recent travel. No calf pain, no calf swelling. No history of cardiovascular disease. He does report family members testing positive for flu Patient was admitted to [facility] for acute hypoxic respiratory failure secondary to COPD, influenza A, sepsis, received broad-spectrum antibiotic therapy, Tamiflu, steroid therapy, overall clinically improved, sepsis resolved, will be discharged on prednisone taper, with a close follow-up with primary care provider as outpatient. Patient does have a masslike consolidation on CT imaging repeat CAT scan in 6 weeks will need to follow-up with pulmonary as outpatient for consideration of bronchoscopy Physical Exam Const: COMMON NORMALS: no acute distress and patient oriented x3 Resp: COMMON NORMALS: normal respiratory effort, No retractions, No use of accessory muscles and clear to auscultation bilaterally AUSCULTATION: clear to auscultation bilaterally Cardio: COMMON NORMALS: regular rate, regular rhythm, S1 normal heart sound present and S2 normal heart sound present RATE: regular rate RHYTHM: regular rhythm HEART SOUNDS: S1 normal heart sound present and S2 normal heart sound present GI: COMMON NORMALS: Normal to inspection, nondistended, normoactive bowel sounds present and non-tender Extremity: COMMON NORMALS: no pedal edema Neuro: COMMON NORMALS: patient oriented x3 Psych: COMMON NORMALS: mental status grossly normal Discharge Data Studies Completed and Pending Completed Studies During Hospitalization Category Date Time Status CT angio chest PE protcl [id number] Routine Cat Scan 04/16/24 17:27 Completed XR chest 1V portable [id number] Routine Exams 04/20/24 07:00 Completed XR chest 1V portable [id number] Stat Exams 04/16/24 14:47 Completed Pending at discharge Category Date Time Status Blood Culture Stat Lab 04/16/24 15:16 Results C Reactive Protein AM LABS Lab 04/22/24 04:00 Ordered Complete Blood Count w/Auto AM LABS Lab 04/22/24 04:00 Ordered Comprehensive Metabolic Panel AM LABS Lab 04/22/24 04:00 Ordered NT Pro B Type Natriuretic Pept QAM Lab 04/22/24 06:00 Ordered Procalcitonin AM LABS Lab 04/22/24 04:00 Ordered Radiology Impressions Chest CTA 04/16/24 17:27 IMPRESSION: 1. Multifocal masslike consolidation, likely representing an infectious process. 2. Severe centrilobular emphysema. COMMENTS: The presence of pulmonary emphysema on CT is an independent risk factor for lung cancer. In the absence of a history or active diagnosis of lung cancer, it is recommended that this patient with emphysema be evaluated for enrollment in a low dose CT lung cancer screening program. Chest X-Ray 04/20/24 07:00 IMPRESSION: 1. Linear opacity in the RIGHT upper lung zone unchanged. This may represent pneumonia and/or atelectasis. 2. Marked pulmonary hyperinflation. Laboratory Results WBC 4.78 10^3/uL (3.29-11.43) 04/21/24 04:49 RBC 4.03 10^6/uL (3.85-5.65) 04/21/24 04:49 Hgb 11.90 g/dL (11.27-16.99) 04/21/24 04:49 Hct 37.6 % (37-53) 04/21/24 04:49 MCV 93.3 fl (82-101) 04/21/24 04:49 MCH 29.5 pg (27-33) 04/21/24 04:49 MCHC 31.6 g/dL (30-55) 04/21/24 04:49 RDW 12.4 % (12.1-15.1) 04/21/24 04:49 Plt Count 144 10^3/cmm (157-399) L 04/21/24 04:49 MPV 11.8 fL (7.4-10.4) H 04/21/24 04:49 Neut % (Auto) 81.7 % 04/21/24 04:49 Lymph % (Auto) 12.3 % 04/21/24 04:49 Emmet % (Auto) 5.4 % 04/21/24 04:49 Eos % (Auto) 0.0 % 04/21/24 04:49 Baso % (Auto) 0.0 % 04/21/24 04:49 Neut # (Auto) 3.90 10^3/uL (1.8-7.7) 04/21/24 04:49 Lymph # (Auto) 0.6 10^3/uL (0.8-4.8) L 04/21/24 04:49 Emmet # (Auto) 0.3 10^3/uL (0.2-0.9) 04/21/24 04:49 Eos # (Auto) 0.0 10^3/uL (0.0-0.8) 04/21/24 04:49 Baso # (Auto) 0.0 10^3/uL (0.0-0.1) 04/21/24 04:49 Nucleated RBC % (auto) 0 % 04/21/24 04:49 Nucleated RBCs # 0.0 /100WBC 04/21/24 04:49 Specimen Type Arterial 04/16/24 14:46 Sample Site Brachial, left 04/16/24 14:46 ABG pH 7.36 (7.35-7.45) 04/16/24 14:46 ABG pCO2 52.2 mmHg (35-45) H 04/16/24 14:46 ABG pO2 64.6 mmHg (80.0-100.0) L 04/16/24 14:46 ABG HCO3 29.4 mmol/L (22-26) H 04/16/24 14:46 ABG Base Excess 2.7 mmol/L (-2.0-2.0) H 04/16/24 14:46 Carter Test Pos 04/16/24 14:46 Hematocrit 44.2 % (42-52) 04/16/24 14:46 Hgb O2 Saturation 89.4 % (95-100) L 04/16/24 14:46 Carboxyhemoglobin 0.9 %THgb (0.4-20.1) 04/16/24 14:46 Methemoglobin 1.0 % (0.4-1.5) 04/16/24 14:46 Total Hemoglobin 14.4 g/dL (14-18) 04/16/24 14:46 O2 Delivery Device Nc 04/16/24 14:46 O2 Liters/Min 3.0 % 04/16/24 14:46 Shotweld Operator ID Walci 04/16/24 14:46 Sodium 139 mmol/L (136-145) 04/21/24 04:49 Potassium 4.3 mmol/L (3.5-5.1) 04/21/24 04:49 Chloride 99 mmol/L (98-107) 04/21/24 04:49 Carbon Dioxide 34 mmol/L (22-29) H 04/21/24 04:49 Anion Gap 10.3 (5-19) 04/21/24 04:49 BUN 14 mg/dL (8-23) 04/21/24 04:49 Creatinine 0.4 mg/dL (0.7-1.2) L 04/21/24 04:49 GFR Calculation Not Reportable 04/21/24 04:49 Glucose 149 mg/dL (65-115) H 04/21/24 04:49 POC Glucose 177 mg/dL (70-110) H 04/20/24 20:46 Estimat Average Glucose 105 04/16/24 14:25 Hemoglobin A1c 5.3 % (4.0-6.0) 04/16/24 14:25 Calculated Osmolality 291 mOsm/kg (285-295) 04/21/24 04:49 Lactic Acid 2.4 mmol/L (0.5-2.2) H 04/16/24 14:25 Lactic Acid (Sepsis) 0.9 mmol/L (0.5-2.2) 04/16/24 18:52 Calcium 8.8 mg/dL (8.5-10.5) 04/21/24 04:49 Phosphorus 2.8 mg/dL (2.5-4.5) 04/19/24 03:11 Magnesium 2.0 mg/dL (1.7-2.3) 04/19/24 03:11 Total Bilirubin 0.2 mg/dL (0.15-1.2) 04/21/24 04:49 AST 22 U/L (0-40) 04/21/24 04:49 ALT 21 U/L (0-41) 04/21/24 04:49 Alkaline Phosphatase 47 U/L (40-130) 04/21/24 04:49 Troponin T Baseline 9 ng/L (0-15) 04/16/24 18:09 Troponin T 120 Minute 8.11 ng/L (0-15) 04/16/24 20:12 Delta Troponin T -0.89 ABS# (0-10) L 04/16/24 20:12 Troponin T Hi Sens 6Hr 10.21 ng/L (0-15) 04/17/24 00:22 Troponin T Hi Sens 6Hr Delta 1.21 ng/L (0-12) 04/17/24 00:22 C-Reactive Protein 3.6 mg/L (0.0-4.9) 04/21/24 04:49 NT-Pro-B Natriuret Pep 107 pg/mL (0-125) 04/21/24 04:49 Total Protein 6.1 g/dL (6.6-8.7) L 04/21/24 04:49 Albumin 3.4 g/dL (3.5-5.2) L 04/21/24 04:49 Globulin 2.7 g/dL (1.3-4.6) 04/21/24 04:49 Triglycerides 81 mg/dL (0-150) 04/16/24 20:12 Cholesterol 144 mg/dL (0-200) 04/16/24 20:12 LDL Cholesterol, Calc 100 mg/dL (50-129) 04/16/24 20:12 HDL Cholesterol 28 mg/dL (60-100) L 04/16/24 20:12 LDL/HDL Ratio 3.57 RATIO (0.00-3.22) H 04/16/24 20:12 Cholesterol/HDL Ratio 5.14 mg/dL (1.0-5.00) H 04/16/24 20:12 Procalcitonin 0.04 ng/mL (0-0.5) 04/21/24 04:49 TSH 0.36 uIU/mL (0.27-4.20) 04/16/24 20:12 Coronavirus (PCR) Negative (Negative) 04/16/24 15:03 Influenza A (PCR) Positive (Negative) 04/16/24 15:03 Influenza Type B (PCR) Negative (Negative) 04/16/24 15:03 RSV (PCR) Negative (Negative) 04/16/24 15:03 Vitals Last Vital Signs Temp 97.4 F L 04/21/24 07:59 Pulse 75 04/21/24 11:27 Resp 23 H 04/21/24 11:27 BP 118/65 04/21/24 07:59 Pulse Ox 96 04/21/24 11:28 O2 Del Method BiPAP 04/21/24 11:27 O2 Flow Rate 3 04/21/24 08:00 FiO2 35 04/21/24 11:28 Discharge Plan Discharge Patient Disposition: Home Condition: Stable Prescriptions: New prednisone 10 mg tablet 10 mg PO DIRECTED Qty: 53 0RF Rx Instructions: 4 tabs a day for 5 days, 3 tabs for 5 days, 2 tabs for 5 days, 1 tab for 5 days, 0.5 tabs for 5 Continued albuterol sulfate 2.5 mg /3 mL (0.083 %) solution for nebulization 2.5 mg inhalation Q6H PRN (Reason: Shortness Of Breath) Combivent Respimat 20-100 mcg/actuation mist 1 puff inhalation Q6H PRN (Reason: Shortness Of Breath) Trelegy Ellipta 100-62.5-25 mcg blister with device 1 inh inhalation DAILY Qty: 60 6RF levalbuterol tartrate [Xopenex HFA] 45 mcg/actuation HFA aerosol inhaler 2 inh inhalation Q6H PRN (Reason: shortness of breath or wheezing) Qty: 15 6RF Rx Instructions: Do not use within 4 hours of Combivent Mucinex 600 mg tablet extended release 12hr 600 mg PO BID Qty: 60 11RF aspirin 81 mg Tablet,Delayed Release (Dr/Ec) 81 mg PO DAILY Qty: 30 0RF No Action alprazolam 0.5 mg tablet 0.5 mg PO BID PRN (Reason: anxiety) Qty: 60 3RF Discharge Orders: Discharge Order (Routine); Ordered 04/21/24 Ordered By: Justo Willams Referrals: Lucho Lama MD, MBBS, MPH [Referring] - 1 month (We have notified your physician's clinic of the need for a follow-up appointment to be scheduled. If you have not heard from them within the next 2 business days, please call them directly. ) Nando Green MD [Primary Care Provider] - (We have notified your physician's clinic of the need for a follow-up appointment to be scheduled. If you have not heard from them within the next 2 business days, please call them directly. ) Discharge Diet: Cardiac Discharge Activity: Resume usual activity Patient Instructions: Prednisone (By mouth), Levofloxacin (By mouth) (Levaquin, Levaquin Leva-yeni), Oseltamivir (By mouth), COPD (Chronic Obstructive Pulmonary Disease) (GEN), COPD Stoplight, Opioid Safety Activity Restrictions/Additional Instructions: - If you have worsening shortness of breath please go to emergency room Discharge Attestations Time Spent in Discharge Care*: greater than 30 min Status at Discharge: Cognitive status at discharge: cognitively intact, Behavioral status at discharge: cooperative, Quality Metrics Clinical Quality Measures [ No reported AMI, CVA or VTE this stay] Coding Level of Care Code 56627 Total time (in minutes) for Discharge: 45 Diagnoses Acute hypoxic respiratory failure J96.01 Pneumonia J18.9 Moderate protein-calorie malnutrition E44.0 COPD exacerbation J44.1 Influenza A J10.1 Sepsis A41.9
== END 2024-04-21 13:45 | disposition home or self-care (01) | DRG 871 ==
LOC: ER 15:26 → ER IP 17:24 → MEDSURG 18:59 → ICU 20:11 → MEDSURG 04-17 16:35
PROVIDERS: Admitting Provider Family Medicine; Emergency Provider Student in an Organized Health Care Education/Training Program; PCP Family Medicine; Visit Provider Family Medicine
DX: A41.9 Sepsis, unspecified organism (principal); J18.9 Pneumonia, unspecified organism; J96.01 Acute respiratory failure with hypoxia; E44.0 Moderate protein-calorie malnutrition; Z68.1 Body mass index [BMI] 19.9 or less, adult; J44.0 Chronic obstructive pulmonary disease with (acute) lower respiratory infection; J44.1 Chronic obstructive pulmonary disease with (acute) exacerbation; R65.20 Severe sepsis without septic shock; J10.1 Influenza due to other identified influenza virus with other respiratory manifestations; Z66 Do not resuscitate; J43.2 Centrilobular emphysema; Z99.81 Dependence on supplemental oxygen; Z87.891 Personal history of nicotine dependence; Z79.82 Long term (current) use of aspirin
CPT/HCPCS: 36415; 36416; 36600; 71045; 71275; 80053; 80061; 82805; 82962; 83036; 83605; 83735; 83880; 84100; 84145; 84443; 84484; 85025; 86140; 87040; 87070; 87205; 87637; 93005; 94640; 94660; 96361; 96365; 96372; 96375; 96376; 97110; 97162; 97165; 97530; 99291; J0456; J0696; J1650; J1940; J1956; J2470; J2919; J7030; J7050; J7626

== ENCOUNTER → 2024-06-04 13:24 | Outpatient (BNVA) | payer MEDICARE, SELFPAY | PROVIDERS: PCP Family Medicine; Visit Provider Nurse Practitioner Family | DX: R06.2 Wheezing (principal) | CPT/HCPCS: 71046 ==

== ENCOUNTER 2024-06-04 14:22 | Emergency (ER) | payer MEDICARE, SELFPAY ==
[2024-06-04 14:32] VITALS: BP 132/75; PULSE 112; RESP 20; TEMP 36.7; O2SAT 96; BMI 18.0
[2024-06-04] MEDS: methylPREDNISolone sod succ 125 mg/2 mL INJ IVP (17:08)
[2024-06-04 17:09] VITALS: BP 127/76; PULSE 95; RESP 17; O2SAT 94
[2024-06-04] MEDS: ipratropium-albuterol 3 mL Neb INHALATION (17:09)
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
[2024-06-04 17:11] LABS: Basophils % 0.3 %; Eosinophils # 0.1 10^3/uL (0.0-0.8); Eosinophils % 0.4 %; Hematocrit 39.3 % (37-53); Lymphocytes # 1.6 10^3/uL (0.8-4.8); Lymphocytes % 14.1 %; Mean Corpuscular HGB Conc 31.3 g/dL (30-55); Mean Corpuscular Hemoglobin 29.1 pg (27-33); Mean Corpuscular Volume 93.1 fl (82-101); Mean Platelet Volume 11.4 fL (7.4-10.4); Monocytes # 1.3 10^3/uL (0.2-0.9); Monocytes % 11.2 %; Neutrophils # 8.53 10^3/uL (1.8-7.7); Neutrophils % 73.6 %; Nucleated Red Blood Cells % 0 %; Platelet Count 209 10^3/cmm (157-399); Red Blood Count 4.22 10^6/uL (3.85-5.65); Red Cell Distribution Width 13.3 % (12.1-15.1)
[2024-06-04 17:23] VITALS: PULSE 91; RESP 18; O2SAT 93
[2024-06-04 17:27] LABS: Alanine Aminotransferase 8 U/L (0-41); Albumin Level 4.2 g/dL (3.5-5.2); Alkaline Phosphatase 87 U/L (40-130); Anion Gap 13.4 (5-19); Aspartate Amino Transferase 17 U/L (0-40); Blood Urea Nitrogen 6 mg/dL (8-23); Calcium 8.7 mg/dL (8.5-10.5); Carbon Dioxide 30 mmol/L (22-29); Chloride 94 mmol/L (98-107); Creatinine Clr Calc Pharmacy 56.2263; Globulin 2.5 g/dL (1.3-4.6); Glucose 85 mg/dL (65-115); Osmolality Calculated 273 mOsm/kg (285-295); Potassium 4.4 mmol/L (3.5-5.1); Sodium 133 mmol/L (136-145); Total Bilirubin 0.4 mg/dL (0.15-1.2); Total Protein 6.7 g/dL (6.6-8.7)
[2024-06-04 17:48] LABS: ABG PCO2 56.3 mmHg (35-45); ABG PH Result 7.36 (7.35-7.45); Alveolar-Arterial Oxygen Gradi 13.8 mmHg (5-10); Base Excess ABG 4.9 mmol/L (-2.0-2.0); Blood Gas Allen Test Pos; Blood Gas Operator Identificat CAK; Blood Gas Sample Site Brachial, left; Blood Gas Sample Type Arterial; Carboxyhemoglobin 2.2 %THgb (0.4-20.1); HCO3 ABG 31.7 mmol/L (22-26); HGB O2 Sat 81.6 % (95-100); Ionized Calcium Level - ABG 1.2 mmol/L (1.1-1.4); Oxygen Device NC; Oxygen Saturation ABG 84.3; PO2 ABG 51.6 mmHg (80.0-100.0); PO2 FiO2 Ratio Arterial Blood 161; Total Hemoglobin 12.4 g/dL (14-18)
[2024-06-04 18:44] VITALS: BP 113/65; PULSE 90; RESP 18; O2SAT 92
== END 2024-06-04 18:47 | disposition home or self-care (01) ==
PROVIDERS: Emergency Provider Family Medicine; PCP Family Medicine
DX: J44.1 Chronic obstructive pulmonary disease with (acute) exacerbation (principal); Z79.82 Long term (current) use of aspirin; F17.210 Nicotine dependence, cigarettes, uncomplicated
CPT/HCPCS: 36600; 80051; 80053; 82330; 82805; 85025; 94640; 96374; 99284; J2919; J9999

== ENCOUNTER 2024-07-08 16:54 | Emergency (ER) | payer MEDICARE, SELFPAY ==
--- NOTE | 2024-07-08 17:05 | ECG_ITS ---
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 Measurements Intervals [place] Rate: 114 P: 83 WA: 171 QRS: 264 QRSD: 90 T: 79 QT: 312 QTc: 430 Interpretive Statements SINUS TACHYCARDIA RIGHT AXIS DEVIATION [QRS AXIS > 100] PATTERN CONSISTENT WITH PULMONARY DISEASE INTERPRETATION BASED ON A DEFAULT AGE OF 40 YEARS Compared to ECG 04/16/2024 17:32:55 Right-axis deviation now present Sinus rhythm no longer present Left anterior fascicular block no longer present Electronically Signed On 07-08-2024 21:40:05 CDT by Mehdi Funes M.D. [id number]
[2024-07-08 17:14] VITALS: BP 143/73; PULSE 114; TEMP 36.6; O2SAT 91
[2024-07-08 19:03] VITALS: BP 148/90; PULSE 95; O2SAT 97
[2024-07-08 19:48] VITALS: BP 104/63; PULSE 86; O2SAT 98
[2024-07-08 20:02] VITALS: BP 105/65; PULSE 83; O2SAT 97
[2024-07-08] MEDS: mupirocin oint 22 gm 3 APPLIC NOSTRIL-B (20:09)
[2024-07-08 20:17] VITALS: BP 105/65; PULSE 81; O2SAT 96
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
== END 2024-07-08 20:08 | disposition home or self-care (01) ==
PROVIDERS: Emergency Provider Student in an Organized Health Care Education/Training Program; PCP Family Medicine
DX: T20.04XA Burn of unspecified degree of nose (septum), initial encounter (principal); Z79.82 Long term (current) use of aspirin; X08.8XXA Exposure to other specified smoke, fire and flames, initial encounter
CPT/HCPCS: 93005; 99283; J9999

== ENCOUNTER 2025-01-04 12:52 | Outpatient (CLI) | payer MEDICARE, SELFPAY ==
--- NOTE | 2025-01-04 13:45 | CT_ITS ---
WS: [id number] CT chest w con* [id number] REASON FOR EXAM: J44.1 - Chronic obstructive pulmonary disease with (acute... IV CONTRAST ADMINISTERED: 100 mL of Omnipaque 350. TECHNIQUE: Multiple axial images with intravenous contrast. Sagittal and coronal reconstructions. COMPARISON EXAMINATION: 04/16/2024. TOTAL EXAM DLP: 255.[address] scans at [facility] use at least one of these dose optimization techniques: automated exposure control; mA and/or kV adjustment per patient size (includes targeted exams where dose is matched to clinical indication); or iterative reconstruction. FINDINGS: Diffuse central lobar and paraseptal emphysematous changes in the upper lobes. Diffuse central lobar emphysema in the lower lobes. Previous area of consolidation/atelectasis in the posterior right upper lobe has resolved to complex fibrotic scar. Previous irregular masslike density in the anterior left upper lobe has essentially completely resolved. Posterior medial right lower lung pleural-based masslike density has resolved to an area of linear fibrotic appearing scar. Similarly a small masslike density in the mid posterior right lower lung has resolved to fibrotic appearing scar. Remainder the examination is unchanged. CT/CT chest w con* [id number] IMPRESSION: Severe central lobar and paraseptal emphysema. Multiple previous areas of massl vinicio and atelectatic density have resolved to linear fibrotic appearing scar. No new findings or other interval change. L RADS 2 follow-up in 12 months.
[2025-01-04] MEDS: iohexol 350 mg/mL 500 mL Btl (per mL) IV (14:14)
== END 2025-01-04 12:53 | disposition home or self-care (01) ==
LOC: RAD 12:53
PROVIDERS: PCP Family Medicine; Visit Provider Radiology Radiation Oncology
DX: J44.1 Chronic obstructive pulmonary disease with (acute) exacerbation (principal); J84.10 Pulmonary fibrosis, unspecified; J43.2 Centrilobular emphysema
CPT/HCPCS: 71260; 82565

== ENCOUNTER 2025-01-06 13:20 | Oncology outpatient (recurring) (ONCR) | payer MEDICARE, SELFPAY ==
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
== END 2025-01-22 23:59 | disposition home or self-care (01) ==
LOC: ONCMED 13:20
PROVIDERS: PCP Family Medicine; Visit Provider Radiology Radiation Oncology
DX: R91.1 Solitary pulmonary nodule (principal); F17.200 Nicotine dependence, unspecified, uncomplicated; Z99.81 Dependence on supplemental oxygen
CPT/HCPCS: 99213

== ENCOUNTER 2025-01-20 12:28 | Inpatient (IN) | payer MEDICARE, SELFPAY ==
[2025-01-20] VITALS (19 sets, daily range): BP systolic 105–141; BP diastolic 59–77; PULSE 69–98; RESP 14–22; TEMP 36.7; O2SAT 91–99; BMI 19.3
--- NOTE | 2025-01-20 12:59 | XR_ITS ---
WS: [id number] Exam: XR chest 1V portable [id number] Date/Time of Exam: 01/20/2025 1:05 PM Reason For Exam: chest pain Comparison 12/05/2023. LEFT lower lobe infiltrate noted suggesting developing pneumonia. There may be some infiltrate in the mid LEFT lung also. No other infiltrates are noted. Advanced emphysematous changes with honeycombing and fibrosis. Marked hyperinflation. Normal cardiomediastinal silhouette. Normal bony structures. XR/XR chest 1V portable [id number] IMPRESSION: 1. Infiltrate in the LEFT lower lobe suspicious for developing pneumonia. There may be some mild infiltrate in the mid LEFT lung also. 2. Advanced changes of honeycombing and fibrosis as well as marked hyperinflati on.
--- NOTE | 2025-01-20 12:59 | ECG_ITS ---
[facility] Test Date: 2025-01-20 Pat Name: Markus Trimble Department: Room: Gender: Male Driver/Guide: : 1950 Requested By: Mariana Park Order Number: [id number] Daniel MD: Willis Darnell M.D. Measurements Intervals [place] Rate: 99 P: 84 MA: 157 QRS: -55 QRSD: 90 T: 80 QT: 326 QTc: 418 Interpretive Statements SINUS RHYTHM LEFT ANTERIOR FASCICULAR BLOCK [QRS AXIS <= -45, QR IN I, RS IN II] Compared to ECG 07/08/2024 17:05:36 Left anterior fascicular block now present Sinus tachycardia no longer present Electronically Signed On 01-21-2025 19:36:33 CDT by Willis Darnell M.D. [email or web address] [id number]
[2025-01-20 13:58] LABS: Hematocrit 46.5 % (37-53); Hemoglobin 14.60 g/dL (11.27-16.99); Mean Corpuscular HGB Conc 31.4 g/dL (30-55); Mean Corpuscular Hemoglobin 30.6 pg (27-33); Mean Corpuscular Volume 97.5 fl (82-101); Nucleated Red Blood Cells % 0 %; Platelet Count 202 10^3/cmm (157-399); Red Blood Count 4.77 10^6/uL (3.85-5.65); White Blood Count 7.40 10^3/uL (3.29-11.43)
--- NOTE | 2025-01-20 14:00 | ED_ITS ---
HPI - SOB/Dyspnea 2 General: Chief Complaint: Shortness of Breath/Dyspnea Stated Complaint: L side CP Hard to breath Time Seen by Provider: 01/20/25 13:56 History of Present Illness: HPI Narrative: 74-year-old man with a history of tobacc o dependence in remission for the last 3 weeks, chronic hypoxemic respiratory failure on 3 L nasal cannula at all times, COPD, obstructive sleep apnea on BiPAP at night, anxiety, who presents to the emergency room with shortness of breath and left lower pleuritic chest pain. He says he has been needing to cough more but cannot hardly cough because of the pain. Lungs are very tight and he has some increased work of breathing on presentation. He has not had increased oxygen requirements. No altered mental status. No focal motor deficits. No nausea or vomiting. Related Data Previous Rx's ?Medication ?Instructions ?Recorded aspirin 81 mg tablet,delayed 81 mg PO DAILY #30 tabs 0 12/11/23 release guaifenesin 600 mg tablet, 600 mg PO BID #60 tabs /06/15 extended release 12 hr (Mucinex) fluticasone fur. 100 mcg-umeclid 1 inh inhalation ZEE Y #60 ea 10/15/24 62.5 mcg-vilant 25 mcg inhalat.powder (Trelegy Ellipta) ipratropium 20 mcg-albuterol 100 1 puff inhalation Q6H PRN 10/15/24 mcg/actuation mist for inhalation Shortness Of Breath #4 grams (Combivent Respimat) levalbuterol tartrate 45 2 inh inhalation Q6H PRN miryam rtness 10/15/24 mcg/actuation aerosol inhaler of breath or wheezing #1 5 grams (Xopenex HFA) albuterol sulfate 90 mcg/actuation 2 puff inhalation Q 6H PRN 10/16/24 aerosol inhaler (Ventolin HFA) shortness of breath or wheezing #8.5 grams alprazolam 0.5 mg tablet 0.5 mg PO BID PRN anxiety #6 0 tabs 10/22/24 Portable oxygen concentrator #1 ea 12/02/24 prednisone 20 mg tablet 20 mg PO BID #10 tabs Allergies Allergy/AdvReac Type Severity Reaction Status Date / Time No Known Allergies Allergy Verified 07/08/24 17:16 Review of Systems 2 Narrative: Constitutional symptoms: Negative except as documented in HPI. Skin symptoms: Negative except as documented in HPI. Eye symptoms: Negative except as documented in HPI. ENMT symptoms: Negative except as documented in HPI. Respiratory symptoms: Negative except as documented in HPI. Cardiovascular symptoms: Negative except as documented in HPI. Gastrointestinal symptoms: Negative except as documented in HPI. Genitourinary symptoms: Negative except as documented in HPI. Musculoskeletal symptoms: Negative except as documented in HPI. Neurologic symptoms: Negative except as documented in HPI. Psychiatric symptoms: Negative except as documented in HPI. Endocrine symptoms: Negative except as documented in HPI. PFSH ED 2 PFSH: Medical History (Updated 01/20/25 @ 14:41 by Mariana Forman MD) Nicotine dependence, cigarettes, with other nicotine-induced disorders COPD (chronic obstructive pulmonary disease) Protein calorie malnutrition Debility Acute hypercapnic respiratory failure Acute exacerbation of chronic obstructive airways disease COVID-19 (~08/2021) On home oxygen therapy 3L BNC Pleuritic chest pain Surgical History History of surgery on right wrist due to fracture History of cataract surgery bilateral History of elbow surgery right, due to fracture History of right knee surgery Family History Grandmother Diabetes Mother Diabetes Social History Smoking and tobacco/nicotine status: never used tobacco/nicotine Quit status (tobacco/nicotine): has quit using Year quit tobacco: 01/2022 Former quit date comment: 2 ppd X 51 years Alcohol intake: never Substance/Drug Use: never Household members: spouse Marital status: Physical Exam 2 Narrative: EXAM NARRATIVE: General: Alert, moderate distress. Skin: Warm, dry. Head: Normocephalic, atraumatic. Neck: Supple, trachea midline. Eye: Extraocular movements are intact. Ears, nose, mouth and throat: Oral mucosa moist. Cardiovascular: Regular rate and rhythm, Normal peripheral perfusion. Respiratory: Lungs are very tight. Coarse, scattered wheeze, moderate increased wob. tachypnea, prolonged expiratory phase. breath sounds are equal, Symmetrical chest wall expansion. Gastrointestinal: Soft, Nontender, Non distended, Musculoskeletal: Normal ROM, no deformity. Neurological: Alert and oriented, No focal neurological deficit observed. Psychiatric: Cooperative, appropriate mood & affect. Course 2 Vital Signs: Vital signs: Vital Signs Temperature 98.1 F 01/20/25 12:35 Pulse Rate 77 01/20/25 14:37 Respiratory Rate 20 H 01/20/25 14:37 Blood Pressure 141/76 01/20/25 14:37 Pulse Oximetry 98 01/20/25 14:37 Oxygen Delivery Me thod Nasal Cannula 01/20/25 14:37 Oxygen Flow Rate 3 01/20/25 14:08 MDM - SOB/Dyspnea Medical Decision Making Medical decision making: Patient's reason for coming to the emergency room: Shortness of breath and pleuritic chest pain Social determinants:Patient is retired. . is present. I reviewed the patient's medical record. 74-year-old man with a history of tobacco dependence in remission for the last 3 weeks, chronic hypoxemic respiratory failure on 3 L nasal cannula at all times, COPD, obstructive sleep apnea on BiPAP at night, anxiety,. Patient was last admitted here for similar presentation back in March. Early pneumonia. Pleuritic chest pain. CO2 retention. I reviewed the patient's current home meds Reviewed patient's prescription monitoring program: He takes Xanax regularly. Alternate historians: None Differential diagnosis for patient with shortness of breath includes but is not limited to and based on the above HPI, review of systems and physical exam: Pneumonia. Bronchitis. Asthma or COPD with acute exacerbation. Acute coronary syndrome / AK. Pulmonary embolism. Anxiety. Congestive heart failure. Viral infections including influenza and Covid-19. Atrial fibrillation. Anxiety. Pleural effusion. Pneumothorax. Orders placed to evaluate differential diagnosis based on the above differential, HPI and physical exam Chest x-ray: What appears to be a left lower lobe pneumonia. Also possibly some infiltrate in the mid left lung. Significant emphysematous changes. This was reviewed and interpreted by myself the emergency room physician. I also reviewed the radiology report. EKG: Time 1425. Rate 77. Normal sinus rhythm, No ST-T changes, no ectopy, normal OK & QRS intervals, This was reviewed and interpreted by myself the ER physician at 1430. Lab Review: Laboratory results were reviewed and interpreted by myself the emergency room physician. No leukocytosis. No anemia. No renal failure. Liver enzymes are normal. Initial troponin is negative. AB.34/60/78 with an O2 sat of 93% on 3 L nasal cannula. Patient does have some acute decompensated CO2 retention. Assessment of risk: Level of risk: High risk patient: Multiple comorbidities. Oxygen dependence. Hospitalization considerations: Patient is being admitted for COPD exacerbation, pneumonia and CO2 retention. Reexamination: Patient has some improvement in his breath sounds but is still very wheezy. He gets tachypneic with any kind of exertion. No altered mental status. No focal motor deficits. Consultation: I spoke with Dr. Willams who is on-call for the hospitalist service who agrees to admission. He is familiar with the patient. Assessment and plan: COPD with acute exacerbation Acute hypercapnic respiratory failure Chronic hypoxemic respiratory failure Pneumonia Pleuritic chest pain ?IV Solu-Medrol, multiple updrafts, IV doxycycline. -I discussed the patient with the hospitalist on-call who is admitting the patient. - Discussed findings and plan with patient. Answered any questions. - All laboratory values were reviewed and interpreted personally by myself, the ER physician - All imaging was reviewed and interpreted personally by myself, the ER physician. - Evaluation and treatment of this problem were appropriate in the emergency setting Critical Care: -I spent a total of 36 minutes of critical care time managing the patient, independent of any other practitioner. -The time involved in the performance of separately reportable procedures was not counted towards critical care time. Lab Data 01/20/25 13:43 01/20/25 13:43 Labs/Radiology: Radiology Impressions Chest X-Ray 01/20/25 12:59 IMPRESSION: 1. Infiltrate in the LEFT lower lobe suspicious for developing pneumonia. There may be some mild infiltrate in the mid LEFT lung also. 2. Advanced changes of honeycombing and fibrosis as well as marked hyperinflation. Laboratory Results WBC 7.40 10^3/uL (3.29-11.43) 01/20/25 13:43 RBC 4.77 10^6/uL (3.85-5.65) 01/20/25 13:43 Hgb 14.60 g/dL (11.27-16.99) 01/20/25 13:43 Hct 46.5 % (37-53) 01/20/25 13:43 MCV 97.5 fl (82-101) 01/20/25 13:43 MCH 30.6 pg (27-33) 01/20/25 13:43 MCHC 31.4 g/dL (30-55) 01/20/25 13:43 RDW 13.5 % (12.1-15.1) 01/20/25 13:43 Plt Count 202 10^3/cmm (157-399) 01/20/25 13:43 MPV 11.0 fL (7.4-10.4) H 01/20/25 13:43 Neut % (Auto) 66.9 % 01/20/25 13:43 Lymph % (Auto) 17.6 % 01/20/25 13:43 [place] % (Auto) 12.4 % 01/20/25 13:43 Eos % (Auto) 2.4 % 01/20/25 13:43 Baso % (Auto) 0.4 % 01/20/25 13:43 Neut # (Auto) 4.95 10^3/uL (1.8-7.7) 01/20/25 13:43 Lymph # (Auto) 1.3 10^3/uL (0.8-4.8) 01/20/25 13:43 [place] # (Auto) 0.9 10^3/uL (0.2-0.9) 01/20/25 13:43 Eos # (Auto) 0.2 10^3/uL (0.0-0.8) 01/20/25 13:43 Baso # (Auto) 0.0 10^3/uL (0.0-0.1) 01/20/25 13:43 Nucleated RBC % (auto) 0 % 01/20/25 13:43 Nucleated RBCs # 0.0 /100WBC 01/20/25 13:43 Specimen Type Arterial 01/20/25 14:07 Sample Site Brachial, left 01/20/25 14:07 ABG pH 7.34 (7.35-7.45) L 01/20/25 14:07 ABG pCO2 59.2 mmHg (35-45) H 01/20/25 14:07 ABG pO2 78.4 mmHg (80.0-100.0) L 01/20/25 14:07 ABG HCO3 32.1 mmol/L (22-26) H 01/20/25 14:07 ABG O2 Saturation 95.1 01/20/25 14:07 ABG Base Excess 4.5 mmol/L (-2.0-2.0) H 01/20/25 14:07 Carter Test Pos 01/20/25 14:07 A-a O2 Gradient Not Reportable 01/20/25 14:07 Hematocrit 43.3 % (42-52) 01/20/25 14:07 Hgb O2 Saturation 93.3 % (95-100) L 01/20/25 14:07 Carboxyhemoglobin 1.0 %THgb (0.4-20.1) 01/20/25 14:07 Methemoglobin 0.9 % (0.4-1.5) 01/20/25 14:07 Total Hemoglobin 14.1 g/dL (14-18) 01/20/25 14:07 Sodium 140.0 mmol/L (131-143) 01/20/25 14:07 Potassium 4.1 mmol/L (3.5-5.0) 01/20/25 14:07 Glucose 103.0 mg/dL (70-115) 01/20/25 14:07 Ionized Calcium 1.1 mmol/L (1.1-1.4) 01/20/25 14:07 O2 Delivery Device Nc 01/20/25 14:07 O2 Liters/Min 3.0 % 01/20/25 14:07 Hydroelectric Plant Technician ID Waci 01/20/25 14:07 Sodium 142 mmol/L (136-145) 01/20/25 13:43 Potassium 5.0 mmol/L (3.5-5.1) 01/20/25 13:43 Chloride 101 mmol/L (98-107) 01/20/25 13:43 Carbon Dioxide 31 mmol/L (22-29) H 01/20/25 13:43 Anion Gap 15.0 (5-19) 01/20/25 13:43 BUN 8 mg/dL (8-23) 01/20/25 13:43 Creatinine 0.5 mg/dL (0.7-1.2) L 01/20/25 13:43 GFR Calculation Not Reportable 01/20/25 13:43 Glucose 103 mg/dL (65-115) 01/20/25 13:43 Calculated Osmolality 293 mOsm/kg (285-295) 01/20/25 13:43 Lactic Acid 1.8 mmol/L (0.5-2.2) 01/20/25 13:43 Calcium 9.0 mg/dL (8.5-10.5) 01/20/25 13:43 Total Bilirubin 0.3 mg/dL (0.15-1.2) 01/20/25 13:43 AST 18 U/L (0-40) 01/20/25 13:43 ALT 9 U/L (0-41) 01/20/25 13:43 Alkaline Phosphatase 108 U/L (40-130) 01/20/25 13:43 Troponin T Baseline 13 ng/L (0-15) 01/20/25 13:43 NT-Pro-B Natriuret Pep 69 pg/mL (0-125) 01/20/25 13:43 Total Protein 7.4 g/dL (6.6-8.7) 01/20/25 13:43 Albumin 4.3 g/dL (3.5-5.2) 01/20/25 13:43 Globulin 3.1 g/dL (1.3-4.6) 01/20/25 13:43 All radiology interpretation(s) finalized by discharge Discharge Plan Discharge Patient Disposition: Admitted As Inpatient Admit Provider: Justo Willams Clinical Impression: Acute exacerbation of chronic obstructive airways disease, Hypercapnic respiratory failure, Chronic hypoxemic respiratory failure, Pneumonia, Tobacco dependence in remission Condition: Stable Coding Level of Care Code ED Pipe Welder for Trino Mcnulty
[2025-01-20] MEDS: methylPREDNISolone sod succ 125 mg/2 mL INJ IVP (14:09)
[2025-01-20] MEDS: doxycycline 100 MG in sodium chloride 0.9% (plus) 100 ML IV (14:14)
[2025-01-20 14:15] LABS: Lactic Sepsis W/Reflex 1.8 mmol/L (0.5-2.2)
[2025-01-20] MEDS: morphine 4 mg/mL SDV 1 mL IVP (14:16)
[2025-01-20 14:18] LABS: Troponin(5th) Baseline 13 ng/L (0-15)
[2025-01-20 14:18] LABS: ABG PCO2 59.2 mmHg (35-45); ABG PH Result 7.34 (7.35-7.45); Arterial Blood Gas Hematocrit 43.3 % (42-52); Blood Gas Allen Test Pos; Blood Gas LPM 3.0 %; Blood Gas Operator Identificat WACI; Blood Gas Sample Site Brachial, left; Blood Gas Sample Type Arterial; Carboxyhemoglobin 1.0 %THgb (0.4-20.1); Glucose Level-ABG 103.0 mg/dL (70-115); HCO3 ABG 32.1 mmol/L (22-26); Ionized Calcium Level - ABG 1.1 mmol/L (1.1-1.4); Methemoglobin 0.9 % (0.4-1.5); Oxygen Saturation ABG 95.1; PO2 ABG 78.4 mmHg (80.0-100.0); Potassium Level - ABG 4.1 mmol/L (3.5-5.0); Sodium Level - ABG 140.0 mmol/L (131-143)
[2025-01-20 14:28] LABS: Alanine Aminotransferase 9 U/L (0-41); Albumin Level 4.3 g/dL (3.5-5.2); Alkaline Phosphatase 108 U/L (40-130); Anion Gap 15.0 (5-19); Aspartate Amino Transferase 18 U/L (0-40); Blood Urea Nitrogen 8 mg/dL (8-23); Calcium 9.0 mg/dL (8.5-10.5); Carbon Dioxide 31 mmol/L (22-29); Chloride 101 mmol/L (98-107); Creatinine Clr Calc Pharmacy 66.1376; Globulin 3.1 g/dL (1.3-4.6); Glucose 103 mg/dL (65-115); NT Pro B Type Natriuretic Pept 69 pg/mL (0-125); Osmolality Calculated 293 mOsm/kg (285-295); Potassium 5.0 mmol/L (3.5-5.1); Sodium 142 mmol/L (136-145); Total Protein 7.4 g/dL (6.6-8.7)
--- NOTE | 2025-01-20 14:29 | ECG_ITS ---
[facility] Date: [facility] Pat Name: Markus Trimble Department: Room: Gender: Male Sales Associate: : 1950 Requested By: Mariana Park Order Number: [id number] Reading MD: RAEANN VIERA Measurements Intervals [place] Rate: 77 P: 77 [place]: 157 QRS: 57 QRSD: 85 T: 75 QT: 354 QTc: 401 Interpretive Statements SINUS RHYTHM Compared to ECG 01/20/2025 12:33:00 Left anterior fascicular block no longer present Electronically Signed On 01-23-2025 21:16:30 CDT by RAEANN VIERA [id number]
--- NOTE | 2025-01-20 15:31 | P.HP_ITS ---
Providers/Chief Complaint 2 Admitting Physician: Justo Willams MD Primary Care Provider: Nando Green MD Chief Complaint: L side CP Hard to breath History of Present Illness Markus Trimble is a 74 year old male with a past medical history of COPD, chronic respiratory failure on BIPAP, who presents [facility] for cough, shortness of breath, fatigue, malaise, left chest sided pleurisy Patient denies any travel, no calf pain, calf swelling, hemoptysis, no sick, reports left chest wall tenderness to palpation, left chest wall pain associated with cough, uses BiPAP at home, no changes in mentation Review of Systems 2 Card: Reports: chest pain Resp: Reports: dyspnea and non-productive cough Medications/Allergies Home Medications ?Medication ?Instructions ?Recorded ?Confirmed ?Last Taken ?Type fluticasone fur. 100 mcg-umeclid 1 inh inhalation ZEE Y #60 ea 10/15/24 01/20/25 01/20/25 Rx 62.5 mcg-vilant 25 mcg inhalat.powder (Trelegy Ellipta) ipratropium 20 mcg-albuterol 100 1 puff inhalation Q6H PRN 10/15/24 01/20/25 01/20/25 Rx mcg/actuation mist for inhalation Shortness Of Breath #4 grams (Combivent Respimat) levalbuterol tartrate 45 2 inh inhalation Q6H PRN miryam rtness 10/15/24 01/20/25 Unknown Rx mcg/actuation aerosol inhaler of breath or wheezing #1 5 grams (Xopenex HFA) alprazolam 0.5 mg tablet 0.5 mg PO BID PRN anxiety #6 0 tabs 10/22/24 01/20/25 Unknown Rx Portable oxygen concentrator #1 ea 12/02/24 01/20/25 U nknown Rx guaifenesin 600 mg tablet, 600 mg PO BID PRN Congestio n 01/20/25 01/20/25 Unknown History extended release 12 hr (Mucinex) Allergies Allergy/AdvReac Type Severity Reaction Status Date / Time No Known Allergies Allergy Verified 07/08/24 17:16 PFSH Acute 2 PFSH: Medical History Nicotine dependence, cigarettes, with other nicotine-induced disorders COPD (chronic obstructive pulmonary disease) Protein calorie malnutrition Debility Acute hypercapnic respiratory failure Acute exacerbation of chronic obstructive airways disease COVID-19 (~08/2021) On home oxygen therapy 3L BNC Pleuritic chest pain Surgical History History of surgery on right wrist due to fracture History of cataract surgery bilateral History of elbow surgery right, due to fracture History of right knee surgery Family History Grandmother Diabetes Mother Diabetes Social History Smoking and tobacco/nicotine status: never used tobacco/nicotine Quit status (tobacco/nicotine): has quit using Year quit tobacco: 01/2022 Former quit date comment: 2 ppd X 51 years Alcohol intake: never Substance/Drug Use: never Household members: spouse Marital status: Vitals/I&O/Wt Last Vital Signs Temp 98.1 F 01/20/25 12:35 Pulse 79 01/20/25 15:19 Resp 20 H 01/20/25 15:19 BP 139/73 01/20/25 15:19 Pulse Ox 97 01/20/25 15:19 O2 Del Method Nasal Cannula 01/20/25 15:19 O2 Flow Rate 3 01/20/25 15:19 01/20/25 01/20/25 01/20/25 06:59 14:59 22:59 Intake Total 100 / 100 Balance 100 / 100 Weight last 48 hrs Weight 51.256 kg Physical Exam 2 Const: COMMON NORMALS: no acute distress and patient oriented x3 HENMT: COMMON NORMALS: normocephalic HEAD & SCALP: normocephalic Neck/C-Spine: COMMON NORMALS: no JVD Resp: COMMON NORMALS: normal respiratory effort, No retractions and No use of accessory muscles AUSCULTATION: wheezes OTHER: left chest wall tenderness to palpation, under nipple Cardio: COMMON NORMALS: no JVD, regular rate, regular rhythm, S1 normal heart sound present and S2 normal heart sound present RATE: regular rate RHYTHM: regular rhythm HEART SOUNDS: S1 normal heart sound present and S2 normal heart sound present GI: COMMON NORMALS: Normal to inspection, nondistended, normoactive bowel sounds present, Soft to palpation and non-tender Extremity: COMMON NORMALS: no calf tenderness and no pedal edema Neuro: COMMON NORMALS: patient oriented x3, CN's II-XII intact bilaterally and moves all extremities Psych: COMMON NORMALS: mental status grossly normal Data 01/20/25 13:43 01/20/25 13:43 Micro: Microbiology 01/20/25 13:43 Blood Culture - Preliminary Blood SPECIMEN COLLECTED 01/20/25 13:43 Blood Culture - Preliminary Blood SPECIMEN COLLECTED A&P Assessment and plan 1. Acute exacerbation of chronic obstructive airways disease: 2. Hypercapnic respiratory failure: 3. Pneumonia: Plan: Acute hypercapnic and hypoxic respiratory failure -secondary to copd -secondary to Pneumonia Plan: -continue home Bipap -continue Rocephin -continue azithromycin -continue solumedrol 40mg IV q8h -duoneb -budesonide -dnr/dni confirmed with patient, at bedside -Lovenox for dvt prophylaxis Left chest pleurisy, pain, serial EKGs, start troponins, telemetry monitoring, cardiac echo PDMP PDMP Reviewed: Not Reviewed Attestations 2 Medical Necessity Statement*: patient requires hospitalization for copd exacerbation, and pneumoniae and High MDM includes number and complexity of problems actively addressed during encounter, amount and/or complexity of data reviewed/ordered and described risk of complication, morbidity or mortality of management as documented Diagnoses Acute exacerbation of chronic obstructive airways disease J44.1 Hypercapnic respiratory failure J96.92 Pneumonia J18.9
[2025-01-20 16:49] LABS: ABG PCO2 54.2 mmHg (35-45); ABG PH Result 7.37 (7.35-7.45); Alveolar-Arterial Oxygen Gradi 11.2 mmHg (5-10); Arterial Blood Gas Hematocrit 40.3 % (42-52); Blood Gas Allen Test Pos; Blood Gas Operator Identificat WALCI; Blood Gas Sample Site Brachial, left; Blood Gas Sample Type Arterial; Carboxyhemoglobin 1.2 %THgb (0.4-20.1); Glucose Level-ABG 119.0 mg/dL (70-115); HCO3 ABG 31.3 mmol/L (22-26); Ionized Calcium Level - ABG 1.1 mmol/L (1.1-1.4); Methemoglobin 1.0 % (0.4-1.5); Oxygen Saturation ABG 90.9; PO2 ABG 60.1 mmHg (80.0-100.0); PO2 FiO2 Ratio Arterial Blood 200; Potassium Level - ABG 4.2 mmol/L (3.5-5.0); Sodium Level - ABG 141.0 mmol/L (131-143)
[2025-01-20 16:49] LABS: Troponin 5 2HR 10.45 ng/L (0-15)
[2025-01-20 16:54] LABS: Troponin 5 2HR Delta -2.55 ABS# (0-10)
[2025-01-20 18:40] LABS: Respiratory Syncytial Virus Ce NEGATIVE (Negative); SARS-CoV-2 PCR NEGATIVE (Negative)
--- NOTE | 2025-01-20 18:59 | ECG_ITS ---
[facility]20 Pat Name: Markus Trimble Department: Room: 255 Gender: Male Convention Services Manager: : 1950 Requested By: Mariana Park Order Number: [id number] Reading MD: RAEANN VIERA Measurements Intervals [place] Rate: 68 P: 79 [place]: 157 QRS: 58 QRSD: 87 T: 77 QT: 387 QTc: 413 Interpretive Statements SINUS RHYTHM Compared to ECG 01/20/2025 14:29:16 No significant changes Electronically Signed On 01-23-2025 21:16:54 CDT by RAEANN VIERA [email or web address] [id number]
--- NOTE | 2025-01-20 19:40 | USCV_ITS ---
Atilio Markus Age: 74 Gender: M : 1950 Exam Date: 01/20/2025 20:08 Ordering Phys: Justo Willams MD Technologist: GAL Exam Location: [facility] – [place] Indication: AMS, COPD, long-term respiratory failure, O2- dependent, BIPAP dependent. long-term smoker BP: 119 / 65 HR: 68 Rhythm: Sinus Technical Quality: Adequate MEASUREMENTS (Male / Female) Normal Values 2D ECHO LV Diastolic Diameter PLAX 3.4 cm 4.2 - 5.9 / 3.9 - 5.3 cm IVS Diastolic Thickness 0.8 cm 0.6 - 1.0 / 0.6 - 0.9 cm IVS Systolic Thickness 0.9 cm LVPW Diastolic Thickness 0.8 cm 0.6 - 1.0 / 0.6 - 0.9 cm LVPW Systolic Thickness 1.3 cm LVOT Diameter 2.0 cm LV Ejection Fraction 2D Teich 53.6 % LV Ejection Fraction MOD 4C 72.4 % LV Ejection Fraction MOD 2C 61.7 % LV Ejection Fraction 2C AL 62.9 % LA Diameter 3.0 cm Aorta at Sinotubular Diameter 2.9 cm IVC Diameter 1.6 cm M-MODE LA Ao Ratio MM 0.9 AV Cusp Separation MM 1.9 cm DOPPLER AV Peak Velocity 112.0 cm/s LVOT Peak Velocity 68.0 cm/s AV Area Cont Eq vti 2.4 cm squared AV Area Cont Eq pk 1.9 cm squared MV Peak Velocity 102.0 cm/s MV Area PHT 3.8 cm squared Mitral E to A Ratio 0.9 TV Peak Velocity 268.3 cm/s TR Peak Velocity 280.0 cm/s TR Peak Gradient 31.4 mmHg TV Peak E Velocity 48.0 cm/s PV Peak Velocity 102.0 cm/s FINDINGS Left Ventricle Normal left ventricular size, systolic function and wall thickness, with no regional wall motion abnormalities. Left ventricular ejection fraction is estimated at 60 %. Grade I/IV diastolic dysfunction (abnormal relaxation filling pattern), normal to mildly elevated filling pressures. Right Ventricle Normal right ventricular size and systolic function. Right Atrium Normal right atrial size. Left Atrium Normal left atrial size. IA Septum Normal appearance of the interatrial septum. Mitral Valve Normal mitral valve structure. No mitral valve stenosis or regurgitation. Aortic Valve Normal aortic valve structure. No aortic valve stenosis or regurgitation. Tricuspid Valve Mild tricuspid valve regurgitation. Pulmonic Valve Normal pulmonic valve structure. No pulmonic valve stenosis or regurgitation. Pericardium No pericardial effusion. Aorta Normal diameter of the aortic root and ascending thoracic aorta. IVC Normal IVC diameter. CONCLUSIONS Normal left ventricular size, systolic function and wall thickness, with no regional wall motion abnormalities. Left ventricular ejection fraction is estimated at 60 %. Grade I/IV diastolic dysfunction (abnormal relaxation filling pattern), normal to mildly elevated filling pressures. No significant valvular abnormalities. There is no pericardial effusion. Right atrial pressure is around 5 mm of mercury. Natasha Mendez MD (Electronically Signed) Final Date: 21 January 2025 22:36 S
[2025-01-20 20:15] LABS: Troponin 5 6HR 8.15 ng/L (0-15)
[2025-01-20 20:16] LABS: Estmated Average Glucose 103; Hemoglobin A1C 5.2 % (4.0-6.0)
[2025-01-20 20:16] LABS: Troponin 5 6HR Delta -4.85 ng/L (0-12)
[2025-01-20 20:23] LABS: Cholesterol 209 mg/dL (0-200); HDL Cholesterol 75 mg/dL (60-100); Thyroid Stimulating Hormone 1.11 uIU/mL (0.27-4.20); Triglycerides 73 mg/dL (0-150)
[2025-01-20] MEDS: pantoprazole 40 mg SDV IVP (21:16)
[2025-01-20] MEDS: cefTRIAXone 1,000 mg SDV 1000 MG IVP (21:17)
[2025-01-20] MEDS: methylPREDNISolone sod succ 40 mg/mL INJ IVP (22:40)
[2025-01-21] VITALS (14 sets, daily range): BP systolic 97–160; BP diastolic 59–82; PULSE 70–104; RESP 16–20; TEMP 36.6–36.9; O2SAT 93–97
[2025-01-21 05:19] LABS: Hematocrit 38.8 % (37-53); Hemoglobin 12.60 g/dL (11.27-16.99); Mean Corpuscular HGB Conc 32.5 g/dL (30-55); Mean Corpuscular Hemoglobin 30.8 pg (27-33); Mean Corpuscular Volume 94.9 fl (82-101); Nucleated Red Blood Cells % 0 %; Platelet Count 157 10^3/cmm (157-399); Red Blood Count 4.09 10^6/uL (3.85-5.65); White Blood Count 3.93 10^3/uL (3.29-11.43)
[2025-01-21 05:42] LABS: Alanine Aminotransferase 8 U/L (0-41); Albumin Level 3.5 g/dL (3.5-5.2); Alkaline Phosphatase 85 U/L (40-130); Anion Gap 15.8 (5-19); Aspartate Amino Transferase 14 U/L (0-40); Blood Urea Nitrogen 11 mg/dL (8-23); Calcium 8.6 mg/dL (8.5-10.5); Carbon Dioxide 28 mmol/L (22-29); Chloride 100 mmol/L (98-107); Creatinine Clr Calc Pharmacy 65.6021; Globulin 3.3 g/dL (1.3-4.6); Glucose 193 mg/dL (65-115); Magnesium 1.8 mg/dL (1.7-2.3); Osmolality Calculated 295 mOsm/kg (285-295); Potassium 3.8 mmol/L (3.5-5.1); Sodium 140 mmol/L (136-145); Total Protein 6.8 g/dL (6.6-8.7)
[2025-01-21] MEDS: methylPREDNISolone sod succ 40 mg/mL INJ IVP ×3 (06:09→22:51)
--- NOTE | 2025-01-21 11:37 | ECG_ITS ---
[facility] [place] [facility] Date: 2025-01-21 Pat Name: Markus Trimble Department: Room: 255 Gender: Male Rollout Manager: : 1950 Requested By: Justo Willams Order Number: [id number] Daniel MD: Willis Darnell M.D. Measurements Intervals [place] Rate: 98 P: 79 [place]: 162 QRS: 58 QRSD: 94 T: 79 QT: 339 QTc: 433 Interpretive Statements SINUS RHYTHM Compared to ECG 01/20/2025 18:44:41 NO SIGNIFICANT CHANGE Electronically Signed On 01-23-2025 20:44:54 CDT by Willis Darnell M.D. [id number] [id number]
--- NOTE | 2025-01-21 13:05 | P.PN_ITS ---
Subjective 2 Subjective: Patient was seen this morning, currently alert oriented x 3, follows all commands, does report a persistent cough, no fevers, no chills, does report shortness of breath Vitals/I&O/Wt Last Vital Signs Temp 98.4 F 01/21/25 11:17 Pulse 104 H 01/21/25 11:40 Resp 20 H 01/21/25 11:40 BP 97/66 01/21/25 11:17 Pulse Ox 96 01/21/25 11:40 O2 Del Method Nasal Cannula 01/21/25 11:40 O2 Flow Rate 3 01/21/25 11:40 FiO2 35 01/21/25 03:55 01/20/25 01/21/25 01/21/25 22:59 06:59 14:59 Intake Total 350 / 350 Balance 350 / 350 Weight last 48 hrs Weight 50.122 kg Weight 51.256 kg Weight 51.256 kg Physical Exam 2 Const: COMMON NORMALS: no acute distress and patient oriented x3 Resp: COMMON NORMALS: normal respiratory effort, No retractions, No use of accessory muscles and clear to auscultation bilaterally AUSCULTATION: clear to auscultation bilaterally Cardio: COMMON NORMALS: regular rate, regular rhythm, S1 normal heart sound present and S2 normal heart sound present RATE: regular rate RHYTHM: r egular rhythm HEART SOUNDS: S1 normal heart sound present and S2 normal heart sound present GI: COMMON NORMALS: Normal to inspection, nondistended, normoactive bowel sounds present and non-tender Extremity: COMMON NORMALS: no pedal edema Neuro: COMMON NORMALS: patient oriented x3 Psych: COMMON NORMALS: mental status grossly normal Data 01/21/25 04:44 01/21/25 04:44 Micro: Microbiology 01/20/25 13:43 Blood Culture - Preliminary Blood SPECIMEN COLLECTED 01/20/25 13:43 Blood Culture - Preliminary Blood SPECIMEN COLLECTED A&P Assessment and plan 1. Acute exacerbation of chronic obstructive airways disease: 2. Hypercapnic respiratory failure: 3. Pneumonia: Plan: Acute hypercapnic and hypoxic respiratory failure -secondary to copd -secondary to Pneumonia Plan: -continue home Bipap -continue Rocephin -continue azithromycin -continue solumedrol 40mg IV q8h -duoneb -budesonide -dnr/dni confirmed with patient, at bedside -Lovenox for dvt prophylaxis Left chest pleurisy, pain, serial EKGs, start troponins, telemetry monitoring, cardiac echo PDMP PDMP Reviewed: Not Reviewed Attestations 2 Medical Necessity Statement*: Patient requires hospitalization for respiratory failure secondary to COPD Diagnoses Acute exacerbation of chronic obstructive airways disease J44.1 Hypercapnic respiratory failure J96.92 Pneumonia J18.9
[2025-01-21] MEDS: cefTRIAXone 1,000 mg SDV 1000 MG IVP (18:22)
[2025-01-21] MEDS: pantoprazole 40 mg SDV IVP (18:23)
[2025-01-22] VITALS (17 sets, daily range): BP systolic 106–129; BP diastolic 52–73; PULSE 61–98; RESP 14–20; TEMP 36.4–36.7; O2SAT 95–100
[2025-01-22] MEDS: methylPREDNISolone sod succ 40 mg/mL INJ IVP ×2 (05:24→13:09)
[2025-01-22 05:25] LABS: Hematocrit 39.0 % (37-53); Hemoglobin 12.60 g/dL (11.27-16.99); Mean Corpuscular HGB Conc 32.3 g/dL (30-55); Mean Corpuscular Hemoglobin 31.2 pg (27-33); Mean Corpuscular Volume 96.5 fl (82-101); Nucleated Red Blood Cells % 0 %; Platelet Count 209 10^3/cmm (157-399); Red Blood Count 4.04 10^6/uL (3.85-5.65); White Blood Count 10.60 10^3/uL (3.29-11.43)
[2025-01-22 05:49] LABS: Alanine Aminotransferase 9 U/L (0-41); Albumin Level 3.7 g/dL (3.5-5.2); Alkaline Phosphatase 72 U/L (40-130); Anion Gap 13.4 (5-19); Aspartate Amino Transferase 22 U/L (0-40); Blood Urea Nitrogen 11 mg/dL (8-23); Calcium 8.9 mg/dL (8.5-10.5); Carbon Dioxide 30 mmol/L (22-29); Chloride 103 mmol/L (98-107); Creatinine Clr Calc Pharmacy 66.2448; Globulin 3.1 g/dL (1.3-4.6); Glucose 146 mg/dL (65-115); Magnesium 2.0 mg/dL (1.7-2.3); Osmolality Calculated 296 mOsm/kg (285-295); Potassium 4.4 mmol/L (3.5-5.1); Sodium 142 mmol/L (136-145); Total Protein 6.8 g/dL (6.6-8.7)
--- NOTE | 2025-01-22 10:19 | PC.SOCIAL ---
IMM Update pg 2 of IMM Updated and reviewed w/ patient. Copy provided and copy dated, initialed and placed in chart.
--- NOTE | 2025-01-22 15:22 | P.PN_ITS ---
Subjective 2 Subjective: Patient was seen this morning, currently alert oriented x 3, following all commands, complains of shortness of breath, cough Vitals/I&O/Wt Last Vital Signs Temp 97.6 F 01/22/25 11:34 Pulse 98 01/22/25 14:15 Resp 14 01/22/25 14:00 BP 106/65 01/22/25 11:34 Pulse Ox 98 01/22/25 14:00 O2 Del Method Nasal Cannula 01/22/25 14:00 O2 Flow Rate 3 01/22/25 14:00 FiO2 35 01/22/25 03:21 Weight last 48 hrs Weight 51.483 kg Weight 50.122 kg Weight 51.256 kg Physical Exam 2 Const: COMMON NORMALS: no acute distress and patient oriented x3 Resp: COMMON NORMALS: normal respiratory effort, No retractions, No use of accessory muscles and clear to auscultation bilaterally AUSCULTATION: clear to auscultation bilaterally Cardio: COMMON NORMALS: regular rate, regular rhythm, S1 normal heart sound present and S2 normal heart sound present RATE: regular rate RHYTHM: r egular rhythm HEART SOUNDS: S1 normal heart sound present and S2 normal heart sound present GI: COMMON NORMALS: Normal to inspection, nondistended, normoactive bowel sounds present and non-tender Extremity: COMMON NORMALS: no pedal edema Neuro: COMMON NORMALS: patient oriented x3 Psych: COMMON NORMALS: mental status grossly normal Data 01/22/25 05:06 01/22/25 05:06 Micro: Microbiology 01/20/25 13:43 Blood Culture - Preliminary Blood NEGATIVE TO DATE 01/20/25 13:43 Blood Culture - Preliminary Blood NEGATIVE TO DATE A&P Assessment and plan 1. Acute exacerbation of chronic obstructive airways disease: 2. Hypercapnic respiratory failure: 3. Pneumonia: Plan: Acute hypercapnic and hypoxic respiratory failure -secondary to copd -secondary to Pneumonia Plan: -continue home Bipap -continue Rocephin -continue azithromycin -continue solumedrol 40mg IV q8h -duoneb -budesonide -dnr/dni confirmed with patient, at bedside -Lovenox for dvt prophylaxis Left chest pleurisy, resolving PDMP PDMP Reviewed: Not Reviewed Attestations 2 Medical Necessity Statement*: Patient requires hospitalization for acute hypoxic respiratory failure Diagnoses Acute exacerbation of chronic obstructive airways disease J44.1 Hypercapnic respiratory failure J96.92 Pneumonia J18.9
[2025-01-22] MEDS: cefTRIAXone 1,000 mg SDV 1000 MG IVP (21:18)
[2025-01-22] MEDS: pantoprazole 40 mg SDV IVP (21:18)
[2025-01-23] VITALS (9 sets, daily range): BP systolic 110–128; BP diastolic 64–73; PULSE 57–73; RESP 15–20; TEMP 36.4–36.8; O2SAT 92–100
[2025-01-23 05:16] LABS: Hematocrit 36.3 % (37-53); Hemoglobin 11.70 g/dL (11.27-16.99); Mean Corpuscular HGB Conc 32.2 g/dL (30-55); Mean Corpuscular Hemoglobin 30.7 pg (27-33); Mean Corpuscular Volume 95.3 fl (82-101); Nucleated Red Blood Cells % 0 %; Platelet Count 209 10^3/cmm (157-399); Red Blood Count 3.81 10^6/uL (3.85-5.65); White Blood Count 9.55 10^3/uL (3.29-11.43)
[2025-01-23 05:38] LABS: Alanine Aminotransferase 9 U/L (0-41); Albumin Level 3.2 g/dL (3.5-5.2); Alkaline Phosphatase 56 U/L (40-130); Anion Gap 9.9 (5-19); Aspartate Amino Transferase 17 U/L (0-40); Blood Urea Nitrogen 13 mg/dL (8-23); Calcium 8.5 mg/dL (8.5-10.5); Carbon Dioxide 31 mmol/L (22-29); Chloride 103 mmol/L (98-107); Creatinine Clr Calc Pharmacy 66.3519; Globulin 2.8 g/dL (1.3-4.6); Glucose 102 mg/dL (65-115); Magnesium 2.0 mg/dL (1.7-2.3); Osmolality Calculated 290 mOsm/kg (285-295); Potassium 3.9 mmol/L (3.5-5.1); Sodium 140 mmol/L (136-145); Total Protein 6.0 g/dL (6.6-8.7)
--- NOTE | 2025-01-23 10:53 | P.DS_ITS ---
Discharge Providers Date of Admission: 01/20/25 15:19 Date of Discharge: January 23, 2025 Attending Provider at Admission: Justo Willams MD Attending Provider at Discharge: Justo Willams MD Primary Care Provider: Nando Green MD Diagnoses at Discharge Discharge Diagnosis 1. Acute exacerbation of chronic obstructive airways disease: 2. Hypercapnic respiratory failure: 3. Pneumonia: Reason for Visit Reason for Visit: L side CP Hard to breath Hospital Course Hospital Course Markus Trimble is a 74 year old male with a past medical history of COPD, chronic respiratory failure on BIPAP, who presents [facility] for cough, shortness of breath, fatigue, malaise, left chest sided pleurisy Patient denies any travel, no calf pain, calf swelling, hemoptysis, no sick, reports left chest wall tenderness to palpation, left chest wall pain associated with cough, uses BiPAP at home, no changes in mentation Patient was admitted to [facility] for acute hypercapnic hypoxic respiratory failure secondary to COPD, pneumonia, received inpatient IV antib iotics, IV steroids, BiPAP therapy, and clinically monitored. Overall patient clinical condition improved, discharged on nasal cannula, oral steroids, oral antibiotics with close follow-up with primary care provider as outpatient. Physical Exam Const: COMMON NORMALS: no acute distress and patient oriented x3 Resp: COMMON NORMALS: normal respiratory effort, No retractions, No use of accessory muscles and clear to auscultation bilaterally AUSCULTATION: clear to auscultation bilaterally Cardio: COMMON NORMALS: regular rate, regular rhythm, S1 normal heart sound present and S2 normal heart sound present RATE: regular rate RHYTHM: regular rhythm HEART SOUNDS: S1 normal heart sound present and S2 normal heart sound present GI: COMMON NORMALS: Normal to inspection, nondistended, normoactive bowel sounds present Extremity: COMMON NORMALS: no pedal edema Neuro: COMMON NORMALS: patient oriented x3 Psych: COMMON NORMALS: mental status grossly normal Discharge Data Studies Completed and Pending Completed Studies During Hospitalization Category Date Time Status XR chest 1V portable [id number] Stat Exams 01/20/25 12:59 Completed CV. echo complete* [id number] Routine Ultrasound 01/20/25 19:40 Completed Pending at discharge Category Date Time Status Blood Culture Stat Lab 01/20/25 13:43 Results Radiology Impressions Chest X-Ray 01/20/25 12:59 IMPRESSION: 1. Infiltrate in the LEFT lower lobe suspicious for developing pneumonia. There may be some mild infiltrate in the mid LEFT lung also. 2. Advanced changes of honeycombing and fibrosis as well as marked hyperinflation. Laboratory Results WBC 9.55 10^3/uL (3.29-11.43) 01/23/25 04:27 RBC 3.81 10^6/uL (3.85-5.65) L 01/23/25 04:27 Hgb 11.70 g/dL (11.27-16.99) 01/23/25 04:27 Hct 36.3 % (37-53) L 01/23/25 04:27 MCV 95.3 fl (82-101) 01/23/25 04:27 MCH 30.7 pg (27-33) 01/23/25 04:27 MCHC 32.2 g/dL (30-55) 01/23/25 04:27 RDW 13.8 % (12.1-15.1) 01/23/25 04:27 Plt Count 209 10^3/cmm (157-399) 01/23/25 04:27 MPV 11.0 fL (7.4-10.4) H 01/23/25 04:27 Neut % (Auto) 74.9 % 01/23/25 04:27 Lymph % (Auto) 15.2 % 01/23/25 04:27 [place] % (Auto) 9.5 % 01/23/25 04:27 Eos % (Auto) 0.0 % 01/23/25 04:27 Baso % (Auto) 0.0 % 01/23/25 04:27 Neut # (Auto) 7.15 10^3/uL (1.8-7.7) 01/23/25 04:27 Lymph # (Auto) 1.5 10^3/uL (0.8-4.8) 01/23/25 04:27 [place] # (Auto) 0.9 10^3/uL (0.2-0.9) 01/23/25 04:27 Eos # (Auto) 0.0 10^3/uL (0.0-0.8) 01/23/25 04:27 Baso # (Auto) 0.0 10^3/uL (0.0-0.1) 01/23/25 04:27 Nucleated RBC % (auto) 0 % 01/23/25 04:27 Nucleated RBCs # 0.0 /100WBC 01/23/25 04:27 Specimen Type Arterial 01/20/25 16:38 Sample Site Brachial, left 01/20/25 16:38 ABG pH 7.37 (7.35-7.45) 01/20/25 16:38 ABG pCO2 54.2 mmHg (35-45) H 01/20/25 16:38 ABG pO2 60.1 mmHg (80.0-100.0) L 01/20/25 16:38 ABG PO2/FiO2 Ratio 200 01/20/25 16:38 ABG HCO3 31.3 mmol/L (22-26) H 01/20/25 16:38 ABG O2 Saturation 90.9 01/20/25 16:38 ABG Base Excess 4.7 mmol/L (-2.0-2.0) H 01/20/25 16:38 Carter Test Pos 01/20/25 16:38 A-a O2 Gradient 11.2 mmHg (5-10) H 01/20/25 16:38 Hematocrit 40.3 % (42-52) L 01/20/25 16:38 Hgb O2 Saturation 88.9 % (95-100) L 01/20/25 16:38 Carboxyhemoglobin 1.2 %THgb (0.4-20.1) 01/20/25 16:38 Methemoglobin 1.0 % (0.4-1.5) 01/20/25 16:38 Total Hemoglobin 13.1 g/dL (14-18) L 01/20/25 16:38 Sodium 141.0 mmol/L (131-143) 01/20/25 16:38 Potassium 4.2 mmol/L (3.5-5.0) 01/20/25 16:38 Glucose 119.0 mg/dL (70-115) H 01/20/25 16:38 Ionized Calcium 1.1 mmol/L (1.1-1.4) 01/20/25 16:38 O2 Delivery Device Bipap 01/20/25 16:38 O2 Liters/Min 3.0 % 01/20/25 14:07 FiO2 30.0 % 01/20/25 16:38 Cable Installation Manager ID [place] 01/20/25 16:38 Sodium 140 mmol/L (136-145) 01/23/25 04:27 Potassium 3.9 mmol/L (3.5-5.1) 01/23/25 04:27 Chloride 103 mmol/L (98-107) 01/23/25 04:27 Carbon Dioxide 31 mmol/L (22-29) H 01/23/25 04:27 Anion Gap 9.9 (5-19) 01/23/25 04:27 BUN 13 mg/dL (8-23) 01/23/25 04:27 Creatinine 0.4 mg/dL (0.7-1.2) L 01/23/25 04:27 GFR Calculation Not Reportable 01/23/25 04:27 Glucose 102 mg/dL (65-115) 01/23/25 04:27 Estimat Average Glucose 103 01/20/25 13:43 Hemoglobin A1c 5.2 % (4.0-6.0) 01/20/25 13:43 Calculated Osmolality 290 mOsm/kg (285-295) 01/23/25 04:27 Lactic Acid 1.8 mmol/L (0.5-2.2) 01/20/25 13:43 Calcium 8.5 mg/dL (8.5-10.5) 01/23/25 04:27 Phosphorus 2.2 mg/dL (2.5-4.5) L 01/23/25 04:27 Magnesium 2.0 mg/dL (1.7-2.3) 01/23/25 04:27 Total Bilirubin 0.2 mg/dL (0.15-1.2) 01/23/25 04:27 AST 17 U/L (0-40) 01/23/25 04:27 ALT 9 U/L (0-41) 01/23/25 04:27 Alkaline Phosphatase 56 U/L (40-130) 01/23/25 04:27 Troponin T Baseline 13 ng/L (0-15) 01/20/25 13:43 Troponin T 120 Minute 10.45 ng/L (0-15) 01/20/25 15:49 Delta Troponin T -2.55 ABS# (0-10) L 01/20/25 15:49 Troponin T Hi Sens 6Hr 8.15 ng/L (0-15) 01/20/25 19:50 Troponin T Hi Sens 6Hr Delta -4.85 ng/L (0-12) L 01/20/25 19:50 NT-Pro-B Natriuret Pep 69 pg/mL (0-125) 01/20/25 13:43 Total Protein 6.0 g/dL (6.6-8.7) L 01/23/25 04:27 Albumin 3.2 g/dL (3.5-5.2) L 01/23/25 04:27 Globulin 2.8 g/dL (1.3-4.6) 01/23/25 04:27 Triglycerides 73 mg/dL (0-150) 01/20/25 13:43 Cholesterol 209 mg/dL (0-200) H 01/20/25 13:43 LDL Cholesterol, Calc 119 mg/dL (50-129) 01/20/25 13:43 HDL Cholesterol 75 mg/dL (60-100) 01/20/25 13:43 LDL/HDL Ratio 1.59 RATIO (0.00-3.22) 01/20/25 13:43 Cholesterol/HDL Ratio 2.79 mg/dL (1.0-5.00) 01/20/25 13:43 TSH 1.11 uIU/mL (0.27-4.20) 01/20/25 13:43 Influenza A (PCR) Negative (Negative) 01/20/25 17:38 Influenza Type B (PCR) Negative (Negative) 01/20/25 17:38 RSV (PCR) Negative (Negative) 01/20/25 17:38 SARS-CoV-2 (PCR) Negative (Negative) 01/20/25 17:38 Vitals Last Vital Signs Temp 97.9 F 01/23/25 07:37 Pulse 63 01/23/25 07:37 Resp 16 01/23/25 07:37 BP 110/65 01/23/25 07:37 Pulse Ox 100 01/23/25 07:37 O2 Del Method Nasal Cannula 01/23/25 07:37 O2 Flow Rate 3 01/23/25 08:00 FiO2 35 01/23/25 04:40 Discharge Plan Discharge Patient Disposition: Home Condition: Stable Prescriptions: New prednisone 20 mg Tablet 40 mg PO DAILY 5 Days Qty: 10 0RF levofloxacin 750 mg tablet 750 mg PO DAILY 4 Days Qty: 4 0RF Continued (DME) Portable oxygen concentrator See Rx Instructions .Route .MEDSUPPLY Qty: 1 0RF Rx Instructions: setting of 3L levalbuterol tartrate [Xopenex HFA] 45 mcg/actuation HFA aerosol inhaler 2 inh inhalation Q6H PRN (Reason: shortness of breath or wheezing) Qty: 15 6RF Rx Instructions: Do not use within 4 hours of Combivent Combivent Respimat 20-100 mcg/actuation mist 1 puff inhalation Q6H PRN (Reason: Shortness Of Breath) Qty: 4 11RF Trelegy Ellipta 100-62.5-25 mcg blister with device 1 inh inhalation DAILY Qty: 60 6RF alprazolam 0.5 mg tablet 0.5 mg PO BID PRN (Reason: anxiety) Qty: 60 3RF guaifenesin [Mucinex] 600 mg tablet extended release 12hr 600 mg PO BID PRN (Reason: Congestion) Discharge Order = DC NOW: Discharge Order (Routine); Ordered 01/23/25 Ordered By: Justo Willams Referrals: Ignacia Pizarro MD [Physician, Pulmonology] - 1 week Referral Note: We have notified your physician's clinic of the need for a follow-up appointment to be scheduled. If you have not heard from them within the next 2 business days, please call them directly. Nando Green MD [Primary Care Provider, [facility]] Referral Note: We have notified your physician's clinic of the need for a follow-up appointment to be scheduled. If you have not heard from them within the next 2 business days, please call them directly. Discharge Diet: Cardiac Discharge Activity: Resume usual activity Patient Instructions: COPD, Prednisone (By mouth) (Prednisone Intensol, Prednicot, Deltasone, Anna), Levofloxacin (By mouth), Community Acquired Pneumonia (DC), Opioid Safety, Patient Portal & Chasity Instructions Activity Restrictions/Additional Instructions: -if you have chest pain or shortness of breath go to emergency room Discharge Attestations Time Spent in Discharge Care*: greater than 30 min Status at Discharge: Cognitive status at discharge: cognitively intact , Behavioral status at discharge: cooperative , Quality Metrics Clinical Quality Measures [ No reported AMI, CVA or VTE this stay] Coding Level of Care Code 14830 Total time (in minutes) for Discharge: 45 Diagnoses Acute exacerbation of chronic obstructive airways disease J44.1 Hypercapnic respiratory failure J96.92 Pneumonia J18.9
== END 2025-01-23 11:15 | disposition home or self-care (01) | DRG 193 ==
LOC: ER 14:38 → ER IP 15:19 → MEDSURG 18:32
PROVIDERS: Admitting Provider Family Medicine; Emergency Provider Emergency Medicine; PCP Family Medicine; Visit Provider Family Medicine
DX: J18.9 Pneumonia, unspecified organism (principal); J96.02 Acute respiratory failure with hypercapnia; J96.21 Acute and chronic respiratory failure with hypoxia; J44.0 Chronic obstructive pulmonary disease with (acute) lower respiratory infection; J44.1 Chronic obstructive pulmonary disease with (acute) exacerbation; Z66 Do not resuscitate; Z87.891 Personal history of nicotine dependence; Z99.81 Dependence on supplemental oxygen; Z79.51 Long term (current) use of inhaled steroids; G47.33 Obstructive sleep apnea (adult) (pediatric); F41.9 Anxiety disorder, unspecified
CPT/HCPCS: 36415; 36600; 71045; 80051; 80053; 80061; 82330; 82805; 83036; 83605; 83735; 83880; 84100; 84443; 84484; 85025; 87040; 87637; 93005; 93306; 94640; 94660; 96372; 96374; 96375; 99285; J0456; J0696; J1650; J2270; J2470; J2919; J3490; J7050; J7512; J7613; J7614; J7626; J9999; Q0144